=== PATIENT | male | born 1955 | race Caucasian/White ===

== ENCOUNTER 2019-10-24 05:51 | Inpatient (IN) | payer MEDICARE, MEDICAID, SELFPAY ==
[2019-10-24] VITALS (22 sets, daily range): BP systolic 105–169; BP diastolic 63–109; PULSE 46–87; RESP 10–25; TEMP 36.6–36.7; O2SAT 92–99; BMI 30.7
--- NOTE | 2019-10-24 06:04 | ED_ITS ---
HPI - Chest Pain General: Chief Complaint: Chest Pain Stated Complaint: CP Time Seen by Provider: 10/24/19 06:04 History of Present Illness: HPI narrative: chest pain started yesterday around noon. worse with exertion. sob. nausea. MD complaint: chest pain, chest heaviness and chest discomfort Onset (ago): day(s) (1) Timing of current episode: episodic Prior episodes: No Onset: during rest Pain location: right chest Severity: moderate Quality: heaviness Relieving factors: nothing Exacerbating factors: exertion and inspiration Associated symptoms: Reports dyspnea and nausea Treatment prior to arrival: aspirin, nitroglycerin and oxygen Review of Systems General: Denies: ROS unobtainable due to endotracheal tube, ROS unobtainable due to medical condition, ROS unobtainable due to mental status or other Card: Reports: chest pain Resp: Reports: shortness of breath GI: Reports: nausea PFS ED PFSH: Statuses (acute, chronic, etc) shown below reflect problem list status as previously entered and may not be historically accurate Social History Smoking and tobacco status: current every day smoker Physical Exam Const: COMMON NORMALS: no apparent distress, average body habitus, oriented x3, no limitations, healthy appearing, alert and well nourished Neck/C-Spine: COMMON NORMALS: full ROM, no lymphadenopathy, supple and no JVD Resp: COMMON NORMALS: normal respiratory effort, no retractions, no use of accessory muscles and clear to auscultation bilaterally EFFORT & INSPECTION: Yes able to speak in complete sentences AUSCULTATION: clear to auscultation bilaterally Cardio: COMMON NORMALS: no JVD, regular rate, regular rhythm and no murmurs RATE: regular rate RHYTHM: regular rhythm Extremity: COMMON NORMALS: normal to inspection, normal capillary refill and no pedal edema Neuro: COMMON NORMALS: oriented x3 SENSORIUM/ORIENTATION: Yes alert Skin: COMMON NORMALS: no rashes or lesions noted, no wounds and skin turgor normal GENERAL SKIN EXAM: no rashes or lesions noted and turgor normal Course Vital Signs: Vital signs: Vital Signs Temperature 97.9 F 10/24/19 05:52 Pulse Rate 87 10/24/19 05:52 Respiratory Rate 18 10/24/19 05:52 Blood Pressure 169/109 10/24/19 05:52 Pulse Oximetry 99 10/24/19 06:00 MDM - Chest Pain Lab Data: Labs: Lab Results 10/24/19 10/24/19 10/24/19 Range/Units 05:57 05:57 05:57 WBC 8.8 (4.0-10.0) 10^3/ uL RBC 4.65 (4.1-5.3) 10^6/u L Hgb 14.2 (11.7-16.6) g/dL Hct 41.5 L (42.0-52.0) % MCV 89.2 (80-94) fL MCH 30.5 (28.0-34.0) pg MCHC 34.2 (30.0-36.0) g/dL RDW 11.9 L (12.1-15.1) % Plt Count 233 (130-400) 10^3/c mm MPV 9.7 (7.4-10.4) fL Neut % (Auto) 50.6 % Lymph % (Auto) 31.6 % [place] % (Auto) 10.4 % Eos % (Auto) 6.6 % Baso % (Auto) 0.5 % Neut # (Auto) 4.5 (1.8-7.7) 10^3/u L Lymph # (Auto) 2.8 (0.8-4.8) 10^3/u L [place] # (Auto) 0.9 (0.2-0.9) 10^3/u L Eos # (Auto) 0.6 (0.0-0.8) 10^3/u L Baso # (Auto) 0.0 (0.0-0.1) 10^3/u L Nucleated RBC % (a uto) 0 % Nucleated RBCs # 0.0 /100WBC D-Dimer 0.50 (0-0.59) ug/mIFE U Sodium 139 (136-145) mmol/L Potassium 3.3 L (3.5-5.1) mmol/L Chloride 99 (98-107) mmol/L Carbon Dioxide 26 (22-29) mmol/L Anion Gap 17.3 (5-19) BUN 13 (8-23) mg/dL Creatinine 0.9 (0.7-1.2) mg/dL GFR Calculation 84.4 L (90-130) mL/min Glucose 131 H (65-115) mg/dL Calcium 9.5 (8.5-10.5) mg/dL Total Bilirubin 0.4 (0.15-1.2) mg/dL AST 20 (0-40) U/L ALT 15 (0-41) U/L Alkaline Phosphata se 115 (40-130) IU/L Troponin T Baselin e (0-15) ng/mL Troponin T 120 Min megan (0-15) ng/mL Delta Troponin T (0-10) ABS# NT-Pro-B Natriuret Pep 375 H (0-125) pg/mL Total Protein 7.9 (6.6-8.7) g/dL Albumin 4.0 (3.5-5.2) g/dL Globulin 3.9 (1.3-4.6) g/dL 10/24/19 10/24/19 Range/Units 05:57 08:02 WBC (4.0-10.0) 10^3/ uL RBC (4.1-5.3) 10^6/u L Hgb (11.7-16.6) g/dL Hct (42.0-52.0) % MCV (80-94) fL MCH (28.0-34.0) pg MCHC (30.0-36.0) g/dL RDW (12.1-15.1) % Plt Count (130-400) 10^3/c mm MPV (7.4-10.4) fL Neut % (Auto) % Lymph % (Auto) % [place] % (Auto) % Eos % (Auto) % Baso % (Auto) % Neut # (Auto) (1.8-7.7) 10^3/u L Lymph # (Auto) (0.8-4.8) 10^3/u L [place] # (Auto) (0.2-0.9) 10^3/u L Eos # (Auto) (0.0-0.8) 10^3/u L Baso # (Auto) (0.0-0.1) 10^3/u L Nucleated RBC % (a uto) % Nucleated RBCs # /100WBC D-Dimer (0-0.59) ug/mIFE U Sodium (136-145) mmol/L Potassium (3.5-5.1) mmol/L Chloride (98-107) mmol/L Carbon Dioxide (22-29) mmol/L Anion Gap (5-19) BUN (8-23) mg/dL Creatinine (0.7-1.2) mg/dL GFR Calculation (90-130) mL/min Glucose (65-115) mg/dL Calcium (8.5-10.5) mg/dL Total Bilirubin (0.15-1.2) mg/dL AST (0-40) U/L ALT (0-41) U/L Alkaline Phosphata se (40-130) IU/L Troponin T Baselin e 44 H (0-15) ng/mL Troponin T 120 Min megan 118.80 H (0-15) ng/mL Delta Troponin T 74.80 H* (0-10) ABS# NT-Pro-B Natriuret Pep (0-125) pg/mL Total Protein (6.6-8.7) g/dL Albumin (3.5-5.2) g/dL Globulin (1.3-4.6) g/dL Discharge Plan Discharge Clinical Impression: Unstable angina pectoris, Acute non-ST elevation myocardial infarction (NSTEMI) Chest pain Qualifiers: Chest pain type: chest pain due to myocardial ischemia Ischemic chest pain type: unstable angina pectoris Qualified Code(s): I20.0 - Unstable angina Condition: Fair Prescriptions: No Action aspirin 325 mg Tablet 325 mg PO DAILY RF: 0 Plavix 75 mg Tablet 75 mg PO DAILY RF: 0 Coding Level of Care Code 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
--- NOTE | 2019-10-24 06:22 | XR_ITS ---
WS: [id number] Portable AP upright chest, 10/24/2019 Clinical Data: chest pain / dyspnea Comparison: Mobile chest, 06/21/2019. Findings: No nodules, masses or effusions are seen. The heart is normal. The pulmonary vascularity is not increased. No pneumonia or pneumothorax is seen. Monitor leads on the chest wall. The aortic arc h and descending aorta are tortuous. XR/XR chest 1V portable [id number] Impression: Atherosclerosis.
--- NOTE | 2019-10-24 06:22 | ECG_ITS ---
Measurements Intervals [place] Rate: 90 P: 48 MN: 163 QRS: -3 QRSD: 94 T: 63 QT: 368 QTc: [address] & T-WAVE ABNORMALITY Compared to ECG 06/21/2019 23:32:57 No significant changes Electronically Signed On 10-24-2019 19:53:48 TECHNICIANS AND TRADES WORKERS by Carol Tse M.D. [id number]
--- NOTE | 2019-10-24 06:35 | PC.NURSE ---
portable xray at bedside
[2019-10-24 06:42] LABS: Basophils % 0.5 %; Eosinophils # 0.6 10^3/uL (0.0-0.8); Eosinophils % 6.6 %; Hematocrit 41.5 % (42.0-52.0); Hemoglobin 14.2 g/dL (11.7-16.6); Lymphocytes # 2.8 10^3/uL (0.8-4.8); Lymphocytes % 31.6 %; Mean Corpuscular HGB Conc 34.2 g/dL (30.0-36.0); Mean Corpuscular Hemoglobin 30.5 pg (28.0-34.0); Mean Corpuscular Volume 89.2 fL (80-94); Mean Platelet Volume 9.7 fL (7.4-10.4); Monocytes # 0.9 10^3/uL (0.2-0.9); Monocytes % 10.4 %; Neutrophils # 4.5 10^3/uL (1.8-7.7); Neutrophils % 50.6 %; Nucleated Red Blood Cells % 0 %; Platelet Count 233 10^3/cmm (130-400); Red Blood Count 4.65 10^6/uL (4.1-5.3); Red Cell Distribution Width 11.9 % (12.1-15.1); White Blood Count 8.8 10^3/uL (4.0-10.0)
[2019-10-24 06:54] LABS: Troponin(5th) Baseline 44 ng/mL (0-15)
[2019-10-24 07:03] LABS: Alanine Aminotransferase 15 U/L (0-41); Alkaline Phosphatase 115 IU/L (40-130); Anion Gap 17.3 (5-19); Aspartate Amino Transferase 20 U/L (0-40); Blood Urea Nitrogen 13 mg/dL (8-23); Calcium 9.5 mg/dL (8.5-10.5); Carbon Dioxide 26 mmol/L (22-29); Chloride 99 mmol/L (98-107); Globulin 3.9 g/dL (1.3-4.6); Glomerular Filtration Rate 84.4 mL/min (90-130); Glucose 131 mg/dL (65-115); NT Pro B Type Natriuretic Pept 375 pg/mL (0-125); Potassium 3.3 mmol/L (3.5-5.1); Sodium 139 mmol/L (136-145); Total Bilirubin 0.4 mg/dL (0.15-1.2); Total Protein 7.9 g/dL (6.6-8.7)
--- NOTE | 2019-10-24 08:22 | ECG_ITS ---
Measurements Intervals [place] Rate: 49 P: 75 MA: 138 QRS: 6 QRSD: 102 T: 60 QT: 436 QTc: 396 SINUS BRADYCARDIA WITH OCCASIONAL SUPRAVENTRICULAR PREMATURE COMPLEXES ST DEVIATION AND MODERATE T-WAVE ABNORMALITY, CONSIDER INFERIOR ISCHEMIA [-0.1+ mV T WAVE IN II/aVF] INTERPRETATION BASED ON A DEFAULT AGE OF 40 YEARS Compared to ECG 06/21/2019 23:32:57 Possible ischemia now present Sinus rhythm no longer present T-wave abnormality still present Electronically Signed On 10-24-2019 20:06:55 ALUMINUM SIDING INSTALLER by Carol Tse M.D. [id number]
--- NOTE | 2019-10-24 09:19 | PC.NURSE ---
EKG performed and showed to ED physician.
--- NOTE | 2019-10-24 09:33 | P.HP_ITS ---
Providers/Chief Complaint Admitting Physician: Amelia Betancourt DO Primary Care Provider: Dr. Jesús Castellano Chief Complaint: CP History of Present Illness Arnaldo Chacon is a 64 year old male with a past medical history of hyperlipidemia and multiple strokes along with carotid artery stenosis that presented to the emergency department today for chest pain. He stated that he began having chest pain yesterday at noon, monitored the pain and it would come and go but this morning he began to have worsening discomfort. He stated that he began having a heavy sensation in the right side of his chest that radiated to the center of his chest that was worse with exertion. He stated that when he got up to take a shower and when he was even doing minimal activities around the house he began having worsening discomfort. He stated that the pain became so intense that he came into the ER for further evaluation and treatment. He reported that the nitro resolved the pain and also reported that when he would rest at home his pain would resolve. He stated that the only thing that would make it worse with any type of exertional symptoms. He denies any recent fever, no sick contacts, no change in cough or sputum production. Reports a chronic cough from smoking. Patient was seen and evaluated in the emergency department noted to have concern for non-ST elevation SC and admitted for further evaluation and treatment. At time of my exam patient reports that he is chest pain-free after nitroglycerin Review of Systems Const: Denies: fever or chills Eyes: Denies: change in vision ENMT: Denies: nasal congestion Card: Reports: chest pain and edema; Denies: palpitations Resp: Reports: shortness of breath; Denies: productive cough or coughing up blood GI: Denies: abdominal pain, nausea, vomiting, diarrhea, constipation, blood in stool or black tarry stool : Denies: painful urination or blood in urine Musc: Denies: extremity pain or muscle cramps Skin/Breast: Denies: rash or new lesion Neuro: Denies: headache or dizziness Psych: Denies: anxiety or depression Endo: Reports: excessive urination; Denies: hot flashes [place]/Lymph: Denies: easy bruising or easy bleeding Medications/Allergies Home Medications Medication Instructions Recorded Confirmed Last Taken Type aspirin 325 mg PO DAILY 10/24/19 10/24/19 10/23/19 History clopidogrel [Plavix] 75 mg PO DAILY 10/24/19 10/24/19 10/23/19 History Allergies Allergy/AdvReac Type Severity Reaction Status Date / Time Penicillins Allergy Unknown Verified 10/24/19 05:58 PFSH Acute PFSH: Statuses (acute, chronic, etc) shown below reflect problem list status as previously entered and may not be historically accurate Medical History (Updated 10/24/19 @ 09:57 by Amelia Betancourt DO) Carotid stenosis Left carotid artery thromboendarterectomy performed on 11/27/[address] Zuniga History of CVA (cerebrovascular accident) History of right middle cerebral artery territory infarct Left middle cerebral artery stroke in 2014 Right internal carotid artery occlusion Left middle cerebral critical stenosis Hyperlipidemia Hypertension Tobacco abuse Surgical History (Updated 10/24/19 @ 09:42 by Amelia Betancourt DO) History of carotid endarterectomy Left carotid artery thromboendarterectomy performed on 11/27/[address] Zuniga History of lymph node excision Reported in the left axilla Family History (Updated 10/24/19 @ 09:43 by Amelia Betancourt DO) Mother Stroke Father Diabetes CAD (coronary artery disease) Social History (Updated 10/24/19 @ 09:43 by Amelia Betancourt DO) Smoking and tobacco status: current every day smoker cigarettes Packs smoked per day: 0.5 Alcohol intake: never Substance/Drug Use: never Marital status: Vitals/I&O/Wt Last Vital Signs Temp 97.9 F 10/24/19 05:52 Pulse 87 10/24/19 05:52 Resp 18 10/24/19 05:52 BP 169/109 10/24/19 05:52 Pulse Ox 99 10/24/19 06:00 Weight last 48 hrs Weight 94.347 kg Physical Exam Const: COMMON NORMALS: oriented x3 and alert GENERAL APPEARANCE: cooperative ORIENTATION/CONSCIOUSNESS: Yes awake, Yes oriented to person, Yes oriented to place and Yes oriented to time HENMT: COMMON NORMALS: normocephalic and head/scalp atraumatic HEAD & SCALP: normocephalic and atraumatic Eye: COMMON NORMALS: PERRL PUPIL: Yes PERRL Neck/C-Spine: COMMON NORMALS: supple GENERAL: Yes normal visual inspection Resp: COMMON NORMALS: normal respiratory effort and clear to auscultation bilaterally EFFORT & INSPECTION: Yes able to speak in complete sentences AUSCULTATION: clear to auscultation bilaterally, no rhonchi and no wheezes Cardio: COMMON NORMALS: regular rate, regular rhythm and no murmurs RATE: regular rate RHYTHM: regular rhythm GI: COMMON NORMALS: soft to palpation and non-tender INSPECTION: No abdominal distension AUSCULTATION: Yes normoactive bowel sounds PALPATION: Yes soft Extremity: OTHER: Trace nonpitting edema in the lower extremities bilaterally with some mild erythema on the right lower extremity Neuro: COMMON NORMALS: oriented x3, CN's II-XII intact bilaterally and moves all extremities SENSORIUM/ORIENTATION: Yes alert, Yes oriented to person, Yes oriented to place and Yes oriented to time SPEECH: speech normal Psych: COMMON NORMALS: mental status grossly normal and cooperative Skin: COMMON NORMALS: no rashes or lesions noted Data : 10/24/19 05:57 10/24/19 05:57 CXR: My impression: Personally reviewed, report as read by radiologist: Radiologist's impression: Findings: No nodules, masses or effusions are seen. The heart is normal. The pulmonary vascularity is not increased. No pneumonia or pneumothorax is seen. Monitor leads on the chest wall. The aortic arch and descending aorta are tortuous. A&P Assessment and plan (1) Acute non-ST elevation myocardial infarction (NSTEMI): Admit to cardiac stepdown with telemetry Serial EKG and troponin Cardiology, Dr. Tse consulted. Appreciate recommendations and assistance in patient's care. Continue on aspirin, statin, nitro as needed for chest pain. Patient remains chest pain-free at this time. Will start on treatment dose Lovenox Will order echocardiogram to further evaluate Will start on Coreg Status: Acute Code(s): I21.4 - Non-ST elevation (NSTEMI) myocardial infarction (2) Carotid stenosis: And atorvastatin 80 mg Continue on aspirin, continue on home Plavix We will further evaluate with repeat imaging of the carotid Status: Acute Code(s): I65.29 - Occlusion and stenosis of unspecified carotid artery (3) History of CVA (cerebrovascular accident): Previously followed by neurology, last appointment was in 2013. Patient reports he has not seen a primary care provider in greater than 1 year. He continues to take full-strength aspirin and Plavix at home, would recommend starting atorvastatin Status: Acute Code(s): Z86.73 - Personal history of transient ischemic attack (TIA), and cerebral infarction without residual deficits (4) Hyperlipidemia: Started on atorvastatin 80 mg daily Status: Acute Code(s): E78.5 - Hyperlipidemia, unspecified (5) Tobacco abuse: Strongly encourage cessation, nicotine patch as needed Status: Acute Code(s): Z72.0 - Tobacco use (6) Hypertension: Elevated blood pressure in the ED. Will start on Coreg and continue to monitor blood pressure closely, patient is not on any home medications for blood pressure control, will further titrate and adjust as indicated. IV hydralazine as needed for elevated blood pressures Status: Acute Code(s): I10 - Essential (primary) hypertension Additional A&P Information Carotid artery stenosis: Status post carotid endarterectomy on the left, known intracranial right ICA occlusion on prior imaging from 2014, will repeat ultrasound. Continue on aspirin and Plavix and start on statin medication Hyperlipidemia: Started on atorvastatin Hyperglycemia without prior diagnosis of diabetes mellitus, will check hemoglobin A1c Right lower extremity erythema with nonpitting edema: We will obtain ultrasound of the lower extremity to rule out DVT Tobacco abuse: Strongly encourage cessation, nicotine patch as needed DVT prophylaxis: Treatment dose Lovenox due to non-ST elevation SC Diet: Cardiac, n.p.o. at midnight CODE STATUS: DNI/DNI, discussed with patient and he would like to be allow natural status Attestations Medical Necessity Statement*: Patient requires hospitalization due to non-ST elevation SC, expected stay greater than 2 midnights Coding Level of Care Code Acute Disc Pad Knockout Worker for [place] Diagnoses Acute non-ST elevation myocardial infarction (NSTEMI) I21.4 Carotid stenosis I65.29 History of CVA (cerebrovascular accident) Z86.73 Hyperlipidemia E78.5 Tobacco abuse Z72.0 Hypertension I10
--- NOTE | 2019-10-24 09:51 | USCV_ITS ---
Oswaldo Arnaldo Age: 64 Gender: M : 1955 Exam Date: 10/24/2019 10:02 Ordering Phys: Amelia Betancourt DO Technologist: Michelle Santos [place] [facility] [place]ORY: PROCEDURES: Venous duplex imaging was performed in only the right lower extremity. The following venous structures were evaluated: common femoral vein, profunda vein, proximal portion of the greater saphenous vein, superficial femoral vein, and the popliteal vein. In addition, the posterior tibial and peroneal trunk were evaluated. FINDINGS: Normal 2-D Doppler and augmentation and compressibility throughout the lower extremity venous structures. Additional imaging through the proximal calf veins also reveals no thrombus. Limited evaluation of the greater saphenous vein is patent with no thrombus.. CONCLUSIONS Negative right lower extremity venous Doppler ultrasound. Dr. Aysha Draper MD (Electronically Signed) Final Date: 24 October 2019 10:42 S
[2019-10-24 12:20] LABS: Troponin 5 6HR 158.3 ng/L (0-15); Troponin 5 6HR Delta 114.3 ng/L (0-12)
--- NOTE | 2019-10-24 12:22 | ECG_ITS ---
Measurements Intervals [place] Rate: 53 P: 52 ID: [id number] QRS: 3 QRSD: 93 T: 57 QT: 444 QTc: 417 SINUS BRADYCARDIA WITH SINUS ARRHYTHMIA NONSPECIFIC ST & T-WAVE ABNORMALITY Compared to ECG 06/21/2019 23:32:57 Sinus rhythm no longer present T-wave abnormality still present Electronically Signed On 10-24-2019 20:08:42 ORGANIZATIONAL RESEARCH CONSULTANT by Carol Tse M.D. [id number]
--- NOTE | 2019-10-24 13:17 | PM.CONSULT ---
Providers/Reason For Consult Consulting Physican/Specialty*: AGA Tse MD/cardiology Reason for Consult*: Patient with chest pain/elevated troponin T Attending Physician: Amelia Betancourt DO History of Present Illness History of Present Illness Arnaldo Chacon is a 64 year old male with a history of multiple CVAs, this lipidemia, is admitted to the hospital through the emergency room where he presented with a prolonged episode of chest pain. He was found to have an elevated troponin T with a delta of 114. Cardiology consult is requested for further cardiac evaluation recommendations. Patient is a poor historian. He is poorly compliant with medical treatment and follows. He started having chest pain yesterday afternoon. He described as a pressure-like pain in the upper substernal area, radiated to the right side of the chest and also to the back associated with some shortness of breath. The pain was 10/10 intensity. The symptoms gradually subsided. He again had another episode of pain following a shower. Apparently he did not tell about the pain to his and also he did not want to come to the hospital. He was having chest pain through the night. This morning the pain once again got worse with an intensity of 10/10. He also had some sweating. No other associated symptoms or radiation of pain. Because of the persistent chest pain with intermittent waxing and waning, he decided to come to the hospital. Patient was given sublingual nitro and Nitropaste in the emergency room. His symptoms started subsiding. At the time of my examination, patient is pain-free. Approximately 6 months ago, he had an episode of chest pain lasting for half a day. He did not come to the hospital at that time. Patient seems to think that he might have had a heart attack at that time. He has no documented history for previous myocardial infarction or congestive heart failure. He denies any history of hypertension. He has a history of dyslipidemia and also carotid artery disease. He had a carotid endarterectomy [place] [address] Zuniga. He has not any recent follow-up evaluation of the carotid arteries. Denies any history for diabetes. He apparently had a total of 3 episodes of CVA prior to his carotid endarterectomy. He has some residual speech disturbance and problems with balance, following the CVAs. He has no motor weakness of the extremities. Review of Systems Narrative: CONSTITUTIONAL: No fever or chills. EYES: No blurring of vision or other visual disturbances lately. ENT: No hoarseness of voice, auditory disturbances or sore throat. Has some speech disturbance CARDIOVASCULAR: As mentioned above. RESPIRATORY: No significant cough. GASTROINTESTINAL: No hematemesis or melena. GENITOURINARY: No dysuria or hematuria. INTEGUMENTARY: No skin rashes or history of skin cancer. NEURO: Recurrent CVAs with residual problem with the balance and some speech difficulties. PSYCHIATRIC: No history of psychosis or major depression. HEMATOLOGIC: No bleeding disorders or significant anemia. ENDOCRINE: No history of polyuria or polydipsia. MUSCULOSKELETAL: No recent joint pain or swelling. ALLERGY/IMMUNOLOGY: As mentioned above. Meds/Allergies Home Medications and Allergies Home Medications Medication Instructions Recorded Confirmed Type aspirin 325 mg PO DAILY 10/24/19 10/24/19 History clopidogrel [Plavix] 75 mg PO DAILY 10/24/19 10/24/19 History Allergies Allergy/AdvReac Type Severity Reaction Status Date / Time Penicillins Allergy Unknown Verified 10/24/19 05:58 Current Medications Current Medications Nicotine (Nicoderm 21 Mg Patch) 1 patch TRANSDERMA DAILY REY PFSH Acute PFSH: Statuses (acute, chronic, etc) shown below reflect problem list status as previously entered and may not be historically accurate Medical History Carotid stenosis Left carotid artery thromboendarterectomy performed on 11/27/[address] 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 Zuniga History of lymph node excision Reported in the left axilla Family History (Updated 10/24/19 @ 14:19 by Carol Tse MD) Mother Stroke Father Diabetes CAD (coronary artery disease) Had open heart surgery in his 60s. of congestive heart failure in his 80s. Social History Smoking and tobacco status: current every day smoker cigarettes Packs smoked per day: 0.5 Alcohol intake: never Substance/Drug Use: never Marital status: Vitals/I&O/Wt Last Vital Signs Temp 97.9 F 10/24/19 05:52 Pulse 62 10/24/19 12:48 Resp 15 10/24/19 12:48 BP 147/65 10/24/19 12:48 Pulse Ox 97 10/24/19 12:48 Weight last 48 hrs Weight 208 lb Physical Exam Narrative: EXAM NARRATIVE: GENERAL: The patient is alert and oriented times three. Not in any acute distress. HEENT: No significant pallor, icterus or lymphadenopathy. The pupils are reactant to light. Oral cavity: There are no mucous membrane lesions. Funduscopic examination: The fundus is not visualized NECK: Trachea appears to be central. No masses noted. No JVD or thyromegaly appreciated. No carotid bruit. RESPIRATORY: Chest is symmetrical. No intercostals muscle retraction or any accessory muscle activation. There is no chest wall tenderness. Breath sounds are heard bilaterally. No rales or rhonchi heard. No evidence of any consolidation. BREASTS: Deferred. HEART: The PMI is in the 5th left intercostals space just inside the midclavicular line. No palpable precordial events. S1 and S2 are normal. No S3 or S4 heard. No pericardial rub or any click heard. ABDOMEN: Abdomen is somewhat obese. No vessel pulsations or distention. No tenderness. No organomegaly appreciated. No abdominal bruit. Bowel sounds are normally heard. : Deferred. RECTAL: Deferred. LYMPHATIC: No lymphadenopathy noted in the neck or groin. EXTREMITIES: 1-2+ edema of the lower extremities. No cyanosis. Peripheral pulses are palpable and fairly good volume and amplitude. MUSCULOSKELETAL: No acute joint deformities or swelling. SKIN: There are no significant scars or skin rash noted. NEUROPSYCHIATRIC: The patient is alert and oriented x3. Appears to be in a good mood. The higher functions are grossly within normal limits. No tremors or rigidity noted. Data Labs: Other Labs: Abnormal lab results 10/24/19 10/24/19 10/24/19 Range/Units 05:57 05:57 05:57 Hct 41.5 L (42.0-52.0) % RDW 11.9 L (12.1-15.1) % Potassium 3.3 L (3.5-5.1) mmol/L GFR Calculation 84.4 L (90-130) mL/min Glucose 131 H (65-115) mg/dL Troponin I 6 Hour (0-15) ng/L Troponin I Hi Sens Del (0-12) ng/L Troponin T Baselin e 44 H (0-15) ng/mL Troponin T 120 Min [place] (0-15) ng/mL Delta Troponin T (0-10) ABS# NT-Pro-B Natriuret Pep 375 H (0-125) pg/mL 10/24/19 10/24/19 Range/Units 08:02 11:52 Hct (42.0-52.0) % RDW (12.1-15.1) % Potassium (3.5-5.1) mmol/L GFR Calculation (90-130) mL/min Glucose (65-115) mg/dL Troponin I 6 Hour 158.3 H (0-15) ng/L Troponin I Hi Sens Del 114.3 H* (0-12) ng/L Troponin T Baselin e (0-15) ng/mL Troponin T 120 Min [place] 118.80 H (0-15) ng/mL Delta Troponin T 74.80 H* (0-10) ABS# NT-Pro-B Natriuret Pep (0-125) pg/mL Imaging^: CXR: My impression: Normal cardiac silhouette. No acute lung infiltrate. Slightly rotated film. Some unfolding of the aorta. EKG^: EKG 1: My Interpretation: Normal sinus rhythm with [address] depressions in leads II, III, aVF, V5 and V6. Nonspecific ST changes in the high lateral leads. EKG 3: My Interpretation: Sinus bradycardia with some nonspecific ST-T changes A&P Assessment and plan (1) Acute non-ST elevation myocardial infarction (NSTEMI): Patient's clinical features are consistent with a non-ST elevation myocardial infarction. Hemodynamically seems to be stable. He may be kept on the Lovenox, Plavix, aspirin, beta-von and statin. Echocardiogram will be helpful to evaluate LV function and rule out any other pathology. Patient may require a cardiac authorization, to further evaluate his coronary status. This will be decided after reviewing the echocardiogram and also based on the patient's clinical progress. Status: Acute Code(s): I21.4 - Non-ST elevation (NSTEMI) myocardial infarction (2) Unstable angina pectoris: Patient had a symptoms suggestive of unstable angina. His chest pain lasted for more than 12 hours. Currently he is pain-free. May continue on the above medication. Status: Acute Code(s): I20.0 - Unstable angina (3) Carotid artery stenosis with cerebral infarction over 8 weeks ago: Status: Acute (4) Hyperlipidemia: Patient has a longstanding history of dyslipidemia. He will be started on a statin drug. Status: Acute Qualifiers: Hyperlipidemia type: mixed hyperlipidemia Qualified Code(s): E78.2 - Mixed hyperlipidemia Code(s): E78.5 - Hyperlipidemia, unspecified Additional A&P Information Mild hypokalemia, needs potassium supplement. History of heavy alcohol abuse, quit 2 years ago. History of smoking abuse, cut back since 2014. Used to smoke a pack a day but lately smoking only half pack a day. Strongly advised to quit smoking. Elevated blood pressure, currently of stage II. May start him on antihypertensive medications. Consult Attestations Medical Necessity Statement: Patient requires at least 2 midnight stay for further evaluation and management of his condition. Coding Level of Care Code Acute [employer] for [place] History Detailed Exam Detailed Medical Decision Making Moderate Complexity Diagnoses Acute non-ST elevation myocardial infarction (NSTEMI) I21.4 Unstable angina pectoris I20.0 Carotid artery stenosis with cerebral infarction over 8 weeks ago Hyperlipidemia E78.2 Hyperlipidemia type: mixed hyperlipidemia Time Spent (min) 60
--- NOTE | 2019-10-24 13:24 | USCV_ITS ---
OswaldoArnaldo Age: 64 Gender: M : 1955 Exam Date: 10/24/2019 13:52 Ordering Phys: Carol Tse MD ([email or web address]) Technologist: [place] [facility] [place]: ACUTE HI BP: 132 / 68 HR: 52 Rhythm: Sinus Technical Quality: Fair MEASUREMENTS (Male / Female) Normal Values 2D ECHO LVOT Diameter 2.1 cm LV Ejection Fraction MOD 2C 60.1 % LV Ejection Fraction 2C AL 60.9 % LA Diameter 3.9 cm LA Width 3.7 cm LA Height 4.7 cm RA Width 3.5 cm Aorta at Sinotubular Diameter 3.2 cm M-MODE LV Diastolic Diameter MM 5.5 cm 4.2 - 5.9 / 3.9 - 5.3 cm LV Systolic Diameter MM 3.2 cm LV Ejection Fraction MM Teich 72.8 % IVS Diastolic Thickness MM 1.1 cm 0.6 - 1.0 / 0.6 - 0.9 cm IVS Systolic Thickness MM 1.7 cm LVPW Diastolic Thickness MM 1.4 cm 0.6 - 1.0 / 0.6 - 0.9 cm LVPW Systolic Thickness MM 1.7 cm RV Diastolic Diameter MM 1.7 cm Aortic Annulus Diameter 4.2 cm LA Ao Ratio MM 0.9 MV E Point Septal Separation 0.6 cm DOPPLER AV Peak Velocity 103.0 cm/s LVOT Peak Velocity 87.0 cm/s AV Area Cont Eq vti 2.9 cm squared AV Area Cont Eq pk 2.9 cm squared MV Area PHT 5.0 cm squared Mitral E to A Ratio 1.0 MV E' Velocity 11.0 cm/s Mitral E to MV E' Ratio 7.8 Mitral E to LV E' Lateral Ratio 7.0 Mitral E to LV E' Septal Ratio 8.9 TR Peak Velocity 267.0 cm/s TR Peak Gradient 28.6 mmHg TV Peak E Velocity 58.0 cm/s Right Atrial Pressure 3.0 mmHg Pulmonary Artery Systolic Pressu 31.5 mmHg FINDINGS Left Ventricle Normal in size ejection fraction 55%. Mild hypokinesia of the mid and apical septum. Right Ventricle Possibly of normal size ejection fraction Right Atrium Normal right atrial size. Left Atrium Normal left atrial size. Mitral Valve Thickened mitral valve. Aortic Valve Thickened aortic valve. Tricuspid Valve No gross abnormalities noted Pulmonic Valve Pulmonic valve not well visualized. Pericardium No pericardial effusion. Aorta Mildly dilated aortic root, measuring 4.0 cm the level of the sinuses CONCLUSIONS Normal in size ejection fraction 55%. Mild hypokinesia of the mid and apical septum. Thickened aortic and mitral valves. No intracardiac masses or pericardial effusion Mildly dilated aortic root, measuring 4.0 cm the level of the sinuses. Technically difficult study because of the poor ultrasonic window. Comparison with the previous study is difficult because of the difference in the technical quality. Dr Craol Tse MD [facility] (Electronically Signed) Final Date: 24 October 2019 20:24 S
--- NOTE | 2019-10-24 15:13 | USCV_ITS ---
Arnaldo Chacon Age: 64 Gender: M : 1955 Exam Date: 10/24/2019 15:56 Ordering Phys: Amelia Betancourt DO Technologist: Jeniffer Hylton Exam Location: [facility] – [place] Indication: stenosis Risk Factors: known right ica occlusion, LCEA Previous Vascular Surgery: Right Brachial BP: / Left Brachial BP: / Right Left Velocity (cm/s) Spectral Plaque Velocity (cm/s) Spectral Plaque Syst/Diast Broadening Syst/Diast Broadening 57.30/ 8.80 Prox CCA 56.10 / 21.30 38.10/ 7.00 Mid CCA 38.30 / 17.00 23.30/ 9.30 Distal CCA 52.50 / 22.00 / Prox ICA 51.40 / 21.20 / Mid ICA 64.10 / 16.90 / Distal ICA 74.30 / 29.20 124.60 ECA 96.20 ICA/CCA 1.94 Antegrade Vertebral Antegrade 35.50/ 11.50 cm/s 65.40/ 23.50 cm/s Tri Subclavian Tri 105.2 117.3 0 0 FINDINGS Intimal thickening and minimal plaques in the common carotid arteries bilaterally. Minimal plaques the bifurcation and internal carotid arteries No Doppler flow signals in the right internal carotid artery CONCLUSIONS Intimal thickening and minimal plaques in the common carotid arteries bilaterally. Minimal plaques at the bifurcation and internal carotid arteries bilaterally. Features of total occlusion of the right internal carotid artery No significant stenosis on the left side, based on the above findings Dr Carol Tse MD [facility] (Electronically Signed) Final Date: 25 October 2019 00:30 S
[2019-10-24 16:11] LABS: Chol HDL Ratio 5.42 mg/dL (1.0-5.00); Cholesterol 179 mg/dL (0-200); HDL Cholesterol 33 mg/dL (60-100); LDL Cholesterol Calculated 106 mg/dL (50-129); LDL HDL Ratio 3.21 RATIO (0.00-3.22); Triglycerides 199 mg/dL (0-150)
[2019-10-24 16:31] LABS: Estmated Average Glucose 126
[2019-10-24] MEDS: enoxaparin 100 mg/mL Syringe 90 MG SUBCUT (17:57)
[2019-10-24] MEDS: aspirin 325 mg Tablet PO (17:57)
[2019-10-24] MEDS: clopidogrel 75 mg Tablet PO (17:57)
[2019-10-24] MEDS: carvedilol 3.125 mg Tablet PO (17:57)
[2019-10-24] MEDS: atorvastatin 40 mg Tablet 80 MG PO (21:38)
[2019-10-25] VITALS (81 sets, daily range): BP systolic 113–205; BP diastolic 62–135; PULSE 42–90; RESP 10–24; TEMP 36.3–37; O2SAT 90–97; BMI 28.3
[2019-10-25] MEDS: enoxaparin 100 mg/mL Syringe 90 MG SUBCUT ×2 (02:34→14:46)
[2019-10-25 05:30] LABS: Anion Gap 13.5 (5-19); Blood Urea Nitrogen 10 mg/dL (8-23); Calcium 9.1 mg/dL (8.5-10.5); Carbon Dioxide 24 mmol/L (22-29); Chloride 106 mmol/L (98-107); Glomerular Filtration Rate 96.7 mL/min (90-130); Glucose 96 mg/dL (65-115); Osmolality Calculated 286 mOsm/kg (285-295); Potassium 3.5 mmol/L (3.5-5.1); Sodium 140 mmol/L (136-145)
--- NOTE | 2019-10-25 06:51 | XACV_ITS ---
Exam Room: [facility] Ht: 175 cm Wt: 94 kg BSA: 2.17 m2 Gender: Male : 1955 Any Known Allergies: Penicillins Exam Priority: Routine Procedure(s): Procedure Description: Diagnostic procedure Procedure Description: PCI procedure Procedure Description: Left ventriculography Procedure Description: Drug Eluting Coronary Stent Procedure Description: PTCA Procedure Description: Miscellaneous Procedure Description: ACT Procedure Description: Coronary Angiography Diagnostic Cath Status: Elective Diagnostic Findings LM is a medium caliber vessel with mild diffuse disease.. LAD is a medium caliber vessel which appears to wrap around the LV apex minimally. The ostium of the LAD was found to have around 30% tubular narrowing. It gives off a high diagonal, intermedius artery which appears to bifurcate in the midsegment. Just before the bifurcation, the artery appears to be subtotally occluded. The bifurcation branches are found to have mild to moderate diffuse disease. The mid and distal LAD also was found to have mild diffuse disease.. The circumflex artery is a medium caliber vessel with minimal intimal anxieties. No significant stenotic lesions were noted.. RCA is a medium caliber vessel with mild diffuse intimal irregularities. No significant stenotic lesions were noted. The PDA branch was found to have 40 to 50% diffuse narrowing in the proximal segment. No other significant stenotic lesions were noted.. Coronary angiography shows right dominance. Diffuse calcification was noted in the proximal segment of all the arteries. The left main was found to have a high and anterior takeoff.. PCI Status: Elective PCI Indication: NSTE - ACS Interventional Findings Successful PCI to proximal diagonal-2. Lesion was prepared with 2.0 x 8 mm AB TREK balloon, followed by deployment of COLT INTEGRITY 2.0 x 15 mm stent posted at high ROSALEE of 14 mm to ensure proper approximation. Excellent angiographic result with ELIOT-3 flow was achieved. . Conclusions This is a 64-year-old white male, with a history of hypertension, dyslipidemia, recurrent CVAs, is admitted to hospital with features of unstable angina and non-ST elevation myocardial infarction. His EKG showed nonspecific ST-T changes. Echocardiogram revealed a mild hypokinesia of the anteroseptal segments. He apparently presented to the hospital with a prolonged episode of chest pain, lasting for several hours. His troponin T was found to be elevated with an initial delta of 114. In view of his history, presenting symptoms and the abnormal objective findings, in order to further evaluate his coronary status, a cardiac catheterization was recommended. Patient underwent left heart catheterization with left and right coronary angiogram and LV angiogram today. The findings are as follows. The intermedius artery was found to be subtotally occluded at the mid segment. Mild to moderate diffuse disease was noted in the other vessels. Coronary calcification was noted in the proximal segments of all the arteries. The LV ejection fraction was normal - 60% with mild hypokinesia of the mid anterior wall region. Based on the angiogram findings, it was thought to be appropriate to consider PCI of the diagonal/intermediate artery lesion. Recommendations I reviewed and discussed the cardiac catheterization data with Dr. Torres. Dr. Torres agreed with this plan and took over further management of this patient at this point. 1-Return to inpatient for close monitoring and routine cath care2-Risk factor modification for secondary prevention3-Statin and aspirin 81 mg life-long, if tolerated4-Continue Plavix 75mg p.o. daily for at least one year. We will assess at the end of one year again to continue if further or not5-Continue optimal medical management6-Follow up with Dr. Tse in four weeks and your primary care in 10 days. Diagnostic RX Recommendation: PCI w/o planned CABG Ejection Fraction: 60.0 % LV EDP: 21 mmHg Left Ventriculography Findings: The LV gram was performed in the OLIVER position. The LV cavity appears to be of normal size. There was mild hypokinesis of the mid anterior wall region. No filling defects were noted. No significant mitral valve prolapse or mitral regurgitation. Pressures Phase:Rest AO : 114 mmHg / 76 mmHg ( 94 mmHg ) @ 1:22:00 AM 131 mmHg / 73 mmHg ( 97 mmHg ) @ 1:36:00 AM 135 mmHg / 75 mmHg ( 100 mmHg ) @ 1:36:00 AM 151 mmHg / 79 mmHg ( 109 mmHg ) @ 2:13:00 AM 187 mmHg / 112 mmHg ( 147 mmHg ) @ 2:19:00 AM LV : 121 mmHg / 8 mmHg / @ 1:33:00 AM 127 mmHg / 11 mmHg / @ 1:36:00 AM 132 mmHg / 9 mmHg / @ 1:36:00 AM Valves Phase:DefaultPhase AV : 0.0 mmHg @ 8:39:09 AM AV Mean Gradient: 0.0 mmHg @ 8:39:09 AM Clinical Evaluation EBL: 5mL-10mL Procedural Details Procedure Consent Obtained. Pre-Procedure Time Out. Identified patient by full name and date of as verbalized by the patient/guarantor. Does the consent match the physician's order: Yes. Accurate & Complete Informed Consent: Yes. Inpatient/Outpatient History & Physical on Chart: Yes. If H&P is completed, is and addenduem needed: No; If yes, is the addendum complete: N/A. Visualize and Verify Site with Patient/Guarantor: N/A. Relevant Radiology Images available: Yes. Pre-op teaching completed and patient verbalized understanding. The risks, benefits, and alternatives of sedation and/or procedure were discussed by physician. The patient agrees to continue. Procedure started. Correct patient, site and procedure confirmed by cath team. Current diagnosis: Chest Pain. PERRLA. Strong, equal hand float builder bilaterally. Lungs clear x 5 lobes. IV Site on Arrival: 20 gauge in the left anticubital. IV Fluids: 0.9% NaCl at KVO. 0 mL infused prior to manufacturing laborer. Pre Procedural Pulses: bilateral dorsalis pedis was 3+. Pre Procedural Pulses: bilateral posterior tibial was 3+. Pre Procedural Pulses: bilateral radial was 3+. Oxygen started at 2liters/min via nasal canula. right radial was prepped with chloroprep then draped in the usual sterile fashion. bilateral groins was prepped with chloroprep then draped in the usual sterile fashion. Physician notified. Baseline sample Acquired. HR: 49 BPM. Physician arrived. Physician scrubbed in. Equipment: 6F - Radial. Immediate Pre-Procedure Time Out. Correct Patient: Yes; Correct Procedure: Yes; Correct Site: Yes; Correct Patient Position: Yes; Correct Supplies: Yes; Dried Flammable Prep: Yes; Blood Products Available: No;. Lidocaine 1% infiltrated to the right radial. Arterial access obtained. A 5 cay[place] islander Joe catheter in over wire. Catheter out. A 5 cay[place] islander TIG catheter in over wire. Multiple views taken of left coronary artery. Catheter redirected to the RCA. A 5 [place]ay[place] islander JR4 catheter in over wire. Dr. Torres notified. Multiple views taken of right coronary artery. Dr. Torres arrived. A 5 cay[place] islander Angled Pig catheter in over wire. EDP Sample taken: LV 121/8,26; HR: 58 BPM; SpO2: 98%. LV gram performed in OLIVER @ 10 mL/second for a total of 30 mL. EDP Sample taken: LV 127/11,25; HR: 61 BPM; SpO2: 97%. Pullback taken: LV 132/9,32; AO 131/73(97); Mean: 0mmHg, Peak to Peak: 0mmHg, SEP: 5sec/min; HR: 60 BPM; SpO2: 96%. Dr. Murillo scrubbed out to review films. Dr. Torres scrubbed in. 6 cay[place] islander XB 3.5 guide catheter was inserted over the wire. ACT drawn. Results 183 seconds. Therapeutic limits - pre-heparin administration 90-150 seconds and monitoring heparin during a vascular procedure >250 seconds. [place] guidewire was advanced through the guide catheter to lesion in the distal LAD. 2.00mm x 8mm balloon inserted but removed intact and undeployed. Inflation number : 1 A AB MINI TREK 2.00X8 RX BALLOON was prepped and advanced across the 2nd Diag , then inflated to 8 ROSALEE for 0:06 seconds. Inflation number: 2 The AB MINI TREK 2.00X8 RX BALLOON was reinflated across the 2nd Diag, to 8 ROSALEE for 0:06 seconds. Inflation number: 3 The AB MINI TREK 2.00X8 RX BALLOON was reinflated across the 2nd Diag, to 8 ROSALEE for 0:04 seconds. Inflation number: 4 The AB MINI TREK 2.00X8 RX BALLOON was reinflated across the 2nd Diag, to 6 ROSALEE for 0:05 seconds. Inflation number: 5 The AB MINI TREK 2.00X8 RX BALLOON was reinflated across the 2nd Diag, to 8 ROSALEE for 0:03 seconds. Surgery notified of intervention. Balloon out. 2.0mm x 15mm Stent inserted but removed with no deployments and intact. Wire out. Guide catheter out. 6 [place]ay[place] islander JL 3.5 guide catheter was inserted over the wire. Inflation Number : 6 Leonel Jimenez COLT 2.0X15 ELIZABETH -Lot Number#[id number] was prepped and advanced across the 2nd Diag. The stent was deployed at 14 ROSALEE for 0:23 seconds. Stent expiration date: 06/08/2020. Stent balloon out over wire. Results checked. ACT drawn. Results 285 seconds. Therapeutic limits - pre-heparin administration 90-150 seconds and monitoring heparin during a vascular procedure >250 seconds. TR band placed. Hemostasis obtained. Post Procedure: Pulses reassessed and unchanged. PERRLA. Strong, equal hand float builder bilaterally. No VTE prophylaxis required. [facility] Clinical Fraility Score: 4: Vulnerable. Accounts Payable Representative Indications: Worsening Angina. Chest Pain Symptom Assessment: Typical Angina Symptoms. Cardiovascular Instability: No. Total IV fluids: 332 mL. Contrast type used: Visipaque 320 mgI/mL, 500 mL bottle. PCI Indication: CAD (without ischemic symptoms). Medication's Wasted: Other = Cardene 24.6 mg. Medication's Wasted: Other = Versed 1 mg. Medication's Wasted: Other = Fentanyl 75 mg. Medication's Wasted: Nitro = 49.8 mg. Medication's Wasted: Other = Heparin 2000 units. Medication's Wasted: Lidocaine 1% = 18 mg. Post-op diagnosis: CAD. Complications: None. Estimated blood loss: 5mL-10mL. Procedure completed. Patient transferred by wheelchair to 1st floor. Vital chart was stopped. Site: Right Radial artery Sheath Size: 6 Fr Hemostasis Success: Unsuccessful Procedure Medications Start: 7:02 AM Stop: 7:02 AM Medication: Fentanyl Amount: 50 mcg Route: I.V. Start: 7:05 AM Stop: 7:05 AM Medication: Versed Amount: 1 mg Route: I.V. Start: 7:11 AM Stop: 7:11 AM Medication: Verapamil Amount: 5 mg Route: I.A. Start: 7:12 AM Stop: 7:12 AM Medication: 0.9% Saline Amount: 250 ml Route: I.V. bolus Start: 7:16 AM Stop: 7:16 AM Medication: Heparin Amount: 5000 units Route: I.V. Start: 7:24 AM Stop: 7:24 AM Medication: Nitrogylcerin Amount: 100 mcg Route: I.A. Start: 7:33 AM Stop: 7:33 AM Medication: Versed 1 mg and Fentanyl 25 mcg Amount: 1 Route: I.V. Start: 7:56 AM Stop: 7:56 AM Medication: Heparin Amount: 4000 units Route: I.V. Start: 7:59 AM Stop: 7:59 AM Medication: Nitrogylcerin Amount: 200 mcg Route: I.C. Start: 8:06 AM Stop: 8:06 AM Medication: Fentanyl Amount: 25 mcg Route: I.V. Start: 8:10 AM Stop: 8:10 AM Medication: Cardene Amount: 400 mcg Route: I.C. Start: 8:14 AM Stop: 8:14 AM Medication: Versed Amount: 1 mg Route: I.V. Start: 8:20 AM Stop: 8:20 AM Medication: Fentanyl Amount: 25 mcg Route: I.V. I, the attending physician, have reviewed and verified all procedure medications. Yes, all medications given per verbal order History/Risk Factors Hypertension: Yes Dyslipidemia: No Peripheral Arterial Disease (PAD): No Myocardial Infarction ([place]): Yes Obesity: No Renal Disease: No Prior Interventions PCI: No CABG: No Valve Surgery: No Report Signatures Interventional Workflow - Finalized by: Debbie Torres MD on 11/08/2019 7:10:39 PM Diagnostic Workflow - Finalized by:Dr Carol Tse MD [facility] on 10/25/2019 7:22:22 PM
[2019-10-25] MEDS: clopidogrel 300 mg Tablet PO (09:09)
[2019-10-25] MEDS: aspirin 325 mg Tablet PO (10:21)
--- NOTE | 2019-10-25 10:21 | PC.NURSE ---
MEDICATIONS GIVEN LATE DUE TO DISCUSSION OVER MEDICATIONS WITH DR. RIOS.
--- NOTE | 2019-10-25 10:24 | PC.CHAP ---
Pastoral Care Encounter/Spiritual Assessment Type of Contact [] Declined airfield manager visit [] Patient/Family/Request visit [] Outpatient visit [] Follow-up visit [] Physician referral [] Code/Alert [x] Routine visit [] Staff referral [] Actively dying [] Patient sleeping [] Family support [] [] Out of room [] Palliative care [] [] Receiving care in room [] Pre-surgical visit [] Trauma [] Long length of stay [] ICU visit [] Other: Relational/Emotional Strength [] Patient feels connected with others/family/visitors/staff [] Distress [] Loneliness/isolation [] Abandonment Spirituality of Patient [] Person of Luci [] Attends Faith of their Luci [x] Believes in Prayer [] Reads Bible or Druze materials [] There are Spiritual issues to be addressed Knife Sharpener Interventions [x] Prayer [] Active listening [] Non-anxious presence [] Spiritual/emotional support [] Crisis/trauma care [] Spiritual counseling [] Bereavement support [] Provided bereavement packet [] Provided Bible/devotional materials [] Provided toy/stuffed animal, coloring book to patient or family member [] Provided Communion [] Anointing/[place] [] Salvation [] Completed spiritual assessment [] Other: Impact on Illness or Injury [] Angry [] Fearful [] Anxious [] Often cries [] Exhaustion [] Unable to work [] Unable to attend spiritism [] Unable to walk/stand [] Unable to read [] Unable to drive [] Unable to eat/drink [] Unable to sleep [] Unable to be with family [] Patient intubated [] Other: Summary Time spent with patient 5min
--- NOTE | 2019-10-25 11:09 | P.PN_ITS ---
Subjective Subjective: Interval history: Patient awake in bed at time of exam today. He denied any current chest pain or shortness of breath. Discussed with patient cardiac cath results from this morning and stent placement. Patient denies any concerns or questions at this time. Discussed care with RN, patient's blood pressure has been trending slightly higher since cardiac cath Vitals/I&O/Wt Last Vital Signs Temp 98.3 F 10/25/19 04:00 Pulse 48 L 10/25/19 09:02 Resp 11 L 10/25/19 09:00 BP 164/86 10/25/19 09:00 Pulse Ox 94 10/25/19 09:02 10/24/19 10/25/19 10/25/19 22:59 06:59 14:59 Intake Total 480 / 480 200 / 680 120 / 120 Balance 480 / 480 200 / 680 120 / 120 Weight last 48 hrs Weight 87.101 kg Weight 94.347 kg Physical Exam Const: COMMON NORMALS: oriented x3 and alert GENERAL APPEARANCE: cooperative ORIENTATION/CONSCIOUSNESS: Yes awake, Yes oriented to person, Yes oriented to place and Yes oriented to time HENMT: COMMON NORMALS: normocephalic and head/scalp atraumatic HEAD & SCA LP: normocephalic and atraumatic Eye: COMMON NORMALS: PERRL PUPIL: Yes PERRL Neck/C-Spine: COMMON NORMALS: supple GENERAL: Yes normal visual inspection Resp: COMMON NORMALS: normal respiratory effort and clear to auscultation bilaterally EFFORT & INSPECTION: Yes able to speak in complete sentences AUSCULTATION: clear to auscultation bilaterally, no rhonchi and no wheezes Cardio: COMMON NORMALS: regular rhythm and no murmurs RATE: bradycardic RHYTHM: regular rhythm GI: COMMON NORMALS: soft to palpation and non-tender INSPECTION: No abdominal distension AUSCULTATION: Yes normoactive bowel sounds PALPATION: Yes soft Neuro: COMMON NORMALS: oriented x3, CN's II-XII intact bilaterally and moves all extremities SENSORIUM/ORIENTATION: Yes alert, Yes oriented to person, Yes oriented to place and Yes oriented to time SPEECH: speech normal Psych: COMMON NORMALS: mental status grossly normal and cooperative Skin: COMMON NORMALS: no rashes or lesions noted GENERAL SKIN EXAM: no rashes or lesions noted Data : 10/24/19 05:57 10/25/19 03:55 A&P Assessment and plan (1) Acute non-ST elevation myocardial infarction (NSTEMI): Patient had coronary angiogram today with successful PCI Continue to monitor in the postprocedural setting We will start on lisinopril due to elevated blood pressure, initially started on aspirin, statin, Plavix, will give a loading dose of Plavix. Coreg initially started now being discontinued due to bradycardia Status: Acute Code(s): I21.4 - Non-ST elevation (NSTEMI) myocardial infarction (2) Carotid stenosis: And atorvastatin 80 mg Continue on aspirin, continue on home Plavix Chronic occlusion of the right carotid Status: Acute Code(s): I65.29 - Occlusion and stenosis of unspecified carotid artery (3) History of CVA (cerebrovascular accident): Continue on aspirin, statin, Plavix Status: Acute Code(s): Z86.73 - Personal history of transient ischemic attack (TIA), and cerebral infarction without residual deficits (4) Hyperlipidemia: Started on atorvastatin 80 mg daily Status: Acute Qualifiers: Hyperlipidemia type: mixed hyperlipidemia Qualified Code(s): E78.2 - Mixed hyperlipidemia Code(s): E78.5 - Hyperlipidemia, unspecified (5) Tobacco abuse: Strongly encourage cessation, nicotine patch as needed Status: Acute Code(s): Z72.0 - Tobacco use (6) Hypertension: Initially started on Coreg, and this is now been discontinued due to bradycardia. Started on lisinopril daily Status: Acute Code(s): I10 - Essential (primary) hypertension Additional A&P Information Carotid artery stenosis: Status post carotid endarterectomy on the left, known intracranial right ICA occlusion on prior imaging from 2014, will repeat ultrasound. Continue on aspirin and Plavix and start on statin medication Hyperlipidemia: Started on atorvastatin Hyperglycemia without prior diagnosis of diabetes mellitus, will check hemoglobin A1c Right lower extremity erythema with nonpitting edema: We will obtain ultrasound of the lower extremity to rule out DVT Tobacco abuse: Strongly encourage cessation, nicotine patch as needed DVT prophylaxis: Treatment dose Lovenox due to non-ST elevation IA Diet: Cardiac diet CODE STATUS: DNI/DNI, discussed with patient and he would like to be allow natural status Attestations Medical Necessity Statement*: Patient requires continued hospitalization due to non-ST elevation IA Coding Level of Care Code Acute Senior Sales Director for [place] Diagnoses Acute non-ST elevation myocardial infarction (NSTEMI) I21.4 Carotid stenosis I65.29 History of CVA (cerebrovascular accident) Z86.73 Hyperlipidemia E78.2 Hyperlipidemia type: mixed hyperlipidemia Tobacco abuse Z72.0 Hypertension I10
[2019-10-25] MEDS: lisinopril 5 mg Tablet PO ×2 (11:19→17:43)
--- NOTE | 2019-10-25 11:21 | PC.NURSE ---
DR. RIOS NOTIFIED OF PATIENT'S INCREASED BLOOD PRESSURE. DR. RIOS TO ADD LISINOPRIL TO MEDICATIONS.
--- NOTE | 2019-10-25 13:33 | P.PN_ITS ---
Subjective Subjective: Interval history: Patient has not had any significant chest pain, since hospital admission. Denies any shortness of breath, fever or chills. He underwent left heart catheterization today with left and right coronary angiogram and LV angiogram. He was found to have a subtotal occlusion of the first diagonal branch. Mild to moderate disease was noted in the other vessels. The LV ejection fraction was normal. Mild hypokinesia of the mid anterior wall was noted. The LVEDP was 26 mmHg. Medications: Reviewed: Yes Medication Review Details: Current Medications Hydrocodone Bitart/Acetaminophen ([place] 5-325 Mg) 1 tab PO Q4H PRN PRN Reason: MODERATE TO SEVERE PAIN Aspirin (Aspirin) 325 mg PO DAILY [facility] Last Admin: 10/25/19 10:21 Dose: 325 mg Documented by: Atorvastatin Calcium (Lipitor) 80 mg PO BEDTIME [facility] Last Admin: 10/24/19 21:38 Dose: 80 mg Documented by: Bisacodyl (Dulcolax) 10 mg PO DAILY PRN PRN Reason: CONSTIPATION Clopidogrel Bisulfate (Plavix) 75 mg PO DAILY [facility] Last Admin: 10/25/19 08:46 Dose: Not Given Documented by: Enoxaparin Sodium (Lovenox) 90 mg 1 mg/kg (90 mg) SUBCUT Q12H [facility] Last Admin: 10/25/19 02:34 Dose: 90 mg Documented by: Hydralazine HCl (Apresoline) 10 mg IVP Q4H PRN PRN Reason: other Lisinopril (Prinivil) 5 mg PO DAILY [facility] Last Admin: 10/25/19 11:19 Dose: 5 mg Documented by: Morphine Sulfate (Morphine) 2 mg IVP Q4H PRN PRN Reason: SEVERE PAIN Nicotine (Nicoderm 21 Mg Patch) 1 patch TRANSDERMA DAILY [facility] Last Admin: 10/25/19 10:21 Dose: Not Given Documented by: Nitroglycerin (Nitrostat) 0.4 mg SUBLINGUAL Q5M PRN PRN Reason: CHEST PAIN Ondansetron HCl (Zofran) 4 mg PO Q8H PRN PRN Reason: NAUSEA Vitals/I&O/Wt Last Vital Signs Temp 97.9 F 10/25/19 11:20 Pulse 59 L 10/25/19 11:20 Resp 18 10/25/19 11:20 BP 205/99 10/25/19 11:20 Pulse Ox 93 10/25/19 11:20 10/24/19 10/25/19 10/25/19 22:59 06:59 14:59 Intake Total 480 / 480 200 / 680 360 / 360 Balance 480 / 480 200 / 680 360 / 360 Weight last 48 hrs Weight 192 lb 0.4 oz Weight 208 lb Physical Exam Narrative: EXAM NARRATIVE: GENERAL: The patient is alert and oriented times three. Not in any acute distress. HEENT: No significant pallor, icterus or lymphadenopathy. The pupils are reactant to light. Oral cavity: There are no mucous membrane lesions. NECK: Trachea appears to be central. No masses noted. No JVD or thyromegaly appreciated. No carotid bruit. RESPIRATORY: Chest is symmetrical. No intercostals muscle retraction or any a ccessory muscle activation. There is no chest wall tenderness. Breath sounds are heard bilaterally. No rales or rhonchi heard. No evidence of any consolidation. BREASTS: Deferred. HEART: The PMI is in the 5th left intercostals space just inside the midclavicular line. No palpable precordial events. S1 and S2 are normal. No S3 or S4 heard. No pericardial rub or any click heard. ABDOMEN: Abdomen is somewhat obese. No vessel pulsations or distention. No tenderness. No organomegaly appreciated. No abdominal bruit. Bowel sounds are normally heard. : Deferred. RECTAL: Deferred. LYMPHATIC: No lymphadenopathy noted in the neck or groin. EXTREMITIES: 1+ edema of the lower extremities. No cyanosis. Peripheral pulses are palpable and fairly good volume. No hematoma or bleeding from the radial a rterial puncture site. MUSCULOSKELETAL: No acute joint deformities or swelling. SKIN: There are no significant scars or skin rash noted. NEUROPSYCHIATRIC: The patient is alert and oriented x3. Appears to be in a good mood. The higher functions are grossly within normal limits. No tremors or rigidity noted. Data : 10/24/19 05:57 10/25/19 03:55 Other Labs: Abnormal lab results 10/24/19 Range/Units 05:57 Triglycerides 199 H (0-150) mg/dL HDL Cholesterol 33 L (60-100) mg/dL Cholesterol/HDL Ratio 5.42 H (1.0-5.00) mg/dL A&P Assessment and plan (1) Acute non-ST elevation myocardial infarction (NSTEMI): The diagonal artery lesion appears to be the culprit lesion. Patient underwent a PCI of this lesion by . We will continue on the current medications. May discontinue the Lovenox. Status: Acute Code(s): I21.4 - Non-ST elevation (NSTEMI) myocardial infarction (2) Unstable angina pectoris: Patient is currently pain-free. May continue on the current medicines. Status: Acute Code(s): I20.0 - Unstable angina (3) Carotid artery stenosis with cerebral infarction over 8 weeks ago: Had a carotid Doppler examination. Appears to have chronic occlusion of the right ICA. Mild diffuse disease in the left ICA. We will continue on the current management. Status: Acute (4) Hyperlipidemia: Patient has a longstanding history of dyslipidemia. Continue on the statin drug Status: Acute Qualifiers: Hyperlipidemia type: mixed hyperlipidemia Qualified Code(s): E78.2 - Mixed hyperlipidemia Code(s): E78.5 - Hyperlipidemia, unspecified Additional A&P Information Mild hypokalemia, currently normokalemic. History of heavy alcohol abuse, quit 2 years ago. History of smoking abuse, cut back since 2014. Used to smoke a pack a day but lately smoking only half pack a day. Strongly advised to quit smoking. Elevated blood pressure, currently of stage II. Will optimize the antihypertensive medications. Attestations Medical Necessity Statement*: Patient requires continued hospital stay for close monitoring and further management Coding Level of Care Code Acute Director Blood Bank for [place] Diagnoses Acute non-ST elevation myocardial infarction (NSTEMI) I21.4 Unstable angina pectoris I20.0 Carotid artery stenosis with cerebral infarction over 8 weeks ago Hyperlipidemia E78.2 Hyperlipidemia type: mixed hyperlipidemia
[2019-10-25] MEDS: atorvastatin 40 mg Tablet 80 MG PO (20:30)
[2019-10-26 04:00] VITALS: BP 139/69; PULSE 62; RESP 23; TEMP 36.7; O2SAT 95
[2019-10-26] MEDS: enoxaparin 100 mg/mL Syringe 90 MG SUBCUT (04:25)
[2019-10-26 05:49] LABS: Anion Gap 15.4 (5-19); Blood Urea Nitrogen 7 mg/dL (8-23); Calcium 8.7 mg/dL (8.5-10.5); Carbon Dioxide 24 mmol/L (22-29); Chloride 104 mmol/L (98-107); Glomerular Filtration Rate 96.7 mL/min (90-130); Glucose 123 mg/dL (65-115); Osmolality Calculated 287 mOsm/kg (285-295); Potassium 3.4 mmol/L (3.5-5.1); Sodium 140 mmol/L (136-145)
[2019-10-26 07:22] VITALS: BP 109/75; PULSE 67; RESP 19; TEMP 36.8; O2SAT 96
[2019-10-26] MEDS: clopidogrel 75 mg Tablet PO (08:10)
[2019-10-26] MEDS: aspirin 325 mg Tablet PO (08:10)
[2019-10-26] MEDS: HYDROcodone-acetaminophen 5-325 mg Tablet 1 TAB PO (08:10)
[2019-10-26] MEDS: lisinopril 5 mg Tablet PO (08:10)
--- NOTE | 2019-10-26 09:58 | P.DS_ITS ---
Discharge Providers Date of Admission: 10/24/19 09:33 Date of Discharge: October 26, 2019 Attending Provider at Admission: Amelia Betancourt DO Attending Provider at Discharge: Amelia Betancourt DO Consults: Dr. AGA Tse Diagnoses at Discharge Discharge Diagnosis (1) Acute non-ST elevation myocardial infarction (NSTEMI): Status: Acute Problem details: Patient taken to cardiac Vulnerability Assessment Analyst on 10/25/2019, found to have subtotal occlusion of the first diagonal branch, mild to moderate disease was noted throughout. PCI by Dr. Torres. Continue on aspirin, atorvastatin, Plavix, started on Coreg but it was discontinued due to bradycardia (2) Unstable angina pectoris: Status: Acute (3) Carotid artery stenosis with cerebral infarction over 8 weeks ago: Status: Acute Problem details: Continue on aspirin, Plavix and statin, continue with close cardiology follow-up in the outpatient setting (4) Hyperlipidemia: Status: Acute Problem details: Started on atorvastatin Qualifiers: Hyperlipidemia type: mixed hyperlipidemia Qualified Code(s): E78.2 - Mixed hyperlipidemia Reason for Visit Reason for Visit: Reason For Visit: CP Hospital Course Hospital Course: Patient was seen and evaluated in the emergency department noted to have concern for chest pain and diagnosed with non-ST elevation [place]. He was admitted to cardiac stepdown and monitor closely on telemetry. Cardiology was consulted for further evaluation and treatment recommendations. Patient was started on Lovenox and initially started on beta-von, aspirin and nitroglycerin as needed, beta-von was eventually discontinued due to bradycardia. Patient was taken to cardiac Vulnerability Assessment Analyst on 10/25/2019 and had PCI performed by Dr. Torres. Patient did well in the postprocedural setting and on date of discharge did denied any concerns, denied any chest pain, no shortness of breath, no abdominal pain or nausea. Discharge Summary: Discharge to home with spouse Follow-up with primary care provider in 3 to 5 days Follow-up with cardiology clinic in 1 week, follow-up with Dr. Tse in 3 to 4 weeks Strongly encouraged tobacco cessation Physical Exam Const: COMMON NORMALS: oriented x3 and alert GENERAL APPEARANCE: cooperative ORIENTATION/CONSCIOUSNESS: Yes awake, Yes oriented to person, Yes oriented to place and Yes oriented to time HENMT: COMMON NORMALS: normocephalic and head/scalp atraumatic HEAD & SCALP: normocephalic and atraumatic Eye: COMMON NORMALS: PERRL PUPIL: Yes PERRL Neck/C-Spine: COMMON NORMALS: supple GENERAL: Yes normal visual inspection Resp: COMMON NORMALS: normal respiratory effort and clear to auscultation chris aterally EFFORT & INSPECTION: Yes able to speak in complete sentences AUSCULTATION: clear to auscultation bilaterally, no rhonchi and no wheezes Cardio: COMMON NORMALS: regular rate, regular rhythm and no murmurs RATE: regular rate RHYTHM: regular rhythm GI: COMMON NORMALS: soft to palpation and non-tender INSPECTION: No abdominal distension AUSCULTATION: Yes normoactive bowel sounds PALPATION: Yes soft Neuro: COMMON NORMALS: oriented x3, CN's II-XII intact bilaterally and moves all extremities SENSORIUM/ORIENTATION: Yes alert, Yes oriented to person, Yes oriented to place and Yes oriented to time SPEECH: speech normal Psych: COMMON NORMALS: mental status grossly normal and cooperative Skin: COMMON NORMALS: no rashes or lesions noted GENERAL SKIN EXAM: no rashes or lesions noted Discharge Data Data Completed and Pending: Completed Studies During Hospitalization Category Date Time Status XR chest 1V km ble [id number] Stat Exams 10/24/19 06:22 Completed CV carotid duplex BI* [id number] Routine Ultrasound 10/24/19 15:13 Completed CV echo complete* [id number] Routine Ultrasound 10/24/19 13:24 [place] [id number] Routin e Ultrasound 10/24/19 09:51 Completed Pending at discharge Category Date Time Status 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 Routin e Exams 10/25/19 06:51 Taken Labs from last 24 hours 10/26/19 04:53 Sodium 140 Potassium 3.4 L Chloride 104 Carbon Dioxide 24 Anion Gap 15.4 BUN 7 L Creatinine 0.8 GFR Calculation 96.7 Glucose 123 H Calculated Osmolal ity 287 Calcium 8.7 Vitals: Last Vital Signs Temp 98.3 F 10/26/19 07:22 Pulse 67 10/26/19 07:22 Resp 19 H 10/26/19 07:22 BP 109/75 10/26/19 07:22 Pulse Ox 96 10/26/19 07:22 Discharge Plan Discharge Patient Disposition: Home, Self-Care Condition: Stable Prescriptions: New atorvastatin 40 mg Tablet 80 mg PO BEDTIME 30 Days Qty: 30 RF: 0 Nitrostat 0.4 mg Tablet, Sublingual 0.4 mg sublingual Q5M PRN (Reason: Chest Pain) 30 Days Qty: 20 RF: 0 lisinopril 5 mg Tablet 5 mg PO DAILY 30 Days Qty: 30 RF: 0 aspirin [Estela Chewable Aspirin] 81 mg tablet,chewable 81 mg PO DAILY 30 Days Qty: 30 RF: 0 Continued Plavix 75 mg Tablet 75 mg PO DAILY 30 Days Qty: 30 RF: 0 Discontinued aspirin 325 mg Tablet 325 mg PO DAILY RF: 0 Discharge Orders: Discharge Order (Routine); Ordered 10/26/19 Ordered By: Amelia Betancourt Referrals: Nitin Castellano MD [Physician] - 4-7 days Carol Tse MD [Physician] - 7-10 days (Follow-up with nurse practitioner in cardiology office in 1 week Follow-up with Dr. Tse in 3 to 4 weeks) Discharge Diet: Cardiac Discharge Activity: Increase activity as tolerated Activity Restrictions/Additional Instructions: No lifting more than 5 pounds over the next 48 hours. Further activity instructions per cardiology Follow-up with cardiology office in 1 week. Follow-up with Dr. Tse in 3 to 4 weeks. Started on new medications: Refilled of Plavix, started on low-dose aspirin, atorvastatin 80 mg daily and lisinopril. 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
[2019-10-26 10:17] VITALS: BP 109/75; PULSE 67; RESP 19; TEMP 36.8; O2SAT 96
[2019-10-26 10:57] VITALS: BP 96/53; PULSE 61; RESP 15; O2SAT 95
--- NOTE | 2019-10-26 12:33 | P.PN_ITS ---
Subjective Subjective: Interval history: Patient denies any chest pain or any shortness of breath. Had a cardiac cauterization and PCI yesterday. Denies any hematoma or bleeding from the radial arterial access site He underwent left heart catheterization with left and right coronary angiogram and LV angiogram. He was found to have a subtotal occlusion of the first diagonal branch. Mild to moderate disease was noted in the other vessels. The LV ejection fraction was normal. Mild hypokinesia of the mid anterior wall was noted. The LVEDP was 26 mmHg. Medications: Reviewed: Yes Medication Review Details: Current Medications Hydrocodone Bitart/Acetaminophen ([place] 5-325 Mg) 1 tab PO Q4H PRN PRN Reason: MODERATE TO SEVERE PAIN Aspirin (Aspirin) 325 mg PO DAILY [facility] Last Admin: 10/25/19 10:21 Dose: 325 mg Documented by: Atorvastatin Calcium (Lipitor) 80 mg PO BEDTIME [facility] Last Admin: 10/24/19 21:38 Dose: 80 mg Documented by: Bisacodyl (Dulcolax) 10 mg PO DAILY PRN PRN Reason: CONSTIPATION Clopidogrel Bisulfate (Plavix) 75 mg PO DAILY [facility] Last Admin: 10/25/19 08:46 Dose: Not Given Documented by: Enoxaparin Sodium (Lovenox) 90 mg 1 mg/kg (90 mg) SUBCUT Q12H [facility] Last Admin: 10/25/19 02:34 Dose: 90 mg Documented by: Hydralazine HCl (Apresoline) 10 mg IVP Q4H PRN PRN Reason: other Lisinopril (Prinivil) 5 mg PO DAILY [facility] Last Admin: 10/25/19 11:19 Dose: 5 mg Documented by: Morphine Sulfate (Morphine) 2 mg IVP Q4H PRN PRN Reason: SEVERE PAIN Nicotine (Nicoderm 21 Mg Patch) 1 patch TRANSDERMA DAILY [facility] Last Admin: 10/25/19 10:21 Dose: Not Given Documented by: Nitroglycerin (Nitrostat) 0.4 mg SUBLINGUAL Q5M PRN PRN Reason: CHEST PAIN Ondansetron HCl (Zofran) 4 mg PO Q8H PRN PRN Reason: NAUSEA Vitals/I&O/Wt Last Vital Signs Temp 98.3 F 10/26/19 10:17 Pulse 61 10/26/19 10:57 Resp 15 10/26/19 10:57 BP 96/53 10/26/19 10:57 Pulse Ox 95 10/26/19 10:57 10/25/19 10/26/19 10/26/19 22:59 06:59 14:59 Intake Total 480 / 840 540 / 1380 100 / 100 Balance 480 / 840 540 / 1380 100 / 100 Weight last 48 hrs Weight 191 lb 9.6 oz Weight 192 lb 0.4 oz Physical Exam Narrative: EXAM NARRATIVE: GENERAL: The patient is alert and oriented times three. Not in any acute distress. HEENT: No significant pallor, icterus or lymphadenopathy. The pupils are r eactant to light. Oral cavity: There are no mucous membrane lesions. NECK: Trachea appears to be central. No masses noted. No JVD or thyromegaly appreciated. No carotid bruit. RESPIRATORY: Chest is symmetrical. No intercostals muscle retraction or any accessory muscle activation. There is no chest wall tenderness. Breath sounds are heard bilaterally. No rales or rhonchi heard. No evidence of any consolidation. BREASTS: Deferred. HEART: The PMI is in the 5th left intercostals space just inside the midclavicular line. No palpable precordial events. S1 and S2 are normal. No S3 or S4 heard. No pericardial rub or any click heard. ABDOMEN: Abdomen is somewhat obese. No vessel pulsations or distention. No tenderness. No organomegaly appreciated. No abdominal bruit. Bowel sounds are normally heard. : Deferred. RECTAL: Deferred. LYMPHATIC: No lymphadenopathy noted in the neck or groin. EXTREMITIES: 1+ edema of the lower extremities. No cyanosis. Peripheral pulses are palpable and fairly good volume. No hematoma or bleeding from the radial arterial puncture site. MUSCULOSKELETAL: No acute joint deformities or swelling. SKIN: There are no significant scars or skin rash noted. NEUROPSYCHIATRIC: The patient is alert and oriented x3. Appears to be in a good mood. The higher functions are grossly within normal limits. No tremors or rigidity noted. Data : 10/24/19 05:57 10/26/19 04:53 Other Labs: Abnormal lab results 10/26/19 Range/Units 04:53 Potassium 3.4 L (3.5-5.1) mmol/L BUN 7 L (8-23) mg/dL Glucose 123 H (65-115) mg/dL A&P Assessment and plan (1) Atherosclerotic heart disease of [place] coronary artery with unstable angina pectoris: Patient status post PCI of the diagonal artery lesion. Mild to moderate diffuse disease in the other vessels. Currently seems to be stable with no new symptoms. Status: Acute Qualifiers: [place] vs. transplanted heart: [place] heart Qualified Code(s): I25.110 - Atherosclerotic heart disease of [place] coronary artery with unstable angina pectoris Code(s): I25.110 - Atherosclerotic heart disease of [place] coronary artery with unstable angina pectoris (2) Acute non-ST elevation myocardial infarction (NSTEMI): May continue on the aspirin, Plavix, statin and JARED inhibitor. Status: Acute Code(s): I21.4 - Non-ST elevation (NSTEMI) myocardial infarction (3) Carotid artery stenosis with cerebral infarction over 8 weeks ago: Had a carotid Doppler examination. Appears to have chronic occlusion of the right ICA. Mild diffuse disease in the left ICA. May be continued on the current management. Status: Acute (4) Hyperlipidemia: Patient has a longstanding history of dyslipidemia. Continue on the statin drug Status: Acute Qualifiers: Hyperlipidemia type: mixed hyperlipidemia Qualified Code(s): E78.2 - Mixed hyperlipidemia Code(s): E78.5 - Hyperlipidemia, unspecified Additional A&P Information Mild hypokalemia, needs potassium supplement Other problems are as outlined before. The patient continues remain stable, may be discharged home from a cardiac standpoint. He will be seen at the clinic next week by the nurse practitioner. I may see him in the office in 1 month Attestations Medical Necessity Statement*: Possible discharge home today Coding Level of Care Code Acute Accounting Manager for [place] Diagnoses Atherosclerotic heart disease of [place] coronary artery with unstable angina pectoris I25.110 [place] vs. transplanted heart: [place] heart Acute non-ST elevation myocardial infarction (NSTEMI) I21.4 Carotid artery stenosis with cerebral infarction over 8 weeks ago Hyperlipidemia E78.2 Hyperlipidemia type: mixed hyperlipidemia
== END 2019-10-26 15:06 | disposition home or self-care (01) | DRG 247 ==
LOC: ER 08:52 → CSU 12:41
PROVIDERS: Internal Medicine Cardiovascular Disease; Admitting Provider Family Medicine; Emergency Provider Family Medicine; Visit Provider Family Medicine
PROC: 027034Z Dilation of Coronary Artery, One Artery with Drug-eluting Intraluminal Device, Percutaneous Approach (ICD-10-PCS; principal; 2019-10-25 07:00)
DX: I21.4 Non-ST elevation (NSTEMI) myocardial infarction (principal); E78.2 Mixed hyperlipidemia; Z86.73 Personal history of transient ischemic attack (TIA), and cerebral infarction without residual deficits; I10 Essential (primary) hypertension; F17.210 Nicotine dependence, cigarettes, uncomplicated; I65.21 Occlusion and stenosis of right carotid artery; R73.9 Hyperglycemia, unspecified; Z66 Do not resuscitate; R60.0 Localized edema; I25.110 Atherosclerotic heart disease of native coronary artery with unstable angina pectoris; E87.6 Hypokalemia; F10.21 Alcohol dependence, in remission; Z79.02 Long term (current) use of antithrombotics/antiplatelets
CPT/HCPCS: 12345; 36415; 71045; 80048; 80053; 80061; 83036; 83880; 84484; 85025; 85347; 85378; 93005; 93306; 93452; 93880; 93971; 96372; 99283; C1725; C1769; C1874; C1887; C1894; C9600; J1644; J1650; J2001; J2250; J3010; J3490; J7030; Q9967

== ENCOUNTER → 2019-11-01 11:44 | Outpatient (BNVA) | payer MEDICARE, MEDICAID, SELFPAY | PROVIDERS: PCP Internal Medicine; Visit Provider Nurse Practitioner Family | DX: I25.110 Atherosclerotic heart disease of native coronary artery with unstable angina pectoris (principal); I10 Essential (primary) hypertension; E78.5 Hyperlipidemia, unspecified; I65.29 Occlusion and stenosis of unspecified carotid artery; I21.4 Non-ST elevation (NSTEMI) myocardial infarction; Z86.73 Personal history of transient ischemic attack (TIA), and cerebral infarction without residual deficits; F17.200 Nicotine dependence, unspecified, uncomplicated | CPT/HCPCS: 80048 ==

== ENCOUNTER 2019-12-12 04:15 | Observation (INO) | payer MEDICARE, MEDICAID, SELFPAY ==
[2019-12-12] VITALS (21 sets, daily range): BP systolic 90–153; BP diastolic 50–96; PULSE 46–81; RESP 10–33; TEMP 36.4–37; O2SAT 92–100; BMI 31.6
--- NOTE | 2019-12-12 04:25 | XR_ITS ---
WS: [id number] PORTABLE CHEST HISTORY: CHEST PAIN COMPARISON: 10/24/2019 Lungs are clear and well expanded. No pleural effusion or pneumothorax. Cardiac size: Normal. Mediastinum/Aorta: Normal mediastinum. No osseous abnormality seen. XR/XR chest 1V portable [id number] IMPRESSION: Unremarkable portable chest.
--- NOTE | 2019-12-12 04:25 | ECG_ITS ---
Measurements Intervals [place] Rate: 71 P: 48 NE: 156 QRS: 8 QRSD: 96 T: 125 QT: 387 QTc: [address] DEVIATION AND MODERATE T-WAVE ABNORMALITY, CONSIDER LATERAL ISCHEMIA [-0.1+ mV mV T WAVE IN I/aVL/V5/V6] Compared to ECG 10/24/2019 12:31:35 Possible ischemia now present Sinus bradycardia no longer present Sinus arrhythmia no longer present T-wave abnormality still present Electronically Signed On 12-12-2019 19:23:42 CDT by Debbie Torres M.D. [email or web address]
[2019-12-12 04:45] LABS: Basophils # 0.1 10^3/uL (0.0-0.1); Basophils % 0.7 %; Eosinophils # 0.4 10^3/uL (0.0-0.8); Eosinophils % 4.4 %; Hematocrit 42.7 % (42.0-52.0); Hemoglobin 14.7 g/dL (11.7-16.6); Lymphocytes # 3.2 10^3/uL (0.8-4.8); Lymphocytes % 38.3 %; Mean Corpuscular HGB Conc 34.4 g/dL (30.0-36.0); Mean Corpuscular Hemoglobin 31.3 pg (28.0-34.0); Mean Platelet Volume 9.6 fL (7.4-10.4); Monocytes # 0.6 10^3/uL (0.2-0.9); Monocytes % 7.4 %; Neutrophils # 4.1 10^3/uL (1.8-7.7); Neutrophils % 49.1 %; Nucleated Red Blood Cells % 0 %; Platelet Count 230 10^3/cmm (130-400); Red Blood Count 4.69 10^6/uL (4.1-5.3); White Blood Count 8.4 10^3/uL (4.0-10.0)
[2019-12-12] MEDS: morphine 4 mg/mL SDV 1 mL IVP (04:45)
[2019-12-12] MEDS: ondansetron 2 mg/ML SDV 2 mL 4 MG IVP (04:48)
--- NOTE | 2019-12-12 04:49 | ED_ITS ---
HPI - Chest Pain General: Chief Complaint: Chest Pain Stated Complaint: chest pain Time Seen by Provider: 12/12/19 04:20 History of Present Illness: HPI narrative: Arnaldo is a 64-year-old male who comes in complaining of chest pain. He describes the pain as a pressure-like sensation previous to when he had his last heart attack. His heart attack was last month in which she received a heart catheter and received 1 stent. The patient admits to being noncompliant with his medications since that time. This is his third episode of chest pain since the heart cath. In route he was given baby aspirin and an inch of nitroglycerin paste by EMS. He currently rates his pain at a 5 out of 10. He claims to have associated shortness of breath and diaphoresis. He denies any ration of his pain or nausea or vomiting. Associated symptoms: Reports diaphoresis and dyspnea; Deny abdominal pain, fever(s), nausea, palpitations, syncope or vomiting Review of Systems General: Reports: other (negative unless marked) Const: Reports: diaphoresis; Denies: fever, chills, body aches, fatigue or malaise Eyes: Denies: change in vision or blurry vision ENMT: Denies: throat pain, painful swallowing, hoarseness, ear pain, ear discharge, Change in hearing or nasal discharge Card: Reports: chest pain; Denies: palpitations, irregular heart rhythm, syncope, pre-syncope or shortness of breath when lying down Resp: Reports: shortness of breath; Denies: productive cough, non-productive cough, wheezing, coughing up blood or chest congestion GI: Denies: abdominal pain, nausea, vomiting, vomiting blood, coffee grounds in vomit, diarrhea, constipation, cramping, blood in stool or black tarry stool : Denies: flank pain, difficulty urinating, painful urination, urinary frequency, urinary urgency, decreased urine ouput, urinary incontinence or blood in urine Musc: Denies: neck pain, back pain, extremity pain, extremity swelling, joint pain, joint swelling, joint warmth or joint stiffness Skin/Breast: Denies: rash, skin tenderness or yellow skin Neuro: Denies: headache, numbness in extremities, weakness in extremities, changes in sensation, lack of coordination, difficulty walking, dizziness, vertigo or confusion Endo: Denies: excessive thirst, tired all the time, cold intolerance, excessive sweating, flushing or hot flashes Demetrio/Lymph: Denies: easy bruising, easy bleeding, petechiae or enlarged lymph nodes All/Imm: Denies: hives, throat swelling, tongue swelling, facial swelling or acute wheezing PFSH ED PFSH: Medical History (Updated 12/12/19 @ 06:03 by Debbie Brandon MD) Atherosclerosis of coronary artery of [place] heart with stable angina pectoris Atherosclerotic heart disease of [place] coronary artery with unstable angina pectoris Carotid artery stenosis with cerebral infarction over 8 weeks ago Continue on aspirin, Plavix and statin, continue with close cardiology follow-up in the outpatient setting Carotid stenosis Left carotid artery thromboendarterectomy performed on 11/27/[address] Zuniga Coronary artery disease Cardiac cath with stent placement on 10/25/19 He had a cardiac authorization in the hospital which revealed a subtotal occlusion of the intermedius artery for which he underwent PCI by Dr. Torres. 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 Zuniga History of lymph node excision Reported in the left axilla Family History Mother Stroke Father Diabetes CAD (coronary artery disease) Had open heart surgery in his 60s. of congestive heart failure in his 80s. Denies family history of Clotting disorder Dementia Hyperlipidemia Psychiatric illness Chronic kidney disease (CKD) Suicide Anesthesia complication Bleeding disorder Family history of premature coronary artery disease Lung disease Cancer Hypertension Social History Smoking and tobacco status: current every day smoker cigarettes Packs smoked per day: 0.5 Quit status (tobacco): considering quitting Alcohol intake: former Marital status: History of recent travel: No Current gender identity: Male Physical Exam Const: COMMON NORMALS: no apparent distress, oriented x3, no limitations, healthy appearing and well nourished EXAM LIMITATIONS: no altered mental status GENERAL APPEARANCE: cooperative, well kempt and well developed ORIENTATION/CONSCIOUSNESS: Yes awake HENMT: COMMON NORMALS: normocephalic, head/scalp atraumatic, hearing grossly normal bilaterally, external ears normal, EAC's normal, external nose normal and moist oral mucous membranes HEAD & SCALP: normal to inspection, normocephalic and atraumatic FACE & SINUS: normal facial exam and face symmetric NOSE: external nose normal and nares normal EXTERNAL EAR: Yes external ears normal EXTERNAL AUDITORY CANAL: EAC's normal MOUTH: oral and palatal mucosa normal and tongue normal Eye: COMMON NORMALS: PERRL, EOMs intact bilaterally, conjunctivae normal and no scleral icterus GENERAL EYE: normal appearance of both eyes and normal light reflex CONJUNCTIVA: Yes conjunctivae normal SCLERA: sclerae normal CORNEA: Yes corneas normal PUPIL: Yes PERRL DIRECT OPHTHALMOSCOPY: Yes normal light reflex Neck/C-Spine: COMMON NORMALS: full ROM, no lymphadenopathy, supple, no meningeal signs and no JVD GENERAL: Yes normal visual inspection and Yes trachea midline CERVICAL SPINE: Yes cervical ROM normal Chest: COMMONS NORMALS: inspection of chest normal and palpation of chest normal Resp: COMMON NORMALS: normal respiratory effort, no retractions, no use of accessory muscles and clear to auscultation bilaterally EFFORT & INSPECTION: Yes able to speak in complete sentences AUSCULTATION: clear to auscultation bilaterally Cardio: COMMON NORMALS: no JVD, regular rate, regular rhythm, S1 normal heart sound, S2 normal heart sound, no gallops, no clicks, no murmurs and no rub JUGULAR VENOUS DISTENTION: no JVD RATE: regular rate RHYTHM: regular rhythm HEART SOUNDS: S1 normal and S2 normal GI: COMMON NORMALS: soft to palpation, non-tender, no hepatosplenomegaly and no masses INSPECTION: Yes normal to inspection PALPATION: Yes soft and Yes no hepatosplenomegaly : COMMON NORMALS: Yes no CVA tenderness BLADDER/KIDNEY EXAM: Yes no CVA tenderness Back/Pelvis: COMMON NORMALS: no CVA tenderness, thoracic and lumbar spine normal to inspection, no thoracic nor lumbar tenderness and thoraco-lumbar ROM normal Extremity: COMMON NORMALS: normal to inspection, full ROM, normal capillary refill, no joint enlargement, no clubbing, cyanosis or edema and no calf tenderness Neuro: COMMON NORMALS: oriented x3, CN's II-XII intact bilaterally, moves all extremities, no focal motor deficits and no sensory deficits noted MENINGEAL SIGNS: Yes no meningeal signs Psych: COMMON NORMALS: mental status grossly normal, thought process normal, cooperative, affect normal, speech normal and activity/motor behavior normal APPEARANCE: Yes well kempt SPEECH: Yes normal speech THOUGHT PROCESS: normal thought process Skin: COMMON NORMALS: no rashes or lesions noted, skin turgor normal, no jaundice, no petechiae and no mottling GENERAL SKIN EXAM: no rashes or lesions noted and turgor normal Course Vital Signs: Vital signs: Vital Signs Temperature 98.2 F 12/12/19 04:16 Pulse Rate 69 12/12/19 04:35 Respiratory Rate 16 12/12/19 04:45 Blood Pressure 117/76 12/12/19 04:35 Pulse Oximetry 97 12/12/19 05:25 MDM - Chest Pain MDM Narrative: Medical decision making narrative: The case was reviewed with Drs. Delaney and Erika, they will admit and consult respectively. The patient has an abnormal heart cath with several areas of lesions. He is having continued pain and is noncompliant. Further care will be dictated by them. Lab Data: Labs: Lab Results 12/12/19 12/12/19 12/12/19 Range/Units 04:35 04:35 04:35 WBC 8.4 (4.0-10.0) 10^3/ uL RBC 4.69 (4.1-5.3) 10^6/u L Hgb 14.7 (11.7-16.6) g/dL Hct 42.7 (42.0-52.0) % MCV 91.0 (80-94) fL MCH 31.3 (28.0-34.0) pg MCHC 34.4 (30.0-36.0) g/dL RDW 12.0 L (12.1-15.1) % Plt Count 230 (130-400) 10^3/c mm MPV 9.6 (7.4-10.4) fL Neut % (Auto) 49.1 % Lymph % (Auto) 38.3 % Dawson % (Auto) 7.4 % Eos % (Auto) 4.4 % Baso % (Auto) 0.7 % Neut # (Auto) 4.1 (1.8-7.7) 10^3/u L Lymph # (Auto) 3.2 (0.8-4.8) 10^3/u L Dawson # (Auto) 0.6 (0.2-0.9) 10^3/u L Eos # (Auto) 0.4 (0.0-0.8) 10^3/u L Baso # (Auto) 0.1 (0.0-0.1) 10^3/u L Nucleated RBC % (a uto) 0 % Nucleated RBCs # 0.0 /100WBC PT 13.90 H (10.5-13.3) SECO NDS INR 1.06 (0.8-1.2) APTT 31.3 (23.9-36.7) SECO NDS Sodium 140 (136-145) mmol/L Potassium 4.0 (3.5-5.1) mmol/L Chloride 102 (98-107) mmol/L Carbon Dioxide 27 (22-29) mmol/L Anion Gap 15.0 (5-19) BUN 11 (8-23) mg/dL Creatinine 0.9 (0.7-1.2) mg/dL GFR Calculation 84.4 L (90-130) mL/min Glucose 131 H (65-115) mg/dL Calculated Osmolal ity 288 (285-295) mOsm/k g Calcium 9.6 (8.5-10.5) mg/dL Total Bilirubin 0.6 (0.15-1.2) mg/dL AST 13 (0-40) U/L ALT 11 (0-41) U/L Alkaline Phosphata se 88 (40-130) IU/L Troponin T Baselin e (0-15) ng/mL NT-Pro-B Natriuret Pep 231 H (0-125) pg/mL Total Protein 6.9 (6.6-8.7) g/dL Albumin 4.1 (3.5-5.2) g/dL Globulin 2.8 (1.3-4.6) g/dL Lipase 23 (13-60) U/L Ethyl Alcohol < 10 (0-10) mg/dL 12/12/19 Range/Units 04:35 WBC (4.0-10.0) 10^3/ uL RBC (4.1-5.3) 10^6/u L Hgb (11.7-16.6) g/dL Hct (42.0-52.0) % MCV (80-94) fL MCH (28.0-34.0) pg MCHC (30.0-36.0) g/dL RDW (12.1-15.1) % Plt Count (130-400) 10^3/c mm MPV (7.4-10.4) fL Neut % (Auto) % Lymph % (Auto) % Dawson % (Auto) % Eos % (Auto) % Baso % (Auto) % Neut # (Auto) (1.8-7.7) 10^3/u L Lymph # (Auto) (0.8-4.8) 10^3/u L Dawson # (Auto) (0.2-0.9) 10^3/u L Eos # (Auto) (0.0-0.8) 10^3/u L Baso # (Auto) (0.0-0.1) 10^3/u L Nucleated RBC % (a uto) % Nucleated RBCs # /100WBC PT (10.5-13.3) SECO NDS INR (0.8-1.2) APTT (23.9-36.7) SECO NDS Sodium (136-145) mmol/L Potassium (3.5-5.1) mmol/L Chloride (98-107) mmol/L Carbon Dioxide (22-29) mmol/L Anion Gap (5-19) BUN (8-23) mg/dL Creatinine (0.7-1.2) mg/dL GFR Calculation (90-130) mL/min Glucose (65-115) mg/dL Calculated Osmolal ity (285-295) mOsm/k g Calcium (8.5-10.5) mg/dL Total Bilirubin (0.15-1.2) mg/dL AST (0-40) U/L ALT (0-41) U/L Alkaline Phosphata se (40-130) IU/L Troponin T Baselin e 13 (0-15) ng/mL NT-Pro-B Natriuret Pep (0-125) pg/mL Total Protein (6.6-8.7) g/dL Albumin (3.5-5.2) g/dL Globulin (1.3-4.6) g/dL Lipase (13-60) U/L Ethyl Alcohol (0-10) mg/dL Imaging Data^: CXR: My impression: No acute cardiopulmonary findings. EKG Data^: EKG 1: Attestation: I personally reviewed and interpreted this EKG as follows: EKG interpretation date: 12/12/19 EKG interpretation time: 04:29 Interpretation: Normal sinus rhythm at 71 beats a minute, T wave inversions in 1 and aVL, otherwise no acute ST-T wave changes. Similar but worse than previous. EKG 2: Attestation: I personally reviewed and interpreted this EKG as follows: EKG interpretation date: 12/12/19 EKG interpretation time: 05:05 Interpretation: Normal sinus rhythm at 59 beats a minute, nonspecific ST and T wave changes. Discharge Plan Discharge Patient Disposition: Placed in Observation Clinical Impression: Chest pain Condition: Stable Prescriptions: No Action aspirin [Adult Low Dose Aspirin] 81 mg tablet,delayed release (DR/EC) 81 mg PO DAILY RF: 0 Plavix 75 mg tablet 75 mg PO DAILY 30 Days Qty: 30 RF: 0 lisinopril 5 mg tablet 5 mg PO DAILY 90 Days Qty: 90 RF: 3 atorvastatin [Lipitor] 40 mg tablet 40 mg PO DAILY 90 Days Qty: 90 RF: 3 Referrals: Nitin Castellano MD [Primary Care Provider] - Coding Level of Care Code ED Judge Clerk for Chg Fwd Exam Comprehensive
[2019-12-12 04:56] LABS: INR 1.06 (0.8-1.2); Partial Thromboplastin Time 31.3 SECONDS (23.9-36.7)
[2019-12-12 05:01] LABS: Troponin(5th) Baseline 13 ng/mL (0-15)
[2019-12-12 05:06] LABS: Alanine Aminotransferase 11 U/L (0-41); Albumin Level 4.1 g/dL (3.5-5.2); Alkaline Phosphatase 88 IU/L (40-130); Aspartate Amino Transferase 13 U/L (0-40); Blood Urea Nitrogen 11 mg/dL (8-23); Calcium 9.6 mg/dL (8.5-10.5); Carbon Dioxide 27 mmol/L (22-29); Chloride 102 mmol/L (98-107); Globulin 2.8 g/dL (1.3-4.6); Glomerular Filtration Rate 84.4 mL/min (90-130); Glucose 131 mg/dL (65-115); Lipase 23 U/L (13-60); NT Pro B Type Natriuretic Pept 231 pg/mL (0-125); Osmolality Calculated 288 mOsm/kg (285-295); Sodium 140 mmol/L (136-145); Total Bilirubin 0.6 mg/dL (0.15-1.2); Total Protein 6.9 g/dL (6.6-8.7)
[2019-12-12 05:14] LABS: Alcohol Level < 10 mg/dL (0-10)
[2019-12-12] MEDS: sodium chloride 0.9% 1,000 ML 999 ML IV (05:15)
[2019-12-12] MEDS: sodium chloride 0.9% 500 ML 999 ML IV ×2 (05:18→06:10)
--- NOTE | 2019-12-12 05:41 | P.HP_ITS ---
Providers/Chief Complaint Primary Care Provider: Nitin Castellano MD Chief Complaint: chest pain History of Present Illness Arnaldo Chacon is a 64 year old male who recently had coronary angiogram status post PCI, beta-von was discontinued secondary to bradycardia, patient has history of noncompliance, smoking abuse, came in with chief complaint of chest pain. Patient is stating that he woke up with this chest pain around 3 AM, he broke into sweat, noticed shortness of breath and called EMS. His chest pain was located on the right side of the chest, it was nonradiating, it was sharp and persisted for 1 hour. He took 1 sublingual nitroglycerin which did not relieve his symptoms. EMS arrived and gave him aspirin high-dose with second dose of nitro sublingually which relieved his symptoms. He is actively smoking 4 to 5 cigarettes a day. Mild to moderately active at home. He is denying recent flulike symptoms, lifting heavy objects, working in his yard etc. He is denying fever, chills, diarrhea, dysuria. Patient is stating that he is compliant with his medications this time. Diagnostics in ER revealed normal blood work, he is chest pain-free, normal hemodynamics, EKG showing inferior lateral mild ST depression 1 mm, no significant increase in troponin. Review of Systems Const: Denies: fever or chills Eyes: Denies: change in vision or photophobia ENMT: Denies: throat pain Card: Reports: chest pain and shortness of breath when lying down; Denies: palpitations, edema, swelling of feet/ankles or syncope Resp: Reports: shortness of breath and non-productive cough; Denies: productive cough or pain on inspiration GI: Denies: abdominal pain or nausea : Denies: flank pain Musc: Denies: neck pain Skin/Breast: Denies: rash Neuro: Denies: headache Psych: Denies: anxiety Endo: Denies: excessive urination Demetrio/Lymph: Denies: easy bruising All/Imm: Denies: hives Medications/Allergies Allergies Allergy/AdvReac Type Severity Reaction Status Date / Time codeine Allergy Mild hives Verified 11/01/19 09:35 Penicillins Allergy Unknown Verified 11/01/19 09:35 PFSH Acute PFSH: Medical History (Updated 12/12/19 @ 06:03 by Debbie Brandon MD) Atherosclerosis of coronary artery of [place] heart with stable angina pectoris Atherosclerotic heart disease of [place] coronary artery with unstable angina pectoris Carotid artery stenosis with cerebral infarction over 8 weeks ago Continue on aspirin, Plavix and statin, continue with close cardiology follow-up in the outpatient setting Carotid stenosis Left carotid artery thromboendarterectomy performed on 11/27/[address] Zuniga Coronary artery disease Cardiac cath with stent placement on 10/25/19 He had a cardiac authorization in the hospital which revealed a subtotal occlusion of the intermedius artery for which he underwent PCI by Dr. Torres. 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 Zuniga History of lymph node excision Reported in the left axilla Family History Mother Stroke Father Diabetes CAD (coronary artery disease) Had open heart surgery in his 60s. of congestive heart failure in his 80s. Denies family history of Clotting disorder Dementia Hyperlipidemia Psychiatric illness Chronic kidney disease (CKD) Suicide Anesthesia complication Bleeding disorder Family history of premature coronary artery disease Lung disease Cancer Hypertension Social History Smoking and tobacco status: current every day smoker cigarettes Packs smoked per day: 0.5 Quit status (tobacco): considering quitting Alcohol intake: former Marital status: History of recent travel: No Current gender identity: Male Vitals/I&O/Wt Last Vital Signs Temp 98.2 F 12/12/19 04:16 Pulse 69 12/12/19 04:35 Resp 16 12/12/19 04:45 BP 117/76 12/12/19 04:35 Pulse Ox 97 12/12/19 05:25 Weight last 48 hrs Weight 94.347 kg Physical Exam Narrative: EXAM NARRATIVE: Pleasant elderly male sitting comfortable in his bed Normal hemodynamics, saturating well on 2 L nasal cannula Currently chest pain-free, S1, S2, chest pain is not reproducible Lungs are clear to auscultation without adventitious sounds Abdomen soft, nontender, nondistended bowels are present Neurologically nonfocal exam EOMI, PERRLA Appropriate mood and affect Lower extremity does not show any signs of ischemia gangrene or ulcer Data : 12/12/19 04:35 12/12/19 04:35 A&P Assessment and plan (1) Unstable angina: Status: Acute (2) Tobacco abuse: Status: Acute (3) Hypertension: Status: Acute Qualifiers: Hypertension type: essential hypertension Qualified Code(s): I10 - Essential (primary) hypertension Additional A&P Information Unstable angina In October, cardiac authorization revealed a subtotal occlusion of the in [place] artery for which he underwent PCI by Dr. Torres. EF 55%. Current EKG showing chronic changes of ST depression in inferior & lateral leads Troponin not significantly high Patient is not on any antianginal medication I would continue aspirin, Plavix, statin and will add Imdur Not a candidate of AV yosef blocking agent because of bradycardia Dr. Nunes is consulted and notified by ER physician Would hold off on starting anticoagulation at this point until cardiology's recommendation Smoking abuse: Patient is smoking 4 to 5 cigarettes a day, he is tried to quit and wants to use nicotine patch Full code DVT prophylaxis: Lovenox Cardiac diet Attestations Medical Necessity Statement*: Anticipating discharge in less than 48 hours after evaluation by cardiology for his unstable angina, needs closer monitoring and cardiac stepdown unit because of recent cardiac catheterization. Time Spent in Patient Care: 30 Coding Level of Care Code Acute Human Resources Project Manager for [facility] Fwd Diagnoses Unstable angina I20.0 Tobacco abuse Z72.0 Hypertension I10 Hypertension type: essential hypertension
--- NOTE | 2019-12-12 06:09 | PC.NURSE ---
VO from Dr Mcneal: d/c 2mg of morphine and add 500cc fluid bolus due to bradycardia and hypotension
--- NOTE | 2019-12-12 06:26 | PC.NURSE ---
REport called to [facility]. Room not ready
[2019-12-12 07:49] LABS: Troponin 5 2HR 10.45 ng/mL (0-15)
[2019-12-12 08:03] LABS: Troponin 5 2HR Delta -2.55 ABS# (0-10)
[2019-12-12] MEDS: atorvastatin 40 mg Tablet PO (09:19)
[2019-12-12] MEDS: isosorbide mononitrate ER 30 mg Tablet PO (09:19)
[2019-12-12] MEDS: enoxaparin 40 mg/0.4 mL Syringe SUBCUT (09:19)
[2019-12-12] MEDS: aspirin 81 mg EC Tablet PO (09:19)
[2019-12-12] MEDS: clopidogrel 75 mg Tablet PO (09:19)
[2019-12-12] MEDS: lisinopril 5 mg Tablet PO (09:19)
--- NOTE | 2019-12-12 10:25 | ECG_ITS ---
Measurements Intervals [place] Rate: 52 P: 50 UT: 160 QRS: 10 QRSD: 86 T: 56 QT: 437 QTc: 407 SINUS BRADYCARDIA WITH SINUS ARRHYTHMIA Compared to ECG 10/24/2019 12:31:35 T-wave abnormality no longer present Electronically Signed On 12-12-2019 19:24:42 CDT by Debbie Torres M.D. [email or web address]
--- NOTE | 2019-12-12 12:45 | ECG_ITS ---
NAME OF STUDY: LEXISCAN SESTAMIBI STRESS TEST INDICATION: RECURRENT CHEST PAIN/CAD WITH RECENT STENT PROCEDURE: At the baseline, the blood pressure was 143/84 mm Hg with a heart rate of 57 bpm. The electrocardiogram showed sinus bradycardia, normal axis and mild ST depression. The Lexiscan was infused over a period of 20 seconds. A total of 0.4 milligrams of Lexiscan was infused. The stress phase was continued for a total of 5 minutes. Heart rate at the end of the stress phase was 88 bpm with a blood pressure 210/62 mmHg. The EKG at the peak infusion revealed sinus rhythm with no significant ST-T wave changes. Sestamibi was injected 20 seconds after the Lexiscan infusion. Blood pressure at the end of the recovery phase was 130/74 mmHg with a heart rate of 95 beats per minute. CONCLUSION: 1. No significant EKG changes with the LexiScan infusion. 2. No LexiScan induced chest pain or cardiac arrhythmia. 3. Normal blood pressure and heart rate response. 4. Sestamibi/sestamibi perfusion scan pending; see separate report. Electronically Signed On 12-13-2019 10:09:48 CDT by Lilia Nunes M.D. [email or web address]
--- NOTE | 2019-12-12 12:48 | PM.CONSULT ---
Providers/Reason For Consult Consulting Physican/Specialty*: Dr. Nunes, cardiology Reason for Consult*: History of coronary artery disease with recent drug-eluting stent placement and recurrent episodes of chest discomfort Attending Physician: Emile Chavez MD Primary Care Provider: Nitin Castellano MD History of Present Illness History of Present Illness Arnaldo Chacon is a 64 year old male with past medical history of coronary artery disease with history of non-ST elevation [place] on 24 October 2019, hypertension, history of CVA, history of carotid stenosis status post left carotid endarterectomy and total occlusion of right internal carotid artery, tobacco abuse as well as noncompliance to medications. He was admitted last month and underwent coronary angiogram for a non-ST elevation [place] that showed mild diffuse disease in left main, circumflex and RCA. PDA branch of RCA with 40 to 50% diffuse narrowing in proximal segment. 30% narrowing in ostial LAD, high diagonal branch from LAD with subtotal occlusion just before the bifurcation that underwent swati integrity 2 x 15 mm drug-eluting stent placement. He has had 2 follow-up visits and [facility] and seems like every time it is the same story that he has run out of certain medications especially aspirin. He gives history of having right sided chest discomfort mostly early in the morning that last from 30 minutes to 1 hour and sometimes gets relieved with nitroglycerin. He presented to the ER earlier this morning when he woke up with chest discomfort around 3 in the morning. The pain lasted about 1 hour he took 1 nitroglycerin without any significant relief. He has been out of aspirin for about a week and just had 1 nitroglycerin remaining at home so he decided to come to the ER for further evaluation. EKG showed sinus rhythm with normal axis and ST depression and T wave inversion in lead I and aVL. T wave inversion in lead I is new as compared to before. Chest x-ray was unremarkable. Baseline troponin T of 13 and 2-hour troponin T of 10.5. At the time of evaluation patient is chest pain-free. Review of Systems General: Reports: 10 or more systems reviewed and unremarkable except in HPI and below Const: Reports: chills; Denies: fever or change in weight Eyes: Denies: eye discomfort or eye discharge ENMT: Denies: painful swallowing, nasal congestion or nose bleeds Card: Reports: chest pain and edema (on and off); Denies: palpitations Resp: Denies: shortness of breath, productive cough, non-productive cough, wheezing or coughing up blood GI: Denies: abdominal pain, nausea, vomiting, vomiting blood, blood in stool or black tarry stool : Denies: difficulty urinating, painful urination or blood in urine Musc: Denies: extremity swelling Skin/Breast: Denies: rash Neuro: Denies: weakness in extremities or difficulty walking Psych: Denies: anxiety or depression Demetrio/Lymph: Denies: petechiae or purpura All/Imm: Denies: facial swelling Meds/Allergies Home Medications and Allergies Home Medications Medication Instructions Recorded Confirmed Type aspirin 81 mg tablet,delayed 81 mg PO DAILY 11/30/19 12/12/19 History release atorvastatin 40 mg tablet 40 mg PO DAILY 90 Days #90 tab 11/30/19 12/12/19 Rx clopidogrel 75 mg tablet 75 mg PO DAILY 30 Days #30 tab 11/30/19 12/12/19 Rx lisinopril 5 mg tablet 5 mg PO DAILY 90 Days #90 tab 11/30/19 12/12/19 Rx Allergies Allergy/AdvReac Type Severity Reaction Status Date / Time codeine Allergy Mild hives Verified 11/01/19 09:35 Penicillins Allergy Unknown Verified 11/01/19 09:35 Current Medications Current Medications Generic Name Dose Route Start Last Admin Trade Name Freq PRN Reason Stop Dose Admin Aspirin 81 mg 12/12/19 09:00 12/12/19 09:19 Aspirin Ec PO 81 mg DAILY REY Administration Atorvastatin Calcium 40 mg 12/12/19 09:00 12/12/19 09:19 Lipitor PO 40 mg DAILY REY Administration Clopidogrel Bisulfate 75 mg 12/12/19 09:00 12/12/19 09:19 Plavix PO 75 mg DAILY REY Administration Enoxaparin Sodium 40 mg 12/12/19 09:00 12/12/19 09:19 Lovenox SUBCUT 40 mg DAILY REY Administration Isosorbide Mononitrate 30 mg 12/12/19 09:00 12/12/19 09:19 Imdur PO 30 mg DAILY REY Administration Lisinopril 5 mg 12/12/19 09:00 12/12/19 09:19 Prinivil PO 5 mg DAILY REY Administration PFSH Acute PFSH: Medical History Atherosclerosis of coronary artery of [place] heart with stable angina pectoris Atherosclerotic heart disease of [place] coronary artery with unstable angina pectoris Carotid artery stenosis with cerebral infarction over 8 weeks ago Continue on aspirin, Plavix and statin, continue with close cardiology follow-up in the outpatient setting Carotid stenosis Left carotid artery thromboendarterectomy performed on 11/27/[address] Zuniga Coronary artery disease Cardiac cath with stent placement on 10/25/19 He had a cardiac authorization in the hospital which revealed a subtotal occlusion of the intermedius artery for which he underwent PCI by Dr. Torres. 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 Zuniga History of lymph node excision Reported in the left axilla Family History Mother Stroke Father Diabetes CAD (coronary artery disease) Had open heart surgery in his 60s. of congestive heart failure in his 80s. Denies family history of Clotting disorder Dementia Hyperlipidemia Psychiatric illness Chronic kidney disease (CKD) Suicide Anesthesia complication Bleeding disorder Family history of premature coronary artery disease Lung disease Cancer Hypertension Social History Smoking and tobacco status: current every day smoker cigarettes Packs smoked per day: 0.5 Quit status (tobacco): considering quitting Alcohol intake: former Marital status: History of recent travel: No Current gender identity: Male Vitals/I&O/Wt Last Vital Signs Temp 98.0 F 12/12/19 12:00 Pulse 60 12/12/19 12:00 Resp 14 12/12/19 12:00 BP 90/50 12/12/19 12:00 Pulse Ox 96 12/12/19 12:00 12/11/19 12/12/19 12/12/19 22:59 06:59 14:59 Intake Total 360 / 360 Output Total 200 / 200 Balance 160 / 160 Weight last 48 hrs Weight 208 lb Physical Exam Const: COMMON NORMALS: no apparent distress, average body habitus, oriented x3 and alert GENERAL APPEARANCE: cooperative, comfortable, ill appearing and appears older than stated age ORIENTATION/CONSCIOUSNESS: Yes oriented to person, Yes oriented to place and Yes oriented to time HENMT: COMMON NORMALS: normocephalic, head/scalp atraumatic, hearing grossly normal bilaterally, external ears normal, external nose normal, moist oral mucous membranes and oropharynx normal HEAD & SCALP: normocephalic and atraumatic FACE & SINUS: face symmetric NOSE: external nose normal EXTERNAL EAR: Yes external ears normal MOUTH: oral and palatal mucosa normal Eye: COMMON NORMALS: PERRL, EOMs intact bilaterally and conjunctivae normal ALIGNMENT: Yes alignment normal CONJUNCTIVA: Yes conjunctivae normal SCLERA: sclerae normal PUPIL: Yes PERRL Neck/C-Spine: COMMON NORMALS: no lymphadenopathy, supple and no JVD; negative for no carotid bruits Chest: COMMONS NORMALS: inspection of chest normal CHEST: Yes symmetrical chest wall rise and No tenderness Resp: COMMON NORMALS: clear to auscultation bilaterally AUSCULTATION: clear to auscultation bilaterally, no crackles, no rales, no rhonchi and no wheezes Cardio: COMMON NORMALS: no JVD, regular rate, regular rhythm, S1 normal heart sound, S2 normal heart sound and peripheral pulses 2+ throughout JUGULAR VENOUS DISTENTION: no JVD PALPATION: normal PMI and no heave RATE: regular rate RHYTHM: regular rhythm HEART SOUNDS: S1 normal, S2 normal, no gallops and no murmurs BRUITS: no carotid bruits PERIPHERAL PULSES: pulses 2+ throughout GI: COMMON NORMALS: normal to inspection, nondistended, normoactive bowel sounds, soft to palpation and non-tender PALPATION: Yes soft RECTAL EXAM: Yes deferred Back/Pelvis: LUMBAR SPINE/LOWER BACK: Yes normal to inspection Neuro: COMMON NORMALS: oriented x3 and no focal motor deficits SENSORIUM/ORIENTATION: Yes alert, Yes oriented to person, Yes oriented to place and Yes oriented to time CRANIAL NERVES: Yes CN normal except as noted Psych: COMMON NORMALS: thought process normal MOOD & AFFECT: Yes euthymic mood THOUGHT PROCESS: normal thought process THOUGHT CONTENT: Yes normal thought content ATTENTION/CONCENTRATION: Yes attention grossly intact MEMORY/COGNITION: Yes memory grossly intact INSIGHT: insight good JUDGEMENT: judgment good Data Imaging^: Other Imaging: Radiologist's impression: Carotid duplex 24 October 2019 CONCLUSIONS Intimal thickening and minimal plaques in the common carotid arteries bilaterally. Minimal plaques at the bifurcation and internal carotid arteries bilaterally. Features of total occlusion of the right internal carotid artery No significant stenosis on the left side, based on the above findings. Coronary angiogram 25 October 2019 Diagnostic Cath Status: Elective Diagnostic Findings LM is a medium caliber vessel with mild diffuse disease.. LAD is a medium caliber vessel which appears to wrap around the LV apex minimally. The ostium of the LAD was found to have around 30% tubular narrowing. It gives off a high diagonal, intermedius artery which appears to bifurcate in the midsegment. Just before the bifurcation, the artery appears to be subtotally occluded. The bifurcation branches are found to have mild to moderate diffuse disease. The mid and distal LAD also was found to have mild diffuse disease.. The circumflex artery is a medium caliber vessel with minimal intimal anxieties. No significant stenotic lesions were noted.. RCA is a medium caliber vessel with mild diffuse intimal irregularities. No significant stenotic lesions were noted. The PDA branch was found to have 40 to 50% diffuse narrowing in the proximal segment. No other significant stenotic lesions were noted.. Coronary angiography shows right dominance. Diffuse calcification was noted in the proximal segment of all the arteries. The left main was found to have a high and anterior takeoff.. PCI Status: Elective PCI Indication: NSTE - ACS Interventional Findings Successful PCI to proximal diagonal-2. Lesion was prepared with 2.0 x 8 mm AB TREK balloon, followed by deployment of SWATI INTEGRITY 2.0 x 15 mm stent posted at high ROSALEE of 14 mm to ensure proper approximation. Excellent angiographic result with ELIOT-3 flow was achieved. . Conclusions This is a 64-year-old white male, with a history of hypertension, dyslipidemia, recurrent CVAs, is admitted to hospital with features of unstable angina and non-ST elevation myocardial infarction. His EKG showed nonspecific ST-T changes. Echocardiogram revealed a mild hypokinesia of the anteroseptal segments. He apparently presented to the hospital with a prolonged episode of chest pain, lasting for several hours. His troponin T was found to be elevated with an initial delta of 114. In view of his history, presenting symptoms and the abnormal objective findings, in order to further evaluate his coronary status, a cardiac catheterization was recommended. Patient underwent left heart catheterization with left and right coronary angiogram and LV angiogram today. The findings are as follows. The intermedius artery was found to be subtotally occluded at the mid segment. Mild to moderate diffuse disease was noted in the other vessels. Coronary calcification was noted in the proximal segments of all the arteries. The LV ejection fraction was normal - 60% with mild hypokinesia of the mid anterior wall region. Based on the angiogram findings, it was thought to be appropriate to consider PCI of the diagonal/intermediate artery lesion. Recommendations I reviewed and discussed the cardiac catheterization data with Dr. Torres. Dr. Torres agreed with this plan and took over further management of this patient at this point. 1-Return to inpatient for close monitoring and routine cath care2-Risk factor modification for secondary prevention3-Statin and aspirin 81 mg life-long, if tolerated4-Continue Plavix 75mg p.o. daily for at least one year. We will assess at the end of one year again to continue if further or not5-Continue optimal medical management6-Follow up with Dr. Tse in four weeks and your primary care in 10 days. Transthoracic echocardiogram 24 October 2019 CONCLUSIONS Normal in size ejection fraction 55%. Mild hypokinesia of the mid and apical septum. Thickened aortic and mitral valves. No intracardiac masses or pericardial effusion Mildly dilated aortic root, measuring 4.0 cm the level of the sinuses. Technically difficult study because of the poor ultrasonic window. Comparison with the previous study is difficult because of the difference in the technical quality. A&P Assessment and plan (1) Chest pain: This is a really noncompliant patient who continues to smoke and has had recent NSTEMI with stent placement. It is the same thing every time in spite of reiterating the importance of being on dual antiplatelet therapy. -Given some EKG changes and recent noncompliance, I will go ahead and do a stress test on him. -However, my suspicion is that he is going to be back really soon. -In the meantime continue aspirin Plavix statin and start on Imdur 30 mg daily. Status: Acute Qualifiers: Chest pain type: chest pain due to myocardial ischemia Ischemic chest pain type: unstable angina pectoris Qualified Code(s): I20.0 - Unstable angina (2) Atherosclerosis of coronary artery of [place] heart with stable angina pectoris: Status: Acute Qualifiers: Coronary Disease-Associated Artery/Lesion type: [place] artery Qualified Code(s): I25.118 - Atherosclerotic heart disease of [place] coronary artery with other forms of angina pectoris (3) Hypertension: Blood pressure has ranged from 90/50-150 3/90 4 mmHg. May have a decreased dose of lisinopril 2.5 mg daily. Status: Acute Qualifiers: Hypertension type: essential hypertension Qualified Code(s): I10 - Essential (primary) hypertension (4) Hyperlipidemia: Continue atorvastatin Status: Acute Qualifiers: Hyperlipidemia type: mixed hyperlipidemia Qualified Code(s): E78.2 - Mixed hyperlipidemia (5) History of CVA (cerebrovascular accident): Status: Acute (6) Carotid stenosis: Status: Acute (7) Tobacco abuse: Counseled again on smoking cessation however patient does not seem motivated to quit. Status: Acute Consult Attestations Medical Necessity Statement: Patient needs hospital stay for management of chest pain. Coding Level of Care Code Acute [employer] [place] Diagnoses Chest pain I20.0 Chest pain type: chest pain due to myocardial ischemia Ischemic chest pain type: unstable angina pectoris Atherosclerosis of coronary artery of [place] heart with stable angina pectoris I25.118 Coronary Disease-Associated Artery/Lesion type: [place] artery Hypertension I10 Hypertension type: essential hypertension Hyperlipidemia E78.2 Hyperlipidemia type: mixed hyperlipidemia History of CVA (cerebrovascular accident) Z86.73 Carotid stenosis I65.29 Tobacco abuse Z72.0
--- NOTE | 2019-12-12 15:40 | PM.PN ---
Subjective Subjective: Interval history: Patient reports that yesterday morning he developed right-sided chest pain that he has been having approximately once a week since September and reports that it always happens early in the morning. He denies pleuritic component. m Reports frequent episodes of heartburn and reports taking ibuprofen for his chronic arthritis several times a week. He denies any alleviating or aggravating factors. This morning he denies any shortness of breath or chest pain. He was seen by Dr. Nunes and because of some nonspecific EKG changes he is scheduled to have stress test in the morning. Patient denies melena or hematochezia. Vitals/I&O/Wt Last Vital Signs Temp 98.0 F 12/12/19 14:00 Pulse 58 L 12/12/19 14:00 Resp 20 H 12/12/19 14:00 BP 102/59 12/12/19 14:00 Pulse Ox 93 12/12/19 14:00 12/12/19 12/12/19 12/12/19 06:59 14:59 22:59 Intake Total 360 / 360 Output Total 200 / 200 Balance 160 / 160 Weight last 48 hrs Weight 94.347 kg Physical Exam Const: COMMON NORMALS: no apparent distress and oriented x3 Resp: COMMON NORMALS: normal respiratory effort and clear to auscultation bilaterally AUSCULTATION: clear to auscultation bilaterally Cardio: COMMON NORMALS: regular rate, regular rhythm and S2 normal heart sound RATE: regular rate RHYTHM: regular rhythm HEART SOUNDS: S2 normal OTHER: No lower extremity edema GI: COMMON NORMALS: normal to inspection, nondistended, normoactive bowel sounds, soft to palpation and non-tender PALPATION: Yes soft Neuro: COMMON NORMALS: oriented x3 and no focal motor deficits Data : 12/12/19 04:35 12/12/19 04:35 A&P Assessment and plan (1) Unstable angina: Status: Acute (2) Tobacco abuse: Status: Acute (3) Hypertension: Status: Acute Qualifiers: Hypertension type: essential hypertension Qualified Code(s): I10 - Essential (primary) hypertension Additional A&P Information Atypical chest pain. Suspected to be secondary to NSAID induced gastritis/peptic ulcer disease. Unstable angina cannot be ruled out. In October, cardiac authorization revealed a subtotal occlusion of the intermedius artery for which he underwent PCI by Dr. Torres. EF 55%. Current EKG showing chronic changes of ST depression in inferior & lateral leads Troponin not significantly high Patient is not on any antianginal medication I would continue aspirin, Plavix, statin and will add Imdur Not a candidate of AV yosef blocking agent because of bradycardia Dr. Nunes is consulted and notified by ER physician Would hold off on starting anticoagulation at this point until cardiology's recommendation Smoking abuse: Patient is smoking 4 to 5 cigarettes a day, he is tried to quit and wants to use nicotine patch PLAN: We will start patient on high-dose PPI and avoid NSAIDs. This was discussed with patient and he voiced understanding. Patient is scheduled for stress test in a.m. Discussed extensively regarding importance of smoking cessation. Patient voiced understanding and reports that he has plenty of nicotine patches at home that he is planning to use. Full code DVT prophylaxis: Lovenox Cardiac diet Attestations Medical Necessity Statement*: Patient with concern for unstable angina requires hospitalization for further monitoring, evaluation and treatment. Coding Level of Care Code Acute [employer] [place] Diagnoses Unstable angina I20.0 Tobacco abuse Z72.0 Hypertension I10 Hypertension type: essential hypertension
[2019-12-12] MEDS: pantoprazole DR 40 mg Tablet PO (17:14)
[2019-12-12] MEDS: trazodone 50 mg Tablet 25 MG PO (23:08)
[2019-12-13] VITALS (7 sets, daily range): BP systolic 101–156; BP diastolic 62–87; PULSE 58–86; RESP 18–22; TEMP 36.6–36.9; O2SAT 93–96
[2019-12-13] MEDS: acetaminophen 500 mg Tablet PO ×2 (02:42→09:55)
[2019-12-13 04:53] LABS: Basophils # 0.1 10^3/uL (0.0-0.1); Basophils % 0.6 %; Eosinophils # 0.4 10^3/uL (0.0-0.8); Eosinophils % 4.6 %; Hematocrit 38.8 % (42.0-52.0); Lymphocytes # 2.1 10^3/uL (0.8-4.8); Lymphocytes % 24.1 %; Mean Corpuscular HGB Conc 33.5 g/dL (30.0-36.0); Mean Corpuscular Hemoglobin 31.1 pg (28.0-34.0); Mean Corpuscular Volume 92.8 fL (80-94); Mean Platelet Volume 10.2 fL (7.4-10.4); Monocytes # 0.8 10^3/uL (0.2-0.9); Monocytes % 9.2 %; Neutrophils # 5.3 10^3/uL (1.8-7.7); Neutrophils % 61.3 %; Nucleated Red Blood Cells % 0 %; Platelet Count 191 10^3/cmm (130-400); Red Blood Count 4.18 10^6/uL (4.1-5.3); Red Cell Distribution Width 12.1 % (12.1-15.1); White Blood Count 8.7 10^3/uL (4.0-10.0)
[2019-12-13 05:03] LABS: Anion Gap 12.1 (5-19); Blood Urea Nitrogen 11 mg/dL (8-23); Calcium 8.7 mg/dL (8.5-10.5); Carbon Dioxide 25 mmol/L (22-29); Chloride 104 mmol/L (98-107); Glomerular Filtration Rate 112.8 mL/min (90-130); Glucose 110 mg/dL (65-115); Osmolality Calculated 281 mOsm/kg (285-295); Potassium 4.1 mmol/L (3.5-5.1); Sodium 137 mmol/L (136-145)
--- NOTE | 2019-12-13 06:45 | NMCV_ITS ---
NM audi perf SPECT r/s* [id number] Arnaldo Chacon Age: 64 Gender: M : 1955 Exam Date: 12/13/2019 06:45 Ordering Phys: Lilia Nunes MD ([email or web address]) Technologist: DOMINIC Morales Exam Location: [facility] Indications: CHEST PAIN STRESS TEST [facility] IMAGE PROTOCOL Rest/Stress 1 Lexiscan Day Radiopharmaceutical Dose (mCi) Administration Site Administered by Rest: Tc-99m 10.5 IV DOMINIC Morales Sestamibi Stress:Tc-99m 32.6 IV DOMINIC Morales Sestamibi Rest: 13-Dec-2019 60 Discovery 630 Stress: 13-Dec-2019 30 Discovery 630 0.4mg Lexiscan. Supine position only as patient was unable to lay prone. SPECT RESULTS Technical Quality: Excellent Raw Data Analysis: Normal Image Corrections: Patient motion artifact - motion correction applied to stress images. Summed Stress Score: 0 Summed Rest Score: 1 Summed Difference Score: 0 PERFUSION FINDINGS Very small size perfusion abnormality of mild severity of mid inferoseptal wall on rest images with improved tracer uptake on stress images. This is suggestive of attenuation artifact. FUNCTIONAL RESULTS (calculated via Gated SPECT) Stress Image LV EF (%): 88 Stress EDV (mL):69 TID: 1.13 Stress ESV (mL):8 FUNCTIONAL FINDINGS: The left ventricle is normal in size. Transient Ischemia Dilatation of 1.1. There is hyperdynamic left ventricular systolic function. The left ventricular ejection fraction is hyperdynamic with a value of 88%. There is hyperdynamic left ventricular wall thickening. IMPRESSIONS 1. Myocardial perfusion imaging is normal. 2. Overall left ventricular systolic function is normal without regional wall motion abnormalities. 3. The left ventricular ejection fraction is hyperdynamic with a value of 88%. 4. This study suggests a low likelihood of angiographically significant coronary artery disease. Lilia Nunes MD (Electronically Signed) Final Date: 13 December 2019 12:23 S
[2019-12-13] MEDS: regadenoson 0.4 Mg/5 ml Syringe IVP (08:48)
--- NOTE | 2019-12-13 09:18 | PC.CHAP ---
Pastoral Care Encounter/Spiritual Assessment Type of Contact [] Declined education instructor visit [] Patient/Family/Request visit [] Outpatient visit [] Follow-up visit [] Physician referral [] Code/Alert [x] Routine visit [] Staff referral [] Actively dying [] Patient sleeping [] Family support [] [x] Out of room [] Palliative care [] [] Receiving care in room [] Pre-surgical visit [] Trauma [] Long length of stay [] ICU visit [] Other: Relational/Emotional Strength [] Patient feels connected with others/family/visitors/staff [] Distress [] Loneliness/isolation [] Abandonment Spirituality of Patient [] Person of Luci [] Attends Sikh of their Luci [] Believes in Prayer [] Reads Bible or Evangelical materials [] There are Spiritual issues to be addressed Pest Control Technician Interventions [] Prayer [] Active listening [] Non-anxious presence [] Spiritual/emotional support [] Crisis/trauma care [] Spiritual counseling [] Bereavement support [] Provided bereavement packet [] Provided Bible/devotional materials [] Provided toy/stuffed animal, coloring book to patient or family member [] Provided Communion [] Anointing/[place] [] Salvation [x] Completed spiritual assessment [] Other: Impact on Illness or Injury [] Angry [] Fearful [] Anxious [] Often cries [] Exhaustion [] Unable to work [] Unable to attend zoroastrianism [] Unable to walk/stand [] Unable to read [] Unable to drive [] Unable to eat/drink [] Unable to sleep [] Unable to be with family [] Patient intubated [] Other: Summary Patient out of room left a Daily Bread, and a prayer cross.... Time spent with patient
[2019-12-13] MEDS: atorvastatin 40 mg Tablet PO (09:54)
[2019-12-13] MEDS: clopidogrel 75 mg Tablet PO (09:54)
[2019-12-13] MEDS: aspirin 81 mg EC Tablet PO (09:54)
[2019-12-13] MEDS: pantoprazole DR 40 mg Tablet PO (09:55)
[2019-12-13] MEDS: lisinopril 5 mg Tablet PO (09:55)
[2019-12-13] MEDS: isosorbide mononitrate ER 30 mg Tablet PO (09:55)
[2019-12-13] MEDS: enoxaparin 40 mg/0.4 mL Syringe SUBCUT (09:56)
--- NOTE | 2019-12-13 14:01 | P.DS_ITS ---
Discharge Providers Date of Admission: 12/12/19 05:54 Date of Discharge: December 13, 2019 Attending Provider at Admission: Debbie Brandon MD Attending Provider at Discharge: Emile Chavez MD Primary Care Provider: Nitin Castellano MD Diagnoses at Discharge Discharge Diagnosis (1) Tobacco abuse: Status: Acute (2) Hypertension: Status: Acute Qualifiers: Hypertension type: essential hypertension Qualified Code(s): I10 - Essential (primary) hypertension (3) Atypical chest pain: Status: Acute Problem details: suggestive GI in etiology (4) NSAID induced gastritis: Status: Acute Problem details: and possibly peptic ulcer disease. Reason for Visit Reason for Visit: Reason For Visit: chest pain Hospital Course Discharge Summary: Patient with recent coronary artery intervention in October presents with atypical chest pain which felt to be due to NSAID induced gastritis. Initially acute coronary syndrome was suspected and patient hospitalized for further evaluation and treatment. Stress test came back as low probability for clinically significant reversable coronary artery disease. Jv hunter was started on high dose PPI and this morning he reports that heart burn is completely gone and he had no more chest pain. Discussed with Dr. Nunes who is okay to dismiss patient home with outpatient follow up with Dr. Tse in 2 weeks. Patient get his HR to mid 40s when sleeps and asymptomatic. Patient was told to take Tylenol for his aches and pains and avoid NSAIDs. Physical Exam Const: COMMON NORMALS: no apparent distress and oriented x3 Resp: COMMON NORMALS: normal respiratory effort and clear to auscultation bilaterally AUSCULTATION: clear to auscultation bilaterally Cardio: COMMON NORMALS: regular rate, regular rhythm and S2 normal heart sound RATE: regular rate RHYTHM: regular rhythm HEART SOUNDS: S2 normal OTHER: No lower extremity edema GI: COMMON NORMALS: normal to inspection, nondistended, normoactive bowel sounds, soft to palpation and non-tender PALPATION: Yes soft Neuro: COMMON NORMALS: oriented x3 and no focal motor deficits Discharge Data Data Completed and Pending: Completed Studies During Hospitalization Category Date Time Status Sestamibi Stress Test Request Routi ne Exams 12/12/19 12:45 Completed XR chest 1V km ble [id number] Stat Exams 12/12/19 04:25 Completed NM audi perf SPECT r/s* [id number] Routin e Nuc Med 12/13/19 06:45 Completed Labs from last 24 hours 12/13/19 12/13/19 03:56 03:56 WBC 8.7 RBC 4.18 Hgb 13.0 Hct 38.8 L MCV 92.8 MCH 31.1 MCHC 33.5 RDW 12.1 Plt Count 191 MPV 10.2 Neut % (Auto) 61.3 Lymph % (Auto) 24.1 [place] % (Auto) 9.2 Eos % (Auto) 4.6 Baso % (Auto) 0.6 Neut # (Auto) 5.3 Lymph # (Auto) 2.1 [place] # (Auto) 0.8 Eos # (Auto) 0.4 Baso # (Auto) 0.1 Nucleated RBC % (a uto) 0 Nucleated RBCs # 0.0 Sodium 137 Potassium 4.1 Chloride 104 Carbon Dioxide 25 Anion Gap 12.1 BUN 11 Creatinine 0.7 GFR Calculation 112.8 Glucose 110 Calculated Osmolal ity 281 L Calcium 8.7 Vitals: Last Vital Signs Temp 97.9 F 12/13/19 10:50 Pulse 67 12/13/19 10:50 Resp 18 12/13/19 10:50 BP 105/64 12/13/19 10:50 Pulse Ox 96 12/13/19 10:50 Discharge Plan Discharge Patient Disposition: Home, Self-Care Condition: Stable Prescriptions: New pantoprazole 40 mg Tablet,Delayed Release (Dr/Ec) 40 mg PO BID Qty: 60 RF: 0 Continued aspirin [Adult Low Dose Aspirin] 81 mg tablet,delayed release (DR/EC) 81 mg PO DAILY RF: 0 Plavix 75 mg tablet 75 mg PO DAILY 30 Days Qty: 30 RF: 0 lisinopril 5 mg tablet 5 mg PO DAILY 90 Days Qty: 90 RF: 3 atorvastatin [Lipitor] 40 mg tablet 40 mg PO DAILY 90 Days Qty: 90 RF: 3 Discharge Orders: Discharge Order (Routine); Ordered 12/13/19 Ordered By: Emile Chavez Referrals: Nitin Castellano MD [Primary Care Provider] - 4-7 days Carol Tse MD [Physician] - 2 weeks Discharge Diet: Advance as tolerated Discharge Activity: Increase activity as tolerated Activity Restrictions/Additional Instructions: Please call your doctor or present to ED if your condition worsens or you develop diarrhea or see blood in your stool or black stool. Please discuss with your doctor if heart burn recurs as you may require further evaluation with EGD. Discharge Attestations Time Spent in Discharge Care*: greater than 30 min Quality Metrics Clinical Quality Measures During this hospital stay, did patient experience: None Coding Level of Care Code Acute Engine Watchman for Chg Fwd Exam Detailed Diagnoses Tobacco abuse Z72.0 Hypertension I10 Hypertension type: essential hypertension Atypical chest pain R07.89 NSAID induced gastritis K29.60; T39.395A
--- NOTE | 2019-12-13 14:43 | PC.NURSE ---
Discharge instructions given per the physician's orders. Patient verbalized understanding and did not have any further questions. Family notified of discharge.
--- NOTE | 2019-12-13 16:33 | P.PN_ITS ---
Subjective Subjective: Interval history: No acute events. underwent stress test today. Medications: Reviewed: Yes Vitals/I&O/Wt Last Vital Signs Temp 97.9 F 12/13/19 14:44 Pulse 67 12/13/19 14:44 Resp 18 12/13/19 14:44 BP 105/64 12/13/19 14:44 Pulse Ox 96 12/13/19 14:44 12/13/19 12/13/19 12/13/19 06:59 14:59 22:59 Intake Total 220 / 820 240 / 240 Balance 220 / 420 240 / 240 Weight last 48 hrs Weight 208 lb Physical Exam Const: COMMON NORMALS: no apparent distress, average body habitus, oriented x3 and alert GENERAL APPEARANCE: cooperative, comfortable, ill appearing and appears older than stated age ORIENTATION/CONSCIOUSNESS: Yes oriented to person, Yes oriented to place and Yes oriented to time HENMT: COMMON NORMALS: normocephalic, head/scalp atraumatic, hearing grossly normal bilaterally, external ears normal, external nose normal and moist oral mucous membranes HEAD & SCALP: normocephalic and atraumatic NOSE: external nose normal EXTERNAL EAR: Yes external ears normal MOUTH: oral and palatal mucosa normal Eye: COMMON NORMALS: PERRL, EOMs intact bilaterally and conjunctivae normal CONJUNCTIVA: Yes conjunctivae normal SCLERA: sclerae normal PUPIL: Yes PERRL Neck/C-Spine: COMMON NORMALS: supple and no JVD; negative for no carotid bruits Chest: COMMONS NORMALS: inspection of chest normal CHEST: Yes symmetrical chest wall rise and No tenderness Resp: COMMON NORMALS: clear to auscultation bilaterally AUSCULTATION: clear to auscultation bilaterally, no crackles, no rales, no rhonchi and no wheezes Cardio: COMMON NORMALS: no JVD, regular rate, regular rhythm, S1 normal heart sound, S2 normal heart sound and peripheral pulses 2+ throughout JUGULAR VENOUS DISTENTION: no JVD PALPATION: normal PMI and no heave RATE: regular rate RHYTHM: regular rhythm HEART SOUNDS: S1 normal, S2 normal, no gallops and no murmurs BRUITS: no carotid bruits PERIPHERAL PULSES: pulses 2+ throughout Neuro: COMMON NORMALS: oriented x3 and no focal motor deficits SENSORIUM/ORIENTATION: Yes alert, Yes oriented to person, Yes oriented to place and Yes oriented to time CRANIAL NERVES: Yes CN normal except as noted Data : 12/13/19 03:56 12/13/19 03:56 Other Imaging: I personally reviewed and interpreted this imaging study as follows: My impression: Lexiscan MPI IMPRESSIONS 1. Myocardial perfusion imaging is normal. 2. Overall left ventricular systolic function is normal without regional wall motion abnormalities. 3. The left ventricular ejection fraction is hyperdynamic with a value of 88%. 4. This study suggests a low likelihood of angiographically significant coronary artery disease. A&P Assessment and plan (1) Chest pain: This is a really noncompliant patient who continues to smoke and has had recent NSTEMI with stent placement. It is the same thing every time in spite of reiterating the importance of being on dual antiplatelet therapy. -no ischemia on stress test. -continue aspirin,Plavix statin and Imdur 30 mg daily. -Folllow up with Dr. Tse in 2 weeks. Status: Acute Qualifiers: Chest pain type: chest pain due to myocardial ischemia Ischemic chest pain type: unstable angina pectoris Qualified Code(s): I20.0 - Unstable angina (2) Atherosclerosis of coronary artery of [place] heart with stable angina pectoris: Status: Acute Qualifiers: Coronary Disease-Associated Artery/Lesion type: [place] artery Qualified Code(s): I25.118 - Atherosclerotic heart disease of [place] coronary artery with other forms of angina pectoris (3) Hypertension: Blood pressure has ranged from 90/50-150 3/90 4 mmHg. May have a decreased dose of lisinopril 2.5 mg daily. Status: Acute Qualifiers: Hypertension type: essential hypertension Qualified Code(s): I10 - Essential (primary) hypertension (4) Hyperlipidemia: Continue atorvastatin Status: Acute Qualifiers: Hyperlipidemia type: mixed hyperlipidemia Qualified Code(s): E78.2 - Mixed hyperlipidemia (5) History of CVA (cerebrovascular accident): Status: Acute (6) Carotid stenosis: Status: Acute (7) Tobacco abuse: Counseled again on smoking cessation however patient does not seem motivated to quit. Status: Acute Attestations Medical Necessity Statement*: stable to be discharged home. Coding Level of Care Code Acute Rn Admit for [place] Diagnoses Chest pain I20.0 Chest pain type: chest pain due to myocardial ischemia Ischemic chest pain type: unstable angina pectoris Atherosclerosis of coronary artery of [place] heart with stable angina pectoris I25.118 Coronary Disease-Associated Artery/Lesion type: [place] artery Hypertension I10 Hypertension type: essential hypertension Hyperlipidemia E78.2 Hyperlipidemia type: mixed hyperlipidemia History of CVA (cerebrovascular accident) Z86.73 Carotid stenosis I65.29 Tobacco abuse Z72.0
== END 2019-12-13 15:35 | disposition home or self-care (01) ==
LOC: ER 06:03 → CSU 06:30
PROVIDERS: Admitting Provider Internal Medicine; Emergency Provider Emergency Medicine; PCP Internal Medicine; Visit Provider Internal Medicine
DX: I25.118 Atherosclerotic heart disease of native coronary artery with other forms of angina pectoris (principal); I10 Essential (primary) hypertension; F17.210 Nicotine dependence, cigarettes, uncomplicated; Z86.73 Personal history of transient ischemic attack (TIA), and cerebral infarction without residual deficits; Z83.3 Family history of diabetes mellitus; Z82.49 Family history of ischemic heart disease and other diseases of the circulatory system; E78.2 Mixed hyperlipidemia; I65.29 Occlusion and stenosis of unspecified carotid artery; K29.70 Gastritis, unspecified, without bleeding; Z79.1 Long term (current) use of non-steroidal anti-inflammatories (NSAID); Z79.02 Long term (current) use of antithrombotics/antiplatelets; Z79.82 Long term (current) use of aspirin
CPT/HCPCS: 12345; 36415; 71045; 78452; 80048; 80053; 80307; 83690; 83880; 84484; 85025; 85610; 85730; 93005; 93017; 96361; 96372; 96374; 96375; 99283; 99285; A9500; G0378; J1650; J2270; J2405; J2785; J7030; J7040

== ENCOUNTER 2020-06-17 14:53 | Emergency (ER) | payer MEDICARE, MEDICAID, SELFPAY ==
[2020-06-17] VITALS (7 sets, daily range): BP systolic 90–114; BP diastolic 62–73; PULSE 75–133; RESP 18–24; TEMP 37.1; O2SAT 93–96; BMI 30.2
--- NOTE | 2020-06-17 16:59 | XRR_ITS ---
PROCEDURE INFORMATION: Exam: XR Chest, 1 View Exam date and time: 06/17/2020 6:32 PM Age: 65 years old Clinical indication: Cough and fever; Additional info: Cough congestion TECHNIQUE: Imaging protocol: XR of the chest Views: 1 view. COMPARISON: CR XR chest 1V portable [id number] 12/12/2019 4:41 AM FINDINGS: Lungs: No consolidation. Stable minimal linear scarring left lung base. Pleural space: No significant visible pleural effusion. No pneumothorax. Heart/Mediastinum: No significant cardiomegaly. Bones/joints: No acute finding. XR/XR chest 1V portable [id number] IMPRESSION: No acute cardiopulmonary finding.
[2020-06-17 17:38] LABS: ABG PCO2 38.3 mmHg (35-45); ABG PH Result 7.42 (7.35-7.45); Arterial Blood Gas Hematocrit 42.7 % (42-52); Base Excess ABG 0.7 mmol/L (-2.0-2.0); Blood Gas Allen Test Pos; Blood Gas Operator Identificat GD; Blood Gas Sample Site Radial, right; Blood Gas Sample Type Arterial; Oxygen Device ROOM AIR; PO2 ABG 69.9 mmHg (80.0-100.0)
--- NOTE | 2020-06-17 18:01 | ED_ITS ---
Documented by User: YECENIA Bhatti 06/17/20 18:04 HPI - SOB/Dyspnea General: Chief Complaint: Shortness of Breath/Dyspnea Stated Complaint: [id number] yrs/low fever Time Seen by Provider: 06/17/20 16:59 History of Present Illness: HPI Narrative: 65-year-old male patient presents to the emergency department with 3-day onset of shortness of breath. He reports cough congestion after receiving flu vaccination on 06/14/2020, he denies fever chills. He continues to smoke. MD elicited complaint: shortness of breath and cough Onset (ago): day(s) (3) Timing: progressively worsening Severity: moderate Exacerbating factors: coughing, inspiration and deep breaths Relieving factors: rest Associated symptoms: Reports chest congestion and cough; Deny abdominal pain, chest pain, diaphoresis, fever(s), nausea, palpitations or vomiting Treatment prior to arrival: none Review of Systems General: Reports: 10 or more systems reviewed and unremarkable except in HPI and below Const: Reports: body aches and malaise; Denies: fever(s), chills or diaphoresis Eyes: Denies: blurry vision or eye redness ENMT: Denies: throat pain, dental pain or disequilibrium Card: Denies: chest pain, palpitations or irregular heart rhythm Resp: Reports: dyspnea, productive cough, wheezing and chest congestion GI: Denies: abdominal pain, nausea or vomiting : Denies: dysuria Musc: Denies: back pain Skin/Breast: Denies: rash or pruritus Neuro: Denies: headache(s), weakness in extremities or behavioral changes Demetrio/Lymph: Denies: easy bruising PFS ED PFSH: Medical History (Updated 06/17/20 @ 20:21 by KAYE Win) Atherosclerosis of coronary artery of [place] heart with stable angina pectoris Atherosclerotic heart disease of [place] coronary artery with unstable angina pectoris Carotid artery stenosis with cerebral infarction over 8 weeks ago Continue on aspirin, Plavix and statin, continue with close cardiology follow-up in the outpatient setting Carotid stenosis Left carotid artery thromboendarterectomy performed on 11/27/[address] Zuniga Coronary artery disease Cardiac cath with stent placement on 10/25/19 He had a cardiac authorization in the hospital which revealed a subtotal occlusion of the intermedius artery for which he underwent PCI by Dr. Torres. 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 Zuniga History of lymph node excision Reported in the left axilla Family History Mother Stroke Father Diabetes CAD (coronary artery disease) Had open heart surgery in his 60s. of congestive heart failure in his 80s. Denies family history of Clotting disorder Dementia Hyperlipidemia Psychiatric illness Chronic kidney disease (CKD) Suicide Anesthesia complication Bleeding disorder Family history of premature coronary artery disease Lung disease Cancer Hypertension Social History Smoking and tobacco status: current every day smoker cigarettes Packs smoked per day: 0.5 Quit status (tobacco): considering quitting Alcohol intake: former Marital status: History of recent travel: No Current gender identity: Male Physical Exam Const: COMMON NORMALS: no acute distress, patient oriented x3, healthy appearing and alert GENERAL APPEARANCE: cooperative, comfortable and well hydrated HENMT: COMMON NORMALS: normocephalic, Normal external nose present and moist oral mucous membranes HEAD & SCALP: normocephalic NOSE: Normal external nose present Eye: COMMON NORMALS: Equal, round and reactive pupils present and EOMs intact bilaterally GENERAL EYE: appearance normal, both eyes and all related structures PUPIL: Yes Equal, round and reactive pupils present Neck/C-Spine: COMMON NORMALS: full ROM and no lymphadenopathy GENERAL: Yes normal visual inspection and Yes trachea midline CERVICAL SPINE: Yes cervical ROM normal Lymph: LYMPHATIC: no lymphadenopathy noted Chest: COMMONS NORMALS: normal inspection of the chest Resp: COMMON NORMALS: normal respiratory effort EFFORT & INSPECTION: Yes able to speak in complete sentences AUSCULTATION: rhonchi and diminished lung sounds bilateral Cardio: COMMON NORMALS: regular rhythm, S1 normal heart sound present and S2 normal heart sound present RHYTHM: regular rhythm HEART SOUNDS: S1 normal heart sound present and S2 normal heart sound present GI: COMMON NORMALS: Soft to palpation and non-tender INSPECTION: Yes normal to inspection PALPATION: Yes Soft to palpation : COMMON NORMALS: Yes no CVA tenderness BLADDER/KIDNEY EXAM: Yes no CVA tenderness Back/Pelvis: COMMON NORMALS: no CVA tenderness and thoracic and lumbar spine normal to inspection Extremity: COMMON NORMALS: normal to inspection and capillary refill normal Neuro: COMMON NORMALS: patient oriented x3 and no focal motor deficits SENSORIUM/ORIENTATION: Yes alert Psych: COMMON NORMALS: mental status grossly normal, Normal thought process present and cooperative ACTIVITY/MOTOR BEHAVIOR: Yes appropriate eye contact THOUGHT PROCESS: Normal thought process present Skin: COMMON NORMALS: no rashes or lesions noted and turgor normal GENERAL SKIN EXAM: no rashes or lesions noted and turgor normal Course ED course: 65-year-old male patient presents to the emergency department with complaints of cough congestion, preliminary laboratories ordered, labs and chest x-ray pending. O2 saturation 97% on room air. Transfer of care to Radhames Pilar. Vital Signs: Vital signs: Vital Signs Temperature 98.7 F 06/17/20 15:18 Pulse Rate 100 06/17/20 21:04 Respiratory Rate 20 H 06/17/20 21:04 Blood Pressure 114/73 06/17/20 21:04 Pulse Oximetry 94 06/17/20 21:04 MDM - SOB/Dyspnea Lab Data: Labs: Lab Results 06/17/20 06/17/20 06/17/20 Range/Units 17:20 19:20 19:20 WBC 9.4 (4.0-10.0) 10^3/ uL RBC 4.17 (4.1-5.3) 10^6/u L Hgb 13.1 (11.7-16.6) g/dL Hct 39.5 L (42.0-52.0) % MCV 94.7 H (80-94) fL MCH 31.4 (28.0-34.0) pg MCHC 33.2 (30.0-36.0) g/dL RDW 11.7 L (12.1-15.1) % Plt Count 241 (130-400) 10^3/c mm MPV 9.4 (7.4-10.4) fL Neut % (Auto) 66.5 % Lymph % (Auto) 17.8 % [place] % (Auto) 11.1 % Eos % (Auto) 3.7 % Baso % (Auto) 0.6 % Neut # (Auto) 6.27 (1.8-7.7) 10^3/u L Lymph # (Auto) 1.7 (0.8-4.8) 10^3/u L [place] # (Auto) 1.1 H (0.2-0.9) 10^3/u L Eos # (Auto) 0.4 (0.0-0.8) 10^3/u L Baso # (Auto) 0.1 (0.0-0.1) 10^3/u L Nucleated RBC % (a uto) 0 % Nucleated RBCs # 0.0 /100WBC Fibrinogen 404 (174-498) mg/dL D-Dimer 0.82 H (0-0.59) ug/mIFE U Specimen Type Arterial Sample Site Radial, right ABG pH 7.42 (7.35-7.45) ABG pCO2 38.3 (35-45) mmHg ABG pO2 69.9 L (80.0-100.0) mmH g ABG HCO3 25.0 (22-26) mmol/L ABG Base Excess 0.7 (-2.0-2.0) mmol/ L Brayan Test Pos Hematocrit 42.7 (42-52) % O2 Delivery Device Room air Point Of Sale Associate ID Gd Sodium (136-145) mmol/L Potassium (3.5-5.1) mmol/L Chloride (98-107) mmol/L Carbon Dioxide (22-29) mmol/L Anion Gap (5-19) BUN (8-23) mg/dL Creatinine (0.7-1.2) mg/dL GFR Calculation (90-130) mL/min Glucose (65-115) mg/dL Calculated Osmolal ity (285-295) mOsm/k g Lactate (0.5-2.2) mmol/L Calcium (8.5-10.5) mg/dL Magnesium (1.7-2.3) mg/dL Ferritin (30-400) ng/mL Total Bilirubin (0.15-1.2) mg/dL AST (0-40) U/L ALT (0-41) U/L Alkaline Phosphata se (40-130) IU/L C-Reactive Protein (0.0-4.9) mg/L NT-Pro-B Natriuret Pep (0-125) pg/mL Total Protein (6.6-8.7) g/dL Albumin (3.5-5.2) g/dL Globulin (1.3-4.6) g/dL Procalcitonin (0-0.5) ng/mL Influenza Type A A g (Negative) Influenza Type B A g (Negative) 06/17/20 06/17/20 06/17/20 Range/Units 19:20 19:20 19:20 WBC (4.0-10.0) 10^3/ uL RBC (4.1-5.3) 10^6/u L Hgb (11.7-16.6) g/dL Hct (42.0-52.0) % MCV (80-94) fL MCH (28.0-34.0) pg MCHC (30.0-36.0) g/dL RDW (12.1-15.1) % Plt Count (130-400) 10^3/c mm MPV (7.4-10.4) fL Neut % (Auto) % Lymph % (Auto) % [place] % (Auto) % Eos % (Auto) % Baso % (Auto) % Neut # (Auto) (1.8-7.7) 10^3/u L Lymph # (Auto) (0.8-4.8) 10^3/u L [place] # (Auto) (0.2-0.9) 10^3/u L Eos # (Auto) (0.0-0.8) 10^3/u L Baso # (Auto) (0.0-0.1) 10^3/u L Nucleated RBC % (a uto) % Nucleated RBCs # /100WBC Fibrinogen (174-498) mg/dL D-Dimer (0-0.59) ug/mIFE U Specimen Type Sample Site ABG pH (7.35-7.45) ABG pCO2 (35-45) mmHg ABG pO2 (80.0-100.0) mmH g ABG HCO3 (22-26) mmol/L ABG Base Excess (-2.0-2.0) mmol/ L Brayan Test Hematocrit (42-52) % O2 Delivery Device Point Of Sale Associate ID Sodium 141 (136-145) mmol/L Potassium 3.7 (3.5-5.1) mmol/L Chloride 103 (98-107) mmol/L Carbon Dioxide 27 (22-29) mmol/L Anion Gap 14.7 (5-19) BUN 7 L (8-23) mg/dL Creatinine 1.0 (0.7-1.2) mg/dL GFR Calculation 74.5 L (90-130) mL/min Glucose 125 H (65-115) mg/dL Calculated Osmolal ity 291 (285-295) mOsm/k g Lactate 1.3 (0.5-2.2) mmol/L Calcium 9.0 (8.5-10.5) mg/dL Magnesium 1.4 L (1.7-2.3) mg/dL Ferritin 328 (30-400) ng/mL Total Bilirubin 0.5 (0.15-1.2) mg/dL AST 15 (0-40) U/L ALT 12 (0-41) U/L Alkaline Phosphata se 88 (40-130) IU/L C-Reactive Protein 7.9 H (0.0-4.9) mg/L NT-Pro-B Natriuret Pep 199 H (0-125) pg/mL Total Protein 6.7 (6.6-8.7) g/dL Albumin 3.6 (3.5-5.2) g/dL Globulin 3.1 (1.3-4.6) g/dL Procalcitonin 0.02 (0-0.5) ng/mL Influenza Type A A g Negative (Negative) Influenza Type B A g Negative (Negative) Discharge Plan Discharge Patient Disposition: Home Clinical Impression: Chronic bronchitis Qualifiers: Chronic bronchitis type: simple Qualified Code(s): J41.0 - Simple chronic bronchitis Condition: Stable Prescriptions: New prednisone 10 mg tablet 10 mg PO DAILY Qty: 10 RF: 0 Zithromax Z-Leonel 250 mg tablet See Rx Instructions .ROUTE .COMPLEX Qty: 6 RF: 0 No Action aspirin [Adult Low Dose Aspirin] 81 mg tablet,delayed release (DR/EC) 81 mg PO DAILY RF: 0 lisinopril 5 mg tablet 5 mg PO DAILY 90 Days Qty: 90 RF: 3 atorvastatin [Lipitor] 40 mg tablet 40 mg PO DAILY 90 Days Qty: 90 RF: 3 Plavix 75 mg tablet 75 mg PO DAILY 30 Days Qty: 90 RF: 0 pantoprazole 40 mg Tablet,Delayed Release (Dr/Ec) 40 mg PO BID Qty: 60 RF: 0 nitroglycerin 0.4 mg tablet, sublingual 0.4 mg sublingual PRN RF: 0 Discharge Orders: Discharge Order (Routine); Ordered 06/17/20 Ordered By: Radhames Quezada Referrals: Nitin Castellano MD [Primary Care Provider] - Discharge Diet: Usual diet Discharge Activity: Increase activity as tolerated Patient Instructions: Chronic Bronchitis (ED) Activity Restrictions/Additional Instructions: Follow-up with medical provider as directed. Take medications as prescribed. Return to the ER or your medical provider if condition worsens. Please read and understand discharge instructions. If any questions ask please. Continue breathing treatments that you have at home Discharge Date/Time: 06/17/20 21:05 Coding Level of Care Code ED Masonry Instructor for Chg Fwd Exam Comprehensive Documented by User: KAYE Win 06/18/20 01:20 HPI - SOB/Dyspnea General: Chief Complaint: Shortness of Breath/Dyspnea Stated Complaint: [id number] yrs/low fever Time Seen by Provider: 06/17/20 16:59 PFSH ED PFSH: Medical History (Updated 06/17/20 @ 20:21 by KAYE Win) Atherosclerosis of coronary artery of [place] heart with stable angina pectoris Atherosclerotic heart disease of [place] coronary artery with unstable angina pectoris Carotid artery stenosis with cerebral infarction over 8 weeks ago Continue on aspirin, Plavix and statin, continue with close cardiology follow-up in the outpatient setting Carotid stenosis Left carotid artery thromboendarterectomy performed on 11/27/[address] Zuniga Coronary artery disease Cardiac cath with stent placement on 10/25/19 He had a cardiac authorization in the hospital which revealed a subtotal occlusion of the intermedius artery for which he underwent PCI by Dr. Torres. 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 Zuniga History of lymph node excision Reported in the left axilla Family History Mother Stroke Father Diabetes CAD (coronary artery disease) Had open heart surgery in his 60s. of congestive heart failure in his 80s. Denies family history of Clotting disorder Dementia Hyperlipidemia Psychiatric illness Chronic kidney disease (CKD) Suicide Anesthesia complication Bleeding disorder Family history of premature coronary artery disease Lung disease Cancer Hypertension Social History Smoking and tobacco status: current every day smoker cigarettes Packs smoked per day: 0.5 Quit status (tobacco): considering quitting Alcohol intake: former Marital status: History of recent travel: No Current gender identity: Male Course Vital Signs: Vital signs: Vital Signs Temperature 98.7 F 06/17/20 15:18 Pulse Rate 100 06/17/20 21:04 Respiratory Rate 20 H 06/17/20 21:04 Blood Pressure 114/73 06/17/20 21:04 Pulse Oximetry 94 06/17/20 21:04 MDM - SOB/Dyspnea MDM Narrative: Medical decision making narrative: Wells criteria does not indicate need for CTA Score is 1 are 0, patient had get a flu shot on Wednesday has a history of chronic bronchitis that after he gets a flu shot he started with a cough the next day just felt kind yucky comes in with continued cough nonproductive. Said he is denies any fever chills denies any shortness of breath just hard cough. Not had any cold exposure said he feels okay Lab Data: Labs: Lab Results 06/17/20 06/17/20 06/17/20 Range/Units 17:20 19:20 19:20 WBC 9.4 (4.0-10.0) 10^3/ uL RBC 4.17 (4.1-5.3) 10^6/u L Hgb 13.1 (11.7-16.6) g/dL Hct 39.5 L (42.0-52.0) % MCV 94.7 H (80-94) fL MCH 31.4 (28.0-34.0) pg MCHC 33.2 (30.0-36.0) g/dL RDW 11.7 L (12.1-15.1) % Plt Count 241 (130-400) 10^3/c mm MPV 9.4 (7.4-10.4) fL Neut % (Auto) 66.5 % Lymph % (Auto) 17.8 % [place] % (Auto) 11.1 % Eos % (Auto) 3.7 % Baso % (Auto) 0.6 % Neut # (Auto) 6.27 (1.8-7.7) 10^3/u L Lymph # (Auto) 1.7 (0.8-4.8) 10^3/u L [place] # (Auto) 1.1 H (0.2-0.9) 10^3/u L Eos # (Auto) 0.4 (0.0-0.8) 10^3/u L Baso # (Auto) 0.1 (0.0-0.1) 10^3/u L Nucleated RBC % (a uto) 0 % Nucleated RBCs # 0.0 /100WBC Fibrinogen 404 (174-498) mg/dL D-Dimer 0.82 H (0-0.59) ug/mIFE U Specimen Type Arterial Sample Site Radial, right ABG pH 7.42 (7.35-7.45) ABG pCO2 38.3 (35-45) mmHg ABG pO2 69.9 L (80.0-100.0) mmH g ABG HCO3 25.0 (22-26) mmol/L ABG Base Excess 0.7 (-2.0-2.0) mmol/ L Brayan Test Pos Hematocrit 42.7 (42-52) % O2 Delivery Device Room air Point Of Sale Associate ID Gd Sodium (136-145) mmol/L Potassium (3.5-5.1) mmol/L Chloride (98-107) mmol/L Carbon Dioxide (22-29) mmol/L Anion Gap (5-19) BUN (8-23) mg/dL Creatinine (0.7-1.2) mg/dL GFR Calculation (90-130) mL/min Glucose (65-115) mg/dL Calculated Osmolal ity (285-295) mOsm/k g Lactate (0.5-2.2) mmol/L Calcium (8.5-10.5) mg/dL Magnesium (1.7-2.3) mg/dL Ferritin (30-400) ng/mL Total Bilirubin (0.15-1.2) mg/dL AST (0-40) U/L ALT (0-41) U/L Alkaline Phosphata se (40-130) IU/L C-Reactive Protein (0.0-4.9) mg/L NT-Pro-B Natriuret Pep (0-125) pg/mL Total Protein (6.6-8.7) g/dL Albumin (3.5-5.2) g/dL Globulin (1.3-4.6) g/dL Procalcitonin (0-0.5) ng/mL Influenza Type A A g (Negative) Influenza Type B A g (Negative) 06/17/20 06/17/20 06/17/20 Range/Units 19:20 19:20 19:20 WBC (4.0-10.0) 10^3/ uL RBC (4.1-5.3) 10^6/u L Hgb (11.7-16.6) g/dL Hct (42.0-52.0) % MCV (80-94) fL MCH (28.0-34.0) pg MCHC (30.0-36.0) g/dL RDW (12.1-15.1) % Plt Count (130-400) 10^3/c mm MPV (7.4-10.4) fL Neut % (Auto) % Lymph % (Auto) % [place] % (Auto) % Eos % (Auto) % Baso % (Auto) % Neut # (Auto) (1.8-7.7) 10^3/u L Lymph # (Auto) (0.8-4.8) 10^3/u L [place] # (Auto) (0.2-0.9) 10^3/u L Eos # (Auto) (0.0-0.8) 10^3/u L Baso # (Auto) (0.0-0.1) 10^3/u L Nucleated RBC % (a uto) % Nucleated RBCs # /100WBC Fibrinogen (174-498) mg/dL D-Dimer (0-0.59) ug/mIFE U Specimen Type Sample Site ABG pH (7.35-7.45) ABG pCO2 (35-45) mmHg ABG pO2 (80.0-100.0) mmH g ABG HCO3 (22-26) mmol/L ABG Base Excess (-2.0-2.0) mmol/ L Brayan Test Hematocrit (42-52) % O2 Delivery Device Point Of Sale Associate ID Sodium 141 (136-145) mmol/L Potassium 3.7 (3.5-5.1) mmol/L Chloride 103 (98-107) mmol/L Carbon Dioxide 27 (22-29) mmol/L Anion Gap 14.7 (5-19) BUN 7 L (8-23) mg/dL Creatinine 1.0 (0.7-1.2) mg/dL GFR Calculation 74.5 L (90-130) mL/min Glucose 125 H (65-115) mg/dL Calculated Osmolal ity 291 (285-295) mOsm/k g Lactate 1.3 (0.5-2.2) mmol/L Calcium 9.0 (8.5-10.5) mg/dL Magnesium 1.4 L (1.7-2.3) mg/dL Ferritin 328 (30-400) ng/mL Total Bilirubin 0.5 (0.15-1.2) mg/dL AST 15 (0-40) U/L ALT 12 (0-41) U/L Alkaline Phosphata se 88 (40-130) IU/L C-Reactive Protein 7.9 H (0.0-4.9) mg/L NT-Pro-B Natriuret Pep 199 H (0-125) pg/mL Total Protein 6.7 (6.6-8.7) g/dL Albumin 3.6 (3.5-5.2) g/dL Globulin 3.1 (1.3-4.6) g/dL Procalcitonin 0.02 (0-0.5) ng/mL Influenza Type A A g Negative (Negative) Influenza Type B A g Negative (Negative) Discharge Plan Discharge Patient Disposition: Home Clinical Impression: Chronic bronchitis Qualifiers: Chronic bronchitis type: simple Qualified Code(s): J41.0 - Simple chronic bronchitis Condition: Stable Prescriptions: New prednisone 10 mg tablet 10 mg PO DAILY Qty: 10 RF: 0 Zithromax Z-Leonel 250 mg tablet See Rx Instructions .ROUTE .COMPLEX Qty: 6 RF: 0 No Action aspirin [Adult Low Dose Aspirin] 81 mg tablet,delayed release (DR/EC) 81 mg PO DAILY RF: 0 lisinopril 5 mg tablet 5 mg PO DAILY 90 Days Qty: 90 RF: 3 atorvastatin [Lipitor] 40 mg tablet 40 mg PO DAILY 90 Days Qty: 90 RF: 3 Plavix 75 mg tablet 75 mg PO DAILY 30 Days Qty: 90 RF: 0 pantoprazole 40 mg Tablet,Delayed Release (Dr/Ec) 40 mg PO BID Qty: 60 RF: 0 nitroglycerin 0.4 mg tablet, sublingual 0.4 mg sublingual PRN RF: 0 Discharge Orders: Discharge Order (Routine); Ordered 06/17/20 Ordered By: Radhames Quezada Referrals: Nitin Castellnao MD [Primary Care Provider] - Discharge Diet: Usual diet Discharge Activity: Increase activity as tolerated Patient Instructions: Chronic Bronchitis (ED) Activity Restrictions/Additional Instructions: Follow-up with medical provider as directed. Take medications as prescribed. Return to the ER or your medical provider if condition worsens. Please read and understand discharge instructions. If any questions ask please. Continue breat bob treatments that you have at home Discharge Date/Time: 06/17/20 21:05 Coding Level of Care Code ED Masonry Instructor for [place] Fwd Exam Comprehensive
[2020-06-17] MEDS: albuterol 8 gm MDI 2 PUFF INHALATION (18:40)
[2020-06-17] MEDS: ipratropium-albuterol 3 mL Neb INHALATION (18:40)
[2020-06-17] MEDS: benzonatate 100 mg Capsule 200 MG PO (18:43)
[2020-06-17 19:32] LABS: Basophils # 0.1 10^3/uL (0.0-0.1); Basophils % 0.6 %; Eosinophils # 0.4 10^3/uL (0.0-0.8); Eosinophils % 3.7 %; Hematocrit 39.5 % (42.0-52.0); Hemoglobin 13.1 g/dL (11.7-16.6); Lymphocytes # 1.7 10^3/uL (0.8-4.8); Lymphocytes % 17.8 %; Mean Corpuscular HGB Conc 33.2 g/dL (30.0-36.0); Mean Corpuscular Hemoglobin 31.4 pg (28.0-34.0); Mean Corpuscular Volume 94.7 fL (80-94); Mean Platelet Volume 9.4 fL (7.4-10.4); Monocytes # 1.1 10^3/uL (0.2-0.9); Monocytes % 11.1 %; Neutrophils # 6.27 10^3/uL (1.8-7.7); Neutrophils % 66.5 %; Nucleated Red Blood Cells % 0 %; Platelet Count 241 10^3/cmm (130-400); Red Blood Count 4.17 10^6/uL (4.1-5.3); Red Cell Distribution Width 11.7 % (12.1-15.1); White Blood Count 9.4 10^3/uL (4.0-10.0)
[2020-06-17 19:58] LABS: Fibrinogen 404 mg/dL (174-498)
[2020-06-17 20:01] LABS: D Dimer 0.82 ug/mIFEU (0-0.59)
[2020-06-17 20:02] LABS: Lactate (Lactic Acid level) 1.3 mmol/L (0.5-2.2)
[2020-06-17] MEDS: acetaminophen 500 mg Tablet 1000 MG PO (20:12)
[2020-06-17 20:16] LABS: Alanine Aminotransferase 12 U/L (0-41); Albumin Level 3.6 g/dL (3.5-5.2); Alkaline Phosphatase 88 IU/L (40-130); Anion Gap 14.7 (5-19); Aspartate Amino Transferase 15 U/L (0-40); Blood Urea Nitrogen 7 mg/dL (8-23); Carbon Dioxide 27 mmol/L (22-29); Chloride 103 mmol/L (98-107); Globulin 3.1 g/dL (1.3-4.6); Glomerular Filtration Rate 74.5 mL/min (90-130); Glucose 125 mg/dL (65-115); Magnesium 1.4 mg/dL (1.7-2.3); NT Pro B Type Natriuretic Pept 199 pg/mL (0-125); Osmolality Calculated 291 mOsm/kg (285-295); Potassium 3.7 mmol/L (3.5-5.1); Sodium 141 mmol/L (136-145); Total Bilirubin 0.5 mg/dL (0.15-1.2); Total Protein 6.7 g/dL (6.6-8.7)
[2020-06-17 20:18] LABS: Influenza A by IFA Negative (Negative); Influenza B by IFA Negative (Negative)
[2020-06-17] MEDS: azithromycin 250 mg Tablet 500 MG PO (20:55)
[2020-06-17] MEDS: predniSONE 10 mg Tablet PO (20:55)
[2020-06-17 23:09] LABS: Procalcitonin 0.02 ng/mL (0-0.5)
[2020-06-17 23:29] LABS: C Reactive Protein 7.9 mg/L (0.0-4.9); Ferritin 328 ng/mL (30-400)
== END 2020-06-17 21:05 | disposition home or self-care (01) ==
PROVIDERS: Nurse Practitioner Family; Emergency Provider Nurse Practitioner Family; PCP Internal Medicine
DX: J41.0 Simple chronic bronchitis (principal); Z79.82 Long term (current) use of aspirin; Z79.02 Long term (current) use of antithrombotics/antiplatelets; F17.210 Nicotine dependence, cigarettes, uncomplicated; I25.10 Atherosclerotic heart disease of native coronary artery without angina pectoris; Z86.73 Personal history of transient ischemic attack (TIA), and cerebral infarction without residual deficits; E78.5 Hyperlipidemia, unspecified; I10 Essential (primary) hypertension
CPT/HCPCS: 12345; 36600; 71045; 80053; 82728; 82803; 83605; 83735; 83880; 84145; 85025; 85378; 85384; 86140; 87804; 94640; 99283; 99284; J3535; J7512; Q0144

== ENCOUNTER 2020-06-21 06:03 | Inpatient (IN) | payer MEDICARE, MEDICAID, SELFPAY ==
[2020-06-21] VITALS (19 sets, daily range): BP systolic 94–141; BP diastolic 58–101; PULSE 59–124; RESP 15–22; TEMP 36.4–37.9; O2SAT 81–95; BMI 30.4
--- NOTE | 2020-06-21 06:14 | XR_ITS ---
WS: [id number] Portable AP upright chest, 06/21/2020 Clinical Data: cough/dyspnea Comparison: Portable chest, 06/17/2020. Findings: No nodules, masses or effusions are seen. The heart is normal. The pulmonary vascularity is not increased. No pneumonia or pneumothorax is seen. The aortic arch and descending aorta are tortuo us. XR/XR chest 1V portable [id number] Impression: Atherosclerosis.
--- NOTE | 2020-06-21 06:44 | W.ED.SOB ---
HPI - SOB/Dyspnea General: Chief Complaint: Shortness of Breath/Dyspnea Stated Complaint: SOB Time Seen by Provider: 06/21/20 06:04 History of Present Illness: HPI Narrative: 65-year-old male presents to the emergency room with complaint of shortness of breath and cough. It is been progressively worsening for the last week, his initial symptoms began on 06/14.. He was seen on 06/17. chart was reviewed he had flu swab and other cold related labs but did not have a COVID swab. Chest x-ray is relatively unremarkable. He has had minimally productive cough dilators have not been very helpful for this. When he was discharged home with last visit he was sent home with prednisone and Zithromax. MD elicited complaint: shortness of breath and cough Pertinent past history: COPD Onset (ago): day(s) Context: recent illness Timing: constant and progressively worsening Severity: severe Exacerbating factors: exertion and coughing Relieving factors: nothing Known history of: COPD Associated symptoms: Reports cough, myalgias and nausea; Deny abdominal pain, chest congestion, chest pain, diaphoresis, dizziness, extremity pain, fever(s), hemoptysis, lightheadedness, orthopnea, palpitations, paresthesias, polydipsia, polyuria, rash, sense of impending doom, syncope or vomiting Treatment prior to arrival: oxygen Review of Systems Const: Denies: fever(s) or diaphoresis ENMT: Denies: throat pain, ear or mastoid pain, nasal discharge or nasal congestion Card: Denies: chest pain, palpitations, lightheadedness, syncope or orthopnea Resp: Denies: hemoptysis or chest congestion GI: Reports: nausea; Denies: abdominal pain or vomiting : Denies: flank pain, dysuria, urinary frequency or urinary urgency Musc: Denies: extremity pain Skin/Breast: Denies: rash or pruritus Neuro: Denies: dizziness Endo: Denies: polyuria or polydipsia PFSH ED PFSH: Medical History Atherosclerosis of coronary artery of [place] heart with stable angina pectoris Atherosclerotic heart disease of [place] coronary artery with unstable angina pectoris Carotid artery stenosis with cerebral infarction over 8 weeks ago Continue on aspirin, Plavix and statin, continue with close cardiology follow-up in the outpatient setting Carotid stenosis Left carotid artery thromboendarterectomy performed on 11/27/[address] Zuniga Coronary artery disease Cardiac cath with stent placement on 10/25/19 He had a cardiac authorization in the hospital which revealed a subtotal occlusion of the intermedius artery for which he underwent PCI by Dr. Torres. 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 Zuniga History of lymph node excision Reported in the left axilla Family History Mother Stroke Father Diabetes CAD (coronary artery disease) Had open heart surgery in his 60s. of congestive heart failure in his 80s. Denies family history of Clotting disorder Dementia Hyperlipidemia Psychiatric illness Chronic kidney disease (CKD) Suicide Anesthesia complication Bleeding disorder Family history of premature coronary artery disease Lung disease Cancer Hypertension Social History Smoking and tobacco status: current every day smoker cigarettes Packs smoked per day: 0.5 Quit status (tobacco): considering quitting Alcohol intake: former Marital status: History of recent travel: No Current gender identity: Male Physical Exam Const: COMMON NORMALS: no acute distress GENERAL APPEARANCE: cooperative and comfortable ORIENTATION/CONSCIOUSNESS: Yes awake, Yes oriented to person, Yes oriented to place and Yes oriented to time HENMT: COMMON NORMALS: normocephalic, atraumatic and hearing grossly normal bilaterally HEAD & SCALP: normocephalic and atraumatic Neck/C-Spine: COMMON NORMALS: no JVD Resp: EFFORT & INSPECTION: Yes grunting, Yes Actively coughing, Yes uses accessory muscles and Yes audible wheezes AUSCULTATION: rhonchi and wheezes Cardio: COMMON NORMALS: no JVD, regular rate, regular rhythm and No murmurs present (Cardio) RATE: regular rate RHYTHM: regular rhythm GI: COMMON NORMALS: Soft to palpation and No hepatosplenomegaly present AUSCULTATION: Yes normoactive bowel sounds PALPATION: Yes Soft to palpation, No Tenderness to palpation present (GI), No Guarding due to palpation present (GI) and Yes No hepatosplenomegaly present Extremity: COMMON NORMALS: normal to inspection, capillary refill normal, no clubbing, cyanosis or edema, no calf tenderness and no pedal edema Neuro: SENSORIUM/ORIENTATION: Yes oriented to person, Yes oriented to place and Yes oriented to time Skin: COMMON NORMALS: no rashes or lesions noted GENERAL SKIN EXAM: no rashes or lesions noted Course Vital Signs: Vital signs: Vital Signs Temperature 99.2 F 06/23/20 13:14 Pulse Rate 74 06/23/20 13:14 Respiratory Rate 20 H 06/23/20 13:14 Blood Pressure 128/64 06/23/20 13:14 Pulse Oximetry 92 06/23/20 13:14 MDM - SOB/Dyspnea MDM Narrative: Medical decision making narrative: Patient's rapid is negative however he is outside the 5-day window from onset of symptoms. Clinically and indicate in the terms of his work-up I believe he is definitely Covid positive. He will be admitted for COPD exacerbation and suspected Covid infection we will put him in the ICU due to his tachycardia and tachypnea and hypoxia. Of discussed with Dr. Betancourt will be kept as a PUI and we have sent off a PCR Covid swab. Lab Data: Labs: Lab Results 06/21/20 06/21/20 06/21/20 Range/Units 06:30 06:30 06:30 WBC 13.2 H (4.0-10.0) 10^3/ uL RBC 4.01 L (4.1-5.3) 10^6/u L Hgb 12.5 (11.7-16.6) g/dL Hct 37.4 L (42.0-52.0) % MCV 93.3 (80-94) fL MCH 31.2 (28.0-34.0) pg MCHC 33.4 (30.0-36.0) g/dL RDW 11.4 L (12.1-15.1) % Plt Count 284 (130-400) 10^3/c mm MPV 9.5 (7.4-10.4) fL Neut % (Auto) 77.2 % Lymph % (Auto) 10.4 % Stokes % (Auto) 11.6 % Eos % (Auto) 0.2 % Baso % (Auto) 0.3 % Neut # (Auto) 10.16 H (1.8-7.7) 10^3/u L Lymph # (Auto) 1.4 (0.8-4.8) 10^3/u L Stokes # (Auto) 1.5 H (0.2-0.9) 10^3/u L Eos # (Auto) 0.0 (0.0-0.8) 10^3/u L Baso # (Auto) 0.0 (0.0-0.1) 10^3/u L Nucleated RBC % (a uto) 0 % Nucleated RBCs # 0.0 /100WBC Fibrinogen 553 H (174-498) mg/dL D-Dimer 0.71 H (0-0.59) ug/mIFE U Specimen Type Sample Site ABG pH (7.35-7.45) ABG pCO2 (35-45) mmHg ABG pO2 (80.0-100.0) mmH g ABG HCO3 (22-26) mmol/L ABG Base Excess (-2.0-2.0) mmol/ L Brayan Test Hematocrit (42-52) % O2 Delivery Device Head Start Assistant Teacher ID Sodium 141 (136-145) mmol/L Potassium 3.4 L (3.5-5.1) mmol/L Chloride 104 (98-107) mmol/L Carbon Dioxide 25 (22-29) mmol/L Anion Gap 15.4 (5-19) BUN 8 (8-23) mg/dL Creatinine 0.8 (0.7-1.2) mg/dL GFR Calculation 96.4 (90-130) mL/min Glucose 129 H (65-115) mg/dL Calculated Osmolal ity 292 (285-295) mOsm/k g Lactic Acid (0.5-2.2) mmol/L Calcium 8.8 (8.5-10.5) mg/dL Magnesium 1.3 L (1.7-2.3) mg/dL Ferritin 320 (30-400) ng/mL Total Bilirubin 0.5 (0.15-1.2) mg/dL AST 13 (0-40) U/L ALT 11 (0-41) U/L Alkaline Phosphata se 81 (40-130) IU/L Lactate Dehydrogen ase 197 (135-225) U/L C-Reactive Protein 17.4 H (0.0-4.9) mg/L Total Protein 7.1 (6.6-8.7) g/dL Albumin 3.8 (3.5-5.2) g/dL Globulin 3.3 (1.3-4.6) g/dL Procalcitonin 0.04 (0-0.5) ng/mL TSH (0.27-4.20) uIU/ mL SARS-CoV-2 Ag (Rap id) (Negative) 06/21/20 06/21/20 06/21/20 Range/Units 06:30 06:30 06:45 WBC (4.0-10.0) 10^3/ uL RBC (4.1-5.3) 10^6/u L Hgb (11.7-16.6) g/dL Hct (42.0-52.0) % MCV (80-94) fL MCH (28.0-34.0) pg MCHC (30.0-36.0) g/dL RDW (12.1-15.1) % Plt Count (130-400) 10^3/c mm MPV (7.4-10.4) fL Neut % (Auto) % Lymph % (Auto) % Stokes % (Auto) % Eos % (Auto) % Baso % (Auto) % Neut # (Auto) (1.8-7.7) 10^3/u L Lymph # (Auto) (0.8-4.8) 10^3/u L Stokes # (Auto) (0.2-0.9) 10^3/u L Eos # (Auto) (0.0-0.8) 10^3/u L Baso # (Auto) (0.0-0.1) 10^3/u L Nucleated RBC % (a uto) % Nucleated RBCs # /100WBC Fibrinogen (174-498) mg/dL D-Dimer (0-0.59) ug/mIFE U Specimen Type Arterial Sample Site Brachial, right ABG pH 7.49 H (7.35-7.45) ABG pCO2 34.8 L (35-45) mmHg ABG pO2 60.2 L (80.0-100.0) mmH g ABG HCO3 26.3 H (22-26) mmol/L ABG Base Excess 3.1 H (-2.0-2.0) mmol/ L Brayan Test N/a Hematocrit 40.4 L (42-52) % O2 Delivery Device Room air Head Start Assistant Teacher ID Harkr Sodium (136-145) mmol/L Potassium (3.5-5.1) mmol/L Chloride (98-107) mmol/L Carbon Dioxide (22-29) mmol/L Anion Gap (5-19) BUN (8-23) mg/dL Creatinine (0.7-1.2) mg/dL GFR Calculation (90-130) mL/min Glucose (65-115) mg/dL Calculated Osmolal ity (285-295) mOsm/k g Lactic Acid 1.7 (0.5-2.2) mmol/L Calcium (8.5-10.5) mg/dL Magnesium (1.7-2.3) mg/dL Ferritin (30-400) ng/mL Total Bilirubin (0.15-1.2) mg/dL AST (0-40) U/L ALT (0-41) U/L Alkaline Phosphata se (40-130) IU/L Lactate Dehydrogen ase (135-225) U/L C-Reactive Protein (0.0-4.9) mg/L Total Protein (6.6-8.7) g/dL Albumin (3.5-5.2) g/dL Globulin (1.3-4.6) g/dL Procalcitonin (0-0.5) ng/mL TSH 1.12 (0.27-4.20) uIU/ mL SARS-CoV-2 Ag (Rap id) (Negative) 06/21/20 Range/Units 07:25 WBC (4.0-10.0) 10^3/ uL RBC (4.1-5.3) 10^6/u L Hgb (11.7-16.6) g/dL Hct (42.0-52.0) % MCV (80-94) fL MCH (28.0-34.0) pg MCHC (30.0-36.0) g/dL RDW (12.1-15.1) % Plt Count (130-400) 10^3/c mm MPV (7.4-10.4) fL Neut % (Auto) % Lymph % (Auto) % Stokes % (Auto) % Eos % (Auto) % Baso % (Auto) % Neut # (Auto) (1.8-7.7) 10^3/u L Lymph # (Auto) (0.8-4.8) 10^3/u L Stokes # (Auto) (0.2-0.9) 10^3/u L Eos # (Auto) (0.0-0.8) 10^3/u L Baso # (Auto) (0.0-0.1) 10^3/u L Nucleated RBC % (a uto) % Nucleated RBCs # /100WBC Fibrinogen (174-498) mg/dL D-Dimer (0-0.59) ug/mIFE U Specimen Type Sample Site ABG pH (7.35-7.45) ABG pCO2 (35-45) mmHg ABG pO2 (80.0-100.0) mmH g ABG HCO3 (22-26) mmol/L ABG Base Excess (-2.0-2.0) mmol/ L Brayan Test Hematocrit (42-52) % O2 Delivery Device Head Start Assistant Teacher ID Sodium (136-145) mmol/L Potassium (3.5-5.1) mmol/L Chloride (98-107) mmol/L Carbon Dioxide (22-29) mmol/L Anion Gap (5-19) BUN (8-23) mg/dL Creatinine (0.7-1.2) mg/dL GFR Calculation (90-130) mL/min Glucose (65-115) mg/dL Calculated Osmolal ity (285-295) mOsm/k g Lactic Acid (0.5-2.2) mmol/L Calcium (8.5-10.5) mg/dL Magnesium (1.7-2.3) mg/dL Ferritin (30-400) ng/mL Total Bilirubin (0.15-1.2) mg/dL AST (0-40) U/L ALT (0-41) U/L Alkaline Phosphata se (40-130) IU/L Lactate Dehydrogen ase (135-225) U/L C-Reactive Protein (0.0-4.9) mg/L Total Protein (6.6-8.7) g/dL Albumin (3.5-5.2) g/dL Globulin (1.3-4.6) g/dL Procalcitonin (0-0.5) ng/mL TSH (0.27-4.20) uIU/ mL SARS-CoV-2 Ag (Rap id) Negative (Negative) Discharge Plan Discharge Patient Disposition: Admitted As Inpatient Admit Provider: Amelia Betancourt Clinical Impression: Acute exacerbation of chronic obstructive airways disease, Suspected 2019-nCoV infection Condition: Stable Discharge Diet: Advance as tolerated Discharge Activity: Increase activity as tolerated Discharge Date/Time: 06/21/20 14:18 Coding Level of Care Code ED 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
[2020-06-21 06:50] LABS: Basophils % 0.3 %; Eosinophils % 0.2 %; Hematocrit 37.4 % (42.0-52.0); Hemoglobin 12.5 g/dL (11.7-16.6); Lymphocytes # 1.4 10^3/uL (0.8-4.8); Lymphocytes % 10.4 %; Mean Corpuscular HGB Conc 33.4 g/dL (30.0-36.0); Mean Corpuscular Hemoglobin 31.2 pg (28.0-34.0); Mean Corpuscular Volume 93.3 fL (80-94); Mean Platelet Volume 9.5 fL (7.4-10.4); Monocytes # 1.5 10^3/uL (0.2-0.9); Monocytes % 11.6 %; Neutrophils # 10.16 10^3/uL (1.8-7.7); Neutrophils % 77.2 %; Nucleated Red Blood Cells % 0 %; Platelet Count 284 10^3/cmm (130-400); Red Blood Count 4.01 10^6/uL (4.1-5.3); Red Cell Distribution Width 11.4 % (12.1-15.1); White Blood Count 13.2 10^3/uL (4.0-10.0)
[2020-06-21 06:55] LABS: ABG PCO2 34.8 mmHg (35-45); ABG PH Result 7.49 (7.35-7.45); Arterial Blood Gas Hematocrit 40.4 % (42-52); Base Excess ABG 3.1 mmol/L (-2.0-2.0); Blood Gas Sample Type Arterial; HCO3 ABG 26.3 mmol/L (22-26); PO2 ABG 60.2 mmHg (80.0-100.0)
--- NOTE | 2020-06-21 06:55 | CT_ITS ---
WS: [id number] CTA scan of the chest with IV contrast. Additional two-dimensional coronal and sagittal reconstructio n and MIP images was performed. 06/21/2020 Clinical Data: dyspnea Comparison: CT chest abdomen and pelvis, 12/12/2014. DLP: 569.[address] scans at [facility] use at least one of these dose optimization techniques: automat ed exposure control; mA and/or kV adjustment per patient size (includes targeted exams where dose is matched to clinical indication); or iterative reconstruction. Findings: The central pulmonary arteries and peripheral pulmonary arteries fill normally with no evidence of in traluminal filling defects. No pulmonary embolic disease is noted. There is patchy atelectasis and/or pneumonia in the posterior aspect of the right lower lobe. The lef t lung is clear. No nodules, masses or effusions are seen. The heart size is normal with no pericardial effusion. The pulmonary arterial system and thoracic aorta demonstrate no abnormalities or dilatations. There is no axillary or significant mediastinal adenopathy. The thyroid gland shows normal enhancement. The trac hea bifurcates into the bronchi. The upper abdomen shows no abnormalities. The visualized liver, spleen, pancreas, gallbladder, adrena l glands and superior poles of the kidneys are not remarkable. The bones of the thoracic and upper lumbar spine show moderate osteoarthritis. There is wedging of th e T9 and T12 vertebral bodies which represent small old compression fractures.. CT/CT angio chest PE protcl [id number] Impression: 1. Negative for pulmonary embolic disease. 2. Right lower lobe atelectasis and/or pneumonia.
[2020-06-21 06:56] LABS: Blood Gas Operator Identificat HARKR; Blood Gas Sample Site Brachial, right; Oxygen Device ROOM AIR
[2020-06-21 07:00] LABS: Fibrinogen 553 mg/dL (174-498)
[2020-06-21 07:02] LABS: Lactic Sepsis W/Reflex 1.7 mmol/L (0.5-2.2)
[2020-06-21 07:03] LABS: D Dimer 0.71 ug/mIFEU (0-0.59)
[2020-06-21] MEDS: dexamethasone 4 mg/mL INJ 6 MG IVP (07:04)
[2020-06-21 07:12] LABS: Procalcitonin 0.04 ng/mL (0-0.5)
[2020-06-21 07:23] LABS: Alanine Aminotransferase 11 U/L (0-41); Albumin Level 3.8 g/dL (3.5-5.2); Alkaline Phosphatase 81 IU/L (40-130); Anion Gap 15.4 (5-19); Aspartate Amino Transferase 13 U/L (0-40); Blood Urea Nitrogen 8 mg/dL (8-23); C Reactive Protein 17.4 mg/L (0.0-4.9); Calcium 8.8 mg/dL (8.5-10.5); Carbon Dioxide 25 mmol/L (22-29); Chloride 104 mmol/L (98-107); Creatinine Clr Calc Pharmacy 98.0015; Ferritin 320 ng/mL (30-400); Globulin 3.3 g/dL (1.3-4.6); Glomerular Filtration Rate 96.4 mL/min (90-130); Glucose 129 mg/dL (65-115); Lactate Dehydrogenase 197 U/L (135-225); Magnesium 1.3 mg/dL (1.7-2.3); Osmolality Calculated 292 mOsm/kg (285-295); Potassium 3.4 mmol/L (3.5-5.1); Sodium 141 mmol/L (136-145); Total Bilirubin 0.5 mg/dL (0.15-1.2); Total Protein 7.1 g/dL (6.6-8.7)
[2020-06-21 08:02] LABS: SARS Covid-2 Antigen Negative (Negative)
[2020-06-21] MEDS: HYDROcodone-acetaminophen 5-325 mg Tablet 2 TAB PO (08:39)
[2020-06-21] MEDS: iohexol 350 mg/mL 100 mL Btl IV (09:08)
[2020-06-21] MEDS: enoxaparin 40 mg/0.4 mL Syringe SUBCUT (14:49)
[2020-06-21] MEDS: levofloxacin-dextrose 5 % 750 MG/150 ML PREMIX 100 MG IV (14:49)
[2020-06-21 14:58] LABS: Thyroid Stimulating Hormone 1.12 uIU/mL (0.27-4.20)
[2020-06-21] MEDS: benzonatate 100 mg Capsule PO (16:28)
[2020-06-21] MEDS: guaiFENesin 100 mg/5 mL UDC 10 mL 200 MG PO ×2 (16:28→20:19)
--- NOTE | 2020-06-21 16:30 | P.HP_ITS ---
Providers/Chief Complaint Admitting Physician: Amelia Betancourt DO Primary Care Provider: Nitin Castellano MD Chief Complaint: SOB History of Present Illness Arnaldo Chacon is a 65 year old male with a past medical history of tobacco abuse and coronary artery disease that presented to the emergency department today for cough and shortness of breath. He reported that his symptoms have been progressive over the last week. Started last Wednesday. Stated his was sick 2 weeks ago. He reports fever at home the highest 102. Reports chills, denies any loss of taste or smell. Patient denies any sick contacts that he is aware of other than his being sick but stated that she tested -2 weeks ago on a screening, she was asymptomatic at that time. Patient reports having raiza rrhea and nausea. Denies wearing any oxygen at home. Denies any chest pain. Review of Systems Const: Reports: fever(s) and chills Eyes: Denies: change in vision ENMT: Denies: nasal congestion Card: Denies: chest pain, palpitations or edema Resp: Reports: dyspnea and productive cough; Denies: hemoptysis GI: Reports: diarrhea; Denies: abdominal pain, nausea, vomiting, constipation, hematochezia or melena : Denies: dysuria or hematuria Musc: Denies: extremity pain or muscle cramps Skin/Breast: Denies: rash or new lesions Neuro: Denies: headache(s) or dizziness Psych: Denies: anxiety or depression Endo: Denies: polyuria or hot flashes Demetrio/Lymph: Denies: easy bruising or easy bleeding Medications/Allergies Home Medications Medication Instructions Recorded Confirmed Last Taken Type aspirin 81 mg tablet,delayed 81 mg PO DAILY 11/30/19 06/21/20 06/20/20 History release atorvastatin 40 mg tablet 40 mg PO DAILY 90 Days #90 tab 11/30/19 06/21/20 06/20/20 Rx lisinopril 5 mg tablet 5 mg PO DAILY 90 Days #90 tab 11/30/19 06/21/20 06/20/20 Rx clopidogrel 75 mg tablet 75 mg PO DAILY 30 Days #90 tab 06/04/20 06/21/20 06/20/20 Rx azithromycin [Zithromax Z-Leonel] See Rx Instructions .ROUTE 06/17/20 06/21/20 06/20/20 Rx .COMPLEX #6 tab nitroglycerin 0.4 mg SUBLINGUAL PRN 06/17/20 06/21/20 Unknown History prednisone 10 mg PO DAILY #10 tab 06/17/20 06/21/20 06/20/20 Rx Allergies Allergy/AdvReac Type Severity Reaction Status Date / Time codeine Allergy Mild hives Verified 06/17/20 18:51 Penicillins Allergy Unknown Verified 06/17/20 18:51 PFSH Acute PFSH: Medical History Atherosclerosis of coronary artery of [place] heart with stable angina pectoris Atherosclerotic heart disease of [place] coronary artery with unstable angina pectoris Carotid artery stenosis with cerebral infarction over 8 weeks ago Continue on aspirin, Plavix and statin, continue with close cardiology follow-up in the outpatient setting Carotid stenosis Left carotid artery thromboendarterectomy performed on 11/27/[address] Zuniga Coronary artery disease Cardiac cath with stent placement on 10/25/19 He had a cardiac authorization in the hospital which revealed a subtotal occlusion of the intermedius artery for which he underwent PCI by Dr. Torres. 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 Louie anaya History of lymph node excision Reported in the left axilla Family History Mother Stroke Father Diabetes CAD (coronary artery disease) Had open heart surgery in his 60s. of congestive heart failure in his 80s. Denies family history of Clotting disorder Dementia Hyperlipidemia Psychiatric illness Chronic kidney disease (CKD) Suicide Anesthesia complication Bleeding disorder Family history of premature coronary artery disease Lung disease Cancer Hypertension Social History Smoking and tobacco status: current every day smoker cigarettes Packs smoked per day: 0.5 Quit status (tobacco): considering quitting Alcohol intake: former Marital status: History of recent travel: No Current gender identity: Male Vitals/I&O/Wt Last Vital Signs Temp 97.6 F 06/21/20 15:00 Pulse 71 06/21/20 15:00 Resp 15 06/21/20 15:00 BP 119/68 06/21/20 15:00 Pulse Ox 94 06/21/20 14:50 Weight last 48 hrs Weight 90.718 kg Physical Exam Const: COMMON NORMALS: patient oriented x3 and alert GENERAL APPEARANCE: cooperative ORIENTATION/CONSCIOUSNESS: Yes awake, Yes oriented to person, Yes oriented to place and Yes oriented to time HENMT: COMMON NORMALS: normocephalic and atraumatic HEAD & SCALP: normocephalic and atraumatic Eye: COMMON NORMALS: Equal, round and reactive pupils present PUPIL: Yes Equal, round and reactive pupils present Neck/C-Spine: COMMON NORMALS: supple GENERAL: Yes normal visual inspection Resp: EFFORT & INSPECTION: Yes tachypneic and Yes Actively coughing AUSCULTATION: no rhonchi, wheezes and diminished lung sounds Cardio: COMMON NORMALS: regular rate, regular rhythm and No murmurs present (Cardio) RATE: regular rate RHYTHM: regular rhythm GI: COMMON NORMALS: Soft to palpation and non-tender INSPECTION: No abdominal distension AUSCULTATION: Yes normoactive bowel sounds PALPATION: Yes Soft to palpation Extremity: COMMON NORMALS: no clubbing, cyanosis or edema and no calf tenderness Neuro: COMMON NORMALS: patient oriented x3, CN's II-XII intact bilaterally, moves all extremities and no focal motor deficits SENSORIUM/ORIENTATION: Yes alert, Yes oriented to person, Yes oriented to place and Yes oriented to time SPEECH: speech normal Psych: COMMON NORMALS: mental status grossly normal and cooperative Skin: COMMON NORMALS: no rashes or lesions noted GENERAL SKIN EXAM: no rashes or lesions noted Data : 06/21/20 06:30 06/21/20 06:30 Micro: Microbiology 06/21/20 07:25 Gram Stain - Final Sputum - Expectorated Sputum 06/21/20 08:33 Blood Culture - Preliminary Blood SPECIMEN COLLECTED 06/21/20 08:29 Blood Culture - Preliminary Blood SPECIMEN COLLECTED CXR: I personally reviewed and interpreted this imaging study as follows: Radiologist's impression: Comparison: Portable chest, 06/17/2020. Findings: No nodules, masses or effusions are seen. The heart is normal. The pulmonary vascularity is not increased. No pneumonia or pneumothorax is seen. The aortic arch and descending aorta are tortuous. XR/XR chest 1V portable [id number] Impression: Atherosclerosis. CTA Chest: I personally reviewed and interpreted this imaging study as follows: Radiologist's impression: Findings: The central pulmonary arteries and peripheral pulmonary arteries fill normally with no evidence of intraluminal filling defects. No pulmonary embolic disease is noted. There is patchy atelectasis and/or pneumonia in the posterior aspect of the right lower lobe. The left lung is clear. No nodules, masses or effusions are seen. The heart size is normal with no pericardial effusion. The pulmonary arterial system and thoracic aorta demonstrate no abnormalities or dilatations. There is no axillary or significant mediastinal adenopathy. The thyroid gland shows normal enhancement. The trachea bifurcates into the bronchi. The upper abdomen shows no abnormalities. The visualized liver, spleen, pancreas, gallbladder, adrenal glands and superior poles of the kidneys are not remarkable. The bones of the thoracic and upper lumbar spine show moderate osteoarthritis. There is wedging of the T9 and T12 vertebral bodies which represent small old compression fractures.. CT/CT angio chest PE protcl [id number] Impression: 1. Negative for pulmonary embolic disease. 2. Right lower lobe atelectasis and/or pneumonia. A&P Assessment and plan (1) Acute exacerbation of chronic obstructive airways disease: Continue on IV dexamethasone Respiratory therapy to assess and treat Oxygen per protocol Status: Acute (2) Suspected 2019-nCoV infection: Remains under isolation precaution with contact and droplet precautions due to concern for COVID-19 infection, PCR send out is pending Status: Acute (3) Hypertension: Blood pressure well controlled at this time continue on lisinopril Status: Acute Qualifiers: Hypertension type: essential hypertension Qualified Code(s): I10 - Essential (primary) hypertension (4) Tobacco abuse: Strongly encouraged tobacco cessation Status: Acute (5) Hyperlipidemia: Continue on atorvastatin Status: Acute Qualifiers: Hyperlipidemia type: mixed hyperlipidemia Qualified Code(s): E78.2 - Mixed hyperlipidemia (6) History of CVA (cerebrovascular accident): Status: Acute Additional A&P Information Sepsis secondary to pneumonia with concern for viral infection. Continue with gentle IV fluids, blood cultures ordered, initially febrile tachycardic and hypoxic on admission Right lower lobe pneumonia: Continue on Levaquin Coronary artery disease status post stent placement, continue on aspirin, Plavix, statin DVT prophylaxis: Lovenox Diet: Cardiac CODE STATUS: Full code Attestations Medical Necessity Statement*: Patient requires hospitalization due to concern for COVID-19 viral infection with underlying pneumonia and respiratory compromise. Coding Level of Care Code Acute Stereotyper Apprentice for [facility] Fwd Diagnoses Acute exacerbation of chronic obstructive airways disease J44.1 Suspected 2019-nCoV infection Z20.828 Hypertension I10 Hypertension type: essential hypertension Tobacco abuse Z72.0 Hyperlipidemia E78.2 Hyperlipidemia type: mixed hyperlipidemia History of CVA (cerebrovascular accident) Z86.73
[2020-06-21] MEDS: sodium chlor 0.9% + KCl 20 mEq 20 MEQ/1,000 ML BAG 50 MEQ IV (16:58)
[2020-06-21] MEDS: clopidogrel 75 mg Tablet PO (16:58)
[2020-06-21] MEDS: atorvastatin 40 mg Tablet PO (16:58)
[2020-06-21] MEDS: aspirin 81 mg EC Tablet PO (16:58)
[2020-06-21] MEDS: HYDROcodone-acetaminophen 5-325 mg Tablet 1 TAB PO (16:59)
[2020-06-21] MEDS: acetaminophen 325 mg Tablet 650 MG PO (20:19)
--- NOTE | 2020-06-21 20:35 | PC.NURSE ---
AO x4, speech clear, special projects manager strong and equal BUE, answers questions appropriately, special projects manager strong and equal BUE, persistent loud non productive cough denied SOB 3L NC, PRN Tylenol and guaifenesin administered per request for sore throat and cough, supine 30 degrees call light within reach
[2020-06-22] VITALS (20 sets, daily range): BP systolic 92–127; BP diastolic 47–76; PULSE 50–92; RESP 14–21; TEMP 36.8–37; O2SAT 90–99
[2020-06-22] MEDS: benzonatate 100 mg Capsule PO ×3 (00:12→20:49)
[2020-06-22] MEDS: phenol oral Spray 177 mL 1 SPRAY MUCOUS MEM ×2 (00:12→04:39)
[2020-06-22] MEDS: guaiFENesin 100 mg/5 mL UDC 10 mL 200 MG PO ×3 (04:39→17:16)
[2020-06-22] MEDS: HYDROcodone-acetaminophen 5-325 mg Tablet 1 TAB PO (05:12)
[2020-06-22 06:09] LABS: Anion Gap 13.8 (5-19); Blood Urea Nitrogen 15 mg/dL (8-23); Calcium 8.6 mg/dL (8.5-10.5); Carbon Dioxide 24 mmol/L (22-29); Chloride 103 mmol/L (98-107); Glomerular Filtration Rate 84.2 mL/min (90-130); Glucose 122 mg/dL (65-115); Osmolality Calculated 286 mOsm/kg (285-295); Potassium 3.8 mmol/L (3.5-5.1); Sodium 137 mmol/L (136-145)
[2020-06-22 06:16] LABS: Basophils % 0.1 %; Eosinophils % 0.1 %; Hematocrit 32.1 % (42.0-52.0); Hemoglobin 10.8 g/dL (11.7-16.6); Lymphocytes # 1.2 10^3/uL (0.8-4.8); Lymphocytes % 8.2 %; Mean Corpuscular HGB Conc 33.6 g/dL (30.0-36.0); Mean Corpuscular Hemoglobin 31.3 pg (28.0-34.0); Mean Platelet Volume 10.3 fL (7.4-10.4); Monocytes # 1.3 10^3/uL (0.2-0.9); Monocytes % 9.1 %; Neutrophils # 12.03 10^3/uL (1.8-7.7); Nucleated Red Blood Cells % 0 %; Platelet Count 272 10^3/cmm (130-400); Red Blood Count 3.45 10^6/uL (4.1-5.3); Red Cell Distribution Width 11.4 % (12.1-15.1); White Blood Count 14.7 10^3/uL (4.0-10.0)
[2020-06-22 06:20] LABS: INR 1.18 (0.8-1.2)
--- NOTE | 2020-06-22 08:01 | PM.PN ---
Subjective Subjective: Interval history: Patient awake in bed at time of exam. He reports continued cough and sputum production. Vitals/I&O/Wt Last Vital Signs Temp 97.8 F 06/21/20 21:00 Pulse 50 L 06/22/20 06:58 Resp 14 06/22/20 06:58 BP 103/53 06/22/20 06:58 Pulse Ox 99 06/22/20 06:08 06/21/20 06/22/20 06/22/20 22:59 06:59 14:59 Intake Total 800 / 800 Output Total 200 / 200 550 / 750 Balance -200 / -200 250 / 50 Weight last 48 hrs Weight 93.304 kg Weight 90.718 kg Physical Exam Const: COMMON NORMALS: patient oriented x3 and alert GENERAL APPEARANCE: cooperative ORIENTATION/CONSCIOUSNESS: Yes awake, Yes oriented to person, Yes oriented to place and Yes oriented to time HENMT: COMMON NORMALS: normocephalic and atraumatic HEAD & SCALP: normocephalic and atraumatic Eye: COMMON NORMALS: Equal, round and reactive pupils present PUPIL: Yes Equal, round and reactive pupils present Neck/C-Spine: COMMON NORMALS: supple GENERAL: Yes normal visual inspection Resp: EFFORT & INSPECTION: Yes tachypneic and Yes Actively coughing AUSCULTATION: no rhonchi, wheezes and diminished lung sounds Cardio: COMMON NORMALS: regular rate, regular rhythm and No murmurs present (Cardio) RATE: regular rate RHYTHM: regular rhythm GI: COMMON NORMALS: Soft to palpation and non-tender INSPECTION: No abdominal distension AUSCULTATION: Yes normoactive bowel sounds PALPATION: Yes Soft to palpation Extremity: COMMON NORMALS: no clubbing, cyanosis or edema and no calf tenderness Neuro: COMMON NORMALS: patient oriented x3, CN's II-XII intact bilaterally, moves all extremities and no focal motor deficits SENSORIUM/ORIENTATION: Yes alert, Yes oriented to person, Yes oriented to place and Yes oriented to time SPEECH: speech normal Psych: COMMON NORMALS: mental status grossly normal and cooperative Data : 06/22/20 04:55 06/22/20 04:55 Micro: Microbiology 06/21/20 07:25 Gram Stain - Final Sputum - Expectorated Sputum 06/21/20 08:33 Blood Culture - Preliminary Blood SPECIMEN COLLECTED 06/21/20 08:29 Blood Culture - Preliminary Blood SPECIMEN COLLECTED A&P Assessment and plan (1) Acute exacerbation of chronic obstructive airways disease: Continue on IV dexamethasone Respiratory therapy to assess and treat Oxygen per protocol Status: Acute (2) Suspected 2019-nCoV infection: Remains under isolation precaution with contact and droplet precautions due to concern for COVID-19 infection PCR send out is pending Status: Acute (3) Hypertension: Hold lisinopril Status: Acute Qualifiers: Hypertension type: essential hypertension Qualified Code(s): I10 - Essential (primary) hypertension (4) Tobacco abuse: Strongly encouraged tobacco cessation Status: Acute (5) Hyperlipidemia: Continue on atorvastatin Status: Acute Qualifiers: Hyperlipidemia type: mixed hyperlipidemia Qualified Code(s): E78.2 - Mixed hyperlipidemia (6) History of CVA (cerebrovascular accident): Status: Acute Additional A&P Information Sepsis secondary to pneumonia with concern for viral infection. 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
[2020-06-22] MEDS: clopidogrel 75 mg Tablet PO (08:11)
[2020-06-22] MEDS: aspirin 81 mg EC Tablet PO (08:11)
[2020-06-22] MEDS: atorvastatin 40 mg Tablet PO (08:11)
[2020-06-22] MEDS: dexamethasone 4 mg/mL INJ 6 MG IVP (08:12)
--- NOTE | 2020-06-22 09:54 | PC.NURSE ---
O2 wean off O2 weaned off at 0850 per order to keep saturations between 90-92%. Patient tolerated well.
[2020-06-22] MEDS: sodium chlor 0.9% + KCl 20 mEq 20 MEQ/1,000 ML BAG 50 MEQ IV (11:11)
[2020-06-22] MEDS: acetaminophen 325 mg Tablet 650 MG PO (13:17)
--- NOTE | 2020-06-22 13:32 | PC.NURSE ---
Patient transferred to [facility] via wheelchair by nurse. Patient oriented to room and call light within reach. SCOTT Panda in room upon arrival. All belongings sent with patient.
[2020-06-22] MEDS: levofloxacin-dextrose 5 % 750 MG/150 ML PREMIX 100 MG IV (14:09)
[2020-06-22] MEDS: enoxaparin 40 mg/0.4 mL Syringe SUBCUT (14:10)
[2020-06-22 16:57] LABS: Coronavirus Lab Test PTC Negative
[2020-06-22] MEDS: lidocaine 2% viscous 15 ML, aluminum-mag hydrox-simethicon 30 ML, sucralfate oral liq 1 GM PO (21:22)
[2020-06-23] VITALS (9 sets, daily range): BP systolic 128–135; BP diastolic 64–84; PULSE 66–93; RESP 16–21; TEMP 36.9–37.3; O2SAT 92–95
[2020-06-23] MEDS: albuterol 8 gm MDI 2 PUFF INHALATION ×2 (00:10→04:22)
[2020-06-23] MEDS: acetaminophen 325 mg Tablet 650 MG PO (01:20)
[2020-06-23] MEDS: guaiFENesin 100 mg/5 mL UDC 10 mL 200 MG PO ×2 (01:22→08:43)
[2020-06-23] MEDS: aspirin 81 mg EC Tablet PO (08:43)
[2020-06-23] MEDS: atorvastatin 40 mg Tablet PO (08:43)
[2020-06-23] MEDS: clopidogrel 75 mg Tablet PO (08:43)
[2020-06-23] MEDS: HYDROcodone-acetaminophen 5-325 mg Tablet 1 TAB PO (08:43)
[2020-06-23] MEDS: dexamethasone 4 mg/mL INJ 6 MG IVP (08:55)
--- NOTE | 2020-06-23 09:08 | P.DS_ITS ---
Discharge Providers Date of Admission: 06/21/20 08:48 Date of Discharge: June 23, 2020 Attending Provider at Admission: Amelia Betancourt DO Attending Provider at Discharge: Amelia Betancourt DO Primary Care Provider: Nitin Castellano MD Diagnoses at Discharge Discharge Diagnosis (1) Acute exacerbation of chronic obstructive airways disease: Status: Acute (2) Suspected 2018-nCoV infection: Status: Acute Problem details: Ruled out (3) Hypertension: Status: Acute Qualifiers: Hypertension type: essential hypertension Qualified Code(s): I10 - Essential (primary) hypertension (4) Tobacco abuse: Status: Acute (5) Hyperlipidemia: Status: Acute Problem details: Started on atorvastatin Qualifiers: Hyperlipidemia type: mixed hyperlipidemia Qualified Code(s): E78.2 - Mixed hyperlipidemia (6) History of CVA (cerebrovascular accident): Status: Acute Problem details: History of right middle cerebral artery territory infarct Left 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 Patient was started on Levaquin and given steroids due to concern for concomitant COPD exacerbation. Patient was placed on isolation due to concern for COVID-19 viral infection, rapid testing was negative and send out PCR returned negative. Patient continued to improve in a stepwise fashion, transferred out of the ICU to the medical floor. Continued on steroids and antibiotics. On date of discharge she was awake sitting in bed reported that he was feeling better, continued cough with some sputum production but oxygen levels were 95% on room air. Discussed with patient plan for discharge to home, he verbalized understanding and agreed with plan. Patient was requesting discharge to home on date of discharge. Physical Exam Const: COMMON NORMALS: patient oriented x3 and alert GENERAL APPEARANCE: cooperative ORIENTATION/CONSCIOUSNESS: Yes awake, Yes oriented to person, Yes oriented to place and Yes oriented to time HENMT: COMMON NORMALS: normocephalic and atraumatic HEAD & SCALP: normocephalic and atraumatic Eye: COMMON NORMALS: Equal, round and reactive pupils present PUPIL: Yes Equal, round and reactive pupils present Neck/C-Spine: COMMON NORMALS: supple GENERAL: Yes normal visual inspection Resp: COMMON NORMALS: No retractions EFFORT & INSPECTION: Yes able to speak in complete sentences AUSCULTATION: no rhonchi, wheezes and diminished lung sounds Cardio: COMMON NORMALS: regular rate, regular rhythm and No murmurs present (Cardio) RATE: regular rate RHYTHM: regular rhythm GI: COMMON NORMALS: Soft to palpation and non-tender INSPECTION: No abdominal distension AUSCULTATION: Yes normoactive bowel sounds PALPATION: Yes Soft to palpation Extremity: COMMON NORMALS: no clubbing, cyanosis or edema and no calf tendern ess Neuro: COMMON NORMALS: patient oriented x3, CN's II-XII intact bilaterally, moves all extremities and no focal motor deficits SENSORIUM/ORIENTATION: Yes alert, Yes oriented to person, Yes oriented to place and Yes oriented to time SPEECH: speech normal Psych: COMMON NORMALS: mental status grossly normal and cooperative Skin: COMMON NORMALS: no rashes or lesions noted GENERAL SKIN EXAM: no rashes or lesions noted Discharge Data Data Completed and Pending: Completed Studies During Hospitalization Category Date Time Status CT angio chest PE protcl [id number] Stat Cat Scan 06/21/20 06:55 Completed XR chest 1V km ble [id number] Stat Exams 06/21/20 06:14 Completed Pending at discharge Category Date Time Status Blood Culture Sta t Lab 06/21/20 08:33 Results Sputum Culture an d Gram Stain Stat Lab 06/21/20 07:25 Results Labs from last 24 hours 06/21/20 09:22 Nasal/Oral COVID-1 9 PCR Negative Vitals: Last Vital Signs Temp 98.5 F 06/23/20 07:29 Pulse 93 06/23/20 08:54 Resp 18 06/23/20 08:54 BP 132/76 06/23/20 07:29 Pulse Ox 95 06/23/20 08:54 Discharge Plan Discharge Patient Disposition: Home Condition: Stable Prescriptions: New levofloxacin 750 mg tablet 750 mg PO DAILY 10 Days Qty: 10 RF: 0 prednisone 20 mg tablet 40 mg PO DAILY 4 Days Qty: 8 RF: 0 Continued aspirin [Adult Low Dose Aspirin] 81 mg tablet,delayed release (DR/EC) 81 mg PO DAILY RF: 0 lisinopril 5 mg tablet 5 mg PO DAILY 90 Days Qty: 90 RF: 3 atorvastatin [Lipitor] 40 mg tablet 40 mg PO DAILY 90 Days Qty: 90 RF: 3 Plavix 75 mg tablet 75 mg PO DAILY 30 Days Qty: 90 RF: 0 nitroglycerin 0.4 mg tablet, sublingual 0.4 mg sublingual PRN RF: 0 Discontinued prednisone 10 mg tablet 10 mg PO DAILY Qty: 10 RF: 0 azithromycin [Zithromax Z-Leonel] 250 mg tablet See Rx Instructions .ROUTE .COMPLEX Qty: 6 RF: 0 Discharge Orders: Discharge Order (Routine); Ordered 06/23/20 Ordered By: Amelia Betancourt Referrals: Nitin Castellano MD [Primary Care Provider] - 4-7 days Discharge Diet: Advance as tolerated Discharge Activity: Increase activity as tolerated Activity Restrictions/Additional Instructions: Discharged home with Levaquin for an additional 10 days Discharged home with prednisone 40 mg daily for an additional 4 days Discussed with patient on date of discharge and strongly encouraged tobacco cessation. Offered nicotine patches, however he refused stating that he has these at home. Follow-up with your primary care provider in 4 to 7 days For any worsening respiratory trouble please call or present to the ED. 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
--- NOTE | 2020-06-24 09:17 | PC.RESP ---
SMOKING CESSATION AND PULMONARY REHAB INFORMATION SENT TO PATIENT.
== END 2020-06-23 12:25 | disposition home or self-care (01) | DRG 871 ==
LOC: ER 09:24 → ICU 13:24 → MEDSURG 06-22 13:22
PROVIDERS: Admitting Provider Family Medicine; Emergency Provider Family Medicine; PCP Internal Medicine; Visit Provider Family Medicine
DX: A41.9 Sepsis, unspecified organism (principal); J18.9 Pneumonia, unspecified organism; J44.1 Chronic obstructive pulmonary disease with (acute) exacerbation; J44.0 Chronic obstructive pulmonary disease with (acute) lower respiratory infection; F17.210 Nicotine dependence, cigarettes, uncomplicated; I25.10 Atherosclerotic heart disease of native coronary artery without angina pectoris; Z95.5 Presence of coronary angioplasty implant and graft; Z86.73 Personal history of transient ischemic attack (TIA), and cerebral infarction without residual deficits; I65.21 Occlusion and stenosis of right carotid artery; E78.2 Mixed hyperlipidemia; I10 Essential (primary) hypertension; Z79.82 Long term (current) use of aspirin
CPT/HCPCS: 12345; 36415; 36600; 71045; 71275; 80048; 80053; 82728; 82803; 83605; 83615; 83735; 84145; 84443; 85025; 85378; 85384; 85610; 86140; 87040; 87070; 87205; 87426; 87635; 94640; 96372; 96375; 99284; J1100; J1650; J1956; J3535; Q9967

== ENCOUNTER 2020-06-26 13:36 | Emergency (ER) | payer MEDICARE, MEDICAID, SELFPAY ==
[2020-06-26 14:00] VITALS: BP 121/72; PULSE 80; RESP 20; TEMP 37.8; O2SAT 95; BMI 30.4
--- NOTE | 2020-06-26 14:01 | XRR_ITS ---
PROCEDURE INFORMATION: Exam: XR Chest, 1 View Exam date and time: 06/26/2020 2:24 PM Age: 65 years old Clinical indication: Cough and dyspnea and shortness of breath; Patient HX: Covid precautions TECHNIQUE: Imaging protocol: XR of the chest Views: 1 view. COMPARISON: CR XR chest 1V portable [id number] 06/21/2020 6:27 AM FINDINGS: Lungs: Unremarkable. No consolidation. Pleural space: Unremarkable. No pleural effusion. No pneumothorax. Heart/Mediastinum: Unremarkable. No cardiomegaly. Bones/joints: Unremarkable. XR/XR chest 1V portable [id number] IMPRESSION: No acute findings.
[2020-06-26 15:04] LABS: Basophils % 0.1 %; Eosinophils # 0.1 10^3/uL (0.0-0.8); Eosinophils % 0.5 %; Hematocrit 37.5 % (42.0-52.0); Hemoglobin 12.5 g/dL (11.7-16.6); Lymphocytes % 6.2 %; Mean Corpuscular HGB Conc 33.3 g/dL (30.0-36.0); Mean Corpuscular Hemoglobin 31.1 pg (28.0-34.0); Mean Corpuscular Volume 93.3 fL (80-94); Mean Platelet Volume 9.4 fL (7.4-10.4); Monocytes # 1.4 10^3/uL (0.2-0.9); Monocytes % 8.6 %; Neutrophils # 14.06 10^3/uL (1.8-7.7); Neutrophils % 83.8 %; Nucleated Red Blood Cells % 0 %; Platelet Count 276 10^3/cmm (130-400); Red Blood Count 4.02 10^6/uL (4.1-5.3); Red Cell Distribution Width 11.6 % (12.1-15.1); White Blood Count 16.8 10^3/uL (4.0-10.0)
[2020-06-26 15:26] LABS: Fibrinogen 636 mg/dL (174-498); INR 1.08 (0.8-1.2)
[2020-06-26 15:29] LABS: D Dimer 1.07 ug/mIFEU (0-0.59)
[2020-06-26 15:30] LABS: Lactic Sepsis W/Reflex 1.2 mmol/L (0.5-2.2)
[2020-06-26 15:42] LABS: Alanine Aminotransferase 16 U/L (0-41); Albumin Level 3.6 g/dL (3.5-5.2); Alkaline Phosphatase 69 IU/L (40-130); Anion Gap 15.3 (5-19); Aspartate Amino Transferase 15 U/L (0-40); Blood Urea Nitrogen 9 mg/dL (8-23); Calcium 8.6 mg/dL (8.5-10.5); Carbon Dioxide 25 mmol/L (22-29); Chloride 102 mmol/L (98-107); Creatinine Clr Calc Pharmacy 98.0015; Globulin 3.4 g/dL (1.3-4.6); Glomerular Filtration Rate 112.5 mL/min (90-130); Glucose 142 mg/dL (65-115); Lactate Dehydrogenase 211 U/L (135-225); Magnesium 1.9 mg/dL (1.7-2.3); NT Pro B Type Natriuretic Pept 260 pg/mL (0-125); Osmolality Calculated 289 mOsm/kg (285-295); Potassium 3.3 mmol/L (3.5-5.1); Sodium 139 mmol/L (136-145); Total Bilirubin 0.5 mg/dL (0.15-1.2)
[2020-06-26 16:10] LABS: Influenza A by IFA Negative (Negative); Influenza B by IFA Negative (Negative)
[2020-06-26 16:11] LABS: SARS Covid-2 Antigen Negative (Negative)
--- NOTE | 2020-06-26 16:36 | PC.NURSE ---
pt taken off droplet precautions per verbal order of ED physician. PSA sitter remains at bedside
[2020-06-26 16:41] LABS: Procalcitonin 0.04 ng/mL (0-0.5)
[2020-06-26 16:59] VITALS: BP 147/92; PULSE 83; O2SAT 95
[2020-06-26 17:00] LABS: C Reactive Protein 53.7 mg/L (0.0-4.9); Ferritin 534 ng/mL (30-400)
--- NOTE | 2020-06-26 17:25 | ED_ITS ---
HPI - SOB/Dyspnea General: Chief Complaint: Shortness of Breath/Dyspnea Stated Complaint: BRONCHITIS Time Seen by Provider: 06/26/20 13:59 History of Present Illness: HPI Narrative: This patient is a 65-year-old male who comes in today with a cough. He was just discharged from the hospital with a diagnosis of bronchitis on Wednesday. He was given antibiotics but has not started taking them as he only got them filled today. He tested negative for COVID during his admission both on a rapid and a PCR. He tells me that he is had this cough for his entire life. He saw his doctor today and was doing okay but when he got home he said he started feeling very short of breath again. He does not normally use oxygen at home. He was given some inhalers but also had not filled them until today. He does have a low-grade fever today of 100.1. On suicidal ideation screening he told the nurse that he wished he was . On further questioning he denied this to me. Shortly after that he told the nurse that he was going to stab himself with his keys. I again went and questioned him and he initially told me that she was making him say that and then told me that he would run into traffic to kill himself if he was going to do it. We discussed that he needs to understand that we have to take these statements seriously and will have him evaluated by the psychiatrist. I also ordered another COVID test as he has now developed a fever to make sure that he has not developed a new infection. elicited complaint: shortness of breath and cough Pertinent past history: COPD and pneumonia Context: recent illness and medication noncompliance Timing: constant Severity: similar to previous episodes Exacerbating factors: coughing Relieving factors: nothing Known history of: COPD Associated symptoms: Reports fever(s); Deny abdominal pain, chest pain, nausea or vomiting Review of Systems General: Reports: 10 or more systems reviewed and unremarkable except in HPI and below Const: Reports: fever(s), fatigue and malaise; Denies: chills Eyes: Denies: change in vision ENMT: Denies: odynophagia Card: Reports: swelling of feet/ankles; Denies: chest pain Resp: Reports: dyspnea and productive cough; Denies: non-productive cough GI: Denies: abdominal pain, nausea or vomiting : Denies: flank pain Musc: Denies: neck pain or back pain Skin/Breast: Denies: rash Neuro: Denies: headache(s), numbness in extremities or weakness in extremities Demetrio/Lymph: Denies: easy bruising or easy bleeding PFSH ED PFSH: Medical History Atherosclerosis of coronary artery of [place] heart with stable angina pectoris Atherosclerotic heart disease of [place] coronary artery with unstable angina pectoris Carotid artery stenosis with cerebral infarction over 8 weeks ago Continue on aspirin, Plavix and statin, continue with close cardiology follow-up in the outpatient setting Carotid stenosis Left carotid artery thromboendarterectomy performed on 11/27/[address] Zuniga Coronary artery disease Cardiac cath with stent placement on 10/25/19 He had a cardiac authorization in the hospital which revealed a subtotal occlusion of the intermedius artery for which he underwent PCI by Dr. Torres. 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 Zuniga History of lymph node excision Reported in the left axilla Family History Mother Stroke Father Diabetes CAD (coronary artery disease) Had open heart surgery in his 60s. of congestive heart failure in his 80s. Denies family history of Clotting disorder Dementia Hyperlipidemia Psychiatric illness Chronic kidney disease (CKD) Suicide Anesthesia complication Bleeding disorder Family history of premature coronary artery disease Lung disease Cancer Hypertension Social History Smoking and tobacco status: current every day smoker cigarettes Packs smoked per day: 0.5 Quit status (tobacco): considering quitting Alcohol intake: former Marital status: History of recent travel: No Current gender identity: Male Physical Exam Const: COMMON NORMALS: patient oriented x3, no limitations and alert GENERAL APPEARANCE: cooperative and other (Persistent, very deep, wet cough) NUTRITIONAL APPEARANCE: overweight HENMT: HEAD & SCALP: normal to inspection FACE & SINUS: normal facial exam Eye: GENERAL EYE: appearance normal, both eyes and all related structures Neck/C-Spine: COMMON NORMALS: supple, no meningeal signs and no JVD Chest: COMMONS NORMALS: normal inspection of the chest Resp: COMMON NORMALS: normal respiratory effort, No use of accessory muscles and clear to auscultation bilaterally AUSCULTATION: clear to auscultation bilaterally Cardio: COMMON NORMALS: no JVD, regular rate, regular rhythm and No murmurs present (Cardio) RATE: regular rate RHYTHM: regular rhythm GI: COMMON NORMALS: Normal to inspection, nondistended, normoactive bowel sounds present, Soft to palpation and non-tender INSPECTION: Yes normal to inspection AUSCULTATION: Yes normoactive bowel sounds PALPATION: Yes Soft to palpation Back/Pelvis: COMMON NORMALS: thoracic and lumbar spine normal to inspection Extremity: COMMON NORMALS: normal to inspection Neuro: COMMON NORMALS: patient oriented x3, moves all extremities, no focal motor deficits and no sensory deficits noted SENSORIUM/ORIENTATION: Yes alert MENINGEAL SIGNS: Yes no meningeal signs Psych: COMMON NORMALS: mental status grossly normal, cooperative and normal affect Skin: COMMON NORMALS: no rashes or lesions noted and turgor normal GENERAL SKIN EXAM: no rashes or lesions noted and turgor normal Course ED course: Patient's chest x-ray and COVID test were negative. He does have an elevated white count but he had been on steroids while in the hospital. I doubt he has been taking those as he did not get his medications filled until today. He has a low-grade fever as well. His room air sat remained 94% while in department. I do not think he needs to be readmitted. Now that he has his antibiotics I think he needs to take them. He also has inhalers. He did not qualify for home oxygen. I will have him seen by Dr. Mendoza to evaluate his suicidal statements. I do not think that he is serious about that but obviously needs to be taken seriously and evaluated. Reevaluation(s): Reevaluation #1: Seen and evaluated by Dr. Mendoza. He feels like he is safe for discharge from a psychiatric standpoint. Vital Signs: Vital signs: Vital Signs Temperature 100.1 F H 06/26/20 14:00 Pulse Rate 69 06/26/20 18:21 Respiratory Rate 20 H 06/26/20 14:00 Blood Pressure 141/96 06/26/20 18:21 Pulse Oximetry 93 06/26/20 18:21 MDM - SOB/Dyspnea Lab Data: Labs: Lab Results 06/26/20 06/26/20 06/26/20 Range/Units 14:50 14:50 14:50 WBC 16.8 H (4.0-10.0) 10^3/ uL RBC 4.02 L (4.1-5.3) 10^6/u L Hgb 12.5 (11.7-16.6) g/dL Hct 37.5 L (42.0-52.0) % MCV 93.3 (80-94) fL MCH 31.1 (28.0-34.0) pg MCHC 33.3 (30.0-36.0) g/dL RDW 11.6 L (12.1-15.1) % Plt Count 276 (130-400) 10^3/c mm MPV 9.4 (7.4-10.4) fL Neut % (Auto) 83.8 % Lymph % (Auto) 6.2 % [place] % (Auto) 8.6 % Eos % (Auto) 0.5 % Baso % (Auto) 0.1 % Neut # (Auto) 14.06 H (1.8-7.7) 10^3/u L Lymph # (Auto) 1.0 (0.8-4.8) 10^3/u L [place] # (Auto) 1.4 H (0.2-0.9) 10^3/u L Eos # (Auto) 0.1 (0.0-0.8) 10^3/u L Baso # (Auto) 0.0 (0.0-0.1) 10^3/u L Nucleated RBC % (a uto) 0 % Nucleated RBCs # 0.0 /100WBC PT 14.40 (12.1-14.9) SECO NDS INR 1.08 (0.8-1.2) Fibrinogen 636 H (174-498) mg/dL D-Dimer 1.07 H (0-0.59) ug/mIFE U Sodium 139 (136-145) mmol/L Potassium 3.3 L (3.5-5.1) mmol/L Chloride 102 (98-107) mmol/L Carbon Dioxide 25 (22-29) mmol/L Anion Gap 15.3 (5-19) BUN 9 (8-23) mg/dL Creatinine 0.7 (0.7-1.2) mg/dL GFR Calculation 112.5 (90-130) mL/min Glucose 142 H (65-115) mg/dL Calculated Osmolal ity 289 (285-295) mOsm/k g Lactic Acid (0.5-2.2) mmol/L Calcium 8.6 (8.5-10.5) mg/dL Magnesium 1.9 (1.7-2.3) mg/dL Ferritin 534 H (30-400) ng/mL Total Bilirubin 0.5 (0.15-1.2) mg/dL AST 15 (0-40) U/L ALT 16 (0-41) U/L Alkaline Phosphata se 69 (40-130) IU/L Lactate Dehydrogen ase 211 (135-225) U/L C-Reactive Protein 53.7 H (0.0-4.9) mg/L NT-Pro-B Natriuret Pep 260 H (0-125) pg/mL Total Protein 7.0 (6.6-8.7) g/dL Albumin 3.6 (3.5-5.2) g/dL Globulin 3.4 (1.3-4.6) g/dL Procalcitonin 0.04 (0-0.5) ng/mL Influenza Type A A g (Negative) Influenza Type B A g (Negative) SARS-CoV-2 Ag (Rap id) (Negative) 06/26/20 06/26/20 06/26/20 Range/Units 14:50 14:50 14:50 WBC (4.0-10.0) 10^3/ uL RBC (4.1-5.3) 10^6/u L Hgb (11.7-16.6) g/dL Hct (42.0-52.0) % MCV (80-94) fL MCH (28.0-34.0) pg MCHC (30.0-36.0) g/dL RDW (12.1-15.1) % Plt Count (130-400) 10^3/c mm MPV (7.4-10.4) fL Neut % (Auto) % Lymph % (Auto) % [place] % (Auto) % Eos % (Auto) % Baso % (Auto) % Neut # (Auto) (1.8-7.7) 10^3/u L Lymph # (Auto) (0.8-4.8) 10^3/u L [place] # (Auto) (0.2-0.9) 10^3/u L Eos # (Auto) (0.0-0.8) 10^3/u L Baso # (Auto) (0.0-0.1) 10^3/u L Nucleated RBC % (a uto) % Nucleated RBCs # /100WBC PT (12.1-14.9) SECO NDS INR (0.8-1.2) Fibrinogen (174-498) mg/dL D-Dimer (0-0.59) ug/mIFE U Sodium (136-145) mmol/L Potassium (3.5-5.1) mmol/L Chloride (98-107) mmol/L Carbon Dioxide (22-29) mmol/L Anion Gap (5-19) BUN (8-23) mg/dL Creatinine (0.7-1.2) mg/dL GFR Calculation (90-130) mL/min Glucose (65-115) mg/dL Calculated Osmolal ity (285-295) mOsm/k g Lactic Acid 1.2 (0.5-2.2) mmol/L Calcium (8.5-10.5) mg/dL Magnesium (1.7-2.3) mg/dL Ferritin (30-400) ng/mL Total Bilirubin (0.15-1.2) mg/dL AST (0-40) U/L ALT (0-41) U/L Alkaline Phosphata se (40-130) IU/L Lactate Dehydrogen ase (135-225) U/L C-Reactive Protein (0.0-4.9) mg/L NT-Pro-B Natriuret Pep (0-125) pg/mL Total Protein (6.6-8.7) g/dL Albumin (3.5-5.2) g/dL Globulin (1.3-4.6) g/dL Procalcitonin (0-0.5) ng/mL Influenza Type A A g Negative (Negative) Influenza Type B A g Negative (Negative) SARS-CoV-2 Ag (Rap id) Negative (Negative) Discharge Plan Discharge Patient Disposition: Home Clinical Impression: Bronchitis Condition: Stable Prescriptions: No Action (DME) Compact Ultrasonic Nebulizer Misc See Rx Instructions .ROUTE .MEDSUPPLY Qty: 1 RF: 0 ipratropium-albuterol 0.5 mg-3 mg(2.5 mg base)/3 mL solution for nebulization 3 ml INHALATION Q4H PRN (Reason: wheezing) Qty: 15 RF: 3 aspirin [Adult Low Dose Aspirin] 81 mg tablet,delayed release (DR/EC) 81 mg PO DAILY RF: 0 lisinopril 5 mg tablet 5 mg PO DAILY 90 Days Qty: 90 RF: 3 atorvastatin [Lipitor] 40 mg tablet 40 mg PO DAILY 90 Days Qty: 90 RF: 3 Plavix 75 mg tablet 75 mg PO DAILY 30 Days Qty: 90 RF: 0 nitroglycerin 0.4 mg tablet, sublingual 0.4 mg sublingual PRN RF: 0 prednisone 20 mg tablet 40 mg PO DAILY 4 Days Qty: 8 RF: 0 levofloxacin 750 mg tablet 750 mg PO DAILY 10 Days Qty: 10 RF: 0 Discharge Orders: Discharge Order (Routine); Ordered 06/26/20 Ordered By: Cindy Rodriguez Referrals: Nitin Castellano MD [Primary Care Provider] - Discharge Diet: Usual diet Discharge Activity: Resume usual activity Patient Instructions: Acute Bronchitis (ED) Activity Restrictions/Additional Instructions: Make sure that you take the antibiotics that were prescribed for you from the hospital. Use the inhalers as needed. Return to the ED if you feel like you are getting more short of breath or are worse in any other way. Discharge Date/Time: 06/26/20 18:21 Coding Level of Care Code ED Se[employer] for [place] [employer] Exam Comprehensive
[2020-06-26 18:21] VITALS: BP 141/96; PULSE 69; O2SAT 93
== END 2020-06-26 18:21 | disposition home or self-care (01) ==
PROVIDERS: Emergency Provider Emergency Medicine; PCP Internal Medicine
DX: J40 Bronchitis, not specified as acute or chronic (principal); Z79.82 Long term (current) use of aspirin; Z79.02 Long term (current) use of antithrombotics/antiplatelets; I25.118 Atherosclerotic heart disease of native coronary artery with other forms of angina pectoris; Z86.73 Personal history of transient ischemic attack (TIA), and cerebral infarction without residual deficits; E78.5 Hyperlipidemia, unspecified; I10 Essential (primary) hypertension; F17.210 Nicotine dependence, cigarettes, uncomplicated
CPT/HCPCS: 12345; 71045; 80053; 82728; 83605; 83615; 83735; 83880; 84145; 85025; 85378; 85384; 85610; 86140; 87426; 87804; 99284

== ENCOUNTER 2020-07-03 10:29 | Emergency (ER) | payer MEDICARE, MEDICAID, SELFPAY ==
[2020-07-03 10:31] VITALS: BP 110/52; PULSE 53; RESP 20; TEMP 36.5; O2SAT 96; BMI 30.4
--- NOTE | 2020-07-03 10:35 | XRR_ITS ---
PROCEDURE INFORMATION: Exam: XR Chest, 1 View Exam date and time: 07/03/2020 10:38 AM Age: 65 years old Clinical indication: Other: Syncope; Prior surgery; Surgery type: Stent TECHNIQUE: Imaging protocol: XR of the chest Views: 1 view. COMPARISON: CR XR chest 1V portable [id number] 06/26/2020 2:07 PM FINDINGS: Lungs: There is minimal linear atelectasis in the lung bases. Otherwise lungs are clear with no pneumonia. No consolidation. Pleural space: Unremarkable. No pleural effusion. No pneumothorax. Heart/Mediastinum: Unremarkable. No cardiomegaly. Bones/joints: Unremarkable. XR/XR chest 1V portable [id number] IMPRESSION: Minimal atelectasis in the lung bases. No other acute abnormality.
--- NOTE | 2020-07-03 10:36 | ECG_ITS ---
[facility] Test Date: 2020-07-03 Pat Name: Arnaldo Chacon Department: Room: Gender: Male Manager Chemical: : 1955 Requested By: Nichol Lewis Order Number: [id number] Candi MD: Lilia Nunes M.D. Measurements Intervals [place] Rate: 54 P: 33 [place]: 120 QRS: 8 QRSD: 88 T: 19 QT: 408 QTc: 389 Interpretive Statements SINUS BRADYCARDIA WITH OCCASIONAL SUPRAVENTRICULAR PREMATURE COMPLEXES Compared to ECG 12/12/2019 11:29:12 Sinus arrhythmia no longer present Electronically Signed On 07-03-2020 12:48:17 CDT by Lilia Nunes M.D. [id number] f
[2020-07-03 11:02] LABS: Basophils % 0.2 %; Eosinophils # 0.1 10^3/uL (0.0-0.8); Eosinophils % 0.7 %; Hematocrit 36.5 % (42.0-52.0); Hemoglobin 11.5 g/dL (11.7-16.6); Lymphocytes % 30.2 %; Mean Corpuscular HGB Conc 31.5 g/dL (30.0-36.0); Mean Corpuscular Hemoglobin 30.7 pg (28.0-34.0); Mean Corpuscular Volume 97.3 fL (80-94); Mean Platelet Volume 9.8 fL (7.4-10.4); Monocytes # 0.9 10^3/uL (0.2-0.9); Neutrophils # 8.05 10^3/uL (1.8-7.7); Nucleated Red Blood Cells % 0 %; Platelet Count 312 10^3/cmm (130-400); Red Blood Count 3.75 10^6/uL (4.1-5.3); Red Cell Distribution Width 11.7 % (12.1-15.1); White Blood Count 13.2 10^3/uL (4.0-10.0)
[2020-07-03 11:21] LABS: Alanine Aminotransferase 11 U/L (0-41); Albumin Level 3.2 g/dL (3.5-5.2); Alkaline Phosphatase 78 IU/L (40-130); Aspartate Amino Transferase 11 U/L (0-40); Blood Urea Nitrogen 14 mg/dL (8-23); Calcium 8.7 mg/dL (8.5-10.5); Carbon Dioxide 29 mmol/L (22-29); Chloride 102 mmol/L (98-107); Globulin 2.3 g/dL (1.3-4.6); Glomerular Filtration Rate 84.2 mL/min (90-130); Glucose 134 mg/dL (65-115); Osmolality Calculated 292 mOsm/kg (285-295); Sodium 140 mmol/L (136-145); Total Bilirubin 0.2 mg/dL (0.15-1.2); Total Protein 5.5 g/dL (6.6-8.7)
[2020-07-03 11:23] LABS: Anion Gap 12.5 (5-19); Potassium 3.5 mmol/L (3.5-5.1)
[2020-07-03 11:24] LABS: Troponin(5th) Baseline 18 ng/L (0-15)
[2020-07-03 11:26] LABS: D Dimer 0.96 ug/mIFEU (0-0.59)
--- NOTE | 2020-07-03 11:30 | ED_ITS ---
HPI - Chest Pain General: Chief Complaint: Chest Pain Stated Complaint: CP Time Seen by Provider: 07/03/20 10:33 History of Present Illness: HPI narrative: 65-year-old male patient presents to the emergency department with complaints of sharp chest pain with deep breath. He was seen in the emergency department 06/26/2020, sent home with antibiotics. He reports waiting for a nebulizer to be delivered but has not received it. He denies fever chills. He reports sharp chest pain upon inspiration started yesterday, he was states had stent placement completed in October wants to make sure the stent has not moved. He is not exhibiting nausea vomiting, pain does not radiate, he reports pain is only with deep inspiration. He reports has been able to eat and drink well, he denies any further complaints today upon exam. Diagnosis right lower lobe atelectasis/pneumonia, placed on Levaquin 750 mg daily for 10 days 06/26/2020. MD complaint: chest pain and chest discomfort Pertinent past history: coronary artery disease Onset (ago): day(s) (2) Timing of current episode: episodic Prior episodes: No Onset: other (with deep breath) Pain location: parasternal Pain radiation: none Severity: mild Pain scale (0-10): 3 Quality: sharp Exacerbating factors: inspiration Associated symptoms: Reports leg edema (chronic); Deny abdominal pain, diaphoresis, dyspnea, fever(s), nausea, palpitations or vomiting Treatment prior to arrival: none Review of Systems General: Reports: 10 or more systems reviewed and unremarkable except in HPI and below Const: Denies: fever(s), chills or diaphoresis Eyes: Denies: blurry vision or eye redness ENMT: Denies: throat pain, dental pain or disequilibrium Card: Reports: chest pain, swelling of feet/ankles and dyspnea on exertion; Denies: palpitations, irregular heart rhythm, lightheadedness or orthopnea Resp: Reports: non-productive cough, wheezing and chest congestion; Denies: dyspnea or productive cough GI: Denies: abdominal pain, nausea or vomiting : Denies: dysuria Musc: Denies: back pain Skin/Breast: Denies: rash or pruritus Neuro: Denies: headache(s), weakness in extremities or behavioral changes Demetrio/Lymph: Denies: easy bruising [facility] ED PFSH: Medical History (Updated 07/03/20 @ 14:16 by Nichol Mistry [facility]) Atherosclerosis of coronary artery of [place] heart with stable angina pectoris Atherosclerotic heart disease of [place] coronary artery with unstable angina pectoris Carotid artery stenosis with cerebral infarction over 8 weeks ago Continue on aspirin, Plavix and statin, continue with close cardiology follow-up in the outpatient setting Carotid stenosis Left carotid artery thromboendarterectomy performed on 11/27/[address] Zuniga Coronary artery disease Cardiac cath with stent placement on 10/25/19 He had a cardiac authorization in the hospital which revealed a subtotal occlusion of the intermedius artery for which he underwent PCI by Dr. Torres. 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 Zuniga History of lymph node excision Reported in the left axilla Family History Mother Stroke Father Diabetes CAD (coronary artery disease) Had open heart surgery in his 60s. of congestive heart failure in his 80s. Denies family history of Clotting disorder Dementia Hyperlipidemia Psychiatric illness Chronic kidney disease (CKD) Suicide Anesthesia complication Bleeding disorder Family history of premature coronary artery disease Lung disease Cancer Hypertension Social History Smoking and tobacco status: current every day smoker cigarettes Packs smoked per day: 0.5 Quit status (tobacco): considering quitting Alcohol intake: former Marital status: History of recent travel: No Current gender identity: Male Physical Exam Const: COMMON NORMALS: no acute distress, patient oriented x3, healthy appearing and alert GENERAL APPEARANCE: cooperative, comfortable and well hydrated HENMT: COMMON NORMALS: normocephalic, Normal external nose present and moist oral mucous membranes HEAD & SCALP: normocephalic NOSE: Normal external nose present Eye: COMMON NORMALS: Equal, round and reactive pupils present and EOMs intact bilaterally GENERAL EYE: appearance normal, both eyes and all related structures PUPIL: Yes Equal, round and reactive pupils present Neck/C-Spine: COMMON NORMALS: full ROM and no lymphadenopathy GENERAL: Yes normal visual inspection and Yes trachea midline CERVICAL SPINE: Yes cervical ROM normal Lymph: LYMPHATIC: no lymphadenopathy noted Chest: COMMONS NORMALS: normal inspection of the chest Resp: COMMON NORMALS: normal respiratory effort and clear to auscultation bilaterally AUSCULTATION: clear to auscultation bilaterally Cardio: COMMON NORMALS: regular rhythm, S1 normal heart sound present, S2 normal heart sound present and Peripheral pulses 2+ throughout RATE: bradycardic RHYTHM: regular rhythm HEART SOUNDS: S1 normal heart sound present and S2 normal heart sound present PERIPHERAL PULSES: Peripheral pulses 2+ throughout GI: COMMON NORMALS: Soft to palpation and non-tender INSPECTION: Yes normal to inspection PALPATION: Yes Soft to palpation : COMMON NORMALS: Yes no CVA tenderness BLADDER/KIDNEY EXAM: Yes no CVA tenderness Back/Pelvis: COMMON NORMALS: no CVA tenderness and thoracic and lumbar spine normal to inspection Extremity: COMMON NORMALS: normal to inspection and capillary refill normal GENERAL: Yes edema (2 +) Neuro: COMMON NORMALS: patient oriented x3 and no focal motor deficits SENSORIUM/ORIENTATION: Yes alert Psych: COMMON NORMALS: mental status grossly normal, Normal thought process present and cooperative ACTIVITY/MOTOR BEHAVIOR: Yes appropriate eye contact THOUGHT PROCESS: Normal thought process present Skin: COMMON NORMALS: no rashes or lesions noted and turgor normal GENERAL SKIN EXAM: no rashes or lesions noted and turgor normal Course ED course: 65-year-old male patient presents to the emergency department with complaints of chest pain upon inspiration. EKG did not reveal ST elevation, serial troponin without positive delta, delta remained less than 4. Chest x-ray revealed continued atelectasis, he remains on Levaquin. D-dimer lower than initial reading 06/26/2020. CT angiogram not completed due to previous CT angiogram on 06/26/2020 without PE noted. Heart score is 6, patient was set up outpatient stress test/nuc med scan. Results will be sent to his block cutter. He was advised to return to the emergency department if he developed worsening chest pain, nausea vomiting or other concerning symptoms. Case discussed with Dr. Verdugo -no further orders, vital signs remained stable here in the ED. He is medicated for lower back pain here in the ED. He denied further pain or concerns. He agrees to follow-up with stress test and his block cutter. Vital Signs: Vital signs: Vital Signs Temperature 97.7 F 07/03/20 10:31 Pulse Rate 56 L 07/03/20 15:25 Respiratory Rate 20 H 07/03/20 15:25 Blood Pressure 115/59 07/03/20 15:25 Pulse Oximetry 96 07/03/20 15:25 MDM - Chest Pain Lab Data: Labs: Lab Results 07/03/20 07/03/20 07/03/20 Range/Units 10:15 10:15 10:15 WBC 13.2 H (4.0-10.0) 10^3/ uL RBC 3.75 L (4.1-5.3) 10^6/u L Hgb 11.5 L (11.7-16.6) g/dL Hct 36.5 L (42.0-52.0) % MCV 97.3 H (80-94) fL MCH 30.7 (28.0-34.0) pg MCHC 31.5 (30.0-36.0) g/dL RDW 11.7 L (12.1-15.1) % Plt Count 312 (130-400) 10^3/c mm MPV 9.8 (7.4-10.4) fL Neut % (Auto) 61.0 % Lymph % (Auto) 30.2 % [place] % (Auto) 7.0 % Eos % (Auto) 0.7 % Baso % (Auto) 0.2 % Neut # (Auto) 8.05 H (1.8-7.7) 10^3/u L Lymph # (Auto) 4.0 (0.8-4.8) 10^3/u L [place] # (Auto) 0.9 (0.2-0.9) 10^3/u L Eos # (Auto) 0.1 (0.0-0.8) 10^3/u L Baso # (Auto) 0.0 (0.0-0.1) 10^3/u L Nucleated RBC % (a uto) 0 % Nucleated RBCs # 0.0 /100WBC D-Dimer 0.96 H (0-0.59) ug/mIFE U Sodium 140 (136-145) mmol/L Potassium 3.5 (3.5-5.1) mmol/L Chloride 102 (98-107) mmol/L Carbon Dioxide 29 (22-29) mmol/L Anion Gap 12.5 (5-19) BUN 14 (8-23) mg/dL Creatinine 0.9 (0.7-1.2) mg/dL GFR Calculation 84.2 L (90-130) mL/min Glucose 134 H (65-115) mg/dL Calculated Osmolal ity 292 (285-295) mOsm/k g Calcium 8.7 (8.5-10.5) mg/dL Total Bilirubin 0.2 (0.15-1.2) mg/dL AST 11 (0-40) U/L ALT 11 (0-41) U/L Alkaline Phosphata se 78 (40-130) IU/L Troponin T Baselin e (0-15) ng/L Troponin T 120 Min [place] (0-15) ng/L Delta Troponin T (0-10) ABS# NT-Pro-B Natriuret Pep (0-125) pg/mL Total Protein 5.5 L (6.6-8.7) g/dL Albumin 3.2 L (3.5-5.2) g/dL Globulin 2.3 (1.3-4.6) g/dL 07/03/20 07/03/20 07/03/20 Range/Units 10:15 10:15 13:10 WBC (4.0-10.0) 10^3/ uL RBC (4.1-5.3) 10^6/u L Hgb (11.7-16.6) g/dL Hct (42.0-52.0) % MCV (80-94) fL MCH (28.0-34.0) pg MCHC (30.0-36.0) g/dL RDW (12.1-15.1) % Plt Count (130-400) 10^3/c mm MPV (7.4-10.4) fL Neut % (Auto) % Lymph % (Auto) % [place] % (Auto) % Eos % (Auto) % Baso % (Auto) % Neut # (Auto) (1.8-7.7) 10^3/u L Lymph # (Auto) (0.8-4.8) 10^3/u L [place] # (Auto) (0.2-0.9) 10^3/u L Eos # (Auto) (0.0-0.8) 10^3/u L Baso # (Auto) (0.0-0.1) 10^3/u L Nucleated RBC % (a uto) % Nucleated RBCs # /100WBC D-Dimer (0-0.59) ug/mIFE U Sodium (136-145) mmol/L Potassium (3.5-5.1) mmol/L Chloride (98-107) mmol/L Carbon Dioxide (22-29) mmol/L Anion Gap (5-19) BUN (8-23) mg/dL Creatinine (0.7-1.2) mg/dL GFR Calculation (90-130) mL/min Glucose (65-115) mg/dL Calculated Osmolal ity (285-295) mOsm/k g Calcium (8.5-10.5) mg/dL Total Bilirubin (0.15-1.2) mg/dL AST (0-40) U/L ALT (0-41) U/L Alkaline Phosphata se (40-130) IU/L Troponin T Baselin e 18 H (0-15) ng/L Troponin T 120 Min [place] 19.52 H (0-15) ng/L Delta Troponin T 1.52 (0-10) ABS# NT-Pro-B Natriuret Pep 321 H (0-125) pg/mL Total Protein (6.6-8.7) g/dL Albumin (3.5-5.2) g/dL Globulin (1.3-4.6) g/dL Imaging Data^: CXR: Radiologist's impression: [address] [place] [address] XRay Report Signed Patient: Arnaldo Chacon #: [id number] : 3Acct#:[id number] Age/Sex: 65 / MADM Date: 07/03/20 Loc: ERRoom/Bed: Attending Dr: Ordering Provider/Ordering MD: Nichol Mistry Date of Service: 07/03/20 Procedure(s): XR chest 1V portable [id number] Accession Number(s): [id number] Report Number: [id number] PROCEDURE INFORMATION: Exam: XR Chest, 1 View Exam date and time: 07/03/2020 10:38 AM Age: 65 years old Clinical indication: Other: Syncope; Prior surgery; Surgery type: Stent TECHNIQUE: Imaging protocol: XR of the chest Views: 1 view. COMPARISON: CR XR chest 1V portable [id number] 06/26/2020 2:07 PM FINDINGS: Lungs: There is minimal linear atelectasis in the lung bases. Otherwise lungs are clear with no pneumonia. No consolidation. Pleural space: Unremarkable. No pleural effusion. No pneumothorax. Heart/Mediastinum: Unremarkable. No cardiomegaly. Bones/joints: Unremarkable. XR/XR chest 1V portable [id number] IMPRESSION: Minimal atelectasis in the lung bases. No other acute abnormality. Dictated By:Tereso Silva Signed By:Tereso SilvaSignorion Date/Time:07/03/201118 DD/ 1117 EKG Data^: EKG 1: EKG interpretation date: 07/03/20 EKG interpretation time: 10:58 Prior EKG tracings: available for review Computer generated interpretation: Sinus bradycardia with occasional supraventricular premature complexes, borderline ECG EKG 2: EKG interpretation date: 07/03/20 EKG interpretation time: 13:21 Prior EKG tracings: available for review Computer generated interpretation: Sinus bradycardia with occasional supraventricular complex, borderline ECG, unconfirmed report Discharge Plan Discharge Patient Disposition: Home Clinical Impression: Acute bronchitis, Chest pain Condition: Stable Prescriptions: New Ventolin HFA 90 mcg/actuation HFA aerosol inhaler 2 puff INHALATION Q4H PRN (Reason: shortness of breath or wheezing) Qty: 18 RF: 0 No Action ipratropium-albuterol 0.5 mg-3 mg(2.5 mg base)/3 mL solution for nebulization 3 ml INHALATION Q4H PRN (Reason: wheezing) Qty: 15 RF: 3 aspirin [Adult Low Dose Aspirin] 81 mg tablet,delayed release (DR/EC) 81 mg PO DAILY RF: 0 lisinopril 5 mg tablet 5 mg PO DAILY 90 Days Qty: 90 RF: 3 atorvastatin [Lipitor] 40 mg tablet 40 mg PO DAILY 90 Days Qty: 90 RF: 3 Plavix 75 mg tablet 75 mg PO DAILY 30 Days Qty: 90 RF: 0 (DME) Compact Ultrasonic Nebulizer Misc See Rx Instructions .ROUTE .MEDSUPPLY Qty: 1 RF: 0 nitroglycerin 0.4 mg tablet, sublingual 0.4 mg sublingual PRN RF: 0 Discharge Orders: Discharge Order (Routine); Ordered 07/03/20 Ordered By: Nichol Mistry Referrals: Nitin Castellano MD [Primary Care Provider] - Discharge Diet: Usual diet Discharge Activity: Limit activity as instructed Patient Instructions: Chest Pain (ED), Acute Bronchitis (ED) Activity Restrictions/Additional Instructions: Continue antibiotic until all gone Home to deliver nebulizer machine You may utilize inhaler, albuterol HFA as needed for cough congestion and shortness of breath. Follow-up with your primary care provider in 5 to 7 days Outpatient stress test has been ordered for you, results will be sent to Dr. Gagandeep plasencia You develop coughing up blood, increased chest pain that occurs at rest and with exertion, return to the emergency department. Complete Levaquin until all gone Keep legs elevated to help with edema. Discharge Date/Time: 07/03/20 15:26 Coding Level of Care Code ED Press Bucker for [place] Fwd Exam Comprehensive
[2020-07-03 11:35] VITALS: BP 125/58; PULSE 64; RESP 20; O2SAT 95
[2020-07-03 12:02] LABS: NT Pro B Type Natriuretic Pept 321 pg/mL (0-125)
--- NOTE | 2020-07-03 12:36 | ECG_ITS ---
[facility] Test Date: 2020-07-03 Pat Name: Arnaldo Chacon Department: Room: Gender: Male Director Clinical Information Services: : 1955 Requested By: Nichol Lewis Order Number: [id number] Candi MD: Carol Tse M.D. Measurements Intervals [place] Rate: 45 P: 42 [place]: 135 QRS: 26 QRSD: 109 T: 53 QT: 423 QTc: 369 Interpretive Statements SINUS BRADYCARDIA WITH OCCASIONAL SUPRAVENTRICULAR PREMATURE COMPLEXES Compared to ECG 07/03/2020 10:58:00 No significant changes Electronically Signed On 07-03-2020 21:47:24 CDT by Carol Tse M.D. [id number] f
[2020-07-03] MEDS: HYDROcodone-acetaminophen 5-325 mg Tablet 1 TAB PO (13:01)
[2020-07-03 13:32] VITALS: PULSE 46; RESP 18
[2020-07-03 13:41] LABS: Troponin 5 2HR 19.52 ng/L (0-15); Troponin 5 2HR Delta 1.52 ABS# (0-10)
--- NOTE | 2020-07-03 15:20 | DCPLANNER ---
global project manager had message to schedule an outpatient stress test. global project manager faxed out patient order to centralized scheduling, will call for appointment information.
--- NOTE | 2020-07-03 15:22 | DCPLANNER ---
service center manager was asked to arrange for transportation home for patient. service center manager called [email or web address] [phone], then bilingual case manager called [facility] transport and gave them the trip number for them to pick patient up.
[2020-07-03 15:25] VITALS: BP 115/59; PULSE 56; RESP 20; O2SAT 96
--- NOTE | 2020-07-04 09:38 | DCPLANNER ---
histology manager had message to schedule a follow up appointment for patient with primary care. Patients primary care physician is Dr. Castellano, caser in called the office of Dr. Castellano. histology manager spoke with Dominique, a follow up appointment is scheduled for Friday, July 10, 2020 at 10:[address] Castellano. Clinic will call patient with appointment information.
--- NOTE | 2020-07-12 11:31 | DCPLANNER ---
Patient had a follow up appointment scheduled for 07.10.[address] Castellano - patient did not attend appointment.
--- NOTE | 2020-07-16 13:26 | DCPLANNER ---
carbon sequestration plant manager was notified that with patients insurance, medicaid, that a peer to peer would have to happen. carbon sequestration plant manager called patient to speak with patient about this, unable to reach patient at numbers in chart. carbon sequestration plant manager spoke with centralized scheduling and told them to disregard the order for the stress test, patient can follow up with primary care physician and have primary care order stress test, if he thinks patient needs stress test.
== END 2020-07-03 15:26 | disposition home or self-care (01) ==
PROVIDERS: Emergency Provider Nurse Practitioner Family; PCP Internal Medicine
DX: J20.9 Acute bronchitis, unspecified (principal); R07.9 Chest pain, unspecified; Z79.82 Long term (current) use of aspirin; Z79.02 Long term (current) use of antithrombotics/antiplatelets; I25.10 Atherosclerotic heart disease of native coronary artery without angina pectoris; Z86.73 Personal history of transient ischemic attack (TIA), and cerebral infarction without residual deficits; E78.5 Hyperlipidemia, unspecified; I10 Essential (primary) hypertension; F17.210 Nicotine dependence, cigarettes, uncomplicated
CPT/HCPCS: 12345; 71045; 80053; 83880; 84484; 85025; 85378; 93005; 99282; 99283

== ENCOUNTER 2020-09-01 20:08 | Emergency (ER) | payer MEDICARE, MEDICAID, SELFPAY ==
[2020-09-01 20:10] VITALS: BP 135/76; PULSE 80; RESP 18; TEMP 37.2; O2SAT 96; BMI 31.6
[2020-09-01 20:21] VITALS: BP 135/78; PULSE 86; RESP 17; TEMP 37.2; O2SAT 95
--- NOTE | 2020-09-01 20:29 | ED_ITS ---
HPI - Back Pain/Injury General: Chief Complaint: Back Pain/Injury Stated Complaint: BACK PAIN Time Seen by Provider: 09/01/20 20:23 History of Present Illness: HPI Narrative: Patient complains about bilateral low back pain. Said he has a history of chronic back pain and his back is got inflamed by doing some movements this week. Said it hurts to move around to sit up. Denies any bowel or bladder problems denies any shortness of breath or chest pains. Asking for pain prescription for his low back. MD elicited complaint: back pain Pertinent past history: prior back pain Onset (ago): day(s) Timing: constant Severity: moderate Similar Symptoms Previously: Yes Quality: aching Location: left flank, right flank, right lower back and left lower back Radiation: none Exacerbating factors: movement, sitting upright and walking Relieving factors: immobilization Context: turning/twisting Associated symptoms: Reports no associated symptoms; Deny abdominal pain, chills, fever(s), nausea or vomiting Work related injury: No Review of Systems Const: Denies: fever(s), chills or body aches Eyes: Denies: change in vision or blurry vision ENMT: Denies: throat pain or nasal congestion Card: Denies: chest pain or dyspnea on exertion Resp: Denies: dyspnea, productive cough or non-productive cough GI: Denies: abdominal pain, nausea or vomiting : Denies: difficulty urinating Musc: Reports: back pain; Denies: extremity pain Skin/Breast: Denies: rash Neuro: Denies: headache(s) Psych: Denies: anxiety or depression Demetrio/Lymph: Denies: easy bruising PFSH ED PFSH: Medical History (Updated 07/17/20 @ 11:18 by Nitin Castellano MD) Atherosclerosis of coronary artery of [place] heart with stable angina pectoris Atherosclerotic heart disease of [place] coronary artery with unstable angina pectoris Carotid artery stenosis with cerebral infarction over 8 weeks ago Continue on aspirin, Plavix and statin, continue with close cardiology follow-up in the outpatient setting Carotid stenosis Left carotid artery thromboendarterectomy performed on 11/27/[address] Zuniga Coronary artery disease Cardiac cath with stent placement on 10/25/19 He had a cardiac authorization in the hospital which revealed a subtotal occlusion of the intermedius artery for which he underwent PCI by Dr. Torres. 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 Zuniga History of lymph node excision Reported in the left axilla Family History Mother Stroke Father Diabetes CAD (coronary artery disease) Had open heart surgery in his 60s. of congestive heart failure in his 80s. Denies family history of Clotting disorder Dementia Hyperlipidemia Psychiatric illness Chronic kidney disease (CKD) Suicide Anesthesia complication Bleeding disorder Family history of premature coronary artery disease Lung disease Cancer Hypertension Social History Smoking and tobacco status: current every day smoker cigarettes Packs smoked per day: 0.5 Quit status (tobacco): considering quitting Alcohol intake: former Marital status: History of recent travel: No Current gender identity: Male Physical Exam Const: COMMON NORMALS: no acute distress, average body habitus and patient oriented x3 HENMT: COMMON NORMALS: normocephalic HEAD & SCALP: normal to inspection and normocephalic FACE & SINUS: normal facial exam Eye: COMMON NORMALS: conjunctivae normal GENERAL EYE: appearance normal, both eyes and all related structures CONJUNCTIVA: Yes conjunctivae normal Neck/C-Spine: COMMON NORMALS: no JVD Chest: COMMONS NORMALS: normal inspection of the chest Resp: COMMON NORMALS: normal respiratory effort and clear to auscultation bilaterally AUSCULTATION: clear to auscultation bilaterally Cardio: COMMON NORMALS: no JVD, regular rate and regular rhythm RATE: reg ular rate RHYTHM: regular rhythm GI: COMMON NORMALS: Normal to inspection, nondistended, normoactive bowel sounds present Back/Pelvis: LUMBAR SPINE/LOWER BACK: Yes normal to inspection, Yes straight leg raise positive right (Lateral straight leg lift worse) Straight leg raise positive details right: at 70 degrees and Yes straight leg raise positive left S traight leg raise positive details left: at 40 degrees PELVIS: Yes buttocks normal SACROILIAC JOINTS: Yes SI joints normal Extremity: COMMON NORMALS: normal to inspection and full ROM Neuro: COMMON NORMALS: patient oriented x3 Course Vital Signs: Vital signs: Vital Signs Temperature 99.0 F 09/01/20 20:10 Pulse Rate 80 09/01/20 20:10 Respiratory Rate 18 09/01/20 20:10 Blood Pressure 135/76 09/01/20 20:10 Pulse Oximetry 96 09/01/20 20:10 Discharge Plan Discharge Prescriptions: No Action ipratropium-albuterol 0.5 mg-3 mg(2.5 mg base)/3 mL solution for nebulization 3 ml INHALATION Q4H PRN (Reason: wheezing) Qty: 15 RF: 3 aspirin [Adult Low Dose Aspirin] 81 mg tablet,delayed release (DR/EC) 81 mg PO DAILY RF: 0 lisinopril 5 mg tablet 5 mg PO DAILY 90 Days Qty: 90 RF: 3 atorvastatin [Lipitor] 40 mg tablet 40 mg PO DAILY 90 Days Qty: 90 RF: 3 fluticasone propion-salmeterol [Advair Diskus] 500-50 mcg/dose blister with device 1 inh INHALATION BID Qty: 60 RF: 8 Plavix 75 mg tablet 75 mg PO DAILY 30 Days Qty: 90 RF: 0 (DME) Compact Ultrasonic Nebulizer Misc See Rx Instructions .ROUTE .MEDSUPPLY Qty: 1 RF: 0 Ventolin HFA 90 mcg/actuation HFA aerosol inhaler 2 puff INHALATION Q4H PRN (Reason: shortness of breath or wheezing) Qty: 18 RF: 0 nitroglycerin 0.4 mg tablet, sublingual 0.4 mg sublingual PRN RF: 0 Coding Level of Care Code ED Barrel Endshaker Adjuster for [place] Yessica
[2020-09-01] MEDS: HYDROcodone-acetaminophen 5-325 mg Tablet 1 TAB PO (20:37)
[2020-09-01] MEDS: ketorolac 60 mg/2 mL INJ IM (20:38)
[2020-09-01 20:54] LABS: Add Urine Microscopic? YES; Bilirubin Urine Neg (Negative); Blood Urine 3+ (Negative); Glucose Urine UA 1+ (Normal); Ketones Urine 1+ (Negative); Leukocyte Esterase Urine Negative (Negative); Nitrate Urine Negative (Negative); Protein Urine 3+ (Negative); Specific Gravity, Urine 1.015 (1.005-1.030); Urine Color Yellow (Yellow); Urobilinogen Urine Norm (Negative); pH Urine 6 (5-7)
[2020-09-01 20:59] LABS: Add Urine Culture? Yes; Bacteria Urine TRACE /hpf; Mucus Urine TRACE /hpf; RBC Urine 25-40 /hpf (0-2); Squamous Epithelial Cell Urine 0-4 /hpf (0-5); WBC Urine 0-4 /hpf (0-5)
--- NOTE | 2020-09-01 20:59 | CTR_ITS ---
PROCEDURE INFORMATION: Exam: CT Abdomen And Pelvis Without Contrast Exam date and time: 09/01/2020 9:14 PM Age: 65 years old Clinical indication: Abdominal pain; Other: Bilat; Patient HX: C/O b flank pain and hematuria; Additional info: Flank pain, hematuria TECHNIQUE: Imaging protocol: Computed tomography of the abdomen and pelvis without contrast. Radiation optimization: All CT scans at this facility use at least one of these dose optimization techniques: automated exposure control; mA and/or kV adjustment per patient size (includes targeted exams where dose is matched to clinical indication); or iterative reconstruction. COMPARISON: CT Abdomen/Pelvis Renal [id number] 12/22/2016 10:36 PM RADIATION DOSE METRICS: Total DLP (mGy-cm): 1510.15 FINDINGS: Lungs: There is mild ground-glass opacity in the lung bases compatible with mild pneumonitis, edema or atelectasis. Heart: The heart is enlarged. There is a small pericardial fluid collection present. Liver: Unremarkable.No mass. Gallbladder and bile ducts: Normal. No calcified stones. No ductal dilation. Pancreas: Normal. No ductal dilation. Spleen: Normal. No splenomegaly. Adrenal glands: Normal. No mass. Kidneys and ureters: There is no evidence of hydronephrosis. There is no evidence of renal calcifications. There is inflammatory perinephric stranding. Stomach and bowel: Moderate diverticulosis is present in the distal colon. There is no evidence of colitis/diverticulitis. There is moderately excessive colonic stool content. Appendix: A normal appendix is identified. Intraperitoneal space: Unremarkable. No free air. No significant fluid collection. Vasculature: The aorta demonstrates moderate atherosclerotic calcification. Lymph nodes: Unremarkable.No enlarged lymph nodes. Urinary bladder: There is increased diffuse bladder wall thickening. There is new haziness of the fat adjacent to the bladder. This may be related to cystitis and/or incomplete distention. There is a small anterior fundal and a larger posterior left bladder diverticulum. No definite bladder mass. Reproductive: The prostate demonstrates mild nonspecific enlargement. The seminal vesicles are normal. Bones/joints: Chronic appearing mild compression fractures of T9, T12 and L4 are noted. No acute bony abnormality. Moderate to severe facet degenerative changes are noted in the spine. Soft tissues: Bilateral small fat filled inguinal hernias are noted. CT/CT kidney stone [id number] IMPRESSION: 1. There is increased diffuse bladder wall thickening. There is new haziness of the fat adjacent to the bladder. This may be related to cystitis and/or incomplete distention. 2. There is a small anterior fundal and a larger posterior left bladder diverticulum. 3. The kidneys have an appropriate appearance. No stones or hydronephrosis. Radiation Dose CTDIVOL = (mGy): DLP = 1510.15 (mGy-cm)
[2020-09-01 21:21] VITALS: BP 99/52; PULSE 82; RESP 17; O2SAT 93
[2020-09-01 22:05] VITALS: BP 94/41; PULSE 74; RESP 16; TEMP 36.8; O2SAT 95
== END 2020-09-01 22:25 | disposition home or self-care (01) ==
PROVIDERS: Emergency Provider Nurse Practitioner Family; PCP Internal Medicine
DX: M54.5 Low back pain (principal); Z79.82 Long term (current) use of aspirin; Z79.02 Long term (current) use of antithrombotics/antiplatelets; I25.118 Atherosclerotic heart disease of native coronary artery with other forms of angina pectoris; Z86.73 Personal history of transient ischemic attack (TIA), and cerebral infarction without residual deficits; E78.5 Hyperlipidemia, unspecified; I10 Essential (primary) hypertension; F17.210 Nicotine dependence, cigarettes, uncomplicated
CPT/HCPCS: 12345; 74176; 81001; 87086; 96372; 99281; 99283; J1885

== ENCOUNTER → 2022-06-26 12:57 | Outpatient (BNVA) | payer MEDICARE, MEDICAID, SELFPAY | PROVIDERS: PCP Internal Medicine; Visit Provider Surgery | DX: T65.91XD Toxic effect of unspecified substance, accidental (unintentional), subsequent encounter (principal); T24.6 Corrosion of second degree of lower limb, except ankle and foot | CPT/HCPCS: 11042; 11045; 16025; 99213 ==

== ENCOUNTER 2022-08-26 22:51 | Emergency (ER) | payer MEDICARE, MEDICAID, SELFPAY ==
[2022-08-26 22:54] VITALS: BP 198/107; PULSE 87; RESP 20; TEMP 36.9; O2SAT 98; BMI 30.4
[2022-08-26 22:58] VITALS: BP 191/145; RESP 18; O2SAT 97
[2022-08-26 22:59] VITALS: BP 191/145; PULSE 80; RESP 13; O2SAT 95
--- NOTE | 2022-08-26 23:08 | XRR_ITS ---
PROCEDURE INFORMATION: Exam: XR Chest Exam date and time: 08/26/2022 11:12 PM Age: 67 years old Clinical indication: Cough and shortness of breath; Patient HX: Cough with SOB TECHNIQUE: Imaging protocol: Radiologic exam of the chest. Views: 1 view. COMPARISON: CR XR chest 1V portable [id number] 07/03/2020 10:41 AM FINDINGS: Tubes, catheters and devices: Chronic surgical clips in the left neck. Lungs: The lungs are clear. Pleural spaces: Unremarkable. No pleural effusion. No pneumothorax. Heart/Mediastinum: Unremarkable. No cardiomegaly. Bones/joints: Chronic degenerative changes in the right shoulder. XR/XR chest 1V portable [id number] IMPRESSION: No acute findings.
[2022-08-26 23:30] VITALS: BP 199/127; PULSE 77; RESP 26; O2SAT 94
[2022-08-26 23:34] LABS: Basophils # 0.1 10^3/uL (0.0-0.1); Basophils % 0.6 %; Eosinophils # 0.3 10^3/uL (0.0-0.8); Eosinophils % 2.7 %; Hematocrit 42.7 % (42.0-52.0); Hemoglobin 14.5 g/dL (11.7-16.6); Lymphocytes # 2.5 10^3/uL (0.8-4.8); Lymphocytes % 21.4 %; Mean Corpuscular Hemoglobin 31.7 pg (28.0-34.0); Mean Corpuscular Volume 93.4 fl (80-94); Mean Platelet Volume 9.5 fL (7.4-10.4); Monocytes # 1.2 10^3/uL (0.2-0.9); Monocytes % 10.4 %; Neutrophils # 7.53 10^3/uL (1.8-7.7); Neutrophils % 64.4 %; Nucleated Red Blood Cells % 0 %; Platelet Count 236 10^3/cmm (130-400); Red Blood Count 4.57 10^6/uL (4.1-5.3); Red Cell Distribution Width 11.9 % (12.1-15.1); White Blood Count 11.7 10^3/uL (4.0-10.0)
--- NOTE | 2022-08-26 23:45 | ED_ITS ---
HPI - SOB/Dyspnea General: Chief Complaint: Shortness of Breath/Dyspnea Stated Complaint: SOB/Cough Time Seen by Provider: 08/26/22 22:53 Source: patient and EMS Limitations: no limitations History of Present Illness: HPI Narrative: 67-year-old male states he has had chronic COPD and has had a chronic cough states been going on for months he states it is worsened over the last week he denies any shortness of breath he is afebrile here pulse ox 97% on room air he is hypertensive here he states he does not see primary care physician is not on any blood pressure meds currently. Associated symptoms: Deny abdominal pain, chest pain, fever(s), nausea or vomiting Review of Systems Const: Denies: fever(s), chills, body aches or change in appetite Eyes: Denies: blurry vision or eye discomfort ENMT: Denies: throat pain or dental pain Card: Denies: chest pain Resp: Reports: dyspnea and non-productive cough GI: Denies: abdominal pain, nausea, vomiting or diarrhea : Denies: dysuria Musc: Denies: neck pain or back pain Skin/Breast: Denies: rash Neuro: Denies: headache(s) Psych: Denies: depression Demetrio/Lymph: Denies: easy bruising All/Imm: Denies: urticaria PFSH ED PFSH: Medical History (Updated 08/27/22 @ 00:28 by Carroll Das MD) Atherosclerosis of coronary artery of [place] heart with stable angina pectoris Atherosclerotic heart disease of [place] coronary artery with unstable angina pectoris Carotid artery stenosis with cerebral infarction over 8 weeks ago Continue on aspirin, Plavix and statin, continue with close cardiology follow-up in the outpatient setting Carotid stenosis Left carotid artery thromboendarterectomy performed on 11/27/[address] Zuniga Coronary artery disease Cardiac cath with stent placement on 10/25/19 He had a cardiac authorization in the hospital which revealed a subtotal oc clusion of the intermedius artery for which he underwent PCI by Dr. Torres. 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 Zuniga History of lymph node excision Reported in the left axilla Family History Mother Stroke Father Diabetes CAD (coronary artery disease) Had open heart surgery in his 60s. of congestive heart failure in his 80s. Denies family history of Clotting disorder Dementia Hyperlipidemia Psychiatric illness Chronic kidney disease (CKD) Suicide Anesthesia complication Bleeding disorder Family history of premature coronary artery disease Lung disease Cancer Hypertension Social History Smoking and tobacco status: current every day smoker cigarettes Packs smoked per day: 0.5 Quit status (tobacco): considering quitting Alcohol intake: former Marital status: History of recent travel: No Current gender identity: Male Physical Exam Const: COMMON NORMALS: no acute distress, patient oriented x3 and healthy appearing HENMT: COMMON NORMALS: normocephalic and atraumatic HEAD & SCALP: n ormocephalic and atraumatic Eye: COMMON NORMALS: Equal, round and reactive pupils present and EOMs intact bilaterally PUPIL: Yes Equal, round and reactive pupils present Neck/C-Spine: COMMON NORMALS: full ROM and supple Chest: COMMONS NORMALS: normal inspection of the chest and normal palpation of entire chest wall Resp: COMMON NORMALS: normal respiratory effort, No retractions, No use of accessory muscles and clear to auscultation bilaterally AUSCULTATION: clear to auscultation bilaterally Cardio: COMMON NORMALS: regular rate, regular rhythm and No murmurs present (Cardio) RATE: regular rate RHYTHM: regular rhythm GI: COMMON NORMALS: Normal to inspection, nondistended, normoactive bowel sounds present, Soft to palpation, non-tender and no masses PALPATION: Yes Soft to palpation Extremity: COMMON NORMALS: normal to inspection and full ROM Neuro: COMMON NORMALS: patient oriented x3, moves all extremities and no focal motor deficits Psych: COMMON NORMALS: mental status grossly normal, Normal thought process present and cooperative THOUGHT PROCESS: Normal thought process present Skin: COMMON NORMALS: no rashes or lesions noted and no wounds GENERAL SKIN EXAM: no rashes or lesions noted Course Vital Signs: Vital signs: Vital Signs Temperature 98.4 F 08/26/22 22:54 Pulse Rate 78 08/27/22 00:00 Respiratory Rate 18 08/26/22 23:54 Blood Pressure 191/145 08/26/22 22:58 Pulse Oximetry 97 08/26/22 23:54 Oxygen Delivery Me thod 08/26/22 23:54 MDM - SOB/Dyspnea Medical Decision Making Patient presents with cough been chronic in nature blood work here is normal no signs of pneumonia on his x-ray he is not hypoxic he is hypertensive we will start him on Norvasc he is stable for discharge he is to follow-up with PCP and return if worsening. Lab Data 08/26/22 23:07 08/26/22 23:07 Labs/Radiology: Radiology Impressions Chest X-Ray 08/26/22 23:08 IMPRESSION: No acute findings. Laboratory Results WBC 11.7 10^3/uL (4.0-10.0) H 08/26/22 23:07 RBC 4.57 10^6/uL (4.1-5.3) 08/26/22 23:07 Hgb 14.5 g/dL (11.7-16.6) 08/26/22 23:07 Hct 42.7 % (42.0-52.0) 08/26/22 23:07 MCV 93.4 fl (80-94) 08/26/22 23:07 MCH 31.7 pg (28.0-34.0) 08/26/22 23:07 MCHC 34.0 g/dL (30.0-36.0) 08/26/22 23:07 RDW 11.9 % (12.1-15.1) L 08/26/22 23:07 Plt Count 236 10^3/cmm (130-400) 08/26/22 23:07 MPV 9.5 fL (7.4-10.4) 08/26/22 23:07 Neut % (Auto) 64.4 % 08/26/22 23:07 Lymph % (Auto) 21.4 % 08/26/22 23:07 Love % (Auto) 10.4 % 08/26/22 23:07 Eos % (Auto) 2.7 % 08/26/22 23:07 Baso % (Auto) 0.6 % 08/26/22 23:07 Neut # (Auto) 7.53 10^3/uL (1.8-7.7) 08/26/22 23:07 Lymph # (Auto) 2.5 10^3/uL (0.8-4.8) 08/26/22 23:07 Love # (Auto) 1.2 10^3/uL (0.2-0.9) H 08/26/22 23:07 Eos # (Auto) 0.3 10^3/uL (0.0-0.8) 08/26/22 23:07 Baso # (Auto) 0.1 10^3/uL (0.0-0.1) 08/26/22 23:07 Nucleated RBC % (auto) 0 % 08/26/22 23:07 Nucleated RBCs # 0.0 /100WBC 08/26/22 23:07 Sodium 136 mmol/L (136-145) 08/26/22 23:07 Potassium 3.6 mmol/L (3.5-5.1) 08/26/22 23:07 Chloride 97 mmol/L (98-107) L 08/26/22 23:07 Carbon Dioxide 31 mmol/L (22-29) H 08/26/22 23:07 Anion Gap 11.6 (5-19) 08/26/22 23:07 BUN 6 mg/dL (8-23) L 08/26/22 23:07 Creatinine 0.8 mg/dL (0.7-1.2) 08/26/22 23:07 GFR Calculation 95.8 mL/min (90-130) 08/26/22 23:07 Glucose 117 mg/dL (65-115) H 08/26/22 23:07 Calculated Osmolality 281 mOsm/kg (285-295) L 08/26/22 23:07 Calcium 8.9 mg/dL (8.5-10.5) 08/26/22 23:07 Total Bilirubin 0.5 mg/dL (0.15-1.2) 08/26/22 23:07 AST 11 U/L (0-40) 08/26/22 23:07 ALT 8 U/L (0-41) 08/26/22 23:07 Alkaline Phosphatase 98 U/L (40-130) 08/26/22 23:07 NT-Pro-B Natriuret Pep 178 pg/mL (0-125) H 08/26/22 23:07 Total Protein 7.6 g/dL (6.6-8.7) 08/26/22 23:07 Albumin 3.8 g/dL (3.5-5.2) 08/26/22 23:07 Globulin 3.8 g/dL (1.3-4.6) 08/26/22 23:07 Influenza Type A Ag negative (Negative) 08/26/22 23:44 Influenza Type B Ag negative (Negative) 08/26/22 23:44 SARS-CoV-2 Ag (Rapid) Negative (Negative) 08/26/22 23:44 Discharge Plan Discharge Patient Disposition: Home Clinical Impression: Hypertension, Cough Condition: Stable Prescriptions: New Norvasc 5 mg tablet 5 mg PO DAILY Qty: 30 0RF No Action doxycycline hyclate 100 mg capsule 100 mg PO BID 10 Days Qty: 20 0RF atorvastatin 40 mg tablet See Rx Instructions .ROUTE .COMPLEX Qty: 90 3RF Dose Instruction: TAKE 1 TABLET BY MOUTH EVERY DAY Rx Instructions: TAKE 1 TABLET BY MOUTH EVERY DAY clopidogrel 75 mg tablet 75 mg PO DAILY Qty: 90 3RF potassium chloride 8 mEq capsule, extended release 8 meq PO DAILY Qty: 90 3RF Ventolin HFA 90 mcg/actuation HFA aerosol inhaler 2 puff INHALATION Q4H PRN (Reason: shortness of breath or wheezing) Qty: 18 0RF Discharge Orders: Discharge ED (Routine); Ordered 08/27/22 Ordered By: Carroll Das Referrals: Nitin Castellano MD [Primary Care Provider] - 1-3 days Discharge Diet: Advance as tolerated Discharge Activity: Resume usual activity Patient Instructions: Chronic Cough (ED), Hypertension (ED) Coding Level of Care Code ED Transition Nurse for Chg Fwd Exam Comprehensive
[2022-08-26 23:53] LABS: Alanine Aminotransferase 8 U/L (0-41); Albumin Level 3.8 g/dL (3.5-5.2); Alkaline Phosphatase 98 U/L (40-130); Anion Gap 11.6 (5-19); Aspartate Amino Transferase 11 U/L (0-40); Blood Urea Nitrogen 6 mg/dL (8-23); Calcium 8.9 mg/dL (8.5-10.5); Carbon Dioxide 31 mmol/L (22-29); Chloride 97 mmol/L (98-107); Creatinine Clr Calc Pharmacy 95.3165; Globulin 3.8 g/dL (1.3-4.6); Glomerular Filtration Rate 95.8 mL/min (90-130); Glucose 117 mg/dL (65-115); NT Pro B Type Natriuretic Pept 178 pg/mL (0-125); Osmolality Calculated 281 mOsm/kg (285-295); Potassium 3.6 mmol/L (3.5-5.1); Sodium 136 mmol/L (136-145); Total Bilirubin 0.5 mg/dL (0.15-1.2); Total Protein 7.6 g/dL (6.6-8.7)
[2022-08-26 23:54] VITALS: PULSE 77; RESP 18; O2SAT 97
[2022-08-26] MEDS: ipratropium-albuterol 3 mL Neb INHALATION (23:54)
[2022-08-26] MEDS: dexamethasone 10 mg/mL INJ IVP (23:57)
[2022-08-26] MEDS: hyDRALAzine 20 mg/mL INJ 1 mL 10 MG IVP (23:57)
[2022-08-27] VITALS: BP 167/85; PULSE 75; PULSE 78; RESP 26; O2SAT 99
[2022-08-27 00:10] LABS: Influenza A by IFA negative (Negative); Influenza B by IFA negative (Negative)
[2022-08-27 00:15] VITALS: BP 159/92; PULSE 89; RESP 21; O2SAT 99
[2022-08-27 00:21] LABS: SARS Covid-2 Antigen Negative (Negative)
== END 2022-08-27 00:57 | disposition home or self-care (01) ==
PROVIDERS: Emergency Provider Emergency Medicine; PCP Internal Medicine
DX: R05.9 Cough, unspecified (principal); I10 Essential (primary) hypertension; Z79.02 Long term (current) use of antithrombotics/antiplatelets; Z20.822 Contact with and (suspected) exposure to COVID-19; F17.210 Nicotine dependence, cigarettes, uncomplicated; I25.10 Atherosclerotic heart disease of native coronary artery without angina pectoris; Z86.73 Personal history of transient ischemic attack (TIA), and cerebral infarction without residual deficits; E78.5 Hyperlipidemia, unspecified
CPT/HCPCS: 71045; 80053; 83880; 85025; 87426; 87804; 94640; 96374; 96375; 99284; J0360; J1100; J2930

== ENCOUNTER 2022-08-28 07:47 | Outpatient (CLI) | payer MEDICARE, MEDICAID, SELFPAY ==
--- NOTE | 2022-08-28 08:30 | USCV_ITS ---
OswaldoArnaldo hernandez Age: 67 Gender: M : 1955 Exam Date: 08/28/2022 08:26 Ordering Phys: Eunice Benz Technologist: ABAD Exam Location: [facility] [place] Indication: Non-healing wound PROCEDURES: Venous duplex imaging was performed in only the right lower extremity. In addition, the posterior tibial and peroneal trunk were evaluated. Serial compression, augmentation maneuvers, and spectral Doppler flow evaluation were performed. FINDINGS: No evidence of DVT seen in any vessel visualized at this time. CONCLUSIONS No evidence of right lower extremity DVT. Liu Soni MD (Electronically Signed) Final Date: 28 August 2022 09:00 S
== END 2022-08-28 07:48 | disposition home or self-care (01) ==
PROVIDERS: PCP Internal Medicine; Visit Provider Nurse Practitioner Family
DX: R60.9 Edema, unspecified (principal)
CPT/HCPCS: 93971

== ENCOUNTER 2022-09-26 02:57 | Emergency (ER) | payer MEDICARE, MEDICAID, SELFPAY ==
[2022-09-26 02:58] VITALS: BP 143/83; PULSE 77; PULSE 87; RESP 16; TEMP 36.6; O2SAT 92; BMI 30.4
--- NOTE | 2022-09-26 03:01 | USR_ITS ---
PROCEDURE INFORMATION: Exam: US Duplex Left Lower Extremity Veins, Limited Exam date and time: 09/26/2022 3:18 AM Age: 67 years old Clinical indication: Pain; Foot; Left; Additional info: Pain/swelling TECHNIQUE: Imaging protocol: Real-time duplex ultrasound of the Left Lower Extremity with 2-D martinez scale, color Doppler flow and spectral waveform analysis with image documentation. Limited exam focused on the left lower extremity veins. COMPARISON: CR (LOW EXM, ) 09/26/2022 3:05 AM FINDINGS: Left deep veins: Unremarkable. The common femoral, femoral, proximal profunda femoral and popliteal veins are patent without thrombus. Normal Doppler waveforms. Normal compressibility and/or augmentation response. Left superficial veins: Unremarkable. Saphenofemoral junction is patent without thrombus. Soft tissues: Unremarkable. US/CV venous duplex [facility] [id number] IMPRESSION: No evidence of deep vein thrombosis.
--- NOTE | 2022-09-26 03:01 | XRR_ITS ---
PROCEDURE INFORMATION: Exam: XR Left Foot Exam date and time: 09/26/2022 3:05 AM Age: 67 years old Clinical indication: Pain and injury or trauma; Blunt trauma; Foot; Left; Injury details: Limited rom due to pain TECHNIQUE: Imaging protocol: Radiologic exam of the Left foot. Views: 3 or more views. COMPARISON: No relevant prior studies available. FINDINGS: Bones/joints: There is deformity involving the distal shaft of the tibia partially visualized that appears secondary to old healed fracture and should be confirmed with history.. No acute fracture, malalignment or bony deformity. Joint surfaces are unremarkable for age. Soft tissues: Normal. XR/XR foot LT min 3V* [id number] IMPRESSION: Presumed old fracture distal tibia shaft partially visualized. No acute bony abnormalities.
--- NOTE | 2022-09-26 03:03 | ED_ITS ---
HPI - Extremity Problem General: Chief complaint: Extremity Injury, Lower Stated complaint: left foot pain, edema Time Seen by Provider: 09/26/22 02:58 Source: patient and EMS Mode of arrival: EMS Limitations: no limitations History of Present Illness: 67-year-old male states that left great toe pain over the last day states pain is very sharp in nature much worse with palpation or anything touching it states he has had gout in the past and this feels similar has had some slight swelling in his foot denies any fever denies any dyspnea or chest pain. Associated symptoms: Deny chest pain, fever(s) or rash Review of Systems Const: Denies: fever(s), chills, body aches or change in appetite Eyes: Denies: blurry vision or eye discomfort ENMT: Denies: throat pain or dental pain Card: Denies: chest pain Resp: Denies: dyspnea GI: Denies: abdominal pain, nausea, vomiting or diarrhea : Denies: dysuria Musc: Reports: extremity pain Skin/Breast: Denies: rash Neuro: Denies: headache(s) Psych: Denies: depression Demetrio/Lymph: Denies: easy bruising All/Imm: Denies: urticaria PFSH ED PFSH: Medical History (Updated 09/26/22 @ 04:19 by Carroll Das MD) Atherosclerosis of coronary artery of [place] heart with stable angina pectoris Atherosclerotic heart disease of [place] coronary artery with unstable angina pectoris Carotid artery stenosis with cerebral infarction over 8 weeks ago Continue on aspirin, Plavix and statin, continue with close cardiology follow-up in the outpatient setting Carotid stenosis Left carotid artery thromboendarterectomy performed on 11/27/[address] Zuniga Coronary artery disease Cardiac cath with stent placement on 10/25/19 He had a cardiac authorization in the hospital which revealed a subtotal occlusion of the intermedius artery for which he underwent PCI by Dr. Torres. 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 Zuniga History of lymph node excision Reported in the left axilla Family History Mother Stroke Father Diabetes CAD (coronary artery disease) Had open heart surgery in his 60s. of congestive heart failure in his 80s. Denies family history of Clotting disorder Dementia Hyperlipidemia Psychiatric illness Chronic kidney disease (CKD) Suicide Anesthesia complication Bleeding disorder Family history of premature coronary artery disease Lung disease Cancer Hypertension Social History Smoking and tobacco status: current every day smoker cigarettes Packs smoked per day: 0.5 Quit status (tobacco): considering quitting Alcohol intake: former Marital status: History of recent travel: No Current gender identity: Male Physical Exam Const: COMMON NORMALS: no acute distress, patient oriented x3 and healthy appearing HENMT: COMMON NORMALS: normocephalic and atraumatic HEAD & SCALP: normocephalic and atraumatic Eye: COMMON NORMALS: Equal, round and reactive pupils present and EOMs intact bilaterally PUPIL: Yes Equal, round and reactive pupils present Neck/C-Spine: COMMON NORMALS: full ROM and supple Chest: COMMONS NORMALS: normal inspection of the chest and normal palpation of entire chest wall Resp: COMMON NORMALS: normal respiratory effort, No retractions, No use of accessory muscles and clear to auscultation bilaterally AUSCULTATION: clear to auscultation bilaterally Cardio: COMMON NORMALS: regular rate, regular rhythm and No murmurs present (Cardio) RATE: regular rate RHYTHM: regular rhythm GI: COMMON NORMALS: Normal to inspection, nondistended, normoactive bowel sounds present, Soft to palpation, non-tender and no masses PALPATION: Yes Soft to palpation Extremity: COMMON NORMALS: no calf tenderness NARRATIVE EXTREMITY EXAM: Slight erythema at base of left great toe tenderness to touch as well. Neuro: COMMON NORMALS: patient oriented x3, moves all extremities and no focal motor deficits Psych: COMMON NORMALS: mental status grossly normal, Normal thought process present and cooperative THOUGHT PROCESS: Normal thought process present Skin: COMMON NORMALS: no rashes or lesions noted and no wounds GENERAL SKIN EXAM: no rashes or lesions noted Course Vital Signs: Vital signs: Vital Signs Temperature 97.8 F 01/14/23 02:58 Pulse Rate 77 09/26/22 02:58 Respiratory Rate 16 09/26/22 03:10 Blood Pressure 143/83 09/26/22 02:58 Pulse Oximetry 96 09/26/22 03:10 Oxygen Delivery Me thod 09/26/22 02:58 MDM - Extremity (Nontraumatic) Medical Decision Making Patient presents here with great toe pain likely from gout he has no signs of joint infection his ultrasound showed no sign of DVT we will place him on indomethacin steroids and pain medicine he stable for discharge he is to follow- up with PCP and return if worsening he understands agrees to plan. Discharge Plan Discharge Patient Disposition: Home Clinical Impression: Gout Condition: Stable Prescriptions: New hydrocodone-acetaminophen 5-325 mg tablet 1 tab PO Q6H PRN (Reason: pain) Qty: 14 0RF prednisone 50 mg tablet 50 mg PO DAILY Qty: 5 0RF indomethacin 50 mg capsule 50 mg PO BID Qty: 20 0RF Rx Instructions: administer with food or milk No Action doxycycline hyclate 100 mg capsule 100 mg PO BID 10 Days Qty: 20 0RF atorvastatin 40 mg tablet See Rx Instructions .ROUTE .COMPLEX Qty: 90 3RF Dose Instruction: TAKE 1 TABLET BY MOUTH EVERY DAY Rx Instructions: TAKE 1 TABLET BY MOUTH EVERY DAY clopidogrel 75 mg tablet 75 mg PO DAILY Qty: 90 3RF potassium chloride 8 mEq capsule, extended release 8 meq PO DAILY Qty: 90 3RF Ventolin HFA 90 mcg/actuation HFA aerosol inhaler 2 puff INHALATION Q4H PRN (Reason: shortness of breath or wheezing) Qty: 18 0RF Norvasc 5 mg tablet 5 mg PO DAILY Qty: 30 0RF Discharge Orders: Discharge ED (Routine); Ordered 09/26/22 Ordered By: Carroll Das Referrals: Nitin Castellano MD [Primary Care Provider] - Discharge Diet: Advance as tolerated Discharge Activity: Resume usual activity Patient Instructions: Gout (ED), Opioid Safety Coding Level of Care Code ED Continuous Improvement Lead for Chg Fwd Exam Comprehensive
[2022-09-26 03:10] VITALS: RESP 16; O2SAT 96
[2022-09-26] MEDS: ondansetron 2 mg/ML SDV 2 mL 4 MG IVP (03:10)
[2022-09-26] MEDS: morphine 4 mg/mL SDV 1 mL IVP (03:10)
[2022-09-26 04:37] VITALS: BP 180/79; PULSE 88; RESP 16; O2SAT 92
[2022-09-26] MEDS: HYDROcodone-acetaminophen 7.5-325 mg Tablet 1 TAB PO (04:50)
== END 2022-09-26 04:52 | disposition home or self-care (01) ==
PROVIDERS: Emergency Provider Emergency Medicine; PCP Internal Medicine
DX: M10.9 Gout, unspecified (principal); Z79.02 Long term (current) use of antithrombotics/antiplatelets; F17.210 Nicotine dependence, cigarettes, uncomplicated; I25.10 Atherosclerotic heart disease of native coronary artery without angina pectoris; Z86.73 Personal history of transient ischemic attack (TIA), and cerebral infarction without residual deficits; E78.5 Hyperlipidemia, unspecified; I10 Essential (primary) hypertension
CPT/HCPCS: 73630; 93971; 96374; 96375; 99285; J2270; J2405

== ENCOUNTER 2022-10-20 12:02 | Emergency (ER) | payer MEDICARE, MEDICAID, SELFPAY ==
[2022-10-20] VITALS (19 sets, daily range): BP systolic 151; BP diastolic 94; PULSE 58–72; RESP 14–23; TEMP 36.8; O2SAT 92–99
--- NOTE | 2022-10-20 12:11 | XRR_ITS ---
PROCEDURE INFORMATION: Exam: XR Chest Exam date and time: 10/20/2022 12:24 PM Age: 67 years old Clinical indication: Cough and dyspnea; Additional info: Dyspnea/cough TECHNIQUE: Imaging protocol: Radiologic exam of the chest. Views: 1 view. COMPARISON: CR XR chest 1V portable [id number] 08/26/2022 11:12 PM FINDINGS: Lungs: Lungs are clear. Pleural spaces: There is no pleural effusion or pneumothorax. Heart/Mediastinum: Cardiomediastinal contours are unremarkable. Bones/joints: There is mild degenerative disease at both shoulders. No acute fracture. XR/XR chest 1V portable [id number] IMPRESSION: No acute findings.
[2022-10-20] MEDS: ipratropium-albuterol 3 mL Neb INHALATION (12:31)
--- NOTE | 2022-10-20 12:36 | ECG_ITS ---
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 Measurements Intervals [place] Rate: 63 P: 43 LA: 158 QRS: -13 QRSD: 88 T: -1 QT: 416 QTc: 426 Interpretive Statements SINUS RHYTHM LOW QRS VOLTAGE IN PRECORDIAL LEADS [QRS DEFLECTION < 1.0 mV IN CHEST LEADS] PATTERN CONSISTENT WITH PULMONARY DISEASE MODERATE VOLTAGE CRITERIA FOR LVH, CONSIDER NORMAL VARIANT [MEETS CRITERIA IN ONE OF: R(aVL), S(V1), R(V5), R(V5/V6)+S(V1)] Compared to ECG 07/03/2020 13:20:16 Low QRS voltage now present Sinus bradycardia no longer present Electronically Signed On 10-20-2022 18:09:00 [employer] by Wilner Tarango M.D. [email or web address]
--- NOTE | 2022-10-20 12:47 | W.ED.SOB ---
HPI - SOB/Dyspnea General: Chief Complaint: Shortness of Breath/Dyspnea Stated Complaint: sob,weakness Time Seen by Provider: 10/20/22 12:10 Source: patient Mode of arrival: EMS History of Present Illness: HPI Narrative: 67-year-old male presents to the emergency room with complaints of shortness of breath and weakness he he is concerned he has pneumonia. He denies any chest pain moderately productive cough. No fever sweats or chills. No radiation discomfort in the neck arms or back. He has not used any medications for his breathing today. He does have Ventolin. MD elicited complaint: shortness of breath and cough Pertinent past history: COPD Onset (ago): day(s) Timing: constant Exacerbating factors: exertion and coughing Relieving factors: bronchodilators Known history of: COPD Associated symptoms: Reports chest congestion and cough; Deny abdominal pain, chest pain, diaphoresis, dizziness, extremity pain, fever(s), hemoptysis, lightheadedness, myalgias, nausea, orthopnea, palpitations, paresthesias, polydipsia, polyuria, rash, sense of impending doom, syncope or vomiting Treatment prior to arrival: none Review of Systems Const: Denies: fever(s), chills, fatigue, malaise or diaphoresis ENMT: Denies: throat pain, ear or mastoid pain, nasal discharge or nasal congestion Card: Denies: chest pain, palpitations, lightheadedness, syncope or orthopnea Resp: Reports: dyspnea, productive cough, wheezing and chest congestion; Denies: non-productive cough or hemoptysis GI: Denies: abdominal pain, nausea or vomiting : Denies: flank pain, dysuria, urinary frequency or urinary urgency Musc: Denies: extremity pain Skin/Breast: Denies: rash or pruritus Neuro: Denies: dizziness Endo: Denies: polyuria or polydipsia PFS ED PFSH: Medical History (Updated 10/28/22 @ 00:06 by DAVID Taylor) Atherosclerosis of coronary artery of [place] heart with stable angina pectoris Atherosclerotic heart disease of [place] coronary artery with unstable angina pectoris Carotid artery stenosis with cerebral infarction over 8 weeks ago Continue on aspirin, Plavix and statin, continue with close cardiology follow-up in the outpatient setting Carotid stenosis Left carotid artery thromboendarterectomy performed on 11/27/[address] Zuniga Coronary artery disease Cardiac cath with stent placement on 10/25/19 He had a cardiac authorization in the hospital which revealed a subtotal occlusion of the intermedius artery for which he underwent PCI by Dr. Torres. 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 Zuniga History of lymph node excision Reported in the left axilla Family History Mother Stroke Father Diabetes CAD (coronary artery disease) Had open heart surgery in his 60s. of congestive heart failure in his 80s. Denies family history of Clotting disorder Dementia Hyperlipidemia Psychiatric illness Chronic kidney disease (CKD) Suicide Anesthesia complication Bleeding disorder Family history of premature coronary artery disease Lung disease Cancer Hypertension Social History Smoking and tobacco status: current every day smoker cigarettes Packs smoked per day: 0.5 Quit status (tobacco): considering quitting Alcohol intake: former Marital status: History of recent travel: No Current gender identity: Male Physical Exam Const: GENERAL APPEARANCE: cooperative and comfortable ORIENTATION/CONSCIOUSNESS: Yes awake, Yes oriented to person, Yes oriented to place and Yes oriented to time HENMT: COMMON NORMALS: normocephalic, atraumatic and hearing grossly normal bilaterally HEAD & SCALP: normocephalic and atraumatic Resp: AUSCULTATION: rhonchi and wheezes Cardio: COMMON NORMALS: regular rate, regular rhythm and No murmurs present (Cardio) RATE: regular rate RHYTHM: regular rhythm GI: COMMON NORMALS: Soft to palpation and No hepatosplenomegaly present AUSCULTATION: Yes normoactive bowel sounds PALPATION: Yes Soft to palpation, No Tenderness to palpation present (GI), No Guarding due to palpation present (GI) and Yes No hepatosplenomegaly present Extremity: COMMON NORMALS: normal to inspection, capillary refill normal, no clubbing, cyanosis or edema, no calf tenderness and no pedal edema Neuro: SENSORIUM/ORIENTATION: Yes oriented to person, Yes oriented to place and Yes oriented to time Skin: COMMON NORMALS: no rashes or lesions noted GENERAL SKIN EXAM: no rashes or lesions noted Course Vital Signs: Vital signs: Vital Signs Temperature 98.3 F 10/20/22 12:06 Pulse Rate 62 10/20/22 13:30 Respiratory Rate 19 H 10/20/22 13:30 Blood Pressure 151/94 10/20/22 13:30 Pulse Oximetry 95 10/20/22 13:30 Oxygen Delivery Me thod 10/20/22 12:49 MDM - SOB/Dyspnea Medical Decision Making Chest x-ray is negative for acute infiltrate. He feels this mostly COPD exacerbation. Discharged home on steroid taper aggressive use of albuterol. He needs follow-up to establish with appropriate long-term inhaled medications. Also put him on doxycycline 100 twice daily for 10 days since he has a productive cough of discolored sputum fizzing worsening symptoms return. Medical Records I reviewed the patient's medical records. Lab Data I reviewed the patient's lab results. 10/20/22 12:40 10/20/22 12:40 Labs/Radiology: Radiology Impressions Chest X-Ray 10/20/22 12:11 IMPRESSION: No acute findings. Laboratory Results WBC 9.2 10^3/uL (4.0-10.0) 10/20/22 12:40 RBC 4.11 10^6/uL (4.1-5.3) 10/20/22 12:40 Hgb 12.7 g/dL (11.7-16.6) 10/20/22 12:40 Hct 37.6 % (42.0-52.0) L 10/20/22 12:40 MCV 91.5 fl (80-94) 10/20/22 12:40 MCH 30.9 pg (28.0-34.0) 10/20/22 12:40 MCHC 33.8 g/dL (30.0-36.0) 10/20/22 12:40 RDW 11.9 % (12.1-15.1) L 10/20/22 12:40 Plt Count 208 10^3/cmm (130-400) 10/20/22 12:40 MPV 9.3 fL (7.4-10.4) 10/20/22 12:40 Neut % (Auto) 58.7 % 10/20/22 12:40 Lymph % (Auto) 24.8 % 10/20/22 12:40 [place] % (Auto) 8.9 % 10/20/22 12:40 Eos % (Auto) 6.6 % 10/20/22 12:40 Baso % (Auto) 0.7 % 10/20/22 12:40 Neut # (Auto) 5.39 10^3/uL (1.8-7.7) 10/20/22 12:40 Lymph # (Auto) 2.3 10^3/uL (0.8-4.8) 10/20/22 12:40 [place] # (Auto) 0.8 10^3/uL (0.2-0.9) 10/20/22 12:40 Eos # (Auto) 0.6 10^3/uL (0.0-0.8) 10/20/22 12:40 Baso # (Auto) 0.1 10^3/uL (0.0-0.1) 10/20/22 12:40 Nucleated RBC % (auto) 0 % 10/20/22 12:40 Nucleated RBCs # 0.0 /100WBC 10/20/22 12:40 Sodium 133 mmol/L (136-145) L 10/20/22 12:40 Potassium 3.8 mmol/L (3.5-5.1) 10/20/22 12:40 Chloride 99 mmol/L (98-107) 10/20/22 12:40 Carbon Dioxide 23 mmol/L (22-29) 10/20/22 12:40 Anion Gap 14.8 (5-19) 10/20/22 12:40 BUN 28 mg/dL (8-23) H 10/20/22 12:40 Creatinine 1.1 mg/dL (0.7-1.2) 10/20/22 12:40 GFR Calculation 66.4 mL/min (90-130) L 10/20/22 12:40 Glucose 116 mg/dL (65-115) H 10/20/22 12:40 Calculated Osmolality 282 mOsm/kg (285-295) L 10/20/22 12:40 Calcium 8.4 mg/dL (8.5-10.5) L 10/20/22 12:40 Total Bilirubin 0.4 mg/dL (0.15-1.2) 10/20/22 12:40 AST 16 U/L (0-40) 10/20/22 12:40 ALT 12 U/L (0-41) 10/20/22 12:40 Alkaline Phosphatase 89 U/L (40-130) 10/20/22 12:40 Total Protein 7.0 g/dL (6.6-8.7) 10/20/22 12:40 Albumin 4.0 g/dL (3.5-5.2) 10/20/22 12:40 Globulin 3.0 g/dL (1.3-4.6) 10/20/22 12:40 Discharge Plan Discharge Patient Disposition: Home Clinical Impression: Acute exacerbation of chronic obstructive airways disease Condition: Stable Prescriptions: New doxycycline hyclate 100 mg capsule 100 mg PO BID 10 Days Qty: 20 0RF Medrol (Leonel) 4 mg tablets,dose pack See Rx Instructions .ROUTE .COMPLEX Qty: 21 0RF Rx Instructions: orally per package directions albuterol sulfate 90 mcg/actuation HFA aerosol inhaler 2 inh INHALATION Q4H PRN (Reason: shortness of breath or wheezing) Qty: 18 0RF Discontinued prednisone 50 mg tablet 50 mg PO DAILY Qty: 5 0RF No Action amlodipine [Norvasc] 5 mg tablet 5 mg PO DAILY Qty: 30 0RF hydrocodone-acetaminophen 5-325 mg tablet 1 tab PO Q6H PRN (Reason: pain) Qty: 14 0RF indomethacin 50 mg capsule 50 mg PO BID Qty: 20 0RF Rx Instructions: administer with food or milk Discharge Orders: Discharge ED (Routine); Ordered 10/20/22 Ordered By: Gordy Sarkar Referrals: Nitin Castellano MD [Primary Care Provider] - Discharge Diet: Usual diet Discharge Activity: Resume usual activity Patient Instructions: Opioid Safety, Pain Management Activity Restrictions/Additional Instructions: You are seen for an exacerbation of COPD. Chest x-ray was normal. Recommend that you start a steroid taper as well as doxycycline and use albuterol as needed. If you have any worsening or change symptoms return to the emergency room or follow-up with primary care doctor. Coding Level of Care Code ED Physician Practice Manager for [place]
[2022-10-20 12:51] LABS: Basophils # 0.1 10^3/uL (0.0-0.1); Basophils % 0.7 %; Eosinophils # 0.6 10^3/uL (0.0-0.8); Eosinophils % 6.6 %; Hematocrit 37.6 % (42.0-52.0); Hemoglobin 12.7 g/dL (11.7-16.6); Lymphocytes # 2.3 10^3/uL (0.8-4.8); Lymphocytes % 24.8 %; Mean Corpuscular HGB Conc 33.8 g/dL (30.0-36.0); Mean Corpuscular Hemoglobin 30.9 pg (28.0-34.0); Mean Corpuscular Volume 91.5 fl (80-94); Mean Platelet Volume 9.3 fL (7.4-10.4); Monocytes # 0.8 10^3/uL (0.2-0.9); Monocytes % 8.9 %; Neutrophils # 5.39 10^3/uL (1.8-7.7); Neutrophils % 58.7 %; Nucleated Red Blood Cells % 0 %; Platelet Count 208 10^3/cmm (130-400); Red Blood Count 4.11 10^6/uL (4.1-5.3); Red Cell Distribution Width 11.9 % (12.1-15.1); White Blood Count 9.2 10^3/uL (4.0-10.0)
[2022-10-20 13:06] LABS: Alanine Aminotransferase 12 U/L (0-41); Alkaline Phosphatase 89 U/L (40-130); Anion Gap 14.8 (5-19); Aspartate Amino Transferase 16 U/L (0-40); Blood Urea Nitrogen 28 mg/dL (8-23); Calcium 8.4 mg/dL (8.5-10.5); Carbon Dioxide 23 mmol/L (22-29); Chloride 99 mmol/L (98-107); Glomerular Filtration Rate 66.4 mL/min (90-130); Glucose 116 mg/dL (65-115); Osmolality Calculated 282 mOsm/kg (285-295); Potassium 3.8 mmol/L (3.5-5.1); Sodium 133 mmol/L (136-145); Total Bilirubin 0.4 mg/dL (0.15-1.2)
--- NOTE | 2022-10-20 13:32 | PC.PHAR ---
pt is a poor historian and states he takes some meds but is unable to verify last doses.
== END 2022-10-20 14:12 | disposition home or self-care (01) ==
PROVIDERS: Emergency Provider Family Medicine; PCP Internal Medicine
DX: J44.1 Chronic obstructive pulmonary disease with (acute) exacerbation (principal); F17.210 Nicotine dependence, cigarettes, uncomplicated; I25.10 Atherosclerotic heart disease of native coronary artery without angina pectoris; Z86.73 Personal history of transient ischemic attack (TIA), and cerebral infarction without residual deficits; E78.5 Hyperlipidemia, unspecified; I10 Essential (primary) hypertension
CPT/HCPCS: 36415; 71045; 80053; 85025; 93005; 94640; 96374; 99285; J2930

== ENCOUNTER 2023-01-05 15:51 | Emergency (ER) | payer OTHER, SELFPAY ==
[2023-01-05] VITALS (8 sets, daily range): BP systolic 112–203; BP diastolic 65–106; PULSE 60–80; RESP 16–18; TEMP 36.6; O2SAT 91–98
--- NOTE | 2023-01-05 20:25 | W.ED.MALEGU ---
HPI - Male Genitourinary General: Chief complaint: Urogenital-Male Stated complaint: unable to urinate since yesterday Time Seen by Provider: 01/05/23 20:23 History of Present Illness: Patient comes in with decreased urine output and lower abdominal discomfort. Patient reports history of prior symptoms of related to a urinary tract infection. Patient denies any fever or chills or nausea or vomiting. Patient appears nontoxic. Patient has a history of coronary artery disease and takes Plavix routinely. Associated symptoms: Deny nausea or vomiting Review of Systems General: Reports: 10 or more systems reviewed and unremarkable except in HPI and below Const: Denies: fever(s) Card: Denies: chest pain Resp: Denies: dyspnea GI: Denies: nausea or vomiting : Reports: difficulty urinating Musc: Reports: back pain Skin/Breast: Denies: rash PFSH ED PFSH: Medical History (Updated 01/05/23 @ 21:50 by Godfrey Quintana [facility]) Atherosclerosis of coronary artery of [place] heart with stable angina pectoris Atherosclerotic heart disease of [place] coronary artery with unstable angina pectoris Carotid artery stenosis with cerebral infarction over 8 weeks ago Continue on aspirin, Plavix and statin, continue with close cardiology follow-up in the outpatient setting Carotid stenosis Left carotid artery thromboendarterectomy performed on 11/27/[address] Zuniga Coronary artery disease Cardiac cath with stent placement on 10/25/19 He had a cardiac authorization in the hospital which revealed a subtotal occlusion of the intermedius artery for which he underwent PCI by Dr. Torres. 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 Zuniga History of lymph node excision Reported in the left axilla Family History Mother Stroke Father Diabetes CAD (coronary artery disease) Had open heart surgery in his 60s. of congestive heart failure in his 80s. Denies family history of Clotting disorder Dementia Hyperlipidemia Psychiatric illness Chronic kidney disease (CKD) Suicide Anesthesia complication Bleeding disorder Family history of premature coronary artery disease Lung disease Cancer Hypertension Social History Smoking and tobacco status: current every day smoker cigarettes Packs smoked per day: 0.5 Quit status (tobacco): considering quitting Alcohol intake: former Substance/Drug Use: never Marital status: Current gender identity: Male Physical Exam Const: COMMON NORMALS: alert HENMT: COMMON NORMALS: normocephalic HEAD & SCALP: normocephalic THROAT: posterior oropharynx normal Neck/C-Spine: COMMON NORMALS: full ROM Resp: COMMON NORMALS: normal respiratory effort Cardio: COMMON NORMALS: regular rate and regular rhythm RATE: regular rate RHYTHM: regular rhythm GI: COMMON NORMALS: Soft to palpation PALPATION: Yes Soft to palpation and Yes Tenderness to palpation present (GI) (Suprapubic tenderness, nonpalpable bladder) : COMMON NORMALS: Yes no CVA tenderness BLADDER/KIDNEY EXAM: Yes no CVA tenderness Back/Pelvis: COMMON NORMALS: no CVA tenderness Extremity: COMMON NORMALS: full ROM Neuro: SENSORIUM/ORIENTATION: Yes alert Skin: COMMON NORMALS: turgor normal GENERAL SKIN EXAM: turgor normal Course Vital Signs: Vital signs: Vital Signs Temperature 97.9 F 01/05/23 15:57 Pulse Rate 65 01/05/23 20:30 Respiratory Rate 16 01/05/23 15:57 Blood Pressure 124/74 01/05/23 21:09 Pulse Oximetry 94 01/05/23 21:09 Oxygen Delivery Me thod Room Air 01/05/23 21:09 MDM - Male Medical Decision Making Patient comes in today with decreased urine output, difficulty producing a strain. Patient has a history of UTI. Patient appears nontoxic. Patient appears in no acute distress. Abdomen soft with some lower abdominal tenderness. Bowel sounds are present. Skin is warm and dry. Differential diagnosis includes urinary tract infection, acute urinary retention, diverticulitis, constipation. Heaton catheter was inserted and 100 mL of clear urine was returned. Urinalysis showed no signs of infection. CBC and CMP were unremarkable. Believe patient has acute urinary retention. We will maintain Heaton catheter and recommend follow-up in 2 to 3 days for recheck with primary care for removal of Heaton. Patient be covered with some Macrobid and tamsulosin. Patient reported understanding of care plan and need for follow-up or return. Lab Data 01/05/23 20:44 01/05/23 20:44 Laboratory Results WBC 8.1 10^3/uL (4.0-10.0) 01/05/23 20:44 RBC 4.37 10^6/uL (4.1-5.3) 01/05/23 20:44 Hgb 13.4 g/dL (11.7-16.6) 01/05/23 20:44 Hct 40.2 % (42.0-52.0) L 01/05/23 20:44 MCV 92.0 fl (80-94) 01/05/23 20:44 MCH 30.7 pg (28.0-34.0) 01/05/23 20:44 MCHC 33.3 g/dL (30.0-36.0) 01/05/23 20:44 RDW 12.7 % (12.1-15.1) 01/05/23 20:44 Plt Count 243 10^3/cmm (130-400) 01/05/23 20:44 MPV 9.2 fL (7.4-10.4) 01/05/23 20:44 Neut % (Auto) 52.3 % 01/05/23 20:44 Lymph % (Auto) 31.2 % 01/05/23 20:44 [place] % (Auto) 7.6 % 01/05/23 20:44 Eos % (Auto) 7.6 % 01/05/23 20:44 Baso % (Auto) 1.1 % 01/05/23 20:44 Neut # (Auto) 4.21 10^3/uL (1.8-7.7) 01/05/23 20:44 Lymph # (Auto) 2.5 10^3/uL (0.8-4.8) 01/05/23 20:44 [place] # (Auto) 0.6 10^3/uL (0.2-0.9) 01/05/23 20:44 Eos # (Auto) 0.6 10^3/uL (0.0-0.8) 01/05/23 20:44 Baso # (Auto) 0.1 10^3/uL (0.0-0.1) 01/05/23 20:44 Nucleated RBC % (auto) 0 % 01/05/23 20:44 Nucleated RBCs # 0.0 /100WBC 01/05/23 20:44 Sodium 142 mmol/L (136-145) 01/05/23 20:44 Potassium 4.2 mmol/L (3.5-5.1) 01/05/23 20:44 Chloride 105 mmol/L (98-107) 01/05/23 20:44 Carbon Dioxide 29 mmol/L (22-29) 01/05/23 20:44 Anion Gap 12.2 (5-19) 01/05/23 20:44 BUN 11 mg/dL (8-23) 01/05/23 20:44 Creatinine 0.9 mg/dL (0.7-1.2) 01/05/23 20:44 GFR Calculation 83.7 mL/min (90-130) L 01/05/23 20:44 Glucose 134 mg/dL (65-115) H 01/05/23 20:44 Calculated Osmolality 295 mOsm/kg (285-295) 01/05/23 20:44 Calcium 8.6 mg/dL (8.5-10.5) 01/05/23 20:44 Total Bilirubin 0.3 mg/dL (0.15-1.2) 01/05/23 20:44 AST 11 U/L (0-40) 01/05/23 20:44 ALT 7 U/L (0-41) 01/05/23 20:44 Alkaline Phosphatase 83 U/L (40-130) 01/05/23 20:44 Total Protein 6.9 g/dL (6.6-8.7) 01/05/23 20:44 Albumin 4.1 g/dL (3.5-5.2) 01/05/23 20:44 Globulin 2.8 g/dL (1.3-4.6) 01/05/23 20:44 Urine Color Yellow (Yellow) 01/05/23 20:35 Urine Appearance Clear (CLEAR) 01/05/23 20:35 Urine pH 6 (5-7) 01/05/23 20:35 Ur Specific [place] 1.010 (1.005-1.030) 01/05/23 20:35 Urine Protein Neg (Negative) 01/05/23 20:35 Urine Glucose (UA) Norm (Normal) 01/05/23 20:35 Urine Ketones Negative (Negative) 01/05/23 20:35 Urine Blood Neg (Negative) 01/05/23 20:35 Urine Nitrate Negative (Negative) 01/05/23 20:35 Urine Bilirubin Neg (Negative) 01/05/23 20:35 Urine Urobilinogen Norm mg/dL (Negative) 01/05/23 20:35 Ur Leukocyte Esterase Negative (Negative) 01/05/23 20:35 Discharge Plan Discharge Patient Disposition: Home Clinical Impression: Acute urinary retention Condition: Stable Prescriptions: New Macrobid 100 mg capsule 100 mg PO BID 5 Days Qty: 10 0RF Rx Instructions: must administer with a meal/food tamsulosin 0.4 mg capsule 0.4 mg PO DAILY Qty: 30 0RF No Action amlodipine [Norvasc] 5 mg tablet 5 mg PO DAILY Qty: 30 0RF hydrocodone-acetaminophen 5-325 mg tablet 1 tab PO Q6H PRN (Reason: pain) Qty: 14 0RF indomethacin 50 mg capsule 50 mg PO BID Qty: 20 0RF Rx Instructions: administer with food or milk Medrol (Leonel) 4 mg tablets,dose pack See Rx Instructions .ROUTE .COMPLEX Qty: 21 0RF Rx Instructions: orally per package directions albuterol sulfate 90 mcg/actuation HFA aerosol inhaler 2 inh INHALATION Q4H PRN (Reason: shortness of breath or wheezing) Qty: 18 0RF Discharge Orders: Discharge ED (Routine); Ordered 01/05/23 Ordered By: Godfrey Quintana Referrals: Matias Aragon APRN [Primary Care Provider] - Discharge Diet: Usual diet Discharge Activity: Increase activity as tolerated Patient Instructions: Urinary Retention in Men (ED) Activity Restrictions/Additional Instructions: Drink plenty of water. Take medication as prescribed. Take Macrobid 100 mg twice a day for the next 5 days. This is the antibiotic and will cover for infection. Take tamsulosin 0.4 mg 1 tablet daily for urinary retention. This will help shrink the prostate to help improve urinary output and avoid further retention. Follow-up with primary care and 2 to 3 days for removal of He[place] catheter. Return to ER for new concerns. Coding Level of Care Code ED Carpenter Labor Supervisor for [place]
[2023-01-05 20:56] LABS: Add Urine Microscopic? NO; Charge for UA Resulting for Rev
[2023-01-05 21:02] LABS: Basophils # 0.1 10^3/uL (0.0-0.1); Basophils % 1.1 %; Eosinophils # 0.6 10^3/uL (0.0-0.8); Eosinophils % 7.6 %; Hematocrit 40.2 % (42.0-52.0); Hemoglobin 13.4 g/dL (11.7-16.6); Lymphocytes # 2.5 10^3/uL (0.8-4.8); Lymphocytes % 31.2 %; Mean Corpuscular HGB Conc 33.3 g/dL (30.0-36.0); Mean Corpuscular Hemoglobin 30.7 pg (28.0-34.0); Mean Platelet Volume 9.2 fL (7.4-10.4); Monocytes # 0.6 10^3/uL (0.2-0.9); Monocytes % 7.6 %; Neutrophils # 4.21 10^3/uL (1.8-7.7); Neutrophils % 52.3 %; Nucleated Red Blood Cells % 0 %; Platelet Count 243 10^3/cmm (130-400); Red Blood Count 4.37 10^6/uL (4.1-5.3); Red Cell Distribution Width 12.7 % (12.1-15.1); White Blood Count 8.1 10^3/uL (4.0-10.0)
[2023-01-05 21:03] LABS: Bilirubin Urine Neg (Negative); Blood Urine Neg (Negative); Glucose Urine UA Norm (Normal); Ketones Urine Negative (Negative); Leukocyte Esterase Urine Negative (Negative); Nitrate Urine Negative (Negative); Protein Urine Neg (Negative); Urine Appearance Clear (CLEAR); Urine Color Yellow (Yellow); Urobilinogen Urine Norm (Negative); pH Urine 6 (5-7)
[2023-01-05 21:25] LABS: Alanine Aminotransferase 7 U/L (0-41); Albumin Level 4.1 g/dL (3.5-5.2); Alkaline Phosphatase 83 U/L (40-130); Anion Gap 12.2 (5-19); Aspartate Amino Transferase 11 U/L (0-40); Blood Urea Nitrogen 11 mg/dL (8-23); Calcium 8.6 mg/dL (8.5-10.5); Carbon Dioxide 29 mmol/L (22-29); Chloride 105 mmol/L (98-107); Globulin 2.8 g/dL (1.3-4.6); Glomerular Filtration Rate 83.7 mL/min (90-130); Glucose 134 mg/dL (65-115); Osmolality Calculated 295 mOsm/kg (285-295); Potassium 4.2 mmol/L (3.5-5.1); Sodium 142 mmol/L (136-145); Total Bilirubin 0.3 mg/dL (0.15-1.2); Total Protein 6.9 g/dL (6.6-8.7)
--- NOTE | 2023-01-05 21:52 | PC.NURSE ---
Provider notiifed of BP 203/106
[2023-01-05] MEDS: acetaminophen 500 mg Tablet 1000 MG PO (22:01)
[2023-01-05] MEDS: nitrofurantoin SR (BID) 100 mg Capsule PO (22:02)
[2023-01-05] MEDS: tamsulosin 0.4 mg Capsule PO (22:03)
== END 2023-01-05 22:47 | disposition home or self-care (01) ==
PROVIDERS: Emergency Medicine; Emergency Provider Nurse Practitioner Family; PCP Nurse Practitioner Family
DX: R33.9 Retention of urine, unspecified (principal); F17.210 Nicotine dependence, cigarettes, uncomplicated; I25.10 Atherosclerotic heart disease of native coronary artery without angina pectoris; Z86.73 Personal history of transient ischemic attack (TIA), and cerebral infarction without residual deficits; E78.5 Hyperlipidemia, unspecified; I10 Essential (primary) hypertension; Z87.440 Personal history of urinary (tract) infections
CPT/HCPCS: 51702; 80053; 81003; 85025; 99284

== ENCOUNTER 2023-01-12 13:55 | Inpatient (IN) | payer OTHER, SELFPAY ==
[2023-01-12] VITALS (56 sets, daily range): BP systolic 79–204; BP diastolic 55–172; PULSE 66–150; RESP 22–45; TEMP 37.2–39.4; O2SAT 90–100
[2023-01-12] MEDS: LORazepam 2 mg Tablet PO (14:06)
--- NOTE | 2023-01-12 14:14 | ECG_ITS ---
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 Measurements Intervals [place] Rate: 126 P: 50 PA: 149 QRS: -23 QRSD: 90 T: 119 QT: 335 QTc: 487 Interpretive Statements SINUS TACHYCARDIA BORDERLINE LEFT AXIS DEVIATION [QRS AXIS < -20] ST DEVIATION AND MODERATE T-WAVE ABNORMALITY, CONSIDER LATERAL ISCHEMIA [-0.1+ mV T-WAVE IN I/aVL/V5/V6] Compared to ECG 10/20/2022 12:36:58 T-wave abnormality now present Possible ischemia now present Sinus rhythm no longer present Electronically Signed On 01-13-2023 0:21:50 CDT by Carol Tse M.D. [id number]
--- NOTE | 2023-01-12 14:16 | W.ED.ANXIETY ---
HPI - Anxiety General: Chief Complaint: Anxiety Stated Complaint: ANXIETY/ TOO MUCH METH Time Seen by Provider: 01/12/23 13:58 Source: patient Mode of arrival: ambulatory History of Present Illness: 67-year-old male presents to the emergency room with complaints of rapid heart rate and elevated blood pressure. Patient states 2 hours ago he smoked what he describes as too much meth. He states been doing meth for 20 years. He is complaining of shortness of breath and some aching in his chest. He does have a history of coronary artery disease. He is on clopidogrel and amlodipine he is not on any anticoagulants. He reports being anxious on arrival as well. MD complaint: anxiety Onset (ago): minute(s) Symptoms: chest pain and palpitations Severity: moderate Quality: constant Place: home Provoking factors: other (Methamphetamine) Relieving factors: nothing Associated symptoms: Reports chest pain, nausea and palpitations; Deny anorexia, chills, confusion, diaphoresis, fever(s), headache(s), malaise, short of breath, syncope, vomiting or weakness Review of Systems Const: Denies: fever(s), chills, fatigue, malaise or diaphoresis ENMT: Denies: throat pain, ear or mastoid pain, nasal discharge or nasal congestion Card: Reports: chest pain and palpitations; Denies: edema, swelling of feet/ankles or syncope Resp: Denies: dyspnea, productive cough or non-productive cough GI: Reports: nausea; Denies: abdominal pain or vomiting : Denies: flank pain, dysuria, urinary frequency or urinary urgency Musc: Denies: extremity swelling Skin/Breast: Denies: rash or pruritus Neuro: Denies: headache(s) or confusion PFS ED PFSH: Medical History (Updated 01/12/23 @ 16:44 by Gordy Sarkar DO) Atherosclerosis of coronary artery of [place] heart with stable angina pectoris Atherosclerotic heart disease of [place] coronary artery with unstable angina pectoris Carotid artery stenosis with cerebral infarction over 8 weeks ago Continue on aspirin, Plavix and statin, continue with close cardiology follow-up in the outpatient setting Carotid stenosis Left carotid artery thromboendarterectomy performed on 11/27/[address] Zuniga Coronary artery disease Cardiac cath with stent placement on 10/25/19 He had a cardiac authorization in the hospital which revealed a subtotal occlusion of the intermedius artery for which he underwent PCI by Dr. Torres. 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 Zuniga History of lymph node excision Reported in the left axilla Family History Mother Stroke Father Diabetes CAD (coronary artery disease) Had open heart surgery in his 60s. of congestive heart failure in his 80s. Denies family history of Clotting disorder Dementia Hyperlipidemia Psychiatric illness Chronic kidney disease (CKD) Suicide Anesthesia complication Bleeding disorder Family history of premature coronary artery disease Lung disease Cancer Hypertension Social History Smoking and tobacco status: current every day smoker cigarettes Packs smoked per day: 0.5 Quit status (tobacco): considering quitting Alcohol intake: former Substance/Drug Use: never Marital status: Current gender identity: Male Physical Exam Const: GENERAL APPEARANCE: cooperative and comfortable ORIENTATION/CONSCIOUSNESS: Yes awake, Yes oriented to person, Yes oriented to place and Yes oriented to time HENMT: COMMON NORMALS: normocephalic, atraumatic and hearing grossly normal bilaterally HEAD & SCALP: normocephalic and atraumatic Resp: COMMON NORMALS: normal respiratory effort, No retractions, No use of accessory muscles and clear to auscultation bilaterally AUSCULTATION: clear to auscultation bilaterally Cardio: COMMON NORMALS: regular rate, regular rhythm and No murmurs present (Cardio) RATE: regular rate RHYTHM: regular rhythm GI: COMMON NORMALS: Soft to palpation and No hepatosplenomegaly present AUSCULTATION: Yes normoactive bowel sounds PALPATION: Yes Soft to palpation, No Tenderness to palpation present (GI), No Guarding due to palpation present (GI) and Yes No hepatosplenomegaly present Extremity: COMMON NORMALS: normal to inspection, capillary refill normal, no clubbing, cyanosis or edema, no calf tenderness and no pedal edema Neuro: SENSORIUM/ORIENTATION: Yes oriented to person, Yes oriented to place and Yes oriented to time Skin: COMMON NORMALS: no rashes or lesions noted GENERAL SKIN EXAM: no rashes or lesions noted Course Vital Signs: Vital signs: Vital Signs Temperature 99.0 F 01/12/23 13:56 Pulse Rate 141 H 01/12/23 16:35 Respiratory Rate 31 H 01/12/23 16:35 Blood Pressure 119/55 01/12/23 16:35 Pulse Oximetry 93 01/12/23 16:35 Oxygen Delivery Me thod Room Air 01/12/23 14:02 MDM - Anxiety Medical Decision Making Methamphetamine abuse with accelerated hypertension he has a little bit of chest comfort as well he was given hydralazine multiple doses of Ativan as well as clonidine and started on nitro drip. He is improving his blood pressure is much better. He will require ICU monitoring as well as a sitter. Discussed with hospitalist orders written. Medical Records I reviewed the patient's medical records. Lab Data I reviewed the patient's lab results. 01/12/23 14:00 01/12/23 14:[address] 01/12/23 14:45 IMPRESSION: 1. Small lacunar infarct left basal ganglia of indeterminate age. 2. Evidence of old right MCA infarct involving the right temporoparietal lobe. 3. Negative for intracranial hemorrhage. 4. Acute sinusitis. Chest X-Ray 01/12/23 14:57 IMPRESSION: Stable chest. No active disease. Laboratory Results WBC 10.5 10^3/uL (4.0-10.0) H 01/12/23 14:00 RBC 4.75 10^6/uL (4.1-5.3) 01/12/23 14:00 Hgb 14.9 g/dL (11.7-16.6) 01/12/23 14:00 Hct 43.1 % (42.0-52.0) 01/12/23 14:00 MCV 90.7 fl (80-94) 01/12/23 14:00 MCH 31.4 pg (28.0-34.0) 01/12/23 14:00 MCHC 34.6 g/dL (30.0-36.0) 01/12/23 14:00 RDW 11.9 % (12.1-15.1) L 01/12/23 14:00 Plt Count 178 10^3/cmm (130-400) 01/12/23 14:00 MPV 9.3 fL (7.4-10.4) 01/12/23 14:00 Neut % (Auto) 86.1 % 01/12/23 14:00 Lymph % (Auto) 2.3 % 01/12/23 14:00 [place] % (Auto) 7.8 % 01/12/23 14:00 Eos % (Auto) 3.3 % 01/12/23 14:00 Baso % (Auto) 0.1 % 01/12/23 14:00 Neut # (Auto) 9.00 10^3/uL (1.8-7.7) H 01/12/23 14:00 Lymph # (Auto) 0.2 10^3/uL (0.8-4.8) L 01/12/23 14:00 [place] # (Auto) 0.8 10^3/uL (0.2-0.9) 01/12/23 14:00 Eos # (Auto) 0.4 10^3/uL (0.0-0.8) 01/12/23 14:00 Baso # (Auto) 0.0 10^3/uL (0.0-0.1) 01/12/23 14:00 Nucleated RBC % (auto) 0 % 01/12/23 14:00 Nucleated RBCs # 0.0 /100WBC 01/12/23 14:00 Sodium 135 mmol/L (136-145) L 01/12/23 14:00 Potassium 3.4 mmol/L (3.5-5.1) L 01/12/23 14:00 Chloride 93 mmol/L (98-107) L 01/12/23 14:00 Carbon Dioxide 25 mmol/L (22-29) 01/12/23 14:00 Anion Gap 20.4 (5-19) H 01/12/23 14:00 BUN 9 mg/dL (8-23) 01/12/23 14:00 Creatinine 1.1 mg/dL (0.7-1.2) 01/12/23 14:00 GFR Calculation 66.4 mL/min (90-130) L 01/12/23 14:00 Glucose 137 mg/dL (65-115) H 01/12/23 14:00 Calculated Osmolality 281 mOsm/kg (285-295) L 01/12/23 14:00 Calcium 9.0 mg/dL (8.5-10.5) 01/12/23 14:00 Troponin T Baseline 16 ng/L (0-15) H 01/12/23 14:00 Salicylates < 0.3 mg/dL (3-10) L 01/12/23 14:00 Acetaminophen < 5.0 ug/mL (10-30) L 01/12/23 14:00 Ethyl Alcohol < 10 mg/dL (0-10) 01/12/23 14:00 Discharge Plan Discharge Patient Disposition: Admitted As Inpatient Admit Provider: Debbie Brandon Clinical Impression: Methamphetamine abuse, History of CVA (cerebrovascular accident), Accelerated hypertension, History of coronary artery disease Condition: Stable Coding Level of Care Code ED Mental Health Practitioner for [place]
[2023-01-12] MEDS: hyDRALAzine 20 mg/mL INJ 1 mL IVP (14:19)
[2023-01-12] MEDS: cloNIDine 0.1 mg Tablet PO (14:19)
[2023-01-12 14:30] LABS: Basophils % 0.1 %; Eosinophils # 0.4 10^3/uL (0.0-0.8); Eosinophils % 3.3 %; Hematocrit 43.1 % (42.0-52.0); Hemoglobin 14.9 g/dL (11.7-16.6); Lymphocytes # 0.2 10^3/uL (0.8-4.8); Lymphocytes % 2.3 %; Mean Corpuscular HGB Conc 34.6 g/dL (30.0-36.0); Mean Corpuscular Hemoglobin 31.4 pg (28.0-34.0); Mean Corpuscular Volume 90.7 fl (80-94); Mean Platelet Volume 9.3 fL (7.4-10.4); Monocytes # 0.8 10^3/uL (0.2-0.9); Monocytes % 7.8 %; Neutrophils % 86.1 %; Nucleated Red Blood Cells % 0 %; Platelet Count 178 10^3/cmm (130-400); Red Blood Count 4.75 10^6/uL (4.1-5.3); Red Cell Distribution Width 11.9 % (12.1-15.1); White Blood Count 10.5 10^3/uL (4.0-10.0)
--- NOTE | 2023-01-12 14:45 | CTR_ITS ---
PROCEDURE INFORMATION: Exam: CT Head Without Contrast Exam date and time: 01/12/2023 3:41 PM Age: 67 years old Clinical indication: Other: Meth overdose; Additional info: Methamphetamine overdose, accelerated HTN TECHNIQUE: Imaging protocol: Computed tomography of the head without contrast. Radiation optimization: All CT scans at this facility use at least one of these dose optimization techniques: automated exposure control; mA and/or kV adjustment per patient size (includes targeted exams where dose is matched to clinical indication); or iterative reconstruction. REPORTING DATA: Count of CT and Cardiac NM exams in prior 12 months: This patient has received 0 known CTs and 0 known cardiac nuclear medicine studies in the 12 months prior to the current study. COMPARISON: No relevant prior studies available. RADIATION DOSE METRICS: Total DLP (mGy-cm): 1201.88 FINDINGS: Brain: Evidence of old right MCA infarct with areas of encephalomalacia and atrophy right temporal-parietal lobe and right basal ganglia. Small indistinct hypodensities left basal ganglia likely secondary to lacunar infarct of indeterminate age. Mild generalized age-related cerebral volume loss. No evidence of intracranial hemorrhage. Cerebral ventricles: Unremarkable for age. Paranasal sinuses: The moderate opacification of the maxillary sinuses with fluid levels. Near complete opacification of the ethmoid sinus and moderate opacification of the frontal sinus left of midline. Mastoid air cells: Visualized mastoid air cells are well aerated. Bones/joints: Unremarkable. No acute fracture. Soft tissues: Unremarkable. CT/CT head wo con* [id number] IMPRESSION: 1. Small lacunar infarct left basal ganglia of indeterminate age. 2. Evidence of old right MCA infarct involving the right temporoparietal lobe. 3. Negative for intracranial hemorrhage. 4. Acute sinusitis.
--- NOTE | 2023-01-12 14:50 | PC.NURSE ---
Pt trying to get out of bed, states I need to get out of here , reoriented pt to place and situation, cooperative to lay back in bed. Increased work of breathing, Dr Sarkar to bedside.
[2023-01-12 14:51] LABS: Troponin(5th) Baseline 16 ng/L (0-15)
[2023-01-12 14:55] LABS: Blood Urea Nitrogen 9 mg/dL (8-23); Carbon Dioxide 25 mmol/L (22-29); Chloride 93 mmol/L (98-107); Glomerular Filtration Rate 66.4 mL/min (90-130); Glucose 137 mg/dL (65-115); Osmolality Calculated 281 mOsm/kg (285-295); Sodium 135 mmol/L (136-145)
[2023-01-12 14:57] LABS: Anion Gap 20.4 (5-19); Potassium 3.4 mmol/L (3.5-5.1)
--- NOTE | 2023-01-12 14:57 | XRR_ITS ---
PROCEDURE INFORMATION: Exam: XR Chest Exam date and time: 01/12/2023 3:12 PM Age: 67 years old Clinical indication: Cough and dyspnea; Additional info: Dyspnea/cough TECHNIQUE: Imaging protocol: Radiologic exam of the chest. Views: 1 view. COMPARISON: Chest x-ray August 26, 2022 FINDINGS: Lungs: Unremarkable. No consolidation. Pleural spaces: Unremarkable. No pleural effusion. No pneumothorax. Heart/Mediastinum: Stable vague opacity left cardiophrenic angle believed secondary to incidental pericardial fat. Cardiac silhouette within upper limits of normal in size, unchanged. Bones/joints: Unremarkable for age. XR/XR chest 1V portable [id number] IMPRESSION: Stable chest. No active disease.
[2023-01-12] MEDS: LORazepam 2 mg/mL INJ 1 mL IVP ×2 (15:00→15:38)
[2023-01-12] MEDS: nitroglycerin drip 50 MG/250 ML PREMIX IV (15:03)
[2023-01-12] MEDS: sodium chloride 0.9% 1,000 ML 999 ML IV (15:05)
--- NOTE | 2023-01-12 15:30 | PC.NURSE ---
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 Respirations continued around 42 breaths per minute, Dr Sarkar aware. Sitter with pt.
--- NOTE | 2023-01-12 16:18 | ECG_ITS ---
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 Measurements Intervals [place] Rate: 136 P: 49 GA: 152 QRS: -19 QRSD: 83 T: 92 QT: 291 QTc: 438 Interpretive Statements SINUS TACHYCARDIA ST DEVIATION AND MODERATE T-WAVE ABNORMALITY, CONSIDER LATERAL ISCHEMIA [-0.1+ mV T-WAVE IN I/aVL/V5/V6] Compared to ECG 01/12/2023 14:14:34 No significant changes Electronically Signed On 01-13-2023 14:21:00 CDT by Benito Conti M.D. [id number]
[2023-01-12 16:32] LABS: Acetaminophen < 5.0 ug/mL (10-30); Alcohol Level < 10 mg/dL (0-10); Salicylate < 0.3 mg/dL (3-10)
[2023-01-12 16:43] LABS: Troponin 5 2HR 20.08 ng/L (0-15); Troponin 5 2HR Delta 4.08 ABS# (0-10)
--- NOTE | 2023-01-12 16:49 | PM.HP ---
Providers/Chief Complaint Admitting Physician: Debbie Brandon MD Primary Care Provider: Matias Aragon APRN Chief Complaint: ANXIETY/ TOO MUCH METH History of Present Illness Arnaldo Chacon is a 67 year old male came to the hospital with chief complaint of confusion and shortness of breath. In the ER he was diagnosed with hypertensive emergency, he was started nitroglycerin drip he received couple dose of clonidine along Ativan patient endorsed injecting methamphetamine. He smokes cigarettes as well. Drug screen is pending, hypokalemia on BMP evident, patient spiked fever in the ICU, has low vitamin B12, I will request lactic acid, patient is tachycardic Review of Systems Const: Reports: chills and body aches Eyes: Denies: change in vision ENMT: Reports: throat pain Card: Denies: chest pain Resp: Reports: dyspnea GI: Reports: nausea : Denies: flank pain Musc: Reports: back pain Skin/Breast: Reports: rash Neuro: Denies: headache(s) Psych: Reports: anxiety Medications/Allergies Home Medications Medication Instructions Recorded Confirmed Last Taken Type amlodipine 5 mg tablet (Norvasc) 5 mg PO DAILY #30 tabs 08/27/22 01/12/23 01/11/23 Rx indomethacin 50 mg capsule 50 mg PO BID #20 caps 09/26/22 01/12/23 01/11/23 Rx albuterol sulfate 90 mcg/actuation 2 inh inhalation Q4H PRN shortness 10/20/22 01/12/23 Unknown Rx aerosol inhaler of breath or wheezing #18 grams tamsulosin 0.4 mg capsule 0.4 mg PO DAILY #30 caps 01/05/23 01/12/23 01/11/23 Rx clopidogrel 75 mg tablet 75 mg PO DAILY 01/07/23 01/12/23 01/12/23 History Allergies Allergy/AdvReac Type Severity Reaction Status Date / Time codeine Allergy Mild hives Verified 01/12/23 14:01 Penicillins Allergy Unknown Verified 01/12/23 14:01 PFSH Acute PFSH: Medical History (Updated 01/12/23 @ 18:35 by Debbie Brandon MD) Atherosclerosis of coronary artery of [place] heart with stable angina pectoris Atherosclerotic heart disease of [place] coronary artery with unstable angina pectoris Carotid artery stenosis with cerebral infarction over 8 weeks ago Continue on aspirin, Plavix and statin, continue with close cardiology follow-up in the outpatient setting Carotid stenosis Left carotid artery thromboendarterectomy performed on 11/27/[address] Zuniga Coronary artery disease Cardiac cath with stent placement on 10/25/19 He had a cardiac authorization in the hospital which revealed a subtotal occlusion of the intermedius artery for which he underwent PCI by Dr. Torres. 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 Zuniga History of lymph node excision Reported in the left axilla Family History Mother Stroke Father Diabetes CAD (coronary artery disease) Had open heart surgery in his 60s. of congestive heart failure in his 80s. Denies family history of Clotting disorder Dementia Hyperlipidemia Psychiatric illness Chronic kidney disease (CKD) Suicide Anesthesia complication Bleeding disorder Family history of premature coronary artery disease Lung disease Cancer Hypertension Social History Smoking and tobacco status: current every day smoker cigarettes Packs smoked per day: 0.5 Quit status (tobacco): considering quitting Alcohol intake: former Substance/Drug Use: never Marital status: Current gender identity: Male Vitals/I&O/Wt Last Vital Signs Temp 99.0 F 01/12/23 13:56 Pulse 141 H 01/12/23 16:35 Resp 31 H 01/12/23 16:35 BP 119/55 01/12/23 16:35 Pulse Ox 93 01/12/23 16:35 O2 Del Method Room Air 01/12/23 14:02 01/12/23 01/12/23 01/12/23 06:59 14:59 22:59 Intake Total 1.35 / 1.35 Balance 1.35 / 1.35 Weight last 48 hrs Weight 89.358 kg Physical Exam Narrative: Patient is agitated Able to answer a few questions Cooperative Endorsing use of methamphetamine I do not appreciate focal deficits Abdomen soft Clinically looks very dehydrated Dry mucous membranes Concentrated urine noted in the bag S1, S2 sinus tachycardia Hypertensive Good capillary refill Dry mucous membranes Patient is able to answer a few questions No skin mottling at this point Patient is tachycardic and tachypneic along hypertension Data 01/12/23 14:00 01/12/23 14:00 A&P Assessment and plan (1) Acute urinary retention: (2) Methamphetamine abuse: (3) Accelerated hypertension: (4) History of coronary artery disease: (5) COPD (chronic obstructive pulmonary disease): (6) NSAID induced gastritis: (7) History of CVA (cerebrovascular accident): (8) Carotid stenosis: (9) Sepsis: Plan Hypertensive emergency ON Nitro gtt Target BP Around 140s in next 6 hrs add diuretics and lisinopril along metoprolol clonidine for any signs of withdrawl Poly substance abuse Meth abuse Follow-up for drug screen History of carotid artery stenosis and coronary disease Continue plasix, atorvastatin No active chest pain Sepsis criteria met with fever tachypnea tachycardia mild leukocytosis, chest x-ray unremarkable most likely this is methamphetamine abuse related rule out UTI Suspicion for meningitis is low I will start patient on cefepime and vancomycin, will give him septic bolus Given 30 mill per kilo septic bolus Request lactic acid Obtain blood blood cultures Lives alone at home Full code Clear liquid diet Which can be devised if his mentation improves Currently on Precedex drip for agitation Attestations Medical Necessity Statement*: Than 2 midnights anticipated for hypertensive emergency, sepsis criteria met Diagnoses Acute urinary retention R33.8 Methamphetamine abuse F15.10 Accelerated hypertension I10 History of coronary artery disease Z86.79 COPD (chronic obstructive pulmonary disease) J44.9 NSAID induced gastritis K29.60; T39.395A History of CVA (cerebrovascular accident) Z86.73 Carotid stenosis I65.29 Sepsis A41.9
[2023-01-12 18:04] LABS: Thyroid Stimulating Hormone 1.64 uIU/mL (0.27-4.20); Vitamin B12 230 pg/mL (232-1245)
[2023-01-12] MEDS: ketorolac 30 mg/mL INJ 15 MG IVP (18:18)
[2023-01-12] MEDS: enoxaparin 40 mg/0.4 mL Syringe SUBCUT (18:20)
[2023-01-12 18:45] LABS: Amphetamines Screen Urine Positive (Negative); Barbiturates Screen Urine Negative (Negative); Benzodiazepines Screen Urine Positive (Negative); Cocaine Screen Urine Negative (Negative); Opiate Screen Urine Negative (Negative); PCP Screen Urine Negative (Negative); THC Screen Urine Negative (Negative)
--- NOTE | 2023-01-12 18:46 | PC.PHAR ---
Expect to draw trough before 3rd dose. IBW (kg): 67.71 Dosing wt(kg): 89 Estimated Creatinine clearance (ml/min): 60.7 CRCL method: Cockcroft and Gault using ibw(default). Drug selected: Vancomycin Loading dose (mg): Vd (liters): 62.3 (factor used: 0.7 L/kg) Christo (hr-1): 0.055 Half life (hrs): 12.60 CLvanco=?? 3.426 L/hr Recommended dose: 1500 mg Interval: 18 hrs Infusion time (hrs): 1 Predicted peak (mcg/mL): 37.3 Predicted trough (mcg/mL): 14.64 Total body weight is being used for vancomycin dosing. Recommendations: Give Vancomycin 1500 mg q 18 hrs with an expected Cpeak of 37.3 mcg/ml and an expected Ctrough of 14.64 mcg/ml AUC 0-24 /MIYA Data: MIYA 0.5 mcg/mL:?? AUC/MIYA:? 1167.5 MIYA 1.0 mcg/mL:?? AUC/MIYA:? 583.8 --------- MIYA 1.5 mcg/mL:?? AUC/MIYA:? 389.2 MIYA 2.0 mcg/mL:?? AUC/MIYA:? 291.9 Renal dosing of other antibiotics (review renal dosing of other medications and list guidelines here): Thank you for the consult, will continue to follow. Signature: Jason AvilesD
[2023-01-12 18:56] LABS: Urine Appearance Clear (CLEAR); Urine Color Amber (Yellow); pH Urine 6 (5-7)
[2023-01-12 18:57] LABS: Add Urine Culture? Yes; Add Urine Microscopic? YES; Bacteria Urine 3+ /hpf; Bilirubin Urine Neg (Negative); Blood Urine 2+ (Negative); Glucose Urine UA Norm (Normal); Hyaline Casts Urine 0-4 /lpf; Ketones Urine 1+ (Negative); Leukocyte Esterase Urine Negative (Negative); Mucus Urine 2+ /hpf; Nitrate Urine Negative (Negative); Protein Urine Trace (Negative); RBC Urine 0-4 /hpf (0-2); Squamous Epithelial Cell Urine 0-4 /hpf (0-5); Urobilinogen Urine Norm (Negative)
[2023-01-12] MEDS: dexmedetomidine 400 MCG in sodium chloride 0.9% (100 ml) 100 ML IV (19:03)
[2023-01-12 19:23] LABS: Lactate (Lactic Acid level) 1.8 mmol/L (0.5-2.2)
--- NOTE | 2023-01-12 19:25 | XRR_ITS ---
PROCEDURE INFORMATION: Exam: XR Chest Exam date and time: 01/12/2023 6:36 PM Age: 67 years old Clinical indication: Shortness of breath; Additional info: SOB TECHNIQUE: Imaging protocol: Radiologic exam of the chest. Views: 1 view. COMPARISON: CR XR chest 1V portable [id number] 01/12/2023 3:12 PM FINDINGS: Lungs: Since the recent prior exam there has been no change. The lungs are clear. Pleural spaces: Unremarkable. No pleural effusion. No pneumothorax. Heart/Mediastinum: Unremarkable. No cardiomegaly. Bones/joints: Unremarkable. XR/XR chest 1V portable [id number] IMPRESSION: No significant findings
[2023-01-12 19:50] LABS: ABG PCO2 33.7 mmHg (35-45); ABG PH Result 7.46 (7.35-7.45); Arterial Blood Gas Hematocrit 42.1 % (42-52); Base Excess ABG 0.8 mmol/L (-2.0-2.0); Blood Gas Allen Test Pos; Blood Gas Sample Type Arterial; HCO3 ABG 24.1 mmol/L (22-26); PO2 ABG 58.7 mmHg (80.0-100.0)
[2023-01-12 19:51] LABS: Blood Gas Operator Identificat JB; Blood Gas Sample Site Radial, right; Oxygen Device ROOM AIR
--- NOTE | 2023-01-12 20:34 | ECG_ITS ---
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 Measurements Intervals [place] Rate: 109 P: 10 WI: 120 QRS: -21 QRSD: 93 T: 63 QT: 332 QTc: 448 Interpretive Statements SINUS TACHYCARDIA WITH OCCASIONAL VENTRICULAR PREMATURE COMPLEXES BORDERLINE LEFT AXIS DEVIATION [QRS AXIS < -20] NONSPECIFIC ST & T-WAVE ABNORMALITY ABNORMAL RHYTHM ECG Compared to ECG 01/12/2023 17:22:32 Ventricular premature complex(es) now present Possible ischemia no longer present T-wave abnormality still present Electronically Signed On 01-13-2023 14:21:22 CDT by Benito Conti M.D. [id number]
[2023-01-12] MEDS: vancomycin 1,500 MG/300 ML PIGGYBACK 200 MG IV (20:38)
[2023-01-12] MEDS: cefepime 2,000 MG in sodium chloride 0.9% (plus) 50 ML 100 MG IV (20:39)
[2023-01-12 20:43] LABS: D Dimer 3.01 ug/mIFEU (0-0.59)
[2023-01-12] MEDS: metoprolol tartrate 50 mg Tablet PO (21:00)
--- NOTE | 2023-01-12 21:16 | CTR_ITS ---
PROCEDURE INFORMATION: Exam: CTA Chest With Contrast Exam date and time: 01/13/2023 3:56 AM Age: 67 years old Clinical indication: Abnormal findings; Abnormal diagnostic tests; Elevated d-dimer; Shortness of breath; Patient HX: SOB with d dimer of 3.01 TECHNIQUE: Imaging protocol: Computed tomographic angiography of the chest with contrast. 3D rendering (Not supervised by radiologist): MIP and/or 3D reconstructed images were created by the technologist. Radiation optimization: All CT scans at this facility use at least one of these dose optimization techniques: automated exposure control; mA and/or kV adjustment per patient size (includes targeted exams where dose is matched to clinical indication); or iterative reconstruction. Contrast material: OMNI 350; Contrast volume: 65 ml; Contrast route: INTRAVENOUS (IV); REPORTING DATA: Count of CT and Cardiac NM exams in prior 12 months: This patient has received 0 known CTs and 0 known cardiac nuclear medicine studies in the 12 months prior to the current study. COMPARISON: CT angio chest PE protcl [id number] 06/21/2020 9:00 AM RADIATION DOSE METRICS: Total DLP (mGy-cm): 314.97 FINDINGS: Pulmonary arteries: The pulmonary arteries are adequately opacified for evaluation to the subsegmental level. There is no filling defect to suggest embolism. Aorta: There is moderate aortic atherosclerotic disease. Lungs: There is decreased AP diameter of the distal trachea and central bronchi consistent with tracheobronchomalacia. There is marked luminal narrowing with near complete effacement of the upper thoracic trachea over a 5 cm segment. There is diffuse bronchial narrowing in the lower lobes, greater on the left. There is dependent opacity in both lower lobes. There is interlobular septal thickening in the lower lungs. There is no consolidation. There is a 9 mm nodule or retained secretions in the proximal left main bronchus. See series 6, image 15. Pleural spaces: The major fissures are thickened. No significant pleural effusion. Heart: Heart size is normal. Coronary arteries: There is severe coronary artery calcification. Lymph nodes: There is no mediastinal or hilar lymphadenopathy. Diaphragm: There is a small sliding-type hiatal hernia. Intraperitoneal space: Visible structures in the upper abdomen are unremarkable. Bones/joints: Mild to moderate superior endplate compression fractures at T3, T4, T5, and T9. T3 through T5 compression fractures are new since 06/21/2020. There is moderate degenerative disease at both shoulders. Soft tissues: The extrathoracic soft tissues are unremarkable. CT/CT angio chest PE protcl [id number] IMPRESSION: 1. No pulmonary embolism. 2. Severe tracheobronchomalacia with near complete effacement of the upper thoracic trachea over a 5 cm segment. 3. Diffuse bronchial narrowing in the lower lobes, greater on the left. 4. Probable interstitial edema. 5. Dependent opacity in both lower lobes. Probable atelectasis. Superimposed infection cannot be excluded. 6. 9 mm endobronchial nodule or retained secretions in the proximal left main bronchus. 9. T3 through T5 compression fractures are new since 06/21/2020 but are of otherwise indeterminate age. 10. Incidental findings above.
[2023-01-12 21:22] LABS: NT Pro B Type Natriuretic Pept 140 pg/mL (0-125)
[2023-01-12] MEDS: dexamethasone 10 mg/mL INJ 6 MG IVP (21:58)
[2023-01-12] MEDS: budesonide 0.5 mg/2 mL Neb INHALATION (22:03)
[2023-01-12 22:06] LABS: Lactate (Lactic Acid level) 1.5 mmol/L (0.5-2.2)
[2023-01-12 22:18] LABS: NT Pro B Type Natriuretic Pept 303 pg/mL (0-125)
--- NOTE | 2023-01-12 23:32 | ECG_ITS ---
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 Measurements Intervals [place] Rate: 73 P: 39 IA: 146 QRS: -7 QRSD: 90 T: 38 QT: 374 QTc: 413 Interpretive Statements SINUS RHYTHM MINIMAL ST DEPRESSION [0.025+ mV ST DEPRESSION] Compared to ECG 01/12/2023 20:34:27 ST (T wave) deviation now present Sinus tachycardia no longer present Ventricular premature complex(es) no longer present T-wave abnormality no longer present Electronically Signed On 01-13-2023 14:22:21 CDT by Benito Conti M.D. [id number]
[2023-01-12] MEDS: ipratropium-albuterol 3 mL Neb INHALATION (23:58)
[2023-01-13] VITALS (92 sets, daily range): BP systolic 85–153; BP diastolic 44–96; PULSE 44–95; RESP 14–31; TEMP 36.2–37.1; O2SAT 92–100
--- NOTE | 2023-01-13 02:39 | PC.NURSE ---
Upon initial assessment, Patient was on 4 L nasal cannula and still experiencing labored breathing, grunting, and use of accessory muscles. Dr. Madrigal contacted with new orders received and to have respiratory assess. After patient is placed on non rebreather, given nebulizer, and precedex patient then began to calm down and oxygen saturation began to improve. Metoprolol administered with BP of 144/77. After dose administered patient then became hypotensive. Dr. Madrigal contacted and came and assessed the patient. New orders received to continue 1,000 mL bolus and decadron, and to monitor blood pressures for an hour. Patient then became more anxious and an increase in stridor to the upper airway. RT reassessed and placed patient on BIPAP. Patient became increasingly agitated. Precedex titrated and patient is now comfortable with mask on and maintaining good oxygen saturation.
[2023-01-13] MEDS: ipratropium-albuterol 3 mL Neb INHALATION ×6 (03:32→23:38)
--- NOTE | 2023-01-13 03:44 | ECG_ITS ---
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 Measurements Intervals [place] Rate: 70 P: 0 OK: 0 QRS: 2 QRSD: 92 T: -8 QT: 489 QTc: 530 Interpretive Statements Sinus bradycardia with premature atrial contractions PROLONGED QT INTERVAL CRITICAL TEST RESULT Compared to ECG 01/12/2023 23:32:43 Prolonged QT interval now present ST (T wave) deviation no longer present Electronically Signed On 01-13-2023 14:23:54 CDT by Benito Conti M.D. [id number]
[2023-01-13] MEDS: iohexol 350 mg/mL 500 mL Btl (per mL) IV (04:04)
[2023-01-13 04:22] LABS: Basophils % 0.3 %; Eosinophils # 0.3 10^3/uL (0.0-0.8); Eosinophils % 2.1 %; Hematocrit 38.2 % (42.0-52.0); Hemoglobin 12.6 g/dL (11.7-16.6); Lymphocytes # 0.4 10^3/uL (0.8-4.8); Lymphocytes % 2.4 %; Mean Corpuscular Hemoglobin 30.6 pg (28.0-34.0); Mean Corpuscular Volume 92.7 fl (80-94); Mean Platelet Volume 10.1 fL (7.4-10.4); Monocytes # 1.1 10^3/uL (0.2-0.9); Monocytes % 6.9 %; Neutrophils % 87.6 %; Nucleated Red Blood Cells % 0 %; Platelet Count 176 10^3/cmm (130-400); Red Blood Count 4.12 10^6/uL (4.1-5.3); Red Cell Distribution Width 12.1 % (12.1-15.1); White Blood Count 15.5 10^3/uL (4.0-10.0)
[2023-01-13 04:44] LABS: Anion Gap 15.7 (5-19); Blood Urea Nitrogen 17 mg/dL (8-23); Calcium 7.8 mg/dL (8.5-10.5); Carbon Dioxide 21 mmol/L (22-29); Chloride 100 mmol/L (98-107); Glomerular Filtration Rate 66.4 mL/min (90-130); Glucose 169 mg/dL (65-115); Magnesium 1.5 mg/dL (1.7-2.3); Osmolality Calculated 281 mOsm/kg (285-295); Phosphorus 3.6 mg/dL (2.5-4.5); Potassium 3.7 mmol/L (3.5-5.1); Sodium 133 mmol/L (136-145)
--- NOTE | 2023-01-13 05:46 | PC.NURSE ---
Dr. Madrigal on unit, notified of patients heart rate. New orders to hold heart medications.
--- NOTE | 2023-01-13 05:49 | PC.NURSE ---
Dr. Madrigal on unit. Notified of patients pulse rate. new orders received to hold blood pressure medications and to obtain an EKG.
--- NOTE | 2023-01-13 06:04 | ECG_ITS ---
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 Measurements Intervals [place] Rate: 54 P: 49 AR: 161 QRS: 10 QRSD: 89 T: -14 QT: 474 QTc: 451 Interpretive Statements SINUS BRADYCARDIA WITH MARKED SINUS ARRHYTHMIA Compared to ECG 01/13/2023 03:44:23 Sinus rhythm no longer present Prolonged QT interval no longer present Electronically Signed On 01-13-2023 14:18:44 CDT by Benito Conti M.D. [id number]
--- NOTE | 2023-01-13 06:07 | PM.CCNAC ---
Critical Care Event Note The high probability of a clinically significant, sudden or life threatening deterioration of the patient's [] system(s) required my full and direct attention, intervention and personal management. The critical care time is as shown. This time is in addition to time spent performing any reported procedures but includes the following: [x] Data and vital sign review and interpretation [x] Patient assessment, examination and intervention [x] Documentation [x] Medication orders and management Critical Care Time Code activated: No Critical Care Time (min): 30 Additional information about critical care time: - Patient was seen multiple times throughout the evening, and into the impregnator electrolytic capacitors of 01/13/2023 -Early in the evening, patient was becoming less responsive, with wheezing in all his lung [place] according to nursing staff, developing hypotension -Patient was examined he is alert or oriented to person, to place, not to time he follows commands, he complains of shortness of breath he has primarily wheezing in his upper lung [place], ABG drawn shows hypoxia, placed on BiPAP, CT angiogram of the chest ordered -Patient was seen again, resting more comfortably on BiPAP, maps have improved, his fluid bolus. Due to concerns for fluid overload, -I suspect this hypotensive episodes were likely second to multiple blood pressure medications, will hold for now -He is resting more comfortably on BiPAP, on 35% -D-dimer elevated, CT angiogram pending -Has 500 cc urine output -I also gave him Decadron for wheezing, history of COPD, started on DuoNebs Coding Level of Care Code Acute Code for Chg Fwd
[2023-01-13] MEDS: cefepime 2,000 MG in sodium chloride 0.9% (plus) 50 ML 100 MG IV ×2 (06:19→18:15)
[2023-01-13] MEDS: budesonide 0.5 mg/2 mL Neb INHALATION ×2 (08:12→20:58)
[2023-01-13] MEDS: lidocaine 1% 5 ML in potassium chloride premix 100 ML 25 ML IV (11:31)
[2023-01-13] MEDS: magnesium sulfate premix 2 GM/50 ML PIGGYBACK IV (11:32)
--- NOTE | 2023-01-13 14:01 | P.PN_ITS ---
Subjective Subjective: Overnight events noted Patient has 2-1 AV block heart rate ranging between 30-50, sinus rhythm with 2-1 AV block Consulted cardiology blood pressure stable, currently on BiPAP Made him n.p.o. Requested ICU nurse for dopamine and pacer pads No signs of PE No active wheezing Mentation is fluctuant Fatigued and lethargic CT scan reviewed Lactic acid normal Magnesium replenished Vitals/I&O/Wt Last Vital Signs Temp 98.7 F 01/13/23 04:15 Pulse 71 01/13/23 11:42 Resp 16 01/13/23 11:35 BP 105/66 01/13/23 09:15 Pulse Ox 99 01/13/23 11:40 O2 Del Method BiPAP 01/13/23 11:35 O2 Flow Rate 4 01/12/23 18:00 FiO2 30 01/13/23 11:40 01/12/23 01/13/23 01/13/23 22:59 06:59 14:59 Intake Total 59.543 / 59.543 385.493 / 445.036 Balance 59.543 / 59.543 385.493 / 445.036 Weight last 48 hrs Weight 84.187 kg Weight 89.358 kg Physical Exam Narrative: lWheezing improved since yesterday Mentation is fluctuant This morning he was able to answer a few questions abdomen soft Heaton catheter draining dilute urine Patient endorsed smoking methamphetamine S1, S2 sinus bradycardia Currently on BiPAP Urinary Catheter Management: Heaton: Cath Placed During This Visit: yes Reason for Continuing Indwelling Catheter: Accurate Measurement of Urinary Output in Critically Ill Patients Urinary Catheter Date of Insertion: 01/12/23 Urinary Catheter Time of Insertion: 17:45 Data 01/13/23 03:42 01/13/23 03:42 Micro: Microbiology 01/12/23 19:35 Blood Culture - Preliminary Blood SPECIMEN COLLECTED 01/12/23 19:30 Blood Culture - Preliminary Blood SPECIMEN COLLECTED A&P Assessment and plan (1) Sepsis: (2) Methamphetamine abuse: (3) Accelerated hypertension: (4) History of coronary artery disease: (5) COPD (chronic obstructive pulmonary disease): (6) NSAID induced gastritis: (7) Atherosclerosis of coronary artery of [place] heart with stable angina pectoris: Qualifiers: Coronary Disease-Associated Artery/Lesion type: [place] artery Qualified Code(s): I25.118 - Atherosclerotic heart disease of [place] coronary artery with other forms of angina pectoris (8) Carotid artery stenosis with cerebral infarction over 8 weeks ago: (9) Hypertension: (10) History of CVA (cerebrovascular accident): (11) Carotid stenosis: (12) AV block, 2nd degree: Plan Sepsis related to possible pneumonia CT scan evident with mucous plugs and infiltrate Continue vancomycin and Zosyn Afebrile this morning however febrile events overnight noted Currently on BiPAP Second-degree AV block consulted cardiology currently patient is on pacer pads Requested dopamine if needed overnight currently hemodynamic stable Metabolic encephalopathy related to sepsis Continue BiPAP Monitor closely Nonfocal neuro exam Methamphetamine abuse, polysubstance abuse Poor compliance with medications History of coronary artery disease carotid disease History of CVA in the past Questionable subacute stroke lacunar infarct evident on CT head Hypertensive emergency: Resolved, off nitro drip Patient became hypotensive overnight currently doing well Full code In case patient will require any pacemaker evaluation by cardiology I have made him n.p.o. We will follow-up with cardiology referral now if there is no plan for intervention I will let him eat Attestations Medical Necessity Statement*: Continue ICU management Diagnoses Sepsis A41.9 Methamphetamine abuse F15.10 Accelerated hypertension I10 History of coronary artery disease Z86.79 COPD (chronic obstructive pulmonary disease) J44.9 NSAID induced gastritis K29.60; T39.395A Atherosclerosis of coronary artery of [place] heart with stable angina pectoris I25.118 Coronary Disease-Associated Artery/Lesion type: [place] artery Carotid artery stenosis with cerebral infarction over 8 weeks ago Hypertension I10 History of CVA (cerebrovascular accident) Z86.73 Carotid stenosis I65.29 AV block, 2nd degree I44.1
--- NOTE | 2023-01-13 14:11 | USCV_ITS ---
Arnaldo Chacon Age: 67 Gender: M : 1955 Exam Date: 01/13/2023 15:21 Ordering Phys: Debbie Brandon MD Technologist: Shaw Baxter [place] [facility] [place]: AV block BP: 105 / 66 HR: 75 Rhythm: Sinus Technical Quality: Adequate MEASUREMENTS (Male / Female) Normal Values 2D ECHO LVOT Diameter 2.0 cm LV Ejection Fraction MOD 2C 72.0 % LV Ejection Fraction 2C AL 71.1 % LA Diameter 3.4 cm Aorta at Sinotubular Diameter 2.9 cm IVC Diameter 1.7 cm M-MODE Aortic Annulus Diameter 3.2 cm LA Ao Ratio MM 1.0 MV E Point Septal Separation 0.7 cm DOPPLER AV Peak Velocity 112.3 cm/s LVOT Peak Velocity 109.0 cm/s AV Area Cont Eq vti 2.7 cm squared AV Area Cont Eq pk 3.1 cm squared MV Peak Velocity 94.0 cm/s MV Area PHT 6.3 cm squared Mitral E to A Ratio 0.7 MV E' Velocity 28.5 cm/s Mitral E to MV E' Ratio 5.8 Mitral E to LV E' Lateral Ratio 5.8 Mitral E to LV E' Septal Ratio 5.9 TR Peak Velocity 116.3 cm/s TR Peak Gradient 5.4 mmHg TR Mean Velocity 87.4 cm/s TR Mean Gradient 3.2 mmHg TR Velocity Time Integral 28.0 cm Right Atrial Pressure 3.0 mmHg Pulmonary Artery Systolic Pressu 8.4 mmHg PV Peak Velocity 76.0 cm/s RV Acceleration Time 0.1 s RV Ejection Time 0.3 s RV AcT/ET 0.4 FINDINGS Left Ventricle Normal left ventricular size and systolic function, EF 77 %. No regional wall motion abnormalities. Grade I/IV diastolic dysfunction (abnormal relaxation filling pattern), normal to mildly elevated filling pressures. Right Ventricle The right ventricle is normal in size and function. Right Atrium The right atrium is normal in size. Left Atrium Mildly increased left atrial size. Mitral Valve Trace mitral valve regurgitation. Aortic Valve Thickened aortic valve. Tricuspid Valve Trace tricuspid valve regurgitation. Pulmonic Valve Pulmonic valve not well visualized. Pericardium Normal pericardium without effusion. Aorta Aortic root, at the level of the sinuses, was measuring 4.0 cm in diameter IVC The inferior vena cava appears normal. CONCLUSIONS Normal left ventricular size and systolic function, EF 77 %. No regional wall motion abnormalities. Grade I/IV diastolic dysfunction (abnormal relaxation filling pattern), normal to mildly elevated filling pressures. Mildly increased left atrial size. Trace tricuspid valve regurgitation. Thickened aortic valve. There is no pericardial effusion. Mildly dilated aortic root Compared to the study from 10/24/2019, there may not be a significant change Dr Carol Tse MD FACC (Electronically Signed) Final Date: 13 Jan 2023 23:11 S
--- NOTE | 2023-01-13 14:11 | PC.SLP ---
Patient was unable to participate in JERKER assessment this morning due to his medical condition.
--- NOTE | 2023-01-13 15:42 | PC.SLP ---
Pt not able to participate with COTTON INSPECTOR today. COTTON INSPECTOR will attempt tomorrow.
[2023-01-13] MEDS: vancomycin 1,500 MG/300 ML PIGGYBACK 200 MG IV (16:00)
--- NOTE | 2023-01-13 17:05 | P.CONIM_ITS ---
Providers/Reason For Consult Consulting Physician/Specialty*: AGA Tse MD/cardiology Reason for Consult*: Patient with a history of coronary artery disease, admitted with accelerated hypertension and methamphetamine overdose. Was found to have second-degree heart block on the monitor. Requesting Physician: Dr Brandon Attending Physician: Debbie Brandon MD Primary Care Provider: Matias Aragon APRN History of Present Illness History of Present Illness Arnaldo Chacon is a 67 year old male with a history of coronary artery disease is admitted to the hospital through the emergency room where he was brought by ambulance with complaints of generalized shaking, chest pain, palpitation and some shortness of breath. He was found to have second-degree heart block on the monitor. Cardiology consult is requested for further cardiac evaluation recommendations. According the patient, he has been smoking methamphetamine more than usual. He started shaking all over and was also sick with the palpitation and chest di scomfort. The symptoms middle lasted for an hour or so. At this point, the patient called the ambulance and was brought to the hospital. He is apparently homeless and lives in a motel in [place]. He has a history of atherosclerotic heart diseas and had [id number]-[id number] myocardial infarction in 2019. Cardiac catheterization at that time revealed high-grade lesion in the intermedius artery for which he underwent PCI. Following this intervention, he was complaining of chest pain. He had a repeat myocardial infarction 2 months later and apparently was found to have no evidence of ischemia. Patient has not been seen in the office since then. He canceled many of his appointments. He is very poorly compliant with medications and follow-ups. 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 Also has a history of tobacco abuse. According the patient, he has been doing okay with no severe chest pain. He has some baseline shortness of breath with activities. He is known to have reactive airway disease. Yesterday he might have smoked too much. He was found to have accelerated hypertension in the emergency room. He was started on multiple antihypertensive. Since the hospital admission, he had an episode of hypotension. This was thought to be related to the medication. He also had some respiratory difficulties with bilateral wheezing. He responded appropriately to bronchodilator treatment. At the time of my examination, patient is feeling much better. He seems to be back to his baseline. I reviewed his the telemetry. He was found to have episodes of sinus bradycardia with history and form of sinus arrhythmia. No high degree AV block's were noted on the telemetry. His troponin T showed a 6-hour delta of 10.3. Has not had any chest pain since the hospital admission. His shortness of breath is significantly improved. Currently he is afebrile. Review of Systems Narrative: CONSTITUTIONAL: No fever or chills. EYES: No blurring of vision or other visual disturbances lately. ENT: No hoarseness of voice, auditory disturbances or sore throat. CARDIOVASCULAR: As mentioned above. RESPIRATORY: Has a baseline shortness of breath with activities. GASTROINTESTINAL: No hematemesis or melena. GENITOURINARY: No dysuria or hematuria. INTEGUMENTARY: No skin rashes or history of skin cancer. NEURO: History of altered mental status. PSYCHIATRIC: No history of psychosis or major depression. HEMATOLOGIC: No bleeding disorders or significant anemia. ENDOCRINE: No history of polyuria or polydipsia. MUSCULOSKELETAL: No recent joint pain or swelling. ALLERGY/IMMUNOLOGY: As mentioned above. Medications/Allergies Home Medications Medication Instructions Recorded Confirmed Last Taken Type amlodipine 5 mg tablet (Norvasc) 5 mg PO DAILY #30 tabs 08/27/22 01/12/23 01/11/23 Rx albuterol sulfate 90 mcg/actuation 2 inh inhalation Q4H PRN shortness 10/20/22 01/12/23 Unknown Rx aerosol inhaler of breath or wheezing #18 grams tamsulosin 0.4 mg capsule 0.4 mg PO DAILY #30 caps 01/05/23 01/12/23 01/11/23 Rx clopidogrel 75 mg tablet 75 mg PO DAILY 01/07/23 01/12/23 01/12/23 History levofloxacin 750 mg tablet 750 mg PO DAILY 7 days #7 tabs 01/14/23 Unknown Rx lisinopril 10 mg tablet 10 mg PO DAILY #60 tabs 01/14/23 Unknown Rx Allergies Allergy/AdvReac Type Severity Reaction Status Date / Time codeine Allergy Mild hives Verified 01/12/23 14:01 Penicillins Allergy Unknown Verified 01/12/23 14:01 Current Medications Generic Name Dose Route Start Last Admin Trade Name Freq PRN Reason Stop Dose Admin Albuterol/Ipratropium 3 ml 01/13/23 00:00 01/13/23 15:59 Ipratropium-Albuterol 3 Ml Neb INHALATION 3 ml Q4H.RESPIRATORY REY Administration Budesonide 0.5 mg 01/12/23 21:20 01/13/23 08:12 Budesonide 0.5 Mg/2 Ml Neb INHALATION 0.5 mg BID.RESPIRATORY REY Administration Clopidogrel Bisulfate 75 mg 01/13/23 09:00 01/13/23 11:24 Clopidogrel 75 Mg Tablet PO Not Given DAILY REY Dexamethasone 6 mg 01/12/23 21:30 01/12/23 21:58 Dexamethasone 10 Mg/Ml Inj IVP 6 mg Q24H REY Administration Enoxaparin Sodium 40 mg 01/12/23 18:00 01/12/23 18:20 Enoxaparin 40 Mg/0.4 Ml Syringe SUBCUT 40 mg Q24H REY Administration Hydrochlorothiazide 12.5 mg 01/13/23 09:00 01/13/23 11:24 Hydrochlorothiazide 25 Mg Tablet PO Not Given DAILY REY Nitroglycerin/Dextrose 50 mg in 250 mls @ 0 mls/hr 01/12/23 14:45 01/12/23 23:44 Nitroglycerin Drip IV 0 mcg/min .Q0M REY 0 mls/hr Titration Protocol Per Protocol Dexmedetomidine HCl 400 mcg/ 104 mls @ 0 mls/hr 01/12/23 18:30 01/13/23 04:00 Sodium Chloride IV 0 mcg/kg/hr .Q0M REY 0 mls/hr Titration Protocol Per Protocol Cefepime HCl 2,000 mg/ Sodium 50 mls @ 100 mls/hr 01/12/23 19:15 01/13/23 06:19 Chloride IV 100 mls/hr Q12H REY Administration Protocol Vancomycin/PEG/NADA/Lysine/Water 1,500 mg in 300 mls @ 200 mls/hr 01/12/23 20:00 01/13/23 16:00 Vancocin IV 200 mls/hr Q18H REY Administration Metoprolol Tartrate 50 mg 01/12/23 18:35 01/12/23 21:00 Metoprolol Tartrate 50 Mg Tablet PO 50 mg BID@0900,2100 REY Administration Senna/Docusate Sodium 1 tab 01/13/23 09:00 01/13/23 11:24 Sennosides-Docusate Tablet PO Not Given DAILY REY Tamsulosin HCl 0.4 mg 01/13/23 09:00 01/13/23 11:25 Tamsulosin 0.4 Mg Capsule PO Not Given DAILY REY PFSH Acute PFSH: Medical History (Updated 01/13/23 @ 18:00 by Carol Tse MD) Atherosclerosis of coronary artery of [place] heart with stable angina pectoris Atherosclerotic heart disease of [place] coronary artery with unstable angina pectoris Carotid artery stenosis with cerebral infarction over 8 weeks ago Continue on aspirin, Plavix and statin, continue with close cardiology follow-up in the outpatient setting Carotid stenosis Left carotid artery thromboendarterectomy performed on 11/27/[address] Zuniga Coronary artery disease Cardiac cath with stent placement on 10/25/19 He had a cardiac authorization in the hospital which revealed a subtotal occlusion of the intermedius artery for which he underwent PCI by Dr. Torres. 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 Zuniga History of lymph node excision Reported in the left axilla Family History Mother Stroke Father Diabetes CAD (coronary artery disease) Had open heart surgery in his 60s. of congestive heart failure in his 80s. Denies family history of Clotting disorder Dementia Hyperlipidemia Psychiatric illness Chronic kidney disease (CKD) Suicide Anesthesia complication Bleeding disorder Family history of premature coronary artery disease Lung disease Cancer Hypertension Social History Smoking and tobacco status: unknown if ever smoked Quit status (tobacco): considering quitting Alcohol intake: former Substance/Drug Use: never Marital status: Current gender identity: Male Vitals/I&O/Wt Last Vital Signs Temp 97.8 F 01/13/23 16:00 Pulse 62 01/13/23 16:03 Resp 16 01/13/23 15:55 BP 95/74 01/13/23 15:30 Pulse Ox 95 01/13/23 15:55 O2 Del Method Nasal Cannula 01/13/23 15:55 O2 Flow Rate 4 01/13/23 15:55 FiO2 30 01/13/23 12:00 01/13/23 01/13/23 01/13/23 06:59 14:59 22:59 Intake Total 385.493 / 445.036 Balance 385.493 / 445.036 Weight last 48 hrs Weight 185 lb 9.6 oz Weight 197 lb Physical Exam Narrative: GENERAL: The patient is alert and oriented times three. Not in any acute distress. HEENT: No significant pallor, icterus or lymphadenopathy.Oral cavity: There are no mucous membrane lesions. NECK: Trachea appears to be central. No masses noted. No JVD or thyromegaly appreciated. RESPIRATORY: Chest is symmetrical. No intercostals muscle retraction or any accessory muscle activation. There is no chest wall tenderness. Breath sounds are heard bilaterally. No rales or rhonchi heard. No evidence of any consolidation. BREASTS: Deferred. HEART: The heart sounds are normal. No S3 or S4. [Short systolic murmur in the lower sternal border. No diastolic murmurs. No pericardial rub ABDOMEN: No vessel pulsations or distention. No tenderness. No organomegaly appreciated. Bowel sounds are normally heard. : Deferred. RECTAL: Deferred. LYMPHATIC: No lymphadenopathy noted in the neck or groin. EXTREMITIES: No edema or cyanosis. No clubbing. Peripheral pulses are palpated in fairly good volume and amplitude MUSCULOSKELETAL: No acute joint deformities or swelling SKIN: There are no significant scars or skin rash noted. NEUROPSYCHIATRIC: The patient is alert and oriented x3. Appears to be in a good mood. No tremors or rigidity noted. Urinary Catheter Management: [place]: Cath Placed During This Visit: yes Reason for Continuing Indwelling Catheter: Accurate Measurement of Urinary Output in Critically Ill Patients Urinary Catheter Date of Insertion: 01/12/23 Urinary Catheter Time of Insertion: 17:45 Data 01/14/23 09:10 01/14/23 09:10 Other Labs: Laboratory Last Values WBC 15.5 10^3/uL (4.0-10.0) H 01/13/23 03:42 RBC 4.12 10^6/uL (4.1-5.3) 01/13/23 03:42 Hgb 12.6 g/dL (11.7-16.6) 01/13/23 03:42 Hct 38.2 % (42.0-52.0) L 01/13/23 03:42 MCV 92.7 fl (80-94) 01/13/23 03:42 MCH 30.6 pg (28.0-34.0) 01/13/23 03:42 MCHC 33.0 g/dL (30.0-36.0) 01/13/23 03:42 RDW 12.1 % (12.1-15.1) 01/13/23 03:42 Plt Count 176 10^3/cmm (130-400) 01/13/23 03:42 MPV 10.1 fL (7.4-10.4) 01/13/23 03:42 Neut % (Auto) 87.6 % 01/13/23 03:42 Lymph % (Auto) 2.4 % 01/13/23 03:42 [place]le % (Auto) 6.9 % 01/13/23 03:42 Eos % (Auto) 2.1 % 01/13/23 03:42 Baso % (Auto) 0.3 % 01/13/23 03:42 Neut # (Auto) 13.60 10^3/uL (1.8-7.7) H 01/13/23 03:42 Lymph # (Auto) 0.4 10^3/uL (0.8-4.8) L 01/13/23 03:42 [place]le # (Auto) 1.1 10^3/uL (0.2-0.9) H 01/13/23 03:42 Eos # (Auto) 0.3 10^3/uL (0.0-0.8) 01/13/23 03:42 Baso # (Auto) 0.0 10^3/uL (0.0-0.1) 01/13/23 03:42 Nucleated RBC % (auto) 0 % 01/13/23 03:42 Nucleated RBCs # 0.0 /100WBC 01/13/23 03:42 D-Dimer 3.01 ug/mIFEU (0-0.59) H 01/12/23 19:30 Specimen Type Arterial 01/12/23 19:25 Sample Site Radial, right 01/12/23 19:25 ABG pH 7.46 (7.35-7.45) H 01/12/23 19:25 ABG pCO2 33.7 mmHg (35-45) L 01/12/23 19:25 ABG pO2 58.7 mmHg (80.0-100.0) L 01/12/23 19:25 ABG HCO3 24.1 mmol/L (22-26) 01/12/23 19:25 ABG Base Excess 0.8 mmol/L (-2.0-2.0) 01/12/23 19:25 Brayan Test Pos 01/12/23 19:25 Hematocrit 42.1 % (42-52) 01/12/23 19:25 O2 Delivery Device Room air 01/12/23 19:25 Appeals Writer ID Robby 01/12/23 19:25 Sodium 133 mmol/L (136-145) L 01/13/23 03:42 Potassium 3.7 mmol/L (3.5-5.1) 01/13/23 03:42 Chloride 100 mmol/L (98-107) 01/13/23 03:42 Carbon Dioxide 21 mmol/L (22-29) L 01/13/23 03:42 Anion Gap 15.7 (5-19) 01/13/23 03:42 BUN 17 mg/dL (8-23) 01/13/23 03:42 Creatinine 1.1 mg/dL (0.7-1.2) 01/13/23 03:42 GFR Calculation 66.4 mL/min (90-130) L 01/13/23 03:42 Glucose 169 mg/dL (65-115) H 01/13/23 03:42 Calculated Osmolality 281 mOsm/kg (285-295) L 01/13/23 03:42 Lactate 1.5 mmol/L (0.5-2.2) 01/12/23 19:35 Calcium 7.8 mg/dL (8.5-10.5) L 01/13/23 03:42 Phosphorus 3.6 mg/dL (2.5-4.5) 01/13/23 03:42 Magnesium 1.5 mg/dL (1.7-2.3) L 01/13/23 03:42 Ammonia Cancelled 01/13/23 14:55 Troponin T Baseline Cancelled 01/12/23 19:30 Troponin T 120 Minute 20.08 ng/L (0-15) H 01/12/23 16:15 Delta Troponin T 4.08 ABS# (0-10) 01/12/23 16:15 Troponin T Hi Sens 6Hr 26.30 ng/L (0-15) H 01/12/23 19:30 Troponin T Hi Sens 6Hr Delta 10.30 ng/L (0-12) 01/12/23 19:30 NT-Pro-B Natriuret Pep 303 pg/mL (0-125) H 01/12/23 19:30 Vitamin B12 230 pg/mL (232-1245) L 01/12/23 16:15 TSH 1.64 uIU/mL (0.27-4.20) 01/12/23 16:15 Prolactin 194.0 ng/mL (4.0-15.2) H 01/13/23 14:55 Urine Color [place] (Yellow) 01/12/23 18:00 Urine Appearance Clear (CLEAR) 01/12/23 18:00 Urine pH 6 (5-7) 01/12/23 18:00 Ur Specific [place] 1.020 (1.005-1.030) 01/12/23 18:00 Urine Protein Trace (Negative) 01/12/23 18:00 Urine Glucose (UA) Norm (Normal) 01/12/23 18:00 Urine Ketones 1+ (Negative) H 01/12/23 18:00 Urine Blood 2+ (Negative) H 01/12/23 18:00 Urine Nitrate Negative (Negative) 01/12/23 18:00 Urine Bilirubin Neg (Negative) 01/12/23 18:00 Urine Urobilinogen Norm mg/dL (Negative) 01/12/23 18:00 Ur Leukocyte Esterase Negative (Negative) 01/12/23 18:00 Urine RBC 0-4 /hpf (0-2) H 01/12/23 18:00 Urine WBC 5-10 /hpf (0-5) H 01/12/23 18:00 Ur Squamous Epith Cells 0-4 /hpf (0-5) H 01/12/23 18:00 Amorphous Sediment Not Reportable 01/12/23 18:00 Urine Bacteria 3+ /hpf (NONE) H 01/12/23 18:00 Hyaline Casts 0-4 /lpf H 01/12/23 18:00 Urine Mucus 2+ /hpf 01/12/23 18:00 Salicylates < 0.3 mg/dL (3-10) L 01/12/23 14:00 Urine Opiates Screen Negative ng/mL (Negative) 01/12/23 18:00 Acetaminophen < 5.0 ug/mL (10-30) L 01/12/23 14:00 Ur Barbiturates Screen Negative ng/mL (Negative) 01/12/23 18:00 Ur Phencyclidine Scrn Negative ng/mL (Negative) 01/12/23 18:00 Ur Amphetamines Screen Positive ng/mL (Negative) H 01/12/23 18:00 U Benzodiazepines Scrn Positive ng/mL (Negative) H 01/12/23 18:00 Urine Cocaine Screen Negative ng/mL (Negative) 01/12/23 18:00 U Marijuana (THC) Screen Negative ng/mL (Negative) 01/12/23 18:00 Ethyl Alcohol < 10 mg/dL (0-10) 01/12/23 14:00 Micro: Microbiology 01/12/23 19:35 Blood Culture - Preliminary Blood SPECIMEN COLLECTED 01/12/23 19:30 Blood Culture - Preliminary Blood SPECIMEN COLLECTED Echo: My impression: Normal left ventricular size and systolic function, EF 77 %. No ?regional wall motion abnormalities. Grade I/IV diastolic ?dysfunction (abnormal relaxation filling pattern), normal to ?mildly elevated filling pressures. ?Mildly increased left atrial size. ?Trace tricuspid valve regurgitation. ?Thickened aortic valve. ?There is no pericardial effusion. ?Mildly dilated aortic root ?Compared to the study from 10/24/2019, there may not be a ?significant change EKG 1: My Interpretation: The EKG showed sinus bradycardia with a history of formal sinus arrhythmia. EKG 2: My Interpretation: Sinus tachycardia with nonspecific ST-T changes. Occasional PVCs. A&P Assessment and plan (1) Atherosclerotic heart disease of [place] coronary artery with other forms of angina pectoris: The patient's chest pain is atypical. The EKG changes are nonspecific. Marginal elevation of troponin T. In view of his history of previous PCI, and the prolonged episode of chest pain yesterday, it may be appropriate to go ahead with a Myocardial perfusion imaging to evaluate for any underlying coronary ischemia. This was discussed with the patient detail which is understood well and consented to proceed (2) Hypertension: Patient is currently normotensive. May continue on the current medications. (3) Tobacco abuse: Strongly advisedtrongle advised to quit smoking (4) Hyperlipidemia: Qualifiers: Hyperlipidemia type: mixed hyperlipidemia Qualified Code(s): E78.2 - Mixed hyperlipidemia (5) History of CVA (cerebrovascular accident): (6) Edema, peripheral: Most likely dependent (7) Methamphetamine abuse: Cardiovascular implications were discussed with the patient (8) Sepsis: Patient is on empiric antibiotic treatment (9) Sinus bradycardia by electrocardiogram: The patient was found to have a history of sinus arrhythmia on the monitor. No high degree AV block's were noted. Plan Echocardiogram was done which revealed normal LV size and ejection fraction. No significant wall motion normalities. Based on the results of the above tests and the patient's clinical progress, further recommendations will be made. Thank you for the opportunity to evaluate this patient and make these recommendations Consult Attestations Medical Necessity Statement: Patient requires continued hospital stay for close monitoring and further management Coding Level of Care Code 67577 Diagnoses Atherosclerotic heart disease of [place] coronary artery with other forms of angina pectoris I25.118 Hypertension I10 Tobacco abuse Z72.0 Hyperlipidemia E78.2 Hyperlipidemia type: mixed hyperlipidemia History of CVA (cerebrovascular accident) Z86.73 Edema, peripheral R60.9 Methamphetamine abuse F15.10 Sepsis A41.9 Sinus bradycardia by electrocardiogram R00.1
--- NOTE | 2023-01-13 18:03 | ECG_ITS ---
[facility] Test Date: 2023-01-14 Pat Name: Arnaldo Chacon Department: Room: [facility] Gender: Male [employer]: : 1955 Requested By: Carol Tse Order Number: [id number] Candi MD: Carol Tse M.D. Interpretive Statements NAME OF STUDY: LEXISCAN SESTAMIBI STRESS TEST INDICATION: Chest Pain PROCEDURE: At the baseline, the EKG revealed sinus bradycardia, nonspecific T wave changes and minimal voltage criteria for LVH. The baseline heart was 48 bpm with a blood pressue of 148/70 mm of Hg Lexiscan was infused over a period of 20 seconds. A total of 0.4 milligrams of Lexiscan was infused. The stress phase was continued for a total of 5 minutes. Heart rate at the end of the stress phase was left anterior descending artery bpm with a blood pressure 116/63 mm of Hg. The EKG at the peak infusion revealed no significant changes occasional PVCs and on the monitor. Some nonspecific ST changes also were noted. Sestamibi was injected 20 seconds after the Lexiscan infusion. Heart rate at the end of the recovery phase was 84 bpm with a blood pressure of 113/66 mm of Hg. CONCLUSION: 1. No significant EKG changes with the LexiScan infusion 2. No LexiScan induced chest pain or cardiac arrhythmia 3. Normal blood pressure and heart rate response 4. Sestamibi/sestamibi perfusion scan pending; see separate report. Electronically Signed On 01-19-2023 20:13:30 CDT by Carol Tse M.D. [id number]
[2023-01-13 18:08] LABS: Ammonia 32 umol/L (16-60)
[2023-01-13] MEDS: enoxaparin 40 mg/0.4 mL Syringe SUBCUT (18:12)
[2023-01-13] MEDS: dexamethasone 10 mg/mL INJ 6 MG IVP (21:25)
[2023-01-13] MEDS: benzonatate 100 mg Capsule PO (22:52)
[2023-01-14] VITALS (33 sets, daily range): BP systolic 104–162; BP diastolic 57–90; PULSE 56–103; RESP 13–28; TEMP 36.7–37; O2SAT 87–100; BMI 27.7
[2023-01-14] MEDS: regadenoson 0.4 Mg/5 ml Syringe IVP (07:18)
--- NOTE | 2023-01-14 08:00 | NMCV_ITS ---
NM audi perf SPECT r/s* [id number] Arnaldo Chacon Age: 67 Gender: M : 1955 Exam Date: 01/14/2023 08:00 Ordering Phys: Carol Tse MD ([email or web address]) Technologist: DOMINIC Morales Exam Location: [facility] Indications: CHEST PAIN STRESS TEST Please see separate stress test report in [facility] for full findings IMAGE PROTOCOL Rest/Stress 1 Lexiscan Day Radiopharmaceutical Dose (mCi) Administration Site Administered by Rest: Tc-99m 10.9 IV DOMINIC Dejesus Sestamibi Stress:Tc-99m 32.7 IV DOMINIC Dejesus Sestamibi Rest: 14-Jan-2023 60 Discovery 630 Stress: 14-Jan-2023 30 Discovery 630 0.4mg Lexiscan. Supine position only as patient was unable to lay prone. SPECT RESULTS Technical Quality: Excellent Raw Data Analysis: Normal Image Corrections: No attenuation or motion correction applied Summed Stress Score: 2 Summed Rest Score: 4 Summed Difference Score: 0 PERFUSION FINDINGS Small to moderate area of slightly decreased tracer uptake was noted in the mid inferior and inferolateral regions. No significant reversibility was noted in these regions. FUNCTIONAL RESULTS (calculated via Gated SPECT) Stress Image LV EF (%): 84 Stress EDV (mL):67 TID: 1.39 Stress ESV (mL):11 FUNCTIONAL FINDINGS: Segmental wall motion analysis revealing no gross wall motion abnormalities IMPRESSIONS 1. Myocardial perfusion imaging revealing small to moderate area of slightly decreased persistent tracer uptake in the inferior and inferolateral regions, most likely represent attrition artifacts 2. Normal LV ejection fraction of 84% 3. LV wall motion analysis revealing no gross wall motion abnormalities. 4. Normal LV volume Elevated transient ischemic dilatation ratio, may suggest endocardial ischemia. However the positive predictive value of this finding is limited. Clinical correlation recommended Compared to the study from 12/13/2019, the elevated transient ischemic dilatation ratio appears to be new Dr Carol Tse MD [facility] (Electronically Signed) Final Date: 14 Jan 2023 12:33 S
--- NOTE | 2023-01-14 08:59 | P.PN_ITS ---
Subjective Subjective: Patient is getting stress test today He can be transferred out of ICU to [facility] or [facility] I do not appreciate significant bradycardia overnight Hemodynamic remained stable I do not see his CBC a BMP for this morning however ammonia level is normal prolactin is extremely high 194 Vitals/I&O/Wt Last Vital Signs Temp 98.4 F 01/14/23 04:00 Pulse 76 01/14/23 08:30 Resp 18 01/14/23 08:30 BP 137/84 01/14/23 08:30 Pulse Ox 96 01/14/23 08:30 O2 Del Method Nasal Cannula 01/14/23 04:00 O2 Flow Rate 2 01/14/23 04:00 FiO2 30 01/13/23 12:00 01/13/23 01/14/23 01/14/23 22:59 06:59 14:59 Intake Total 2505 / 2555 0 / 2555 0 / 0 Output Total 1400 / 1400 1450 / 2850 Balance 1105 / 1155 -1450 / -295 0 / 0 Weight last 48 hrs Weight 82.809 kg Weight 84.187 kg Weight 89.358 kg Physical Exam Narrative: Awake and alert On 2 L nasal cannula Wheezing slightly better S1, S2 Hemodynamically stable Abdomen soft Min assist with dermatitis GCS 15 Nonfocal neuro exam Urinary Catheter Management: Heaton: Cath Placed During This Visit: yes Reason for Continuing Indwelling Catheter: Accurate Measurement of Urinary Output in Critically Ill Patients Urinary Catheter Date of Insertion: 01/12/23 Urinary Catheter Time of Insertion: 17:45 Data 01/14/23 09:10 01/13/23 03:42 Micro: Microbiology 01/12/23 19:35 Blood Culture - Preliminary Blood NEGATIVE TO DATE 01/12/23 19:30 Blood Culture - Preliminary Blood NEGATIVE TO DATE A&P Assessment and plan (1) Sinus bradycardia by electrocardiogram: (2) Atherosclerotic heart disease of [place] coronary artery with other forms of angina pectoris: (3) AV block, 2nd degree: (4) Sepsis: (5) Methamphetamine abuse: (6) Accelerated hypertension: (7) History of coronary artery disease: (8) Edema, peripheral: (9) COPD (chronic obstructive pulmonary disease): (10) NSAID induced gastritis: (11) History of CVA (cerebrovascular accident): (12) Carotid stenosis: (13) Carotid artery stenosis with cerebral infarction over 8 weeks ago: (14) Hypertension: Plan Methamphetamine related hypertension emergency: Improved Community-acquired pneumonia, mucous plugging evident on the lung imaging Currently on 2 L Sinus bradycardia, high degree 2-1 AV block ruled out Patient getting stress test today If patient is clinically doing well by tomorrow and stress test is negative will be able to discharge him on Wednesday Full code Cardiac diet Polysubstance abuse Lacunar infarct Carotid stenosis and history of CVA Long history of polysubstance abuse High risk for mortality and morbidity EF is preserved with grade 1 diastolic dysfunction Attestations Medical Necessity Statement*: Transfer out of ICU Diagnoses Sinus bradycardia by electrocardiogram R00.1 Atherosclerotic heart disease of [place] coronary artery with other forms of angina pectoris I25.118 AV block, 2nd degree I44.1 Sepsis A41.9 Methamphetamine abuse F15.10 Accelerated hypertension I10 History of coronary artery disease Z86.79 Edema, peripheral R60.9 COPD (chronic obstructive pulmonary disease) J44.9 NSAID induced gastritis K29.60; T39.395A History of CVA (cerebrovascular accident) Z86.73 Carotid stenosis I65.29 Carotid artery stenosis with cerebral infarction over 8 weeks ago Hypertension I10
[2023-01-14] MEDS: cefepime 2,000 MG in sodium chloride 0.9% (plus) 50 ML 100 MG IV (09:10)
[2023-01-14] MEDS: tamsulosin 0.4 mg Capsule PO (09:10)
[2023-01-14] MEDS: clopidogrel 75 mg Tablet PO (09:10)
[2023-01-14] MEDS: sennosides-docusate Tablet 1 TAB PO (09:10)
[2023-01-14] MEDS: vancomycin 1,500 MG/300 ML PIGGYBACK 200 MG IV (09:11)
[2023-01-14 09:20] LABS: Basophils % 0.2 %; Eosinophils # 0.1 10^3/uL (0.0-0.8); Eosinophils % 0.9 %; Hematocrit 38.9 % (42.0-52.0); Hemoglobin 12.9 g/dL (11.7-16.6); Lymphocytes % 8.1 %; Mean Corpuscular HGB Conc 33.2 g/dL (30.0-36.0); Mean Corpuscular Hemoglobin 30.6 pg (28.0-34.0); Mean Corpuscular Volume 92.2 fl (80-94); Monocytes # 0.7 10^3/uL (0.2-0.9); Monocytes % 6.2 %; Neutrophils # 9.87 10^3/uL (1.8-7.7); Neutrophils % 84.1 %; Nucleated Red Blood Cells % 0 %; Platelet Count 185 10^3/cmm (130-400); Red Blood Count 4.22 10^6/uL (4.1-5.3); Red Cell Distribution Width 12.2 % (12.1-15.1); White Blood Count 11.7 10^3/uL (4.0-10.0)
[2023-01-14 09:43] LABS: Vancomycin Trough 11.1 ug/mL (10-15)
--- NOTE | 2023-01-14 09:50 | PM.DCS ---
Discharge Providers Date of Admission: 01/12/23 17:14 Date of Discharge: January 14, 2023 Attending Provider at Admission: Debbie Brandon MD Attending Provider at Discharge: Debbie Brandon MD Primary Care Provider: Matias Aragon APRN Diagnoses at Discharge Discharge Diagnosis (1) Sinus bradycardia by electrocardiogram: Status: Acute (2) Atherosclerotic heart disease of [place] coronary artery with other forms of angina pectoris: Status: Acute (3) AV block, 2nd degree: Status: Acute (4) Sepsis: Status: Acute (5) Methamphetamine abuse: Status: Acute (6) Accelerated hypertension: Status: Acute (7) History of coronary artery disease: Status: Acute (8) Edema, peripheral: Status: Acute (9) COPD (chronic obstructive pulmonary disease): Status: Acute (10) NSAID induced gastritis: Status: Acute Permanent problem details: and possibly peptic ulcer disease. (11) History of CVA (cerebrovascular accident): Status: Acute Permanent problem details: History of right middle cerebral artery territory infarct Left middle cerebral artery stroke in 2013 Right internal carotid artery occlusion Left middle cerebral critical stenosis (12) Carotid stenosis: Status: Acute Permanent problem details: Left carotid artery thromboendarterectomy performed on 11/27/[address] Zuniga (13) Carotid artery stenosis with cerebral infarction over 8 weeks ago: Status: Acute Permanent problem details: Continue on aspirin, Plavix and statin, continue with close cardiology follow-up in the outpatient setting (14) Hypertension: Status: Acute Reason for Visit Reason for Visit: ANXIETY/ TOO MUCH METH Hospital Course Hospital Course 67-year male with history of polysubstance abuse, CVA, carotid artery disease, active smoker, came in for worsening of shortness of breath, hypertensive urgency and confusion drug screen was positive for methamphetamine, patient was hypertensive required nitroglycerin drip for about 24 hours, bradycardia was noted there was concern for high degree AV block however it resolved and EKG did not show such significant changes which were seen on telemetry, cardiology was consulted who recommended cardiac stress test, echo has been unremarkable patient remained chest pain-free, he required BiPAP for about 24 hours, his mentation improved after 48 hours, blood pressure 137/84mmhg without any p.o. antihypertensive regimen, patient is not showing any signs of seizures however prolactin is high which could be related to the stress response of the body, his antihypertensive regimen was put on hold when he became hypotensive, patient lives with his and requesting us to arrange a ride home. Please note he was diagnosed with sepsis at the time of admission he spiked fever as well however cultures remain negative, most likely source of infection is bronchial infection for which Levaquin in at the time of discharge. Did not qualify for oxygen before discharge. EF 77% with grade 1 diastolic dysfunction Physical Exam Narrative: Awake and alert GCS 15 Blood pressure 137/84 mmHg Currently on room air No active chest pain Pleasant and cooperative Able to follow commands No active signs of seizures Euvolemic Urinary Catheter Management: Heaton: Cath Placed During This Visit: yes Reason for Continuing Indwelling Catheter: Accurate Measurement of Urinary Output in Critically Ill Patients Urinary Catheter Date of Insertion: 01/12/23 Urinary Catheter Time of Insertion: 17:45 Discharge Data Studies Completed and Pending Completed Studies During Hospitalization Category Date Time Status CT angio chest PE protcl [id number] Routine Cat Scan 01/12/23 21:[address] head wo con* [id number] Stat Cat Scan 01/12/23 14:45 Completed XR chest 1V portable [id number] Routine Exams 01/12/23 19:25 Completed XR chest 1V portable [id number] Stat Exams 01/12/23 14:57 Completed CV. echo complete* [id number] Routine Ultrasound 01/13/23 14:11 Completed Pending at discharge Category Date Time Status Cardiac Stress Test MIBI [Sestamibi Stress Test Request Exams 01/13/23 18:03 Ordered ] Routine Basic Metabolic Panel AM LABS Lab 01/14/23 09:10 Received Basic Metabolic Panel AM LABS Lab 01/15/23 04:00 Ordered Blood Culture Stat Lab 01/12/23 19:35 Results Complete Blood Count w/Auto AM LABS Lab 01/15/23 04:00 Ordered Magnesium AM LABS Lab 01/14/23 09:10 Received Sputum Culture and Gram Stain Routine Lab 01/12/23 18:34 Uncollected Urine Culture Routine Lab 01/12/23 18:00 Received Urine Culture Routine Lab 01/12/23 18:34 Uncollected NM audi perf SPECT r/s* [id number] Routine Nuc Med 01/14/23 08:00 Ordered Radiology Impressions Head CT 01/12/23 14:45 IMPRESSION: 1. Small lacunar infarct left basal ganglia of indeterminate age. 2. Evidence of old right MCA infarct involving the right temporoparietal lobe. 3. Negative for intracranial hemorrhage. 4. Acute sinusitis. Chest X-Ray 01/12/23 19:25 IMPRESSION: No significant findings Chest CTA 01/12/23 21:16 IMPRESSION: 1. No pulmonary embolism. 2. Severe tracheobronchomalacia with near complete effacement of the upper thoracic trachea over a 5 cm segment. 3. Diffuse bronchial narrowing in the lower lobes, greater on the left. 4. Probable interstitial edema. 5. Dependent opacity in both lower lobes. Probable atelectasis. Superimposed infection cannot be excluded. 6. 9 mm endobronchial nodule or retained secretions in the proximal left main bronchus. 9. T3 through T5 compression fractures are new since 06/21/2020 but are of otherwise indeterminate age. 10. Incidental findings above. Laboratory Results WBC 11.7 10^3/uL (4.0-10.0) H 01/14/23 09:10 RBC 4.22 10^6/uL (4.1-5.3) 01/14/23 09:10 Hgb 12.9 g/dL (11.7-16.6) 01/14/23 09:10 Hct 38.9 % (42.0-52.0) L 01/14/23 09:10 MCV 92.2 fl (80-94) 01/14/23 09:10 MCH 30.6 pg (28.0-34.0) 01/14/23 09:10 MCHC 33.2 g/dL (30.0-36.0) 01/14/23 09:10 RDW 12.2 % (12.1-15.1) 01/14/23 09:10 Plt Count 185 10^3/cmm (130-400) 01/14/23 09:10 MPV 10.0 fL (7.4-10.4) 01/14/23 09:10 Neut % (Auto) 84.1 % 01/14/23 09:10 Lymph % (Auto) 8.1 % 01/14/23 09:10 [place] % (Auto) 6.2 % 01/14/23 09:10 Eos % (Auto) 0.9 % 01/14/23 09:10 Baso % (Auto) 0.2 % 01/14/23 09:10 Neut # (Auto) 9.87 10^3/uL (1.8-7.7) H 01/14/23 09:10 Lymph # (Auto) 1.0 10^3/uL (0.8-4.8) 01/14/23 09:10 [place] # (Auto) 0.7 10^3/uL (0.2-0.9) 01/14/23 09:10 Eos # (Auto) 0.1 10^3/uL (0.0-0.8) 01/14/23 09:10 Baso # (Auto) 0.0 10^3/uL (0.0-0.1) 01/14/23 09:10 Nucleated RBC % (auto) 0 % 01/14/23 09:10 Nucleated RBCs # 0.0 /100WBC 01/14/23 09:10 D-Dimer 3.01 ug/mIFEU (0-0.59) H 01/12/23 19:30 Specimen Type Arterial 01/12/23 19:25 Sample Site Radial, right 01/12/23 19:25 ABG pH 7.46 (7.35-7.45) H 01/12/23 19:25 ABG pCO2 33.7 mmHg (35-45) L 01/12/23 19:25 ABG pO2 58.7 mmHg (80.0-100.0) L 01/12/23 19:25 ABG HCO3 24.1 mmol/L (22-26) 01/12/23 19:25 ABG Base Excess 0.8 mmol/L (-2.0-2.0) 01/12/23 19:25 Brayan Test Pos 01/12/23 19:25 Hematocrit 42.1 % (42-52) 01/12/23 19:25 O2 Delivery Device Room air 01/12/23 19:25 Software Development Manager ID Robby 01/12/23 19:25 Sodium 133 mmol/L (136-145) L 01/13/23 03:42 Potassium 3.7 mmol/L (3.5-5.1) 01/13/23 03:42 Chloride 100 mmol/L (98-107) 01/13/23 03:42 Carbon Dioxide 21 mmol/L (22-29) L 01/13/23 03:42 Anion Gap 15.7 (5-19) 01/13/23 03:42 BUN 17 mg/dL (8-23) 01/13/23 03:42 Creatinine 1.1 mg/dL (0.7-1.2) 01/13/23 03:42 GFR Calculation 66.4 mL/min (90-130) L 01/13/23 03:42 Glucose 169 mg/dL (65-115) H 01/13/23 03:42 Calculated Osmolality 281 mOsm/kg (285-295) L 01/13/23 03:42 Lactate 1.5 mmol/L (0.5-2.2) 01/12/23 19:35 Calcium 7.8 mg/dL (8.5-10.5) L 01/13/23 03:42 Phosphorus 3.6 mg/dL (2.5-4.5) 01/13/23 03:42 Magnesium 1.5 mg/dL (1.7-2.3) L 01/13/23 03:42 Ammonia 32 umol/L (16-60) 01/13/23 17:40 Troponin T Baseline Cancelled 01/12/23 19:30 Troponin T 120 Minute 20.08 ng/L (0-15) H 01/12/23 16:15 Delta Troponin T 4.08 ABS# (0-10) 01/12/23 16:15 Troponin T Hi Sens 6Hr 26.30 ng/L (0-15) H 01/12/23 19:30 Troponin T Hi Sens 6Hr Delta 10.30 ng/L (0-12) 01/12/23 19:30 NT-Pro-B Natriuret Pep 303 pg/mL (0-125) H 01/12/23 19:30 Vitamin B12 230 pg/mL (232-1245) L 01/12/23 16:15 TSH 1.64 uIU/mL (0.27-4.20) 01/12/23 16:15 Prolactin 194.0 ng/mL (4.0-15.2) H 01/13/23 14:55 Urine Color [place] (Yellow) 01/12/23 18:00 Urine Appearance Clear (CLEAR) 01/12/23 18:00 Urine pH 6 (5-7) 01/12/23 18:00 Ur Specific [place] 1.020 (1.005-1.030) 01/12/23 18:00 Urine Protein Trace (Negative) 01/12/23 18:00 Urine Glucose (UA) Norm (Normal) 01/12/23 18:00 Urine Ketones 1+ (Negative) H 01/12/23 18:00 Urine Blood 2+ (Negative) H 01/12/23 18:00 Urine Nitrate Negative (Negative) 01/12/23 18:00 Urine Bilirubin Neg (Negative) 01/12/23 18:00 Urine Urobilinogen Norm mg/dL (Negative) 01/12/23 18:00 Ur Leukocyte Esterase Negative (Negative) 01/12/23 18:00 Urine RBC 0-4 /hpf (0-2) H 01/12/23 18:00 Urine WBC 5-10 /hpf (0-5) H 01/12/23 18:00 Ur Squamous Epith Cells 0-4 /hpf (0-5) H 01/12/23 18:00 Amorphous Sediment Not Reportable 01/12/23 18:00 Urine Bacteria 3+ /hpf (NONE) H 01/12/23 18:00 Hyaline Casts 0-4 /lpf H 01/12/23 18:00 Urine Mucus 2+ /hpf 01/12/23 18:00 Vancomycin Trough 11.1 ug/mL (10-15) 01/14/23 09:10 Salicylates < 0.3 mg/dL (3-10) L 01/12/23 14:00 Urine Opiates Screen Negative ng/mL (Negative) 01/12/23 18:00 Acetaminophen < 5.0 ug/mL (10-30) L 01/12/23 14:00 Ur Barbiturates Screen Negative ng/mL (Negative) 01/12/23 18:00 Ur Phencyclidine Scrn Negative ng/mL (Negative) 01/12/23 18:00 Ur Amphetamines Screen Positive ng/mL (Negative) H 01/12/23 18:00 U Benzodiazepines Scrn Positive ng/mL (Negative) H 01/12/23 18:00 Urine Cocaine Screen Negative ng/mL (Negative) 01/12/23 18:00 U Marijuana (THC) Screen Negative ng/mL (Negative) 01/12/23 18:00 Ethyl Alcohol < 10 mg/dL (0-10) 01/12/23 14:00 Vitals Last Vital Signs Temp 98.4 F 01/14/23 04:00 Pulse 76 01/14/23 08:30 Resp 18 01/14/23 08:30 BP 137/84 01/14/23 08:30 Pulse Ox 96 01/14/23 08:30 O2 Del Method Nasal Cannula 01/14/23 04:00 O2 Flow Rate 2 01/14/23 04:00 FiO2 30 01/13/23 12:00 Discharge Plan Discharge Patient Disposition: Home Condition: Stable Prescriptions: New lisinopril 10 mg Tablet 10 mg PO DAILY Qty: 60 3RF levofloxacin 750 mg tablet 750 mg PO DAILY 7 Days Qty: 7 0RF Continued amlodipine [Norvasc] 5 mg tablet 5 mg PO DAILY Qty: 30 0RF albuterol sulfate 90 mcg/actuation HFA aerosol inhaler 2 inh INHALATION Q4H PRN (Reason: shortness of breath or wheezing) Qty: 18 0RF tamsulosin 0.4 mg capsule 0.4 mg PO DAILY Qty: 30 0RF clopidogrel 75 mg tablet 75 mg PO DAILY Discontinued indomethacin 50 mg capsule 50 mg PO BID Qty: 20 0RF Rx Instructions: administer with food or milk Discharge Orders: Discharge Order (Routine); Ordered 01/14/23 Ordered By: Debbie Brandon Referrals: Matias Aragon APRN [Primary Care Provider] - Discharge Diet: Cardiac Discharge Activity: Increase activity as tolerated Patient Instructions: Opioid Safety Discharge Attestations Time Spent in Discharge Care*: greater than 30 min Quality Metrics Clinical Quality Measures [ No reported AMI, CVA or VTE this stay] Coding Level of Care Code Acute Code for Chg Fwd Diagnoses Sinus bradycardia by electrocardiogram R00.1 Atherosclerotic heart disease of [place] coronary artery with other forms of angina pectoris I25.118 AV block, 2nd degree I44.1 Sepsis A41.9 Methamphetamine abuse F15.10 Accelerated hypertension I10 History of coronary artery disease Z86.79 Edema, peripheral R60.9 COPD (chronic obstructive pulmonary disease) J44.9 NSAID induced gastritis K29.60; T39.395A History of CVA (cerebrovascular accident) Z86.73 Carotid stenosis I65.29 Carotid artery stenosis with cerebral infarction over 8 weeks ago Hypertension I10
[2023-01-14 09:53] LABS: Anion Gap 15.7 (5-19); Blood Urea Nitrogen 23 mg/dL (8-23); Calcium 8.3 mg/dL (8.5-10.5); Carbon Dioxide 22 mmol/L (22-29); Chloride 104 mmol/L (98-107); Glomerular Filtration Rate 83.7 mL/min (90-130); Glucose 147 mg/dL (65-115); Magnesium 2.3 mg/dL (1.7-2.3); Osmolality Calculated 292 mOsm/kg (285-295); Potassium 3.7 mmol/L (3.5-5.1); Sodium 138 mmol/L (136-145)
[2023-01-14] MEDS: benzonatate 100 mg Capsule PO (10:58)
[2023-01-14] MEDS: ipratropium-albuterol 3 mL Neb INHALATION (11:40)
--- NOTE | 2023-01-14 12:03 | PC.PHAR ---
PHARMACY TO DOSE CONSULT With the patient's improving renal function, the lower trough of 11.1 that came back required us to increase the frequency to every 12 hours from every 18 hours. Patient's shows discharging but will continue to monitor until the patient physically leaves. Let us know if there is anything else that we can help with. Thanks, Eddie Bernal, Pharm.D
--- NOTE | 2023-01-14 12:43 | P.PN_ITS ---
Subjective Subjective: Patient had a Myocardial perfusion imaging today. He was found to have slightly elevated transient ischemic dilatation ratio. Otherwise unremarkable. Denies any chest pain. Medications: Medication Review Details: Current Medications Acetaminophen (Acetaminophen 500 Mg Tablet) 500 mg PO Q4H PRN PRN Reason: fever Albuterol/Ipratropium (Ipratropium-Albuterol 3 Ml Neb) 3 ml INHALATION Q6H PRN PRN Reason: SHORTNESS OF BREATH Albuterol/Ipratropium (Ipratropium-Albuterol 3 Ml Neb) 3 ml INHALATION Q4H.RESPIRATORY REY Last Admin: 01/14/23 11:40 Dose: 3 ml Aminophylline (Aminophylline 25 Mg/Ml Sdv 10 Ml) 25 mg IVP Q2M PRN PRN Reason: see dose instructions Stop: 01/15/23 06:56 Amlodipine Besylate (Amlodipine 5 Mg Tablet) 5 mg PO DAILY REY Benzonatate (Benzonatate 100 Mg Capsule) 100 mg PO TID PRN PRN Reason: COUGH Last Admin: 01/14/23 10:58 Dose: 100 mg Budesonide (Budesonide 0.5 Mg/2 Ml Neb) 0.5 mg INHALATION BID.RESPIRATORY REY Last Admin: 01/14/23 07:40 Dose: Not Given Clopidogrel Bisulfate (Clopidogrel 75 Mg Tablet) 75 mg PO DAILY REY Last Admin: 01/14/23 09:10 Dose: 75 mg Dexamethasone (Dexamethasone 10 Mg/Ml Inj) 6 mg IVP Q24H REY Last Admin: 01/13/23 21:25 Dose: 6 mg Enoxaparin Sodium (Enoxaparin 40 Mg/0.4 Ml Syringe) 40 mg SUBCUT Q24H REY Last Admin: 01/13/23 18:12 Dose: 40 mg Hydrochlorothiazide (Hydrochlorothiazide 25 Mg Tablet) 12.5 mg PO DAILY REY Last Admin: 01/13/23 11:24 Dose: Not Given Nitroglycerin/Dextrose (Nitroglycerin Drip) 50 mg in 250 mls @ 0 mls/hr IV .Q0M REY; Protocol Last Titration: 01/12/23 23:44 Dose: 0 mcg/min, 0 mls/hr Dexmedetomidine HCl 400 mcg/ (Sodium Chloride) 104 mls @ 0 mls/hr IV .Q0M REY; Protocol Last Titration: 01/13/23 04:00 Dose: 0 mcg/kg/hr, 0 mls/hr Cefepime HCl 2,000 mg/ Sodium (Chloride) 50 mls @ 100 mls/hr IV Q12H [facility]; Protocol Last Infusion: 01/14/23 10:56 Dose: Infused Dopamine HCl/Dextrose (Intropin Drip) 400 mg in 250 mls @ 15.785 mls/hr IV CONT [facility]; Protocol Last Admin: 01/14/23 09:00 Dose: Not Given Vancomycin/PEG/[place]/Lysine/Water (Vancocin) 1,500 mg in 300 mls @ 200 mls/hr IV Q12H [facility] Lisinopril (Lisinopril 10 Mg Tablet) 10 mg PO DAILY [facility] Lorazepam (Lorazepam 0.5 Mg Tablet) 0.5 mg PO Q4H PRN PRN Reason: ANXIETY Metoprolol Tartrate (Metoprolol Tartrate 50 Mg Tablet) 50 mg PO BID@0900,2100 [facility] Last Admin: 01/12/23 21:00 Dose: 50 mg Nitroglycerin (Nitroglycerin 0.4 Mg Sublingual Tablet) 0.4 mg SUBLINGUAL Q5M PRN PRN Reason: CHEST PAIN Stop: 01/15/23 06:56 Ondansetron HCl (Ondansetron 2 Mg/Ml Sdv 2 Ml) 4 mg IVP Q6H PRN PRN Reason: NAUSEA AND VOMITING Ondansetron HCl (Ondansetron 2 Mg/Ml Sdv 2 Ml) 4 mg IVP Q6H PRN PRN Reason: NAUSEA AND VOMITING Ondansetron HCl (Ondansetron 2 Mg/Ml Sdv 2 Ml) 4 mg IVP Q2M PRN PRN Reason: NAUSEA Senna/Docusate Sodium (Sennosides-Docusate Tablet) 1 tab PO DAILY [facility] Last Admin: 01/14/23 09:10 Dose: 1 tab Tamsulosin HCl (Tamsulosin 0.4 Mg Capsule) 0.4 mg PO DAILY [facility] Last Admin: 01/14/23 09:10 Dose: 0.4 mg Vitals/I&O/Wt Last Vital Signs Temp 98.4 F 01/14/23 04:00 Pulse 74 01/14/23 12:00 Resp 15 01/14/23 12:00 BP 137/84 01/14/23 12:00 Pulse Ox 88 L 01/14/23 12:00 O2 Del Method Room Air 01/14/23 11:32 O2 Flow Rate 2 01/14/23 04:00 FiO2 30 01/13/23 12:00 01/13/23 01/14/23 01/14/23 22:59 06:59 14:59 Intake Total 2505 / 2555 0 / 2555 50 / 50 Output Total 1400 / 1400 1450 / 2850 Balance 1105 / 1155 -1450 / -295 50 / 50 Weight last 48 hrs Weight 182 lb 9 oz Weight 185 lb 9.6 oz Weight 197 lb Physical Exam Narrative: GENERAL: The patient is alert and oriented times three. Not in any acute distres s. [] HEENT: No significant pallor, icterus or lymphadenopathy.Oral cavity: There are no mucous membrane lesions. NECK: Trachea appears to be central. No masses noted. No JVD or thyromegaly appreciated. RESPIRATORY: Chest is symmetrical. No intercostals muscle retraction or any accessory muscle activation. There is no chest wall tenderness. Breath sounds are heard bilaterally. No rales or rhonchi heard. No evidence of any consolidation. [] BREASTS: Deferred. [] HEART: The heart sounds are normal. No S3 or S4. [No significant murmurs] []. No pericardial rub ABDOMEN: No vessel pulsations or distention. No tenderness. No organomegaly appreciated. Bowel sounds are normally heard. : Deferred. RECTAL: Deferred. LYMPHATIC: No lymphadenopathy noted in the neck. EXTREMITIES: No edema or cyanosis. No clubbing. MUSCULOSKELETAL: No acute joint deformities or swelling SKIN: There are no significant rashes or ecchymosis NEUROPSYCHIATRIC: The patient is alert and oriented x3. Appears to be in a good mood. No tremors or rigidity noted. Urinary Catheter Management: Heaton: Cath Placed During This Visit: yes Reason for Continuing Indwelling Catheter: Accurate Measurement of Urinary Output in Critically Ill Patients Urinary Catheter Date of Insertion: 01/12/23 Urinary Catheter Time of Insertion: 17:45 Data 01/14/23 09:10 01/14/23 09:10 Micro: Microbiology 01/12/23 18:00 Urine Culture - Preliminary Urine,Clean Catch 01/12/23 19:35 Blood Culture - Preliminary Blood NEGATIVE TO DATE 01/12/23 19:30 Blood Culture - Preliminary Blood NEGATIVE TO DATE A&P Assessment and plan (1) Atherosclerotic heart disease of [place] coronary artery with other forms of angina pectoris: The implications of the Myocardial perfusion imaging results are discussed with the patient. Currently the patient is pain-free. If he has recurrence of chest pain, may need to consider a cardiac catheterization to further evaluate the coronary status and decide on further management. If he continues remain stable, may continue other medical treatment (2) Hypertension: Patient is currently normotensive. May continue on the current medications. (3) Tobacco abuse: Strongly advisedtrongle advised to quit smoking (4) Hyperlipidemia: May continue on the current medications Qualifiers: Hyperlipidemia type: mixed hyperlipidemia Qualified Code(s): E78.2 - Mixed hyperlipidemia (5) History of CVA (cerebrovascular accident): Has no recurrence of CVA (6) Edema, peripheral: Most likely dependent (7) Methamphetamine abuse: Cardiovascular implications were discussed with the patient (8) Sepsis: Patient is on empiric antibiotic treatment (9) Sinus bradycardia by electrocardiogram: Currently he is in sinus rhythm with a sinus arrhythmia Plan Echocardiogram was done which revealed normal LV size and ejection fraction. No significant wall motion normalities. Based on the results of the above tests and the patient's clinical progress, further recommendations will be made. Thank you for the opportunity to evaluate this patient and make these recommendations Attestations Medical Necessity Statement*: Disposition as per the primary Coding Level of Care Code 51571 Diagnoses Atherosclerotic heart disease of [place] coronary artery with other forms of angina pectoris I25.118 Hypertension I10 Tobacco abuse Z72.0 Hyperlipidemia E78.2 Hyperlipidemia type: mixed hyperlipidemia History of CVA (cerebrovascular accident) Z86.73 Edema, peripheral R60.9 Methamphetamine abuse F15.10 Sepsis A41.9 Sinus bradycardia by electrocardiogram R00.1
== END 2023-01-14 16:13 | disposition home or self-care (01) | DRG 304 ==
LOC: ER 15:51 → ICU 16:40
PROVIDERS: Family Medicine; Admitting Provider Internal Medicine; Emergency Provider Family Medicine; PCP Nurse Practitioner Family; Visit Provider Internal Medicine
DX: I16.1 Hypertensive emergency (principal); G93.41 Metabolic encephalopathy; N39.0 Urinary tract infection, site not specified; F15.10 Other stimulant abuse, uncomplicated; Z86.73 Personal history of transient ischemic attack (TIA), and cerebral infarction without residual deficits; F17.210 Nicotine dependence, cigarettes, uncomplicated; I95.2 Hypotension due to drugs; T50.915A Adverse effect of multiple unspecified drugs, medicaments and biological substances, initial encounter; Z79.51 Long term (current) use of inhaled steroids; Z79.02 Long term (current) use of antithrombotics/antiplatelets; I25.118 Atherosclerotic heart disease of native coronary artery with other forms of angina pectoris; E78.5 Hyperlipidemia, unspecified; I10 Essential (primary) hypertension; E87.6 Hypokalemia; I44.1 Atrioventricular block, second degree; I25.2 Old myocardial infarction; Y92.230 Patient room in hospital as the place of occurrence of the external cause
CPT/HCPCS: 36415; 51702; 70450; 71045; 71275; 78452; 80048; 80202; 80306; 80307; 81001; 82140; 82607; 82803; 83605; 83735; 83880; 84100; 84146; 84443; 84484; 85025; 85378; 87040; 87086; 92523; 92610; 93005; 93017; 93306; 94640; 94660; 94760; 96365; 96372; 96374; 96375; 96376; 99285; A9500; J0360; J0692; J1100; J1650; J1885; J2060; J2785; J3370; J3475; J3480; J3490; J7030; J7626; Q9967

== ENCOUNTER 2023-01-23 05:51 | Emergency (ER) | payer OTHER, SELFPAY ==
[2023-01-23 05:55] VITALS: BP 103/66; PULSE 62; RESP 16; TEMP 36.7; O2SAT 94; BMI 29.9
--- NOTE | 2023-01-23 06:01 | W.ED.LOWEXIN ---
HPI - Extremity Injury (Lower) General: Chief Complaint: Extremity Injury, Upper Stated Complaint: FOOT PAIN Time Seen by Provider: 01/23/23 05:55 History of Present Illness: 67-year-old male with a history of substance abuse and evidently gout. He awoke this morning with a painful left great toe and was unable to bear weight. He called an ambulance. He was given 30 mg of Toradol intramuscularly in route to the hospital which resolved his pain. No numbness or tingling. No fever. No spreading redness complaint: other Onset (ago): hour(s) Injury: Left: toes Type of Injury: other Place: home Severity: moderate Relieving factors: NSAID Exacerbating factors: nothing Associated symptoms: Deny numbness, swelling or tingling Other symptoms: chest pain, SOB and nausea/vomiting Treatments prior to arrival: other (none) Review of Systems Const: Denies: fever(s) Card: Denies: chest pain Resp: Denies: dyspnea GI: Denies: vomiting Musc: Reports: extremity pain PFSH ED PFSH: Medical History Atherosclerosis of coronary artery of [place] heart with stable angina pectoris Atherosclerotic heart disease of [place] coronary artery with unstable angina pectoris Carotid artery stenosis with cerebral infarction over 8 weeks ago Continue on aspirin, Plavix and statin, continue with close cardiology follow-up in the outpatient setting Carotid stenosis Left carotid artery thromboendarterectomy performed on 11/27/[address] Zuniga Coronary artery disease Cardiac cath with stent placement on 10/25/19 He had a cardiac authorization in the hospital which revealed a subtotal occlusion of the intermedius artery for which he underwent PCI by Dr. Torres. 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 Zuniga History of lymph node excision Reported in the left axilla Family History Mother Stroke Father Diabetes CAD (coronary artery disease) Had open heart surgery in his 60s. of congestive heart failure in his 80s. Denies family history of Clotting disorder Dementia Hyperlipidemia Psychiatric illness Chronic kidney disease (CKD) Suicide Anesthesia complication Bleeding disorder Family history of premature coronary artery disease Lung disease Cancer Hypertension Social History Smoking and tobacco status: unknown if ever smoked Quit status (tobacco): considering quitting Alcohol intake: former Substance/Drug Use: never Marital status: Current gender identity: Male Physical Exam Const: COMMON NORMALS: no acute distress GENERAL APPEARANCE: cooperative; not ill appearing HENMT: COMMON NORMALS: atraumatic HEAD & SCALP: atraumatic Eye: COMMON NORMALS: Equal, round and reactive pupils present and EOMs intact bilaterally PUPIL: Yes Equal, round and reactive pupils present Neck/C-Spine: GENERAL: Yes trachea midline Chest: CHEST: Yes Symmetrical chest wall rise Resp: COMMON NORMALS: normal respiratory effort Cardio: COMMON NORMALS: regular rate and regular rhythm RATE: regular rate RHYTHM: regular rhythm Extremity: NARRATIVE EXTREMITY EXAM: Examination reveals minimal swelling over the left first MTP. There is minimal redness. No heat. Tender to touch. No deformity. Pulses to the feet are intact. Sensation is intact Neuro: JOSE COMA SCALE: document GCS findings Whittaker coma scale eye opening: Spontaneous Jose coma scale verbal response: Orientated Whittaker coma scale motor response: Obey commands Jose coma scale total score: 15 Course Vital Signs: Vital signs: Vital Signs Temperature 98.1 F 01/23/23 05:55 Pulse Rate 58 L 01/23/23 06:27 Respiratory Rate 16 01/23/23 06:27 Blood Pressure 101/51 01/23/23 06:27 Pulse Oximetry 95 01/23/23 06:27 MDM - Extremity Injury (Lower) Medical Decision Making Patient with a history of gout. He has a tender minimally red and swollen first MTP. He is given dexamethasone here. He will be treated with colchicine. PCP follow-up. Discharge Plan Discharge Patient Disposition: Home Clinical Impression: Acute gout involving toe Condition: Stable Prescriptions: New colchicine 0.6 mg capsule 0.6 mg PO BID Qty: 30 0RF No Action amlodipine [Norvasc] 5 mg tablet 5 mg PO DAILY Qty: 30 0RF albuterol sulfate 90 mcg/actuation HFA aerosol inhaler 2 inh INHALATION Q4H PRN (Reason: shortness of breath or wheezing) Qty: 18 0RF tamsulosin 0.4 mg capsule 0.4 mg PO DAILY Qty: 30 0RF clopidogrel 75 mg tablet 75 mg PO DAILY lisinopril 10 mg Tablet 10 mg PO DAILY Qty: 60 3RF Discharge Orders: Discharge ED (Routine); Ordered 01/23/23 Ordered By: Elian Reyes Referrals: Matias Aragon APRN [Primary Care Provider] - 1-3 days Discharge Activity: Increase activity as tolerated Patient Instructions: Gout (ED) Activity Restrictions/Additional Instructions: Return for fever, worsening pain despite at least 3-4 doses of medication, other concerning symptoms. Coding Level of Care Code ED [facility] Worker for [place]
[2023-01-23] MEDS: dexamethasone 4 mg Tablet 10 MG PO (06:12)
[2023-01-23 06:22] VITALS: BP 101/51; PULSE 58; RESP 16; O2SAT 95
[2023-01-23 06:27] VITALS: BP 101/51; PULSE 58; RESP 16; O2SAT 95
== END 2023-01-23 06:28 | disposition home or self-care (01) ==
PROVIDERS: Emergency Provider Emergency Medicine; PCP Nurse Practitioner Family
DX: M10.9 Gout, unspecified (principal); Z79.02 Long term (current) use of antithrombotics/antiplatelets; I25.10 Atherosclerotic heart disease of native coronary artery without angina pectoris; Z86.73 Personal history of transient ischemic attack (TIA), and cerebral infarction without residual deficits; E78.5 Hyperlipidemia, unspecified; I10 Essential (primary) hypertension
CPT/HCPCS: 99283; J8540

== ENCOUNTER 2024-01-20 15:36 | Observation (INO) | payer OTHER, SELFPAY ==
--- NOTE | 2024-01-20 15:42 | XRR_ITS ---
PROCEDURE INFORMATION: Exam: XR Chest Exam date and time: 01/20/2024 3:44 PM Age: 68 years old Clinical indication: Pain; Angina pectoris; Additional info: Chest pain TECHNIQUE: Imaging protocol: Radiologic exam of the chest. Views: 1 view. COMPARISON: CT angio chest PE protcl [id number] 01/13/2023 3:56 AM FINDINGS: Lungs: No focal consolidation. Pleural spaces: No evidence of pneumothorax. No evidence of pleural effusion. Heart/Mediastinum: Cardiomediastinal silhouette is within normal limits. Bones/joints: No evidence of acute osseous abnormality. XR/XR chest 1V portable [id number] IMPRESSION: 1. No acute cardiopulmonary abnormality.
[2024-01-20 15:47] VITALS: BP 107/61; PULSE 60; RESP 14; TEMP 36.6; O2SAT 96
--- NOTE | 2024-01-20 15:48 | ECG_ITS ---
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 Measurements Intervals [place] Rate: 59 P: 38 TX: 129 QRS: -7 QRSD: 86 T: 56 QT: 426 QTc: 423 Interpretive Statements SINUS BRADYCARDIA MODERATE ST DEPRESSION [0.05+ mV ST DEPRESSION] Compared to ECG 01/13/2023 06:04:20 ST (T wave) deviation now present Sinus arrhythmia no longer present Electronically Signed On 01-20-2024 17:11:45 CDT by Wilner Tarango M.D. [id number] f
--- NOTE | 2024-01-20 15:52 | W.ED.CHESTPA ---
HPI - Chest Pain General: Chief Complaint: Chest Pain Stated Complaint: cp Time Seen by Provider: 01/20/24 15:39 History of Present Illness: 68-year-old man with a history of hypertension and coronary artery disease status post stents on Plavix who presents to the emergency room with chest pain. He said it started about 2 hours ago. Center of his chest. Nonradiating. He said it was a tightness and a pressure. It was relieved with nitroglycerin on the ambulance. No cough. No shortness of breath. No changes in his lower extremity swelling. No altered mental status. No nausea or vomiting. No diaphoresis. Review of Systems Narrative: Constitutional symptoms: Negative except as documented in HPI. Skin symptoms: Negative except as documented in HPI. Eye symptoms: Negative except as documented in HPI. ENMT symptoms: Negative except as documented in HPI. Respiratory symptoms: Negative except as documented in HPI. Cardiovascular symptoms: Negative except as documented in HPI. Gastrointestinal symptoms: Negative except as documented in HPI. Genitourinary symptoms: Negative except as documented in HPI. Musculoskeletal symptoms: Negative except as documented in HPI. Neurologic symptoms: Negative except as documented in HPI. Psychiatric symptoms: Negative except as documented in HPI. Endocrine symptoms: Negative except as documented in HPI. PFSH ED PFSH: Medical History (Updated 01/20/24 @ 16:51 by DAVID Taylor) Sinus bradycardia Hence not on metoprolol Atherosclerosis of coronary artery of [place] heart with stable angina pectoris Atherosclerotic heart disease of [place] coronary artery with unstable angina pectoris Coronary artery disease Cardiac cath with stent placement on 10/25/19 He had a cardiac authorization in the hospital which revealed a subtotal occlusion of the intermedius artery for which he underwent PCI by Dr. Torres. Carotid artery stenosis with cerebral infarction over 8 weeks ago Continue on aspirin, Plavix and statin, continue with close cardiology follow-up in the outpatient setting Hypertension Tobacco abuse Carotid stenosis Left carotid artery thromboendarterectomy performed on 11/27/[address] 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 Zuniga Family History Mother Stroke Father Diabetes CAD (coronary artery disease) Had open heart surgery in his 60s. of congestive heart failure in his 80s. Denies family history of Clotting disorder Dementia Hyperlipidemia Psychiatric illness Chronic kidney disease (CKD) Suicide Anesthesia complication Bleeding disorder Family history of premature coronary artery disease Lung disease Cancer Hypertension Social History Smoking and tobacco/nicotine status: unknown if used tobacco/nicotine Quit status (tobacco/nicotine): considering quitting Alcohol intake: former Substance/Drug Use: never Marital status: Current gender identity: Male Physical Exam Narrative: EXAM NARRATIVE: General: Alert, no acute distress. Skin: Warm, dry. Head: Normocephalic, atraumatic. Neck: Supple, trachea midline. Eye: Extraocular movements are intact. Ears, nose, mouth and throat: mucosa moist. Cardiovascular: Regular, Normal peripheral perfusion. Respiratory: Lungs are clear to auscultation, respirations are non-labored, breath sounds are equal, Symmetrical chest wall expansion. Gastrointestinal: Soft, Nontender, Non distended, Normal bowel sounds. Musculoskeletal: Normal ROM, no deformity. Neurological: Alert and oriented, No focal neurological deficit observed. Psychiatric: Cooperative, appropriate mood & affect. Course Vital Signs: Vital signs: Vital Signs Temperature 97.8 F 01/20/24 15:47 Pulse Rate 56 L 01/20/24 16:26 Respiratory Rate 16 01/20/24 16:26 Blood Pressure 110/64 01/20/24 16:26 Pulse Oximetry 98 01/20/24 16:26 Oxygen Delivery Me thod Room Air 01/20/24 16:26 MDM - Chest Pain Medical Decision Making Differential diagnosis for patient with chest pain includes but is not limited to and based on the above HPI, review of systems and physical exam: Pneumonia. unstable angina. angina. Acute coronary syndrome / OR. Pulmonary embolism. Costochondritis / musculoskeletal. Pleurisy. Pericarditis. Esophageal spasm. Pancreatis. Cholecystitis. Workup: Lab work, chest X-ray and EKG ordered to evaluate, rule in and rule out above pathologies. EKG: Time 1548 rate 59. Sinus bradycardia. Nonspecific ST changes that are similar to previous EKGs, no ectopy, normal NC & QRS intervals, This was reviewed and interpreted by myself the ER physician at 1550 Chest x-ray: No acute process. No infiltrate. No pneumothorax. No cardiomegaly. This was reviewed and interpreted by myself the ER physician. Lab Review: Laboratory results were reviewed and interpreted by myself the emergency room physician. Lab work is unremarkable initially. No renal failure. Troponin is not elevated. HEART Pathway for Early Dis[facility] All calculations should be rechecked by clinician prior to use RESULT SUMMARY: 5 points HEART Pathway Score High risk 12-65% 30-day MACE Admit to hospital or observation. Further testing indicated. INPUTS: History ?> 1 = Moderately suspicious EKG ?> 0 = Normal Age ?> 2 = >=5 Risk factors ?> 2 = >= risk factors or history of atherosclerotic disease Initial troponin ?> 0 = <=ormal limit I reviewed the patient's medical record. Reexamination: Patient has remained chest pain-free here in the emergency room. He has no increased work of breathing. No altered mental status. He is slightly bradycardic. Assessment and plan: Chest pain Coronary artery disease -High risk heart score, admit for observation -I discussed the patient with the hospitalist on-call who is admitting the patient. - Discussed findings and plan with patient. Answered any questions. - All laboratory values were reviewed and interpreted personally by myself, the ER physician - All imaging was reviewed and interpreted personally by myself, the ER physician. - Evaluation and treatment of this problem were appropriate in the emergency setting Lab Data 01/20/24 15:23 01/20/24 15:23 Radiology Impressions Chest X-Ray 01/20/24 15:42 IMPRESSION: 1. No acute cardiopulmonary abnormality. Laboratory Results WBC 5.97 10^3/uL (3.29-11.43) 01/20/24 15:23 RBC 4.77 10^6/uL (3.85-5.65) 01/20/24 15:23 Hgb 15.50 g/dL (11.27-16.99) 01/20/24 15:23 Hct 43.7 % (37-53) 01/20/24 15:23 MCV 91.6 fl (82-101) 01/20/24 15:23 MCH 32.5 pg (27-33) 01/20/24 15:23 MCHC 35.5 g/dL (30-55) 01/20/24 15:23 RDW 12.4 % (12.1-15.1) 01/20/24 15:23 Plt Count 206 10^3/cmm (157-399) 01/20/24 15:23 MPV 9.4 fL (7.4-10.4) 01/20/24 15:23 Neut % (Auto) 50.8 % 01/20/24 15:23 Lymph % (Auto) 33.5 % 01/20/24 15:23 [place] % (Auto) 9.5 % 01/20/24 15:23 Eos % (Auto) 5.0 % 01/20/24 15:23 Baso % (Auto) 1.0 % 01/20/24 15:23 Neut # (Auto) 3.03 10^3/uL (1.8-7.7) 01/20/24 15:23 Lymph # (Auto) 2.0 10^3/uL (0.8-4.8) 01/20/24 15:23 [place] # (Auto) 0.6 10^3/uL (0.2-0.9) 01/20/24 15:23 Eos # (Auto) 0.3 10^3/uL (0.0-0.8) 01/20/24 15:23 Baso # (Auto) 0.1 10^3/uL (0.0-0.1) 01/20/24 15:23 Nucleated RBC % (auto) 0 % 01/20/24 15:23 Nucleated RBCs # 0.0 /100WBC 01/20/24 15:23 Sodium 138 mmol/L (136-145) 01/20/24 15:23 Potassium 4.2 mmol/L (3.5-5.1) 01/20/24 15:23 Chloride 102 mmol/L (98-107) 01/20/24 15:23 Carbon Dioxide 23 mmol/L (22-29) 01/20/24 15:23 Anion Gap 17.2 (5-19) 01/20/24 15:23 BUN 12 mg/dL (8-23) 01/20/24 15:23 Creatinine 0.7 mg/dL (0.7-1.2) 01/20/24 15:23 GFR Calculation 111.5 mL/min (90-130) 01/20/24 15:23 Glucose 93 mg/dL (65-115) 01/20/24 15:23 Calculated Osmolality 285 mOsm/kg (285-295) 01/20/24 15:23 Calcium 8.7 mg/dL (8.5-10.5) 01/20/24 15:23 Total Bilirubin 0.5 mg/dL (0.15-1.2) 01/20/24 15:23 AST 17 U/L (0-40) 01/20/24 15:23 ALT 10 U/L (0-41) 01/20/24 15:23 Alkaline Phosphatase 81 U/L (40-130) 01/20/24 15:23 Troponin T Baseline 15 ng/L (0-15) 01/20/24 15:23 Total Protein 7.0 g/dL (6.6-8.7) 01/20/24 15:23 Albumin 4.0 g/dL (3.5-5.2) 01/20/24 15:23 Globulin 3.0 g/dL (1.3-4.6) 01/20/24 15:23 All radiology interpretation(s) finalized by discharge Discharge Plan Discharge Patient Disposition: Placed in Observation Admit Provider: Noah Orozco Clinical Impression: Chest pain, Coronary artery disease Coding Level of Care Code 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
[2024-01-20 15:57] LABS: Basophils # 0.1 10^3/uL (0.0-0.1); Eosinophils # 0.3 10^3/uL (0.0-0.8); Hematocrit 43.7 % (37-53); Lymphocytes % 33.5 %; Mean Corpuscular HGB Conc 35.5 g/dL (30-55); Mean Corpuscular Hemoglobin 32.5 pg (27-33); Mean Corpuscular Volume 91.6 fl (82-101); Mean Platelet Volume 9.4 fL (7.4-10.4); Monocytes # 0.6 10^3/uL (0.2-0.9); Monocytes % 9.5 %; Neutrophils # 3.03 10^3/uL (1.8-7.7); Neutrophils % 50.8 %; Nucleated Red Blood Cells % 0 %; Platelet Count 206 10^3/cmm (157-399); Red Blood Count 4.77 10^6/uL (3.85-5.65); Red Cell Distribution Width 12.4 % (12.1-15.1); White Blood Count 5.97 10^3/uL (3.29-11.43)
[2024-01-20 16:17] LABS: Troponin(5th) Baseline 15 ng/L (0-15)
[2024-01-20 16:18] LABS: Alanine Aminotransferase 10 U/L (0-41); Alkaline Phosphatase 81 U/L (40-130); Blood Urea Nitrogen 12 mg/dL (8-23); Calcium 8.7 mg/dL (8.5-10.5); Carbon Dioxide 23 mmol/L (22-29); Chloride 102 mmol/L (98-107); Creatinine Clr Calc Pharmacy 91.7695; Glomerular Filtration Rate 111.5 mL/min (90-130); Glucose 93 mg/dL (65-115); Osmolality Calculated 285 mOsm/kg (285-295); Sodium 138 mmol/L (136-145); Total Bilirubin 0.5 mg/dL (0.15-1.2)
[2024-01-20 16:26] VITALS: BP 110/64; PULSE 56; RESP 16; O2SAT 98
[2024-01-20] MEDS: sodium chloride 0.9% 500 ML 999 ML IV (16:37)
--- NOTE | 2024-01-20 16:42 | PC.NURSE ---
ATTEMPTED TO CALL REPORT, JENISE STATED MARI WAS TRANSFERRING A PT OUT AND WOULD CALL BACK FOR REPORT.
[2024-01-20 16:49] LABS: Anion Gap 17.2 (5-19); Aspartate Amino Transferase 17 U/L (0-40); Potassium 4.2 mmol/L (3.5-5.1)
--- NOTE | 2024-01-20 17:42 | ECG_ITS ---
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 Measurements Intervals [place] Rate: 52 P: 34 TX: 131 QRS: 4 QRSD: 94 T: 64 QT: 478 QTc: 446 Interpretive Statements SINUS BRADYCARDIA WITH OCCASIONAL SUPRAVENTRICULAR PREMATURE COMPLEXES NONSPECIFIC T-WAVE ABNORMALITY Compared to ECG 01/20/2024 15:48:00 T-wave abnormality now present ST (T wave) deviation no longer present Electronically Signed On 01-21-2024 9:25:05 CDT by Wilner Tarango M.D. [email or web address] health [email or web address].[email or web address]/store/OM/[id number]
--- NOTE | 2024-01-20 17:56 | P.HP_ITS ---
Providers/Chief Complaint 2 Admitting Physician: Noah Orozco Primary Care Provider: Crow Rodas MD Chief Complaint: cp History of Present Illness 68-year-old gentleman with history of CAD, stenting, currently only on Plavix, came to the hospital for assessment due to chest pain, central radiating to right side, he states started when he was laying in bed. Denies any associated worsening with deep breaths, movement, denies any cough, shortness of breath. Denies any other associated recent illness. Chest pain lasted for about 3 hours. Currently it has resolved. In ER she is also noted to have some bradycardia heart rates in the 50s, occasionally down to high 40s. He states this is not new. Review of Systems 2 Const: Denies: fever(s), chills, body aches or malaise ENMT: Denies: throat pain Card: Reports: chest pain; Denies: edema, pre-syncope or dyspnea on exertion Resp: Denies: dyspnea, productive cough, change in phlegm color or hemoptysis GI: Denies: abdominal pain, nausea, vomiting, diarrhea, constipation, hematochezia or melena : Denies: flank pain, difficulty urinating, urinary frequency or hematuria Musc: Denies: back pain, joint swelling or joint redness Skin/Breast: Denies: rash or new lesions Neuro: Denies: headache(s) Medications/Allergies Home Medications Medication Instructions Recorded Confirmed Last Taken Type albuterol sulfate 90 mcg/actuation 2 inh inhalation Q4H PRN shortness 10/20/22 01/20/24 Unknown Rx aerosol inhaler of breath or wheezing #18 grams clopidogrel 75 mg tablet 75 mg PO DAILY 01/07/23 01/20/24 01/20/24 History Allergies Allergy/AdvReac Type Severity Reaction Status Date / Time codeine Allergy Mild hives Verified 01/12/23 14:01 Penicillins Allergy Unknown Verified 01/12/23 14:01 PFSH Acute 2 PFSH: Medical History Sinus bradycardia Hence not on metoprolol Atherosclerosis of coronary artery of [place] heart with stable angina pectoris Atherosclerotic heart disease of [place] coronary artery with unstable angina pectoris Coronary artery disease Cardiac cath with stent placement on 10/25/19 He had a cardiac authorization in the hospital which revealed a subtotal occlusion of the intermedius artery for which he underwent PCI by Dr. Torres. Carotid artery stenosis with cerebral infarction over 8 weeks ago Continue on aspirin, Plavix and statin, continue with close cardiology follow-up in the outpatient setting Hypertension Tobacco abuse Carotid stenosis Left carotid artery thromboendarterectomy performed on 11/27/[address] 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 Zuniga Family History Mother Stroke Father Diabetes CAD (coronary artery disease) Had open heart surgery in his 60s. of congestive heart failure in his 80s. Denies family history of Clotting disorder Dementia Hyperlipidemia Psychiatric illness Chronic kidney disease (CKD) Suicide Anesthesia complication Bleeding disorder Family history of premature coronary artery disease Lung disease Cancer Hypertension Social History Smoking and tobacco/nicotine status: unknown if used tobacco/nicotine Quit status (tobacco/nicotine): considering quitting Alcohol intake: former Substance/Drug Use: never Marital status: Current gender identity: Male Vitals/I&O/Wt Last Vital Signs Temp 97.8 F 01/20/24 15:47 Pulse 56 L 01/20/24 16:26 Resp 16 01/20/24 16:26 BP 110/64 01/20/24 16:26 Pulse Ox 98 01/20/24 16:26 O2 Del Method Room Air 01/20/24 16:26 01/20/24 01/20/24 01/20/24 06:59 14:59 22:59 Intake Total 500 / 500 Balance 500 / 500 Weight last 48 hrs Weight 86.183 kg Physical Exam 2 Const: COMMON NORMALS: patient oriented x3 and alert GENERAL APPEARANCE: c ooperative ORIENTATION/CONSCIOUSNESS: Yes awake HENMT: COMMON NORMALS: oropharynx normal Neck/C-Spine: COMMON NORMALS: no JVD Resp: COMMON NORMALS: normal respiratory effort and clear to auscultation bilaterally AUSCULTATION: clear to auscultation bilaterally Cardio: COMMON NORMALS: no JVD, regular rhythm, S1 normal heart sound present, S2 normal heart sound present and No murmurs present (Cardio) RHYTHM: regular rhythm HEART SOUNDS: S1 normal heart sound present and S2 normal heart sound present GI: COMMON NORMALS: Normal to inspection, nondistended, normoactive bowel sounds present, Soft to palpation and non-tender PALPATION: Yes Soft to palpation Extremity: COMMON NORMALS: no joint enlargement and no pedal edema Neuro: COMMON NORMALS: patient oriented x3 and moves all extremities S ENSORIUM/ORIENTATION: Yes alert Skin: COMMON NORMALS: no rashes or lesions noted GENERAL SKIN EXAM: no rashes or lesions noted Data 01/20/24 15:23 01/20/24 15:23 A&P Assessment and plan (1) Chest pain: Reviewed vitals, CBC, D-dimer, CMP, chest x-ray, ER note, discussed with ER provider. Assess possible unstable angina. Complete troponin EKG series, limited echocardiogram assess RWMA, pericardial effusion. Monitor on telemetry. Troponin so far unremarkable. Complete series. EKG on my interpretation without signs of acute NM. Some T wave flattening laterally. D-dimer is unremarkable. He is currently chest pain-free. With history of coronary disease, stent, discussed with him additional assessment with stress test, he is agreeable. Requested for tomorrow. N.p.o. after midnight. With bradycardia, monitor on telemetry. Nitroglycerin as needed for chest pain, morphine IV as needed for breakthrough/severe pain. (2) Sinus bradycardia by electrocardiogram: Heart rates in the 50s, occasionally dipping to high 40s. Has history of bradycardia. Monitor on telemetry. Plan CAD: Continue Plavix. He is not on statin. Does not have history of intolerance. Discussed with him regarding adding statin. Smoking: He has been trying to quit but it has been difficult. Discussed with him smoking cessation for 4 minutes. Discussed risk of smoking, he verbalized understanding. He will continue to try to quit. Will make nicotine replacement available. HTN: Monitor blood pressures. Does not take any antihypertensives at home. Cardiac diet. Carotid stenosis: Continue Plavix, discussed with him starting statin. History of CVA: Hide start. Continue Plavix. Attestations 2 Medical Necessity Statement*: Place in observation for additional assessment and management of chest pain episode in a gentleman with underlying coronary disease, prior stents. Diagnoses Chest pain R07.9 Sinus bradycardia by electrocardiogram R00.1
[2024-01-20 17:57] LABS: D Dimer 0.56 ug/mLFEU (0-0.59); Troponin 5 2HR 15.01 ng/L (0-15); Troponin 5 2HR Delta 0.01 ABS# (0-10)
--- NOTE | 2024-01-20 18:38 | USCV_ITS ---
Arnaldo Chacon Age: 68 Gender: M : 1955 Exam Date: 01/20/2024 22:00 Ordering Phys: Noah Orozco MD Technologist: HERLINDA Exam Location: [facility] Indication: chest pain, history of CAD s/p stents, History of HTN, assess for RWMA, effusion BP: 110 / 64 HR: 44 Rhythm: Sinus bradycardia Technical Quality: Adequate MEASUREMENTS (Male / Female) Normal Values 2D ECHO LV Diastolic Diameter PLAX 3.9 cm 4.2 - 5.9 / 3.9 - 5.3 cm IVS Diastolic Thickness 1.4 cm 0.6 - 1.0 / 0.6 - 0.9 cm IVS Systolic Thickness 1.4 cm LVPW Diastolic Thickness 1.7 cm 0.6 - 1.0 / 0.6 - 0.9 cm LVPW Systolic Thickness 1.9 cm LVOT Diameter 2.0 cm LV Ejection Fraction 2D Teich 49.4 % LV Ejection Fraction MOD 2C 59.2 % LV Ejection Fraction 2C AL 57.4 % LA Diameter 3.7 cm LA Sys Volume AL 52.2 cm cubed LA Sys Volume Index AL 25.4 cm cubed/m squared Aorta at Sinotubular Diameter 3.7 cm IVC Diameter 2.1 cm M-MODE LA Ao Ratio MM 0.9 AV Cusp Separation MM 1.7 cm DOPPLER AV Peak Velocity 119.0 cm/s LVOT Peak Velocity 85.0 cm/s AV Area Cont Eq vti 3.0 cm squared AV Area Cont Eq pk 2.2 cm squared MV Peak Velocity 86.0 cm/s MV Area PHT 2.5 cm squared Mitral E to A Ratio 0.9 TV Peak E Velocity 42.0 cm/s PV Peak Velocity 79.0 cm/s FINDINGS Left Ventricle Left ventricle is normal size. LV systolic function is normal with EF 55 to 60%. No regional wall motion abnormalities are seen. Right Ventricle Normal in size and function Right Atrium Normal in size Left Atrium Normal in size Mitral Valve Structurally normal mitral valve. Trace mitral regurgitation. Aortic Valve Aortic valve is thickened. No significant stenosis. Tricuspid Valve Insufficient TR jet to evaluate RVSP. Pulmonic Valve Not well visualized Pericardium Normal Aorta Grossly normal IVC Appears to be normal CONCLUSIONS LV systolic function is normal with EF of 55-60% Trace mitral regurgitation No significant change compared to prior echocardiogram from 2022. Wilner Tarango MD (Electronically Signed) Final Date: 21 Jan 2024 10:43 S
[2024-01-20 18:41] VITALS: BMI 26.6
[2024-01-20] MEDS: aspirin 325 mg EC Tablet PO (19:08)
[2024-01-20 19:14] VITALS: PULSE 54
[2024-01-20 19:53] VITALS: BP 134/73; PULSE 57; RESP 21; TEMP 36.7; O2SAT 98
[2024-01-20 20:15] VITALS: BP 134/73; PULSE 46; RESP 12; TEMP 36.7; O2SAT 97
[2024-01-20 21:11] LABS: Creatine Phosphokinase 34 U/L (39-308)
--- NOTE | 2024-01-20 21:42 | ECG_ITS ---
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 Measurements Intervals Clymer Rate: 57 P: 57 ND: 123 QRS: -4 QRSD: 89 T: 56 QT: 448 QTc: 440 Interpretive Statements SINUS BRADYCARDIA MODERATE ST DEPRESSION [0.05+ mV ST DEPRESSION] Compared to ECG 01/20/2024 18:11:57 ST (T wave) deviation now present T-wave abnormality no longer present Electronically Signed On 01-21-2024 9:24:52 CDT by Wilner Tarango M.D. [id number]
[2024-01-20 22:00] VITALS: PULSE 57
[2024-01-20] MEDS: atorvastatin 40 mg Tablet PO (22:12)
[2024-01-21] VITALS (7 sets, daily range): BP systolic 99–160; BP diastolic 61–93; PULSE 48–75; RESP 12–16; TEMP 36.5–36.7; O2SAT 98–100; BMI 26.6
--- NOTE | 2024-01-21 | ECG_ITS ---
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 Interpretive Statements NAME OF STUDY: LEXISCAN SESTAMIBI STRESS TEST INDICATION: Chest Pain; CAD; Stents PROCEDURE: At the baseline, the EKG revealed sinus bradycardia with some nonspecific T wave changes. Voltage criteria for LVH.. The baseline heart was 49 bpm with a blood pressue of 114/80 mm of Hg Lexiscan was infused over a period of 20 seconds. A total of 0.4 milligrams of Lexiscan was infused. The stress phase was continued for a total of 5 minutes. Heart rate at the end of the stress phase was 75 bpm with a blood pressure 117/57 mm of Hg. The EKG at the peak infusion revealed no significant changes. Sestamibi was injected 20 seconds after the Lexiscan infusion. Heart rate at the end of the recovery phase was 75 bpm with a blood pressure of 99/61 mm of Hg. CONCLUSION: 1. No significant EKG changes with the LexiScan infusion 2. No LexiScan induced chest pain or cardiac arrhythmia 3. Normal blood pressure and heart rate response 4. Sestamibi/sestamibi perfusion scan pending; see separate report. Electronically Signed On 01-22-2024 18:34:43 CDT by Carol Tse M.D. [id number]
[2024-01-21 04:39] LABS: Basophils # 0.1 10^3/uL (0.0-0.1); Basophils % 0.8 %; Eosinophils # 0.4 10^3/uL (0.0-0.8); Hematocrit 39.3 % (37-53); Lymphocytes # 3.2 10^3/uL (0.8-4.8); Lymphocytes % 40.2 %; Mean Corpuscular HGB Conc 34.9 g/dL (30-55); Mean Corpuscular Hemoglobin 31.9 pg (27-33); Mean Corpuscular Volume 91.4 fl (82-101); Mean Platelet Volume 9.5 fL (7.4-10.4); Monocytes # 0.7 10^3/uL (0.2-0.9); Monocytes % 9.2 %; Neutrophils % 44.5 %; Nucleated Red Blood Cells % 0 %; Platelet Count 195 10^3/cmm (157-399); Red Cell Distribution Width 12.5 % (12.1-15.1); White Blood Count 7.84 10^3/uL (3.29-11.43)
[2024-01-21 05:01] LABS: Anion Gap 12.9 (5-19); Blood Urea Nitrogen 14 mg/dL (8-23); Calcium 8.3 mg/dL (8.5-10.5); Carbon Dioxide 25 mmol/L (22-29); Chloride 108 mmol/L (98-107); Glomerular Filtration Rate 83.4 mL/min (90-130); Glucose 87 mg/dL (65-115); Osmolality Calculated 294 mOsm/kg (285-295); Potassium 3.9 mmol/L (3.5-5.1); Sodium 142 mmol/L (136-145)
[2024-01-21] MEDS: regadenoson 0.4 Mg/5 ml Syringe 0.400000000000000022 MG IVP (07:57)
[2024-01-21] MEDS: clopidogrel 75 mg Tablet PO (09:32)
[2024-01-21] MEDS: acetaminophen 325 mg Tablet 650 MG PO (09:35)
--- NOTE | 2024-01-21 13:18 | PM.DCS ---
Discharge Providers Date of Admission: 01/20/24 18:01 Date of Discharge: January 21, 2024 Attending Provider at Admission: Noah Orozco Attending Provider at Discharge: Noah Orozco Primary Care Provider: Crow Rodas MD Diagnoses at Discharge Discharge Diagnosis (1) Chest pain: Status: Acute (2) Sinus bradycardia by electrocardiogram: Status: Acute Reason for Visit Reason for Visit: cp Brief History: 68-year-old gentleman with history of CAD, stenting, currently only on Plavix, came to the hospital for assessment due to chest pain, central radiating to right side, he states started when he was laying in bed. Denies any associated worsening with deep breaths, movement, denies any cough, shortness of breath. Denies any other associated recent illness. Chest pain lasted for about 3 hours. Currently it has resolved. In ER she is also noted to have some bradycardia heart rates in the 50s, occasionally down to high 40s. He states this is not new. Hospital Course Hospital Course Troponin series were completed, with essentially normal results, he has not had recurrence of chest pain. D-dimer was unremarkable. Underwent additional assessment with echocardiogram which showed normal ejection fraction, trace MVR. He was additionally assessed by stress testing which showed uniform tracer uptake, no significant perfusion abnormalities. Normal EF. He did have elevated 3 times daily ratio 1.53 which could suggest endocardial ischemia. Discussed with his director community center and with him. He appears to be unchanged from prior. He is chest pain-free. We discussed with him continue optimization of cardiovascular risk factors, quitting smoking. Discussed smoking cessation for 5 minutes. Offered nicotine replacement, he declines at this time. He feels that he will be able to stop smoking on his own. Has not smoked in the last 2 weeks. Additionally giving him nitroglycerin as needed, and discussed with him starting statin. Discussed with him to continue Plavix with coronary disease and history of stenting. Discussed with him to follow-up with cardiology. As per discussion he understands possibility although lower chance of false negative results of stress test, and knows to seek medical attention for reevaluation in case of any worsening or new concerning symptoms. Hospitalization also noted to have sinus bradycardia mostly in the 50s, occasionally dipping down to the 40s, appears asymptomatic. However, with an episode of chest pain, discussed with cardiology send with him we will also set him up for additional monitoring with reproduction technician. He additionally has lost his place of residence, as per discussion with case management they had seen him and provided him with options to seek nursing home. Physical Exam Narrative: He is feeling well. He denies any pain or discomfort. Feels ready for discharge. Const: COMMON NORMALS: patient oriented x3 and alert GENERAL APPEARANCE: cooperative ORIENTATION/CONSCIOUSNESS: Yes awake HENMT: COMMON NORMALS: oropharynx normal Neck/C-Spine: COMMON NORMALS: no JVD Resp: COMMON NORMALS: normal respiratory effort and clear to auscultation bilaterally AUSCULTATION: clear to auscultation bilaterally Cardio: COMMON NORMALS: no JVD, regular rhythm, S1 normal heart sound present, S2 normal heart sound present and No murmurs present (Cardio) RHYTHM: regular rhythm HEART SOUNDS: S1 normal heart sound present and S2 normal heart sound present GI: COMMON NORMALS: Normal to inspection, nondistended, normoactive bowel sounds present, Soft to palpation and non-tender PALPATION: Yes Soft to palpation Extremity: COMMON NORMALS: no joint enlargement and no pedal edema Neuro: COMMON NORMALS: patient oriented x3 and moves all extremities SENSORIUM/ORIENTATION: Yes alert Skin: COMMON NORMALS: no rashes or lesions noted GENERAL SKIN EXAM: no rashes or lesions noted Discharge Data Studies Completed and Pending Completed Studies During Hospitalization Category Date Time Status Sestamibi Stress Test Request Routine Exams 01/21/24 09:00 Draft XR chest 1V portable [id number] Stat Exams 01/20/24 15:42 Completed NM audi perf SPECT r/s* [id number] Routine Nuc Med 01/21/24 18:38 Completed CV echo complete* [id number] Routine Ultrasound 01/20/24 18:38 Completed Pending at discharge Category Date Time Status Basic Metabolic Panel AM LABS Lab 01/22/24 04:00 Ordered Basic Metabolic Panel AM LABS Lab 01/23/24 04:00 Ordered Complete Blood Count w/Auto AM LABS Lab 01/22/24 04:00 Ordered Complete Blood Count w/Auto AM LABS Lab 01/23/24 04:00 Ordered Radiology Impressions Chest X-Ray 01/20/24 15:42 IMPRESSION: 1. No acute cardiopulmonary abnormality. Laboratory Results WBC 7.84 10^3/uL (3.29-11.43) 01/21/24 04:06 RBC 4.30 10^6/uL (3.85-5.65) 01/21/24 04:06 Hgb 13.70 g/dL (11.27-16.99) 01/21/24 04:06 Hct 39.3 % (37-53) 01/21/24 04:06 MCV 91.4 fl (82-101) 01/21/24 04:06 MCH 31.9 pg (27-33) 01/21/24 04:06 MCHC 34.9 g/dL (30-55) 01/21/24 04:06 RDW 12.5 % (12.1-15.1) 01/21/24 04:06 Plt Count 195 10^3/cmm (157-399) 01/21/24 04:06 MPV 9.5 fL (7.4-10.4) 01/21/24 04:06 Neut % (Auto) 44.5 % 01/21/24 04:06 Lymph % (Auto) 40.2 % 01/21/24 04:06 Hand % (Auto) 9.2 % 01/21/24 04:06 Eos % (Auto) 5.0 % 01/21/24 04:06 Baso % (Auto) 0.8 % 01/21/24 04:06 Neut # (Auto) 3.50 10^3/uL (1.8-7.7) 01/21/24 04:06 Lymph # (Auto) 3.2 10^3/uL (0.8-4.8) 01/21/24 04:06 Hand # (Auto) 0.7 10^3/uL (0.2-0.9) 01/21/24 04:06 Eos # (Auto) 0.4 10^3/uL (0.0-0.8) 01/21/24 04:06 Baso # (Auto) 0.1 10^3/uL (0.0-0.1) 01/21/24 04:06 Nucleated RBC % (auto) 0 % 01/21/24 04:06 Nucleated RBCs # 0.0 /100WBC 01/21/24 04:06 D-Dimer 0.56 ug/mLFEU (0-0.59) 01/20/24 17:33 Sodium 142 mmol/L (136-145) 01/21/24 04:06 Potassium 3.9 mmol/L (3.5-5.1) 01/21/24 04:06 Chloride 108 mmol/L (98-107) H 01/21/24 04:06 Carbon Dioxide 25 mmol/L (22-29) 01/21/24 04:06 Anion Gap 12.9 (5-19) 01/21/24 04:06 BUN 14 mg/dL (8-23) 01/21/24 04:06 Creatinine 0.9 mg/dL (0.7-1.2) 01/21/24 04:06 GFR Calculation 83.4 mL/min (90-130) L 01/21/24 04:06 Glucose 87 mg/dL (65-115) 01/21/24 04:06 Calculated Osmolality 294 mOsm/kg (285-295) 01/21/24 04:06 Calcium 8.3 mg/dL (8.5-10.5) L 01/21/24 04:06 Total Bilirubin 0.5 mg/dL (0.15-1.2) 01/20/24 15:23 AST 17 U/L (0-40) 01/20/24 15:23 ALT 10 U/L (0-41) 01/20/24 15:23 Alkaline Phosphatase 81 U/L (40-130) 01/20/24 15:23 Creatine Kinase 34 U/L (39-308) L 01/20/24 17:33 Troponin T Baseline 15 ng/L (0-15) 01/20/24 15:23 Troponin T 120 Minute 15.01 ng/L (0-15) H 01/20/24 17:33 Delta Troponin T 0.01 ABS# (0-10) 01/20/24 17:33 Total Protein 7.0 g/dL (6.6-8.7) 01/20/24 15:23 Albumin 4.0 g/dL (3.5-5.2) 01/20/24 15:23 Globulin 3.0 g/dL (1.3-4.6) 01/20/24 15:23 Vitals Last Vital Signs Temp 97.7 F 01/21/24 12:00 Pulse 52 L 01/21/24 12:00 Resp 16 01/21/24 12:00 BP 136/75 01/21/24 12:00 Pulse Ox 99 01/21/24 12:00 O2 Del Method Room Air 01/21/24 08:00 Discharge Plan Discharge Patient Disposition: Home Condition: Stable Prescriptions: New atorvastatin 40 mg Tablet 40 mg PO BEDTIME Qty: 90 0RF nitroglycerin 0.4 mg tablet, sublingual 0.4 mg sublingual Q5M PRN (Reason: chest pain) Qty: 25 0RF Rx Instructions: do not exceed 3 doses per episode Continued albuterol sulfate 90 mcg/actuation HFA aerosol inhaler 2 inh INHALATION Q4H PRN (Reason: shortness of breath or wheezing) Qty: 18 0RF clopidogrel 75 mg tablet 75 mg PO DAILY Discharge Orders: Discharge Order (Routine); Ordered 01/21/24 Ordered By: Noah Orozco Other Ambulatory Orders: MCT/Event Monitor 21 Days (Routine) Timeframe: 1 Day Facility: [facility] - Location: Radiology Ordered By: Noah Orozco Referrals: Crow Rodas MD [Primary Care Provider] - 01/26/24 1:15 pm Maya Perez FNP [Nurse Practitioner] - (Maya Perez's Office has your information and will be calling you to schedule a follow up appointment and a time to put on an Event Monitor. You can also call them if you have any questions or concerns. Thank you. CP, CAD, elev TID) Discharge Diet: Cardiac Discharge Activity: Increase activity as tolerated Patient Instructions: Nitroglycerin (By mouth) (Nitro-Time), Atorvastatin (By mouth) (Lipitor, Atorvaliq), Bradycardia (DC), Chest Pain Stoplight Activity Restrictions/Additional Instructions: Continue Plavix, you are started on statin to help reduce cardiovascular risks including heart attack, stroke. Follow-up with your primary provider for reassessment. Seek medical attention in case of any worsening or new concerning symptoms. Please stop smoking, continue smoking will lead to recurrence of heart attack, stroke, other complications including lung disease, cancer. You are also being set up for cardiac monitoring to assess how low your heart rates may be coming down with bradycardia. Follow-up with your primary doctor and with cardiology in office. Discharge Attestations Time Spent in Discharge Care*: greater than 30 min Quality Metrics Clinical Quality Measures [ No reported AMI, CVA or VTE this stay] Coding Level of Care Code 85135 Total time (in minutes) for Discharge: 45 Diagnoses Chest pain R07.9 Sinus bradycardia by electrocardiogram R00.1
--- NOTE | 2024-01-21 13:37 | PC.NURSE ---
meds to bed delivered RN case mgt is going to set up his transport.
--- NOTE | 2024-01-21 14:02 | PC.NURSE ---
Discharge Note Patient discharged to [facility] via med[facility] transport accompanied by combine driver. Discharge instructions reviewed with patient and/or wire rope sales representative. Mobile pharmacy medications and/or prescriptions provided. Belongings/home medications returned.
--- NOTE | 2024-01-21 18:38 | NMCV_ITS ---
NM audi perf SPECT r/s* [id number] Arnaldo Chacon Age: 68 Gender: M : 1955 Exam Date: 01/21/2024 18:38 Ordering Phys: Noah Orozco MD Technologist: DOMINIC Morales Exam Location: [facility] Indications: CHEST PAIN STRESS TEST Please see separate stress test report in [facility] for full findings IMAGE PROTOCOL Rest/Stress 1 Lexiscan Day Radiopharmaceutical Dose (mCi) Administration Site Administered by Rest: Tc-99m 10.9 IV DOMINIC Dejesus Sestamibi Stress:Tc-99m 32.5 IV DOMINIC Dejesus Sestamibi Rest: 21-Jan-2024 60 Discovery 630 Stress: 21-Jan-2024 30 Discovery 630 0.4mg Lexiscan. Supine position only as patient was unable to lay prone. SPECT RESULTS Technical Quality: Excellent Raw Data Analysis: Normal Image Corrections: No attenuation or motion correction applied Summed Stress Score: 0 Summed Rest Score: 1 Summed Difference Score: 0 PERFUSION FINDINGS Fairly uniform myocardial tracer uptake with no significant perfusion abnormalities. FUNCTIONAL RESULTS (calculated via Gated SPECT) Stress Image LV EF (%): 68 Stress EDV (mL):72 TID: 1.53 Stress ESV (mL):23 FUNCTIONAL FINDINGS: Segmental wall motion analysis revealing no gross wall motion abnormalities IMPRESSIONS 1. Myocardial perfusion imaging revealing fairly uniform myocardial tracer uptake with no significant perfusion abnormalities 2. Normal LV ejection fraction 68%. 3. LV wall motion analysis revealing no gross wall motion abnormalities. 4. Normal LV volume 5. Elevated transient ischemic dilatation ratio of 1.53 may suggest endocardial ischemia. However the positive predictive value of this finding is limited especially in the absence of any other abnormal objective findings. Clinical correlation is recommended Compared to the study from 01/14/2023, there may not be significant change. The transient ischemic dilatation ratio was 1.39 with the last study Dr Carol Tse MD [facility] (Electronically Signed) Final Date: 21 Jan 2024 11:42 S
== END 2024-01-21 14:00 | disposition home or self-care (01) ==
LOC: ER 16:15 → CSU 16:51
PROVIDERS: Admitting Provider Internal Medicine; Emergency Provider Emergency Medicine; PCP Family Medicine; Visit Provider Internal Medicine
DX: R07.9 Chest pain, unspecified (principal); I25.110 Atherosclerotic heart disease of native coronary artery with unstable angina pectoris; R00.1 Bradycardia, unspecified; I25.10 Atherosclerotic heart disease of native coronary artery without angina pectoris; Z95.5 Presence of coronary angioplasty implant and graft; Z79.02 Long term (current) use of antithrombotics/antiplatelets; Z82.49 Family history of ischemic heart disease and other diseases of the circulatory system; F17.200 Nicotine dependence, unspecified, uncomplicated; Z86.73 Personal history of transient ischemic attack (TIA), and cerebral infarction without residual deficits
CPT/HCPCS: 36415; 71045; 78452; 80048; 80053; 82550; 84484; 85025; 85378; 93005; 93017; 93306; 96375; 99285; A9500; G0378; J2785; J7040

== ENCOUNTER 2024-04-17 13:49 | Emergency (ER) | payer OTHER, SELFPAY ==
[2024-04-17 13:55] VITALS: BP 163/96; PULSE 69; RESP 16; TEMP 37.3; O2SAT 97; BMI 26.4
--- NOTE | 2024-04-17 13:55 | XRR_ITS ---
PROCEDURE INFORMATION: Exam: XR Chest Exam date and time: 04/17/2024 2:05 PM Age: 68 years old Clinical indication: Cough and dyspnea and shortness of breath; Prior surgery; Surgery date: 6+ months; Surgery type: Cardiac stent; Additional info: Dyspnea/cough TECHNIQUE: Imaging protocol: Radiologic exam of the chest. Views: 1 view. COMPARISON: CR XR chest 1V portable [id number] 01/20/2024 3:44 PM FINDINGS: Lungs: Unremarkable. No consolidation. Pleural spaces: Unremarkable. No pleural effusion. No pneumothorax. Heart/Mediastinum: Unremarkable. No cardiomegaly. Bones/joints: Unremarkable. XR/XR chest 1V portable [id number] IMPRESSION: No acute findings.
--- NOTE | 2024-04-17 14:03 | ED_ITS ---
HPI - SOB/Dyspnea 2 General: Chief Complaint: Upper Respiratory Infection Stated Complaint: sob Time Seen by Provider: 04/17/24 13:52 History of Present Illness: HPI Narrative: 68-year-old male presents to the emergen cy room with complaints of shortness of breath and mild hemoptysis. He has been sick with productive cough for the last several days. He began coughing had a hemoptysis moderate amount. Has not had any fever sweats or chills he is a former smoker he is on inhaled albuterol as needed. Additionally he is on clopidogrel. No vomiting no diarrhea. Does have a history of coronary disease. No history of DVT PE Associated symptoms: Reports chest congestion and hemoptysis; Deny abdominal pain, chest pain or fever(s) Review of Systems 2 Const: Denies: fever(s) or chills Card: Denies: chest pain Resp: Reports: dyspnea, wheezing, hemoptysis and chest congestion GI: Denies: abdominal pain : Denies: dysuria, urinary frequency or urinary urgency Musc: Denies: neck pain or back pain Skin/Breast: Denies: rash PFSH ED 2 PFSH: Medical History (Updated 04/17/24 @ 17:49 by Gordy Sarkar DO) Sinus bradycardia Hence not on metoprolol Atherosclerosis of coronary artery of [place] heart with stable angina pectoris Atherosclerotic heart disease of [place] coronary artery with unstable angina pectoris Coronary artery disease Cardiac cath with stent placement on 10/25/19 He had a cardiac authorization in the hospital which revealed a subtotal occlusion of the intermedius artery for which he underwent PCI by Dr. Torres. Carotid artery stenosis with cerebral infarction over 8 weeks ago Continue on aspirin, Plavix and statin, continue with close cardiology follow-up in the outpatient setting Hypertension Tobacco abuse Carotid stenosis Left carotid artery thromboendarterectomy performed on 11/27/[address] 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 Zuniga Family History Mother Stroke Father Diabetes CAD (coronary artery disease) Had open heart surgery in his 60s. of congestive heart failure in his 80s. Denies family history of Clotting disorder Dementia Hyperlipidemia Psychiatric illness Chronic kidney disease (CKD) Suicide Anesthesia complication Bleeding disorder Family history of premature coronary artery disease Lung disease Cancer Hypertension Social History Smoking and tobacco/nicotine status: unknown if used tobacco/nicotine Quit status (tobacco/nicotine): considering quitting Alcohol intake: former Substance/Drug Use: never Marital status: Current gender identity: Male Physical Exam 2 Const: GENERAL APPEARANCE: cooperative ORIENTATION/CONSCIOUSNESS: Yes awake, Yes oriented to person, Yes oriented to place and Yes oriented to time HENMT: COMMON NORMALS: normocephalic, atraumatic and hearing grossly normal bilaterally HEAD & SCALP: normocephalic and atraumatic Resp: COMMON NORMALS: normal respiratory effort and No use of accessory muscles AUSCULTATION: rhonchi and wheezes Cardio: COMMON NORMALS: regular rate, regular rhythm and No murmurs present (Cardio) RATE: regular rate RHYTHM: regular rhythm GI: COMMON NORMALS: Soft to palpation and No hepatosplenomegaly present A USCULTATION: Yes normoactive bowel sounds PALPATION: Yes Soft to palpation, No Tenderness to palpation present (GI), No Guarding due to palpation present (GI) and Yes No hepatosplenomegaly present Extremity: COMMON NORMALS: normal to inspection, capillary refill normal, no clubbing, cyanosis or edema, no calf tenderness and no pedal edema Neuro: SENSORIUM/ORIENTATION: Yes oriented to person, Yes oriented to place and Yes oriented to time Skin: COMMON NORMALS: no rashes or lesions noted GENERAL SKIN EXAM: no rashes or lesions noted Course 2 Vital Signs: Vital signs: Vital Signs Temperature 99.1 F 04/17/24 13:55 Pulse Rate 61 04/17/24 18:12 Respiratory Rate 16 04/17/24 17:25 Blood Pressure 164/98 04/17/24 18:12 Pulse Oximetry 99 04/17/24 18:12 Oxygen Delivery Me thod Room Air 04/17/24 13:55 MDM - SOB/Dyspnea Medical Decision Making Acute non-STEMI with elevation of troponin positive delta of 35. Patient states he is asymptomatic at this time patient was advised to be admitted for further evaluation. He has no toxidrome at this time. Earlier at home he had shortness of breath or chest pain. Patient declines admission. Discussed with him I also discussed with the nurse present advised him that with the positive delta troponin he may be having a heart attack if this proceeds it could even be fatal despite knowing this he does not wish to be admitted. I did advise him to continue his atorvastatin and clopidogrel he also should take baby aspirin daily. He declines any other treatment and wishes to go home. He has sublingual nitro at home he was encouraged to return if he has any recurrence of symptoms. At this time patient is awake and alert and expresses understanding of the diagnosis and the consequences of leaving despite this he still wishes to leave. Lab Data 04/17/24 14:26 04/17/24 14:26 Labs/Radiology: Radiology Impressions Chest X-Ray 04/17/24 13:55 IMPRESSION: No acute findings. Chest CTA 04/17/24 15:12 IMPRESSION: No acute findings. Laboratory Results WBC 8.44 10^3/uL (3.29-11.43) 04/17/24 14:26 RBC 3.83 10^6/uL (3.85-5.65) L 04/17/24 14:26 Hgb 12.00 g/dL (11.27-16.99) 04/17/24 14:26 Hct 34.9 % (37-53) L 04/17/24 14:26 MCV 91.1 fl (82-101) 04/17/24 14:26 MCH 31.3 pg (27-33) 04/17/24 14:26 MCHC 34.4 g/dL (30-55) 04/17/24 14:26 RDW 12.3 % (12.1-15.1) 04/17/24 14:26 Plt Count 236 10^3/cmm (157-399) 04/17/24 14:26 MPV 9.4 fL (7.4-10.4) 04/17/24 14:26 Neut % (Auto) 55.0 % 04/17/24 14:26 Lymph % (Auto) 29.5 % 04/17/24 14:26 [place] % (Auto) 9.0 % 04/17/24 14:26 Eos % (Auto) 5.6 % 04/17/24 14:26 Baso % (Auto) 0.7 % 04/17/24 14:26 Neut # (Auto) 4.64 10^3/uL (1.8-7.7) 04/17/24 14:26 Lymph # (Auto) 2.5 10^3/uL (0.8-4.8) 04/17/24 14:26 [place] # (Auto) 0.8 10^3/uL (0.2-0.9) 04/17/24 14:26 Eos # (Auto) 0.5 10^3/uL (0.0-0.8) 04/17/24 14:26 Baso # (Auto) 0.1 10^3/uL (0.0-0.1) 04/17/24 14:26 Nucleated RBC % (auto) 0 % 04/17/24 14: Nucleated RBCs # 0.0 /100WBC 04/17/24 14:26 Sodium 140 mmol/L (136-145) 04/17/24 14:26 Potassium 3.0 mmol/L (3.5-5.1) L 04/17/24 14:26 Chloride 108 mmol/L (98-107) H 04/17/24 14:26 Carbon Dioxide 21 mmol/L (22-29) L 04/17/24 14:26 Anion Gap 14.0 (5-19) 04/17/24 14:26 BUN 17 mg/dL (8-23) 04/17/24 14:26 Creatinine 0.8 mg/dL (0.7-1.2) 04/17/24 14:26 GFR Calculation 95.6 mL/min (90-130) 04/17/24 14:26 Glucose 119 mg/dL (65-115) H 04/17/24 14:26 Calculated Osmolality 293 mOsm/kg (285-295) 04/17/24 14:26 Calcium 8.1 mg/dL (8.5-10.5) L 04/17/24 14:26 Total Bilirubin 0.3 mg/dL (0.15-1.2) 04/17/24 14:26 AST 9 U/L (0-40) 04/17/24 14:26 ALT 6 U/L (0-41) 04/17/24 14:26 Alkaline Phosphatase 102 U/L (40-130) 04/17/24 14:26 Troponin T Baseline 18 ng/L (0-15) H 04/17/24 14:26 Troponin T 120 Minute 53.25 ng/L (0-15) H 04/17/24 16:26 Delta Troponin T 35.25 ABS# (0-10) H* 04/17/24 16:26 Total Protein 6.5 g/dL (6.6-8.7) L 04/17/24 14:26 Albumin 3.6 g/dL (3.5-5.2) 04/17/24 14:26 Globulin 2.9 g/dL (1.3-4.6) 04/17/24 14:26 Adenovirus (PCR) Not detected (NOT DETECT) 04/17/24 17:29 C. pneumoniae DNA (PCR) Not detected (NOT DETECT) 04/17/24 17:29 Coronavirus 229E (PCR) Not detected (NOT DETECT) 04/17/24 17:29 Human Metapneumovir PCR Not detected (NOT DETECT) 04/17/24 17:29 Influenza A (H1) PCR Not detected (NOT DETECT) 04/17/24 17:29 Influ A (H1/09) PCR Not detected (NOT DETECT) 04/17/24 17:29 Influenza A (H3) PCR Not detected (NOT DETECT) 04/17/24 17:29 Influenza Type A (PCR) Not detected (NOT DETECT) 04/17/24 17:29 Influenza Type B (PCR) Not detected (NOT DETECT) 04/17/24 17:29 M. pneumoniae (PCR) Not detected (NOT DETECT) 04/17/24 17:29 Parainfluenza 1 (PCR) Not detected (NOT DETECT) 04/17/24 17:29 Parainfluenza 2 (PCR) Not detected (NOT DETECT) 04/17/24 17:29 Parainfluenza 3 (PCR) Not detected (NOT DETECT) 04/17/24 17:29 Parainfluenza 4 (PCR) Not detected (NOT DETECT) 04/17/24 17:29 RSV Type A (PCR) Not detected (NOT DETECT) 04/17/24 17:29 RSV Type B (PCR) Not detected (NOT DETECT) 04/17/24 17:29 Entero/Rhino (PCR) Not detected (NOT DETECT) 04/17/24 17:29 SARS-CoV-2 (PCR) Not detected (NOT DETECT) 04/17/24 17:29 All radiology interpretation(s) finalized by discharge Discharge Plan Discharge Patient Disposition: Left Against Medical Advice Clinical Impression: Acute non-ST elevation myocardial infarction (NSTEMI), Bradycardia, Hemoptysis Condition: Stable Prescriptions: No Action albuterol sulfate 90 mcg/actuation HFA aerosol inhaler 2 inh INHALATION Q4H PRN (Reason: shortness of breath or wheezing) Qty: 18 0RF clopidogrel 75 mg tablet 75 mg PO DAILY atorvastatin 40 mg Tablet 40 mg PO BEDTIME Qty: 90 0RF nitroglycerin 0.4 mg tablet, sublingual 0.4 mg sublingual Q5M PRN (Reason: chest pain) Qty: 25 0RF Rx Instructions: do not exceed 3 doses per episode Referrals: Crow Rodas MD [Primary Care Provider] - Coding Level of Care Code ED Cartridge Loader for [place]
--- NOTE | 2024-04-17 14:05 | ECG_ITS ---
[facility] Test Date: 2024-04-17 Pat Name: Arnaldo Chacon Department: Room: Gender: Male Backbreaker: : 1955 Requested By: Gordy Slater Order Number: [id number] Candi MD: Benito Conti M.D. Measurements Intervals [place] Rate: 64 P: 32 SD: 171 QRS: -4 QRSD: 110 T: 16 QT: 415 QTc: 431 Interpretive Statements SINUS RHYTHM LEFT VENTRICULAR HYPERTROPHY AND ST-T CHANGE [VOLTAGE CRITERIA PLUS ST/T ABNORMALITY] Compared to ECG 01/20/2024 21:36:26 Left ventricular hypertrophy now present Sinus bradycardia no longer present ST (T wave) deviation still present Electronically Signed On 04-17-2024 14:11:43 CDT by Benito Conti M.D. [id number]
[2024-04-17 14:33] LABS: Basophils # 0.1 10^3/uL (0.0-0.1); Basophils % 0.7 %; Eosinophils # 0.5 10^3/uL (0.0-0.8); Eosinophils % 5.6 %; Hematocrit 34.9 % (37-53); Lymphocytes # 2.5 10^3/uL (0.8-4.8); Lymphocytes % 29.5 %; Mean Corpuscular HGB Conc 34.4 g/dL (30-55); Mean Corpuscular Hemoglobin 31.3 pg (27-33); Mean Corpuscular Volume 91.1 fl (82-101); Mean Platelet Volume 9.4 fL (7.4-10.4); Monocytes # 0.8 10^3/uL (0.2-0.9); Neutrophils # 4.64 10^3/uL (1.8-7.7); Nucleated Red Blood Cells % 0 %; Platelet Count 236 10^3/cmm (157-399); Red Blood Count 3.83 10^6/uL (3.85-5.65); Red Cell Distribution Width 12.3 % (12.1-15.1); White Blood Count 8.44 10^3/uL (3.29-11.43)
[2024-04-17 14:56] LABS: Troponin(5th) Baseline 18 ng/L (0-15)
[2024-04-17 14:57] LABS: Alanine Aminotransferase 6 U/L (0-41); Albumin Level 3.6 g/dL (3.5-5.2); Alkaline Phosphatase 102 U/L (40-130); Aspartate Amino Transferase 9 U/L (0-40); Blood Urea Nitrogen 17 mg/dL (8-23); Calcium 8.1 mg/dL (8.5-10.5); Carbon Dioxide 21 mmol/L (22-29); Chloride 108 mmol/L (98-107); Creatinine Clr Calc Pharmacy 91.0209; Globulin 2.9 g/dL (1.3-4.6); Glomerular Filtration Rate 95.6 mL/min (90-130); Glucose 119 mg/dL (65-115); Osmolality Calculated 293 mOsm/kg (285-295); Sodium 140 mmol/L (136-145); Total Bilirubin 0.3 mg/dL (0.15-1.2); Total Protein 6.5 g/dL (6.6-8.7)
--- NOTE | 2024-04-17 15:12 | CTR_ITS ---
PROCEDURE INFORMATION: Exam: CTA Chest With Contrast Exam date and time: 04/17/2024 5:04 PM Age: 68 years old Clinical indication: Other: Hemoptysis TECHNIQUE: Imaging protocol: Computed tomographic angiography of the chest with contrast. Exam focused on the arteries. 3D rendering (Not supervised by radiologist): MIP and/or 3D reconstructed images were created by the technologist. Radiation optimization: All CT scans at this facility use at least one of these dose optimization techniques: automated exposure control; mA and/or kV adjustment per patient size (includes targeted exams where dose is matched to clinical indication); or iterative reconstruction. Contrast material: OMNI 350; Contrast volume: 82 ml; Contrast route: INTRAVENOUS (IV); COMPARISON: CT angio chest PE protcl [id number] 01/13/2023 3:56 AM RADIATION DOSE METRICS: Total DLP (mGy-cm): 395 FINDINGS: Pulmonary arteries: Normal. No pulmonary emboli. Aorta: Unremarkable. No aortic aneurysm. No aortic dissection. Lungs: Unremarkable. No consolidation. No masses. Pleural spaces: Unremarkable. No pneumothorax. No pleural effusion. Heart: Unremarkable. No cardiomegaly. No pericardial effusion. Coronary arteries: Coronary artery calcifications. Lymph nodes: Unremarkable. No enlarged lymph nodes. Bones/joints: Unremarkable. No acute fracture. Soft tissues: Unremarkable. CT/CT angio chest PE protcl [id number] IMPRESSION: No acute findings.
[2024-04-17 15:31] VITALS: BP 157/101; PULSE 67; O2SAT 99
--- NOTE | 2024-04-17 15:54 | ECG_ITS ---
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 Measurements Intervals [place] Rate: 53 P: 38 [place]: 148 QRS: 3 QRSD: 104 T: 8 QT: 459 QTc: 432 Interpretive Statements SINUS BRADYCARDIA WITH MARKED SINUS ARRHYTHMIA MODERATE ST DEPRESSION [0.05+ mV ST DEPRESSION] Compared to ECG 04/17/2024 14:05:10 Sinus rhythm no longer present Left ventricular hypertrophy no longer present ST (T wave) deviation still present Electronically Signed On 04-18-2024 7:54:01 CDT by Wilner Tarango M.D. [id number]
--- NOTE | 2024-04-17 16:59 | ECG_ITS ---
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 Measurements Intervals [place] Rate: 50 P: 49 [place]: 165 QRS: 4 QRSD: 93 T: 28 QT: 455 QTc: 417 Interpretive Statements SINUS BRADYCARDIA WITH MARKED SINUS ARRHYTHMIA MODERATE ST DEPRESSION [0.05+ mV ST DEPRESSION] Compared to ECG 04/17/2024 15:54:30 No significant changes Electronically Signed On 04-18-2024 7:53:43 CDT by Wilner Tarango M.D. [id number]
[2024-04-17] MEDS: iohexol 350 mg/mL 500 mL Btl (per mL) IV (17:09)
[2024-04-17 17:18] LABS: Troponin 5 2HR 53.25 ng/L (0-15)
[2024-04-17 17:21] LABS: Troponin 5 2HR Delta 35.25 ABS# (0-10)
[2024-04-17 17:25] VITALS: BP 183/92; PULSE 66; RESP 16; O2SAT 100
--- NOTE | 2024-04-17 17:50 | PC.NURSE ---
PATIENT CHOOSING TO LEAVE AMA. PROVIDER, DR WASHINGTON, AT BEDSIDE ENCOURAGED PATIENT TO STAY AND EXPLAINED RISKS OF LEAVING. 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 PATIENT BECOMES TEARFUL. NURSE ASKED PATIENT OF LIVING SITUATION, FAMILY OR FRIENDS. PATIENT DENIES HELP.
[2024-04-17 18:12] VITALS: BP 164/98; PULSE 61; O2SAT 99
[2024-04-17 19:23] LABS: Adenovirus Not Detected (NOT DETECT); Chlamydia Pneumoniae Not Detected (NOT DETECT); Coronavirus 229E,HKU1,NL63,OC4 Not Detected (NOT DETECT); Human Metapneumovirus Not Detected (NOT DETECT); Human Rhinovirus/Enterovirus Not Detected (NOT DETECT); Influenza A Not Detected (NOT DETECT); Influenza A H1 Not Detected (NOT DETECT); Influenza A H1-2009 Not Detected (NOT DETECT); Influenza A H3 Not Detected (NOT DETECT); Influenza B Not Detected (NOT DETECT); Mycoplasma Pneumoniae Not Detected (NOT DETECT); Parainfluenza Virus Type 1 Not Detected (NOT DETECT); Parainfluenza Virus Type 2 Not Detected (NOT DETECT); Parainfluenza Virus Type 3 Not Detected (NOT DETECT); Parainfluenza Virus Type 4 Not Detected (NOT DETECT); Respiratory Syncytial Virus A Not Detected (NOT DETECT); Respiratory Syncytial Virus B Not Detected (NOT DETECT); SARS-COV-2 Not Detected (NOT DETECT)
== END 2024-04-17 18:00 | disposition left against medical advice (07) ==
LOC: ER 14:29 → ER IP 17:49
PROVIDERS: Emergency Provider Family Medicine; PCP Family Medicine
DX: I21.4 Non-ST elevation (NSTEMI) myocardial infarction (principal); R00.1 Bradycardia, unspecified; R04.2 Hemoptysis; I10 Essential (primary) hypertension; Z86.73 Personal history of transient ischemic attack (TIA), and cerebral infarction without residual deficits; E78.5 Hyperlipidemia, unspecified; I25.118 Atherosclerotic heart disease of native coronary artery with other forms of angina pectoris; Z95.5 Presence of coronary angioplasty implant and graft; Z53.29 Procedure and treatment not carried out because of patient's decision for other reasons
CPT/HCPCS: 36415; 71045; 71275; 80053; 84484; 85025; 87486; 87581; 87633; 93005; 99285; Q9967

== ENCOUNTER 2025-04-19 10:54 | Emergency (ER) | payer OTHER, SELFPAY ==
[2025-04-19] VITALS (69 sets, daily range): BP systolic 140–210; BP diastolic 75–143; PULSE 63–119; RESP 14–20; TEMP 36.8; O2SAT 91–99
--- NOTE | 2025-04-19 11:03 | ECG_ITS ---
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: : 1955 Requested By: Jeanne Slater Order Number: [id number] Candi MD: IRAIDA RANDOLPH Measurements Intervals [place] Rate: 89 P: 35 [place]: 144 QRS: -15 QRSD: 101 T: 51 QT: 371 QTc: 454 Interpretive Statements SINUS RHYTHM WITH SINUS ARRHYTHMIA NONSPECIFIC ST & T-WAVE ABNORMALITY INTERPRETATION BASED ON A DEFAULT AGE OF 40 YEARS Compared to ECG 04/17/2024 16:59:37 T-wave abnormality now present Sinus bradycardia no longer present ST (T wave) deviation no longer present Electronically Signed On 04-24-2025 20:00:48 CDT by IRAIDA RANDOLPH [id number]
--- NOTE | 2025-04-19 11:06 | CT_ITS ---
WS: [id number] CT HEAD NONCONTRAST HISTORY: possible stroke TECHNIQUE: Contiguous axial imaging performed through the brain. Bone and soft tissue windows. Sagittal and coronal reformats reviewed. All CT scans at [facility] use at least one of these dose optimization techniques: automated exposure control; mA and/or kV adjustment per patient size (includes targeted exams where dose is matched to clinical indication); or iterative reconstruction. DLP: 1201.88 mGy COMPARISON: 01/12/2023 No acute intracranial hemorrhage, midline shift or mass effect. Moderate frontotemporal lobe atrophy. Atrophy is mildly progressed since 01/12/2023. RIGHT caudate head prior lacunar infarct. There is an additional infarct in the posterior RIGHT frontal lobe. Encephalomalacia at the site of the infarct. Additional lacunar infarct LEFT occipital lobe. Ventricles: Ex vacuo dilatation of the RIGHT lateral ventricle due to the RIGHT infarcts. Paranasal sinuses: Extensive mucoperiosteal thickening throughout the maxillary sinuses. Mucoperiosteal thickening extends into the frontal sinuses through the frontal ethmoid recesses. No air-fluid levels. Mastoid air cells: Well pneumatized. Calvarium and scalp: Skull is intact with no soft tissue edema or swelling. CT/CT head thrombolytic [id number] IMPRESSION: 1. No acute intracranial hemorrhage or edema. 2. Remote posterior RIGHT frontal lobe infarct with encephalomalacia. 3. Remote lacunar infarcts in the RIGHT caudate and LEFT occipital lobe. 4. Mild ex vacuo dilatation of the RIGHT lateral ventricle. 5. Moderate frontotemporal lobe atrophy with mild progression since 01/12/2023. Notified Jeanne Charlton MD at 04/19/2025 11:23 AM.
--- NOTE | 2025-04-19 11:06 | XR_ITS ---
WS: [id number] XR chest 1V portable [id number] REASON FOR EXAM: Weakness FINDINGS: Chest is unchanged compared to the previous examination of 04/17/2024. Significant ectasia and tortuosity of the thoracic aorta with normal heart size. Calcified granulomatous disease bilaterally. Flattening of the hemidiaphragms. No acute pulmonary parenchymal or pleural abnormality is identified. Multiple old healed left rib fractures. 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 XR/XR chest 1V portable [id number] IMPRESSION: Stable chest with no acute abnormality.
[2025-04-19 11:14] LABS: Hematocrit 37.4 % (37-53); Hemoglobin 12.60 g/dL (11.27-16.99); Mean Corpuscular HGB Conc 33.7 g/dL (30-55); Mean Corpuscular Hemoglobin 30.7 pg (27-33); Mean Corpuscular Volume 91.0 fl (82-101); Nucleated Red Blood Cells % 0 %; Platelet Count 238 10^3/cmm (157-399); Red Blood Count 4.11 10^6/uL (3.85-5.65); White Blood Count 7.77 10^3/uL (3.29-11.43)
[2025-04-19 11:28] LABS: Lactic Sepsis W/Reflex 1.0 mmol/L (0.5-2.2)
--- NOTE | 2025-04-19 11:32 | W.ED.WEAKNES ---
HPI - Weakness General: Chief complaint: Weakness Stated complaint: weakness Time Seen by Provider: 04/19/25 10:58 History of Present Illness: 69-year-old man with a history of hypertension, chronic anticoagulation on Eliquis, hyperlipidemia, tobacco dependence, stroke in the past, coronary artery disease and bradycardia who presents to the emergency room with generalized weakness that started yesterday. He says he thinks he had a stroke again. However he is nonfocal. No facial droop. No slurred speech. All of his limbs are equally weak. He can barely lift his legs off the bed. Apparently he has been living out of his car. Related Data Home Medications ?Medication ?Instructions ?Recorded ?Confirmed clopidogrel 75 mg tablet 75 mg PO DAILY 01/07/23 04/19/25 apixaban 5 mg tablet (Eliquis) 5 mg PO BID 04/19/25 04/19/25 olanzapine 10 mg tablet 10 mg PO DAILY 04/19/25 04/19/25 Allergies Allergy/AdvReac Type Severity Reaction Status Date / Time codeine Allergy Mild hives Verified 01/12/23 14:01 Penicillins Allergy Unknown Verified 01/12/23 14:01 Review of Systems Narrative: Constitutional symptoms: Negative except as documented in HPI. Skin symptoms: Negative except as documented in HPI. Eye symptoms: Negative except as documented in HPI. ENMT symptoms: Negative except as documented in HPI. Respiratory symptoms: Negative except as documented in HPI. Cardiovascular symptoms: Negative except as documented in HPI. Gastrointestinal symptoms: Negative except as documented in HPI. Genitourinary symptoms: Negative except as documented in HPI. Musculoskeletal symptoms: Negative except as documented in HPI. Neurologic symptoms: Negative except as documented in HPI. Psychiatric symptoms: Negative except as documented in HPI. Endocrine symptoms: Negative except as documented in HPI. PFS ED PFSH: Medical History (Updated 04/19/25 @ 13:05 by Jeanne Charlton MD) Sinus bradycardia Hence not on metoprolol Atherosclerosis of coronary artery of [place] heart with stable angina pectoris Atherosclerotic heart disease of [place] coronary artery with unstable angina pectoris Coronary artery disease Cardiac cath with stent placement on 10/25/19 He had a cardiac authorization in the hospital which revealed a subtotal occlusion of the intermedius artery for which he underwent PCI by Dr. Torres. Carotid artery stenosis with cerebral infarction over 8 weeks ago Continue on aspirin, Plavix and statin, continue with close cardiology follow-up in the outpatient setting Hypertension Tobacco abuse Carotid stenosis Left carotid artery thromboendarterectomy performed on 11/27/[address] 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 Zuniga Family History Mother Stroke Father Diabetes CAD (coronary artery disease) Had open heart surgery in his 60s. of congestive heart failure in his 80s. Denies family history of Clotting disorder Dementia Hyperlipidemia Psychiatric illness Chronic kidney disease (CKD) Suicide Anesthesia complication Bleeding disorder Family history of premature coronary artery disease Lung disease Cancer Hypertension Social History Smoking and tobacco/nicotine status: unknown if used tobacco/nicotine Quit status (tobacco/nicotine): considering quitting Alcohol intake: former Substance/Drug Use: never Marital status: Current gender identity: Male Physical Exam Narrative: EXAM NARRATIVE: General: Alert, no acute distress. Skin: Warm, dry. Head: Normocephalic, atraumatic. Neck: Supple, trachea midline. Eye: Extraocular movements are intact. Ears, nose, mouth and throat: mucosa moist. Cardiovascular: Regular, Normal peripheral perfusion. Respiratory: Lungs are clear to auscultation, respirations are non-labored, breath sounds are equal, Symmetrical chest wall expansion. Gastrointestinal: Soft, Nontender, Non distended Musculoskeletal: Normal ROM, no deformity. Neurological: Alert and oriented, No focal neurological deficit observed. He has generalized weakness. No facial droop. No slurred speech. Psychiatric: Cooperative, appropriate mood & affect. Course Vital Signs: Vital signs: Vital Signs Temperature 98.3 F 04/19/25 10:55 Pulse Rate 91 04/19/25 13:55 Respiratory Rate 17 04/19/25 11:45 Blood Pressure 210/96 04/19/25 13:55 Pulse Oximetry 98 04/19/25 13:55 Oxygen Delivery Me thod Room Air 04/19/25 10:55 MDM - Weakness Medical Decision Making Medical decision making: Differential diagnosis for patient presenting with generalized weakness including but not limited to and based on the above HPI, review of systems and physical exam: Sepsis. Dehydration. Renal failure. Electrolyte abnormalities. Anemia. Congestive heart failure. Hypotension. Coronary syndrome. Hepatitis. Cirrhosis. Infections such as pneumonia, urinary tract infection, [place] illness, Cellulitis, Viral infections including influenza and Covid-19. Workup: labwork and lab/exam driven imaging ordered to evaluate, rule in and rule out above pathologies. CT head: Some old changes but no acute intracranial process. Encephalomalacia of the right frontal lobe after an infarct. A couple of lacunar infarcts. No intracranial hemorrhage, no evidence of infarct. no evidence of acute fracture.This was reviewed and interpreted by myself the ER physician. Chest x-ray: No acute process. No infiltrate. No pneumothorax. This was reviewed and interpreted by myself the emergency room physician. I also reviewed the radiology report. EKG: Time 11:03 AM. Rate 89. Normal sinus rhythm, nonspecific ST-T changes, no ectopy, normal WI & QRS intervals, This was reviewed and interpreted by myself the ER physician at 11:07 AM Lab Review: Laboratory results were reviewed and interpreted by myself the emergency room physician. No leukocytosis. No anemia. No renal failure. Urinalysis is negative for infection. Drug screen is positive for amphetamines. Urine is a bit concentrated which would indicate some dehydration. Fluids are being given I reviewed the patient's medical record. Reexamination: Patient remained stable. No increased work of breathing. No altered mental status. No focal motor deficits. Assessment and plan: Weakness Dehydration ?Patient may be a little dehydrated and had some heat exposure living in his car. However I find nothing focal. No acute findings on an extensive workup. - Discharged home - Discussed plan with patient. Answered any questions. - Evaluation and treatment of this problem were appropriate in the emergency setting. Lab Data 04/19/25 10:45 04/19/25 10:45 Radiology Impressions Chest X-Ray 04/19/25 11:06 IMPRESSION: Stable chest with no acute abnormality. Head CT 04/19/25 11:06 IMPRESSION: 1. No acute intracranial hemorrhage or edema. 2. Remote posterior RIGHT frontal lobe infarct with encephalomalacia. 3. Remote lacunar infarcts in the RIGHT caudate and LEFT occipital lobe. 4. Mild ex vacuo dilatation of the RIGHT lateral ventricle. 5. Moderate frontotemporal lobe atrophy with mild progression since 01/12/2023. Notified Jeanne Charlton MD at 04/19/2025 11:23 AM. Laboratory Results WBC 7.77 10^3/uL (3.29-11.43) 04/19/25 10:45 RBC 4.11 10^6/uL (3.85-5.65) 04/19/25 10:45 Hgb 12.60 g/dL (11.27-16.99) 04/19/25 10:45 Hct 37.4 % (37-53) 04/19/25 10:45 MCV 91.0 fl (82-101) 04/19/25 10:45 MCH 30.7 pg (27-33) 04/19/25 10:45 MCHC 33.7 g/dL (30-55) 04/19/25 10:45 RDW 12.6 % (12.1-15.1) 04/19/25 10:45 Plt Count 238 10^3/cmm (157-399) 04/19/25 10:45 MPV 9.7 fL (7.4-10.4) 04/19/25 10:45 Neut % (Auto) 58.2 % 04/19/25 10:45 Lymph % (Auto) 25.1 % 04/19/25 10:45 [place]aines % (Auto) 11.3 % 04/19/25 10:45 Eos % (Auto) 4.6 % 04/19/25 10:45 Baso % (Auto) 0.5 % 04/19/25 10:45 Neut # (Auto) 4.52 10^3/uL (1.8-7.7) 04/19/25 10:45 Lymph # (Auto) 2.0 10^3/uL (0.8-4.8) 04/19/25 10:45 [place]aines # (Auto) 0.9 10^3/uL (0.2-0.9) 04/19/25 10:45 Eos # (Auto) 0.4 10^3/uL (0.0-0.8) 04/19/25 10:45 Baso # (Auto) 0.0 10^3/uL (0.0-0.1) 04/19/25 10:45 Nucleated RBC % (auto) 0 % 04/19/25 10:45 Nucleated RBCs # 0.0 /100WBC 04/19/25 10:45 Sodium 142 mmol/L (136-145) 04/19/25 10:45 Potassium 3.1 mmol/L (3.5-5.1) L 04/19/25 10:45 Chloride 105 mmol/L (98-107) 04/19/25 10:45 Carbon Dioxide 23 mmol/L (22-29) 04/19/25 10:45 Anion Gap 17.1 (5-19) 04/19/25 10:45 BUN 10 mg/dL (8-23) 04/19/25 10:45 Creatinine 0.8 mg/dL (0.7-1.2) 04/19/25 10:45 GFR Calculation Not Reportable 04/19/25 10:45 Glucose 153 mg/dL (65-115) H 04/19/25 10:45 Calculated Osmolality 296 mOsm/kg (285-295) H 04/19/25 10:45 Lactic Acid 1.0 mmol/L (0.5-2.2) 04/19/25 10:45 Calcium 8.6 mg/dL (8.5-10.5) 04/19/25 10:45 Total Bilirubin 0.8 mg/dL (0.15-1.2) 04/19/25 10:45 AST 11 U/L (0-40) 04/19/25 10:45 ALT 9 U/L (0-41) 04/19/25 10:45 Alkaline Phosphatase 74 U/L (40-130) 04/19/25 10:45 C-Reactive Protein 32.5 mg/L (0.0-4.9) H 04/19/25 10:45 Total Protein 7.1 g/dL (6.6-8.7) 04/19/25 10:45 Albumin 3.7 g/dL (3.5-5.2) 04/19/25 10:45 Globulin 3.4 g/dL (1.3-4.6) 04/19/25 10:45 Procalcitonin 0.05 ng/mL (0-0.5) 04/19/25 10:45 TSH 1.34 uIU/mL (0.27-4.20) 04/19/25 10:45 Urine Color Dark yellow (Yellow) A 04/19/25 12:17 Urine Appearance Clear (CLEAR) 04/19/25 12:17 Urine pH 6.0 (5-7) 04/19/25 12:17 Ur Specific [place] 1.021 (1.005-1.030) 04/19/25 12:17 Urine Protein Trace (Negative) A 04/19/25 12:17 Urine Glucose (UA) Negative (Normal) 04/19/25 12:17 Urine Ketones 1+ (Negative) H 04/19/25 12:17 Urine Blood Trace (Negative) A 04/19/25 12:17 Urine Nitrate Negative (Negative) 04/19/25 12:17 Urine Bilirubin Negative (Negative) 04/19/25 12:17 Urine Urobilinogen 1.0 mg/dL (Negative) 04/19/25 12:17 Ur Leukocyte Esterase Trace (Negative) A 04/19/25 12:17 Urine RBC 11-20 /hpf (0-2) H 04/19/25 12:17 Urine WBC 0-5 /hpf (0-5) 04/19/25 12:17 Ur Squamous Epith Cells 0-5 /hpf (0-5) 04/19/25 12:17 Amorphous Sediment Not Reportable 04/19/25 12:17 Urine Bacteria None seen /hpf (NONE) 04/19/25 12:17 Hyaline Casts 1.21 /lpf 04/19/25 12:17 Urine Mucus Trace /hpf 04/19/25 12:17 Salicylates < 0.3 mg/dL (3-10) L 04/19/25 10:45 Urine Opiates Screen Negative ng/mL (Negative) 04/19/25 12:17 Acetaminophen < 5.0 ug/mL (10-30) L 04/19/25 10:45 Ur Barbiturates Screen Negative ng/mL (Negative) 04/19/25 12:17 Ur Phencyclidine Scrn Negative ng/mL (Negative) 04/19/25 12:17 Ur Amphetamines Screen Positive ng/mL (Negative) H 04/19/25 12:17 U Benzodiazepines Scrn Negative ng/mL (Negative) 04/19/25 12:17 Urine Cocaine Screen Negative ng/mL (Negative) 04/19/25 12:17 U Marijuana (THC) Screen Negative ng/mL (Negative) 04/19/25 12:17 Ethyl Alcohol < 10 mg/dL (0-10) 04/19/25 10:45 Influenza A (PCR) Negative (Negative) 04/19/25 11:47 Influenza Type B (PCR) Negative (Negative) 04/19/25 11:47 RSV (PCR) Negative (Negative) 04/19/25 11:47 SARS-CoV-2 (PCR) Negative (Negative) 04/19/25 11:47 All radiology interpretation(s) finalized by discharge Discharge Plan Discharge Patient Disposition: Home Clinical Impression: Dehydration, Weakness Condition: Stable Prescriptions: No Action clopidogrel 75 mg tablet 75 mg PO DAILY olanzapine 10 mg tablet 10 mg PO DAILY Eliquis 5 mg tablet 5 mg PO BID Discharge Orders: Discharge ED (Routine); Ordered 04/19/25 Ordered By: Jeanne Charlton Referrals: Crow Rodas MD [Primary Care Provider, Family Practice] Discharge Diet: Usual diet Discharge Activity: Increase activity as tolerated Patient Instructions: Opioid Safety, Pain Management, Patient Portal & [place]ma Instructions Activity Restrictions/Additional Instructions: Thank you for choosing [facility] for your healthcare needs today. You have been screened and evaluated and felt safe for discharge. Health conditions do change or evolve sometimes and as such it is important that you follow up with your Primary Doctor to be re checked, 3-5 days is a general good time frame for follow up. 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
[2025-04-19 11:39] LABS: Procalcitonin 0.05 ng/mL (0-0.5); Thyroid Stimulating Hormone 1.34 uIU/mL (0.27-4.20)
[2025-04-19 11:50] LABS: Alanine Aminotransferase 9 U/L (0-41); Albumin Level 3.7 g/dL (3.5-5.2); Alkaline Phosphatase 74 U/L (40-130); Anion Gap 17.1 (5-19); Aspartate Amino Transferase 11 U/L (0-40); Blood Urea Nitrogen 10 mg/dL (8-23); Calcium 8.6 mg/dL (8.5-10.5); Carbon Dioxide 23 mmol/L (22-29); Chloride 105 mmol/L (98-107); Creatinine Clr Calc Pharmacy 100.8052; Globulin 3.4 g/dL (1.3-4.6); Glucose 153 mg/dL (65-115); Osmolality Calculated 296 mOsm/kg (285-295); Potassium 3.1 mmol/L (3.5-5.1); Sodium 142 mmol/L (136-145); Total Protein 7.1 g/dL (6.6-8.7)
[2025-04-19 11:56] LABS: Acetaminophen < 5.0 ug/mL (10-30); Alcohol Level < 10 mg/dL (0-10); Salicylate < 0.3 mg/dL (3-10)
[2025-04-19 12:30] LABS: Glucose Urine UA Negative (Normal); Nitrate Urine Negative (Negative); Specific Gravity, Urine 1.021 (1.005-1.030)
[2025-04-19 12:32] LABS: Respiratory Syncytial Virus Ce NEGATIVE (Negative); SARS-CoV-2 PCR NEGATIVE (Negative)
[2025-04-19 12:37] LABS: PCP Screen Urine Negative (Negative)
[2025-04-19 12:49] LABS: UA Slide Review UA Slide Review Perf
== END 2025-04-19 16:49 | disposition home or self-care (01) ==
PROVIDERS: Emergency Provider Emergency Medicine; PCP Family Medicine
DX: E86.0 Dehydration (principal); R53.1 Weakness; Z79.01 Long term (current) use of anticoagulants; Z79.02 Long term (current) use of antithrombotics/antiplatelets; Z11.52 Encounter for screening for COVID-19; E78.5 Hyperlipidemia, unspecified; Z86.73 Personal history of transient ischemic attack (TIA), and cerebral infarction without residual deficits; I10 Essential (primary) hypertension; I25.110 Atherosclerotic heart disease of native coronary artery with unstable angina pectoris
CPT/HCPCS: 36415; 70450; 71045; 80053; 80306; 80307; 81001; 83605; 84145; 84443; 85025; 86140; 87040; 87637; 93005; 96360; 96361; 99285; J7030; J9999

== ENCOUNTER 2025-04-28 16:29 | Emergency (ER) | payer OTHER, MEDICAID, SELFPAY ==
[2025-04-28 16:30] VITALS: BP 120/87; PULSE 90; RESP 19; TEMP 36.8; O2SAT 91; BMI 34.9
--- NOTE | 2025-04-28 16:42 | USR_ITS ---
PROCEDURE INFORMATION: Exam: US Duplex Lower Extremity Veins, Bilateral Exam date and time: 04/28/2025 6:13 PM Age: 69 years old Clinical indication: Edema, localized; Lower extremity, bilateral; Additional info: Swelling TECHNIQUE: Imaging protocol: Real-time duplex ultrasound of the bilateral extremities with 2-D martinez scale, color Doppler flow and spectral waveform analysis including responses to compression and other maneuvers (when performed) with image documentation. Complete exam focused on the lower extremity veins. COMPARISON: CT kidney stone [id number] 09/01/2020 9:11 PM FINDINGS: Right deep veins: Unremarkable. The common femoral, femoral, proximal profunda femoral and popliteal veins are patent without thrombus. Normal Doppler waveforms. Normal compressibility and/or augmentation response. Left deep veins: Unremarkable. The common femoral, femoral, proximal profunda femoral and popliteal veins are patent without thrombus. Normal Doppler waveforms. Normal compressibility and/or augmentation response. Superficial veins: Greater saphenous veins at the saphenofemoral junctions are patent bilaterally without thrombus. Soft tissues: Small Bailey's cysts in the right popliteal fossa measuring 3.0 x 1.0 x 3.9 cm. US/CV venous duplex [facility] [id number] IMPRESSION: 1. No evidence of deep vein thrombosis. 2. Small right Bailey's cyst.
--- NOTE | 2025-04-28 16:42 | XRR_ITS ---
PROCEDURE INFORMATION: Exam: XR Chest Exam date and time: 04/28/2025 5:03 PM Age: 69 years old Clinical indication: Shortness of breath; Prior surgery; Surgery date: 6+ months; Surgery type: Cardiac stent; Additional info: Dyspnea; Hypoxia TECHNIQUE: Imaging protocol: Radiologic exam of the chest. Views: 1 view. COMPARISON: CR XR chest 1V portable [id number] 04/19/2025 11:20 AM FINDINGS: Lungs: Unremarkable. No consolidation. Pleural spaces: Unremarkable. No pleural effusion. No pneumothorax. Heart/Mediastinum: Unremarkable. No cardiomegaly. Vasculature: Tortuous thoracic aorta with atherosclerotic calcifications. Bones/joints: Unremarkable. XR/XR chest 1V portable [id number] IMPRESSION: No acute cardiopulmonary findings.
--- NOTE | 2025-04-28 16:50 | ECG_ITS ---
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 Measurements Intervals [place] Rate: 84 P: 30 IN: 142 QRS: -18 QRSD: 92 T: 53 QT: 382 QTc: 453 Interpretive Statements SINUS RHYTHM MILD NONSPECIFIC ST DEPRESSION Compared to ECG 04/19/2025 11:03:04 Sinus arrhythmia no longer present NO SIGNIFICANT CHANGE Electronically Signed On 04-28-2025 21:58:17 CDT by Sesar Mcgee M.D. [email or web address]
--- NOTE | 2025-04-28 16:50 | W.ED.EXTPRO ---
HPI - Extremity Problem General: Chief complaint: Extremity Problem,Nontraumatic Stated complaint: chris pedal edema Time Seen by Provider: 04/28/25 16:30 History of Present Illness: Chief complaint is bilateral leg swelling. Patient states she has had chronic leg swelling for a long time. He states that his legs have gotten so swollen that he is having trouble walking. No fall or injury. No focal weakness. He states they are just heavy from being so swollen. No headache or chest pain. He has chronic shortness of breath. His shortness of breath and leg swelling has been worse. He states he was supposed to be on a blood pressure pill but does not know what it is. He states that he has been out of all his medications. He cannot tell me what they are. Related Data Home Medications ?Medication ?Instructions ?Recorded ?Confirmed clopidogrel 75 mg tablet 75 mg PO DAILY 01/07/23 04/19/25 apixaban 5 mg tablet (Eliquis) 5 mg PO BID 04/19/25 04/19/25 olanzapine 10 mg tablet 10 mg PO DAILY 04/19/25 04/19/25 Previous Rx's ?Medication ?Instructions ?Recorded furosemide 20 mg tablet (Lasix) 20 mg PO DAILY #7 tabs 04/28/25 Allergies Allergy/AdvReac Type Severity Reaction Status Date / Time codeine Allergy Mild hives Verified 01/12/23 14:01 Penicillins Allergy Unknown Verified 01/12/23 14:01 [facility] ED [facility]: Medical History (Updated 04/28/25 @ 21:31 by Remington Ames MD) Sinus bradycardia Hence not on metoprolol Atherosclerosis of coronary artery of [place] heart with stable angina pectoris Atherosclerotic heart disease of [place] coronary artery with unstable angina pectoris Coronary artery disease Cardiac cath with stent placement on 10/25/19 He had a cardiac authorization in the hospital which revealed a subtotal occlusion of the intermedius artery for which he underwent PCI by Dr. Torres. Carotid artery stenosis with cerebral infarction over 8 weeks ago Continue on aspirin, Plavix and statin, continue with close cardiology follow-up in the outpatient setting Hypertension Tobacco abuse Carotid stenosis Left carotid artery thromboendarterectomy performed on 11/27/[address] 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 Zuniga Family History Mother Stroke Father Diabetes CAD (coronary artery disease) Had open heart surgery in his 60s. of congestive heart failure in his 80s. Denies family history of Clotting disorder Dementia Hyperlipidemia Psychiatric illness Chronic kidney disease (CKD) Suicide Anesthesia complication Bleeding disorder Family history of premature coronary artery disease Lung disease Cancer Hypertension Social History Smoking and tobacco/nicotine status: unknown if used tobacco/nicotine Quit status (tobacco/nicotine): considering quitting Alcohol intake: former Substance/Drug Use: never Marital status: Current gender identity: Male Physical Exam Narrative: EXAM NARRATIVE: Patient is alert oriented appears mildly distressed. His neck is supple. No increased work of breathing. No tachypnea. Lung sounds are mildly diminished bilaterally but no prolonged expiratory phase or bilateral expiratory wheezing. No JVD. Heart regular rhythm. Abdomen soft nontender. Extremities appear warm well-perfused. Patient has marked edema both lower extremities. No focal tenderness. No significant erythema. Speech is clear. Shows ability to reason. Denies suicidal ideation. He has difficulty lifting his legs off the bed but has no drift in his arms. No facial droop. Normal conjunctiva. Pupils equal and reactive. Full range ocular motion. Moves his back freely. Clear speech. No truncal ataxia. Course Vital Signs: Vital signs: Vital Signs Temperature 98.3 F 04/28/25 16:30 Pulse Rate 90 04/28/25 16:30 Respiratory Rate 19 H 04/28/25 16:30 Blood Pressure 112/93 04/28/25 17:30 Pulse Oximetry 95 04/28/25 17:30 Oxygen Delivery Me thod Room Air 04/28/25 16:30 MDM - Extremity (Nontraumatic) Medical Decision Making Patient presents the emergency department complaining of bilateral leg swelling. He currently is living in a hotel with his and he was unable to ambulate today due to the degree of swelling in his legs. He states his legs are very uncomfortable but no specific pain. No injury. He denies any fall or trauma. No focal weakness. He reports some increased shortness of breath and leg edema although patient is a very vague historian. He has been out of his medication but cannot tell me what he supposed to be on. Patient states he was in a intermediate but his apparently wanted to leave and so they left the intermediate. He is struggling to take care of himself and apparently was homeless but taken to the hotel by the police where he was staying until today. Patient does have significant edema and limited mobility. CHF exacerbation, acute renal failure, DVTs, extremely broad differential. I ordered ultrasound both legs. I ordered CBC CMP EKG troponin proBNP D-dimer and chest x-ray. He has shortness of breath as well although this is chronic. Patient very vague historian. He denies any chest pain. PE, pericardial effusion, CHF, pneumonia, NC, very broad differential. Patient states he has not been able to keep his legs up because he did not have anywhere to put his legs up on. Patient's D-dimer was mildly elevated so CT angio was obtained. This shows atelectasis but no PE and shows fracture of the right 11th rib. Patient had initially denied any fall or injury to me. He states now 2 weeks ago he did have a fall and injured his right shoulder. He denies any injury to his head or headache or neck or back or other area of pain or injury. He denies any known chest injury. Denies any back injury. Patient was able to get up and ambulate with a walker. He states he has a walker at the hotel where he is living currently. Patient was able to walk across the room. Patient has no pain with weightbearing. I spoke to charge nurse and there is no social science instructor currently leasing professional. Patient chest x-ray was negative for acute process. Ultrasound of the legs was negative for DVT. Urinalysis not suggestive of infection. Troponin not significant elevated. proBNP not significant elevated. CBC and electrolytes do not show significant acute abnormality to indicate admission. I discussed the patient limits of ED evaluation and need for ongoing outpatient follow-up and fall precautions. Advised him use his walker. Advised him to keep his legs elevated and benefits of stockings to help with fluid. Advised prompt follow-up with primary care and social science research assistant and signs symptoms of worsening to watch and return for. Lab Data 04/28/25 19:14 04/28/25 18:44 Radiology Impressions Chest X-Ray 04/28/25 16:42 IMPRESSION: No acute cardiopulmonary findings. Venous Duplex 04/28/25 16:42 IMPRESSION: 1. No evidence of deep vein thrombosis. 2. Small right Bailey's cyst. Chest CTA 04/28/25 19:40 IMPRESSION: No acute or chronic pulmonary embolism present Findings are atelectasis lower lobes no pneumothorax Acute fracture of the medial right 11th rib at the level of the costovertebral junction Stable compression deformity superior endplate T9. Laboratory Results WBC 8.50 10^3/uL (3.29-11.43) 04/28/25 19:14 Corrected WBC Cancelled 04/28/25 18:44 RBC 4.41 10^6/uL (3.85-5.65) 04/28/25 19:14 Hgb 13.70 g/dL (11.27-16.99) 04/28/25 19:14 Hct 40.7 % (37-53) 04/28/25 19:14 MCV 92.3 fl (82-101) 04/28/25 19:14 MCH 31.1 pg (27-33) 04/28/25 19:14 MCHC 33.7 g/dL (30-55) 04/28/25 19:14 RDW 12.0 % (12.1-15.1) L 04/28/25 19:14 Plt Count 323 10^3/cmm (157-399) 04/28/25 19:14 MPV 9.9 fL (7.4-10.4) 04/28/25 19:14 Gran % Cancelled 04/28/25 18:44 Neut % (Auto) 62.5 % 04/28/25 19:14 Lymph % (Auto) 23.9 % 04/28/25 19:14 [place] % (Auto) 8.7 % 04/28/25 19:14 Eos % (Auto) 4.0 % 04/28/25 19:14 Baso % (Auto) 0.5 % 04/28/25 19:14 Neut # (Auto) 5.32 10^3/uL (1.8-7.7) 04/28/25 19:14 Lymph # (Auto) 2.0 10^3/uL (0.8-4.8) 04/28/25 19:14 [place] # (Auto) 0.7 10^3/uL (0.2-0.9) 04/28/25 19:14 Eos # (Auto) 0.3 10^3/uL (0.0-0.8) 04/28/25 19:14 Baso # (Auto) 0.0 10^3/uL (0.0-0.1) 04/28/25 19:14 Absolute Gran (auto) Cancelled 04/28/25 18:44 Nucleated RBC % (auto) 0 % 04/28/25 19:14 Nucleated RBCs # 0.0 /100WBC 04/28/25 19:14 D-Dimer 0.86 ug/mLFEU (0-0.59) H 04/28/25 18:44 Sodium 140 mmol/L (136-145) 04/28/25 18:44 Potassium 4.0 mmol/L (3.5-5.1) 04/28/25 18:44 Chloride 99 mmol/L (98-107) 04/28/25 18:44 Carbon Dioxide 26 mmol/L (22-29) 04/28/25 18:44 Anion Gap 19.0 (5-19) 04/28/25 18:44 BUN 20 mg/dL (8-23) 04/28/25 18:44 Creatinine 1.0 mg/dL (0.7-1.2) 04/28/25 18:44 GFR Calculation Not Reportable 04/28/25 18:44 Glucose 109 mg/dL (65-115) 04/28/25 18:44 Calculated Osmolality 293 mOsm/kg (285-295) 04/28/25 18:44 Calcium 9.1 mg/dL (8.5-10.5) 04/28/25 18:44 Total Bilirubin 0.7 mg/dL (0.15-1.2) 04/28/25 18:44 AST 9 U/L (0-40) 04/28/25 18:44 ALT 6 U/L (0-41) 04/28/25 18:44 Alkaline Phosphatase 89 U/L (40-130) 04/28/25 18:44 Troponin T Baseline 23 ng/L (0-15) H 04/28/25 18:44 Troponin T 120 Minute 14.44 ng/L (0-15) 04/28/25 20:49 Delta Troponin T -8.56 ABS# (0-10) L 04/28/25 20:49 NT-Pro-B Natriuret Pep 113 pg/mL (0-125) 04/28/25 18:44 Total Protein 7.1 g/dL (6.6-8.7) 04/28/25 18:44 Albumin 3.8 g/dL (3.5-5.2) 04/28/25 18:44 Globulin 3.3 g/dL (1.3-4.6) 04/28/25 18:44 TSH 2.38 uIU/mL (0.27-4.20) 04/28/25 18:44 Urine Color Dark yellow (Yellow) A 04/28/25 19:45 Urine Appearance Clear (CLEAR) 04/28/25 19:45 Urine pH 6.0 (5-7) 04/28/25 19:45 Ur Specific [place] 1.023 (1.005-1.030) 04/28/25 19:45 Urine Protein Trace (Negative) A 04/28/25 19:45 Urine Glucose (UA) Negative (Normal) 04/28/25 19:45 Urine Ketones 2+ (Negative) H 04/28/25 19:45 Urine Blood Trace (Negative) A 04/28/25 19:45 Urine Nitrate Negative (Negative) 04/28/25 19:45 Urine Bilirubin Negative (Negative) 04/28/25 19:45 Urine Urobilinogen 1.0 mg/dL (Negative) 04/28/25 19:45 Ur Leukocyte Esterase Negative (Negative) 04/28/25 19:45 Urine RBC 10-15 /hpf (0-2) H 04/28/25 19:45 Urine WBC 0-4 /hpf (0-5) H 04/28/25 19:45 Ur Squamous Epith Cells 3-5 /hpf (0-5) 04/28/25 19:45 Amorphous Sediment Not Reportable 04/28/25 19:45 Urine Bacteria None /hpf (NONE) 04/28/25 19:45 Hyaline Casts 3-5 /lpf 04/28/25 19:45 Fine Granular Casts 0-4 /lpf H 04/28/25 19:45 Urine Mucus 3+ /hpf 04/28/25 19:45 Urine Opiates Screen Negative ng/mL (Negative) 04/28/25 19:45 Ur Barbiturates Screen Negative ng/mL (Negative) 04/28/25 19:45 Ur Phencyclidine Scrn Negative ng/mL (Negative) 04/28/25 19:45 Ur Amphetamines Screen Negative ng/mL (Negative) 04/28/25 19:45 U Benzodiazepines Scrn Negative ng/mL (Negative) 04/28/25 19:45 Urine Cocaine Screen Negative ng/mL (Negative) 04/28/25 19:45 U Marijuana (THC) Screen Negative ng/mL (Negative) 04/28/25 19:45 All radiology interpretation(s) finalized by discharge Discharge Plan Discharge Patient Disposition: Home Clinical Impression: Bilateral edema of lower extremity Condition: Stable Prescriptions: New furosemide [Lasix] 20 mg tablet 20 mg PO DAILY Qty: 7 0RF No Action clopidogrel 75 mg tablet 75 mg PO DAILY olanzapine 10 mg tablet 10 mg PO DAILY Eliquis 5 mg tablet 5 mg PO BID Discharge Orders: Discharge ED (Routine); Ordered 04/28/25 Ordered By: Remington Ames Referrals: Crow Rodas MD [Primary Care Provider, Family Practice] Patient Instructions: Opioid Safety, Pain Management, Patient Portal & Padma Instructions Activity Restrictions/Additional Instructions: Fall precautions. Do not walk without your walker. Come back if you develop increased weakness, increased swelling, difficulty breathing, any worse or concerning symptoms. Please follow-up on your test results with your doctor. Keep your feet elevated at all times if not walking. You can take Lasix as needed for up to a week to see if this helps however you need to monitor your kidney function closely with your doctor and do not take if causes you increased weakness. Call your doctor on Wednesday for prompt follow-up early this coming week. Print Language: Macanese Coding Level of Care Code ED Health Information Tech for [place]
[2025-04-28 17:16] VITALS: BP 112/93; O2SAT 92
[2025-04-28 17:30] VITALS: BP 112/93; O2SAT 95
[2025-04-28 19:13] LABS: Troponin(5th) Baseline 23 ng/L (0-15)
[2025-04-28 19:20] LABS: Hematocrit 40.7 % (37-53); Hemoglobin 13.70 g/dL (11.27-16.99); Mean Corpuscular HGB Conc 33.7 g/dL (30-55); Mean Corpuscular Hemoglobin 31.1 pg (27-33); Mean Corpuscular Volume 92.3 fl (82-101); Nucleated Red Blood Cells % 0 %; Platelet Count 323 10^3/cmm (157-399); Red Blood Count 4.41 10^6/uL (3.85-5.65); White Blood Count 8.50 10^3/uL (3.29-11.43)
[2025-04-28 19:35] LABS: Alanine Aminotransferase 6 U/L (0-41); Albumin Level 3.8 g/dL (3.5-5.2); Alkaline Phosphatase 89 U/L (40-130); Anion Gap 19.0 (5-19); Aspartate Amino Transferase 9 U/L (0-40); Blood Urea Nitrogen 20 mg/dL (8-23); Calcium 9.1 mg/dL (8.5-10.5); Carbon Dioxide 26 mmol/L (22-29); Chloride 99 mmol/L (98-107); Creatinine Clr Calc Pharmacy 79.3216; Globulin 3.3 g/dL (1.3-4.6); Glucose 109 mg/dL (65-115); NT Pro B Type Natriuretic Pept 113 pg/mL (0-125); Osmolality Calculated 293 mOsm/kg (285-295); Potassium 4.0 mmol/L (3.5-5.1); Sodium 140 mmol/L (136-145); Thyroid Stimulating Hormone 2.38 uIU/mL (0.27-4.20); Total Protein 7.1 g/dL (6.6-8.7)
--- NOTE | 2025-04-28 19:40 | CTR_ITS ---
PROCEDURE INFORMATION: Exam: CTA Chest With Contrast Exam date and time: 04/28/2025 7:52 PM Age: 69 years old Clinical indication: Abnormal findings; Abnormal diagnostic tests; Elevated d-dimer; Shortness of breath; Prior surgery; Surgery date: 6+ months; Surgery type: Coronary stents; SOB with hypoxia. Dimer 0.8. ; Additional info: Dyspnea TECHNIQUE: Imaging protocol: Computed tomographic angiography of the chest with contrast. Exam focused on the arteries. 3D rendering (Not supervised by radiologist): MIP and/or 3D reconstructed images were created by the technologist. Radiation optimization: All CT scans at this facility use at least one of these dose optimization techniques: automated exposure control; mA and/or kV adjustment per patient size (includes targeted exams where dose is matched to clinical indication); or iterative reconstruction. Contrast material: OMNI 350; Contrast volume: 64 ml; Contrast route: INTRAVENOUS (IV); COMPARISON: CT angio chest PE protcl [id number] 04/17/2024 5:04 PM RADIATION DOSE METRICS: Total DLP (mGy-cm): 446.48 FINDINGS: Pulmonary arteries: There is no acute or chronic pulmonary embolism Aorta: Unremarkable. No aortic aneurysm. No aortic dissection. Lungs: Unremarkable. No consolidation. No masses. Pleural spaces: Does compress appearance to the lower lobes no consolidation or pneumothorax demonstrated. No significant pleural or pericardial effusion present Heart: See Pleural spaces finding. Coronary arteries: Coronary artery calcifications demonstrated. Lymph nodes: Unremarkable. No enlarged lymph nodes. Bones/joints: There is compressed appearance to the T9 vertebral body superior endplate similar compared to prior exam. There is demonstration of an acute minimally displaced fracture of the medial right rib as it abuts the costovertebral junction on image 395. Soft tissues: Unremarkable. Other findings: There is no aneurysm. CT/CT angio chest PE protcl [id number] IMPRESSION: No acute or chronic pulmonary embolism present Findings are atelectasis lower lobes no pneumothorax Acute fracture of the medial right 11th rib at the level of the costovertebral junction Stable compression deformity superior endplate T9.
[2025-04-28] MEDS: iohexol 350 mg/mL 500 mL Btl (per mL) IV (19:54)
[2025-04-28 20:02] LABS: Glucose Urine UA Negative (Normal); Nitrate Urine Negative (Negative); Specific Gravity, Urine 1.023 (1.005-1.030)
[2025-04-28 20:09] LABS: PCP Screen Urine Negative (Negative)
[2025-04-28 20:34] LABS: Add Urine Microscopic? YES; UA Manual Slide Review YES; UA Slide Review UA Slide Review Perf
[2025-04-28 21:19] LABS: Troponin 5 2HR 14.44 ng/L (0-15)
[2025-04-28 21:21] LABS: Troponin 5 2HR Delta -8.56 ABS# (0-10)
[2025-04-28 23:45] VITALS: BP 141/61; PULSE 84; RESP 20; O2SAT 94
== END 2025-04-29 00:02 | disposition home or self-care (01) ==
PROVIDERS: Emergency Provider Emergency Medicine; PCP Family Medicine
DX: R60.0 Localized edema (principal); Z79.02 Long term (current) use of antithrombotics/antiplatelets; Z79.01 Long term (current) use of anticoagulants; I10 Essential (primary) hypertension; E78.5 Hyperlipidemia, unspecified; Z86.73 Personal history of transient ischemic attack (TIA), and cerebral infarction without residual deficits; I25.110 Atherosclerotic heart disease of native coronary artery with unstable angina pectoris
CPT/HCPCS: 36415; 71045; 71275; 80053; 80306; 81001; 83880; 84443; 84484; 85025; 85378; 93005; 93970; 99285; J9999

== ENCOUNTER 2025-05-01 13:54 | Emergency (ER) | payer OTHER, SELFPAY ==
--- NOTE | 2025-05-01 13:53 | XR_ITS ---
WS: [id number] Portable AP upright chest, 05/01/2025 Clinical Data: htn Comparison: Portable chest, 04/28/2025 Findings: No nodules, masses or effusions are seen. The heart is normal. The pulmonary vascularity is not increased. No pneumonia or pneumothorax is seen. The aortic arch and descending thoracic aorta show tortuosity. The diaphragms are flattened. XR/XR chest 1V portable [id number] Impression: Atherosclerosis and hyperinflation.
[2025-05-01 14:01] VITALS: BP 130/86; PULSE 73; RESP 18; TEMP 37; O2SAT 92; BMI 36.0
--- NOTE | 2025-05-01 14:05 | ED_ITS ---
HPI - General Adult 2 General: Chief complaint: General Medical Stated complaint: Edema lower extremities Source: patient and EMS Mode of arrival: EMS Limitations: no limitations History of Present Illness: 69-year-old male states he had edema in his lower extremities he is seen here recently prescribed Lasix but states he has not filled it. He states he still having some swelling he denies any pain denies any fevers denies any worse improving factors. Associated symptoms: Deny chest pain, dyspnea, headache(s), nausea, rash or vomiting Related Data Home Medications ?Medication ?Instructions ?Recorded ?Confirmed clopidogrel 75 mg tablet 75 mg PO DAILY 01/07/2304/13 apixaban 5 mg tablet (Eliquis) 5 mg PO BID 04/19/25 olanzapine 10 mg tablet 10 mg PO DAILY 04/19/2504/13 Previous Rx's ?Medication ?Instructions ?Recorded furosemide 20 mg tablet (Lasix) 20 mg PO DAILY #7 tabs 04/28/25 Allergies Allergy/AdvReac Type Severity Reaction Status Date / Time codeine Allergy Mild hives Verified 01/12/23 14:01 Penicillins Allergy Unknown Verified 01/12/23 14:01 Review of Systems 2 Const: Denies: fever(s), chills, body aches or change in appetite ENMT: Denies: throat pain or dental pain Card: Denies: chest pain Resp: Denies: dyspnea GI: Denies: abdominal pain, nausea, vomiting or diarrhea Musc: Reports: extremity swelling; Denies: neck pain or back pain Skin/Breast: Denies: rash Neuro: Denies: headache(s) PFSH ED 2 PFSH: Medical History Sinus bradycardia Hence not on metoprolol Atherosclerosis of coronary artery of [place] heart with stable angina pectoris Atherosclerotic heart disease of [place] coronary artery with unstable angina pectoris Coronary artery disease Cardiac cath with stent placement on 10/25/19 He had a cardiac authorization in the hospital which revealed a subtotal occlusion of the intermedius artery for which he underwent PCI by Dr. Torres. Carotid artery stenosis with cerebral infarction over 8 weeks ago Continue on aspirin, Plavix and statin, continue with close cardiology follow-up in the outpatient setting Hypertension Tobacco abuse Carotid stenosis Left carotid artery thromboendarterectomy performed on 11/27/[address] 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 Zuniga Family History Mother Stroke Father Diabetes CAD (coronary artery disease) Had open heart surgery in his 60s. of congestive heart failure in his 80s. Denies family history of Clotting disorder Dementia Hyperlipidemia Psychiatric illness Chronic kidney disease (CKD) Suicide Anesthesia complication Bleeding disorder Family history of premature coronary artery disease Lung disease Cancer Hypertension Social History Smoking and tobacco/nicotine status: unknown if used tobacco/nicotine Quit status (tobacco/nicotine): considering quitting Alcohol intake: former Substance/Drug Use: never Marital status: Current gender identity: Male Physical Exam 2 Const: COMMON NORMALS: no acute distress, patient oriented x3 and healthy appearing HENMT: COMMON NORMALS: normocephalic and atraumatic HEAD & SCALP: n ormocephalic and atraumatic Eye: COMMON NORMALS: Equal, round and reactive pupils present and EOMs intact bilaterally PUPIL: Yes Equal, round and reactive pupils present Neck/C-Spine: COMMON NORMALS: full ROM and supple Chest: COMMONS NORMALS: normal inspection of the chest Resp: COMMON NORMALS: normal respiratory effort, No retractions, No use of accessory muscles and clear to auscultation bilaterally AUSCULTATION: clear to auscultation bilaterally Cardio: COMMON NORMALS: regular rate, regular rhythm and No murmurs present (Cardio) RATE: regular rate RHYTHM: regular rhythm Extremity: COMMON NORMALS: full ROM NARRATIVE EXTREMITY EXAM: 2+ edema le Neuro: COMMON NORMALS: patient oriented x3, moves all extremities and no focal motor deficits Psych: COMMON NORMALS: mental status grossly normal, Normal thought process present and cooperative THOUGHT PROCESS: Normal thought process present Skin: COMMON NORMALS: no rashes or lesions noted and no wounds GENERAL SKIN EXAM: no rashes or lesions noted Course 2 Vital Signs: Vital signs: Vital Signs Temperature 98.6 F 05/01/25 14:01 Pulse Rate 73 05/01/25 14:01 Respiratory Rate 18 05/01/25 14:01 Blood Pressure 130/86 05/01/25 14:01 Pulse Oximetry 92 05/01/25 14:01 Oxygen Delivery Me thod Room Air 05/01/25 14:01 MDM - General Adult Medical Decision Making Patient presents for lower extreme edema no signs of heart failure vitals here but normal did give a dose of Lasix he stable for discharge follow-up with PCP return if worsening. Medical Records I reviewed the patient's medical records. Lab Data I reviewed the patient's lab results. 05/01/25 14:53 05/01/25 14:53 Radiology Impressions Chest X-Ray 05/01/25 13:53 Impression: Atherosclerosis and hyperinflation. Laboratory Results WBC 8.31 10^3/uL (3.29-11.43) 05/01/25 14:53 RBC 4.84 10^6/uL (3.85-5.65) 05/01/25 14:53 Hgb 14.90 g/dL (11.27-16.99) 05/01/25 14:53 Hct 44.1 % (37-53) 05/01/25 14:53 MCV 91.1 fl (82-101) 05/01/25 14:53 MCH 30.8 pg (27-33) 05/01/25 14:53 MCHC 33.8 g/dL (30-55) 05/01/25 14:53 RDW 11.8 % (12.1-15.1) L 05/01/25 14:53 Plt Count 378 10^3/cmm (157-399) 05/01/25 14:53 MPV 9.4 fL (7.4-10.4) 05/01/25 14:53 Neut % (Auto) 57.0 % 05/01/25 14:53 Lymph % (Auto) 28.2 % 05/01/25 14:53 [place] % (Auto) 10.6 % 05/01/25 14:53 Eos % (Auto) 3.1 % 05/01/25 14:53 Baso % (Auto) 0.7 % 05/01/25 14:53 Neut # (Auto) 4.74 10^3/uL (1.8-7.7) 05/01/25 14:53 Lymph # (Auto) 2.3 10^3/uL (0.8-4.8) 05/01/25 14:53 [place] # (Auto) 0.9 10^3/uL (0.2-0.9) 05/01/25 14:53 Eos # (Auto) 0.3 10^3/uL (0.0-0.8) 05/01/25 14:53 Baso # (Auto) 0.1 10^3/uL (0.0-0.1) 05/01/25 14:53 Nucleated RBC % (auto) 0 % 05/01/25 14:53 Nucleated RBCs # 0.0 /100WBC 05/01/25 14:53 Sodium 137 mmol/L (136-145) 05/01/25 14:53 Potassium 3.2 mmol/L (3.5-5.1) L 05/01/25 14:53 Chloride 96 mmol/L (98-107) L 05/01/25 14:53 Carbon Dioxide 29 mmol/L (22-29) 05/01/25 14:53 Anion Gap 15.2 (5-19) 05/01/25 14:53 BUN 9 mg/dL (8-23) 05/01/25 14:53 Creatinine 0.8 mg/dL (0.7-1.2) 05/01/25 14:53 GFR Calculation Not Reportable 05/01/25 14:53 Glucose 115 mg/dL (65-115) 05/01/25 14:53 Calculated Osmolality 284 mOsm/kg (285-295) L 05/01/25 14:53 Calcium 9.3 mg/dL (8.5-10.5) 05/01/25 14:53 Total Bilirubin 0.7 mg/dL (0.15-1.2) 05/01/25 14:53 AST 15 U/L (0-40) 05/01/25 14:53 ALT 10 U/L (0-41) 05/01/25 14:53 Alkaline Phosphatase 96 U/L (40-130) 05/01/25 14:53 NT-Pro-B Natriuret Pep 208 pg/mL (0-125) H 05/01/25 14:53 Total Protein 8.4 g/dL (6.6-8.7) 05/01/25 14:53 Albumin 3.9 g/dL (3.5-5.2) 05/01/25 14:53 Globulin 4.5 g/dL (1.3-4.6) 05/01/25 14:53 All radiology interpretation(s) finalized by discharge Discharge Plan Discharge Patient Disposition: Home Clinical Impression: Bilateral edema of lower extremity Condition: Stable Prescriptions: No Action clopidogrel 75 mg tablet 75 mg PO DAILY furosemide [Lasix] 20 mg tablet 20 mg PO DAILY Qty: 7 0RF olanzapine 10 mg tablet 10 mg PO DAILY Eliquis 5 mg tablet 5 mg PO BID Discharge Orders: Discharge ED (Routine); Ordered 05/01/25 Ordered By: Carroll Das Referrals: Crow Rodas MD [Primary Care Provider, [facility]] - 4-7 days Discharge Diet: Advance as tolerated Discharge Activity: Resume usual activity Patient Instructions: Edema (ED) Print Language: Moldovan Coding Level of Care Code ED [employer] Mixer for [place]
[2025-05-01] MEDS: FUROsemide 10 mg/mL SDV 10mL 60 MG IVP (14:59)
[2025-05-01 15:10] LABS: Hematocrit 44.1 % (37-53); Hemoglobin 14.90 g/dL (11.27-16.99); Mean Corpuscular HGB Conc 33.8 g/dL (30-55); Mean Corpuscular Hemoglobin 30.8 pg (27-33); Mean Corpuscular Volume 91.1 fl (82-101); Nucleated Red Blood Cells % 0 %; Platelet Count 378 10^3/cmm (157-399); Red Blood Count 4.84 10^6/uL (3.85-5.65); White Blood Count 8.31 10^3/uL (3.29-11.43)
[2025-05-01 15:41] LABS: Alanine Aminotransferase 10 U/L (0-41); Albumin Level 3.9 g/dL (3.5-5.2); Alkaline Phosphatase 96 U/L (40-130); Anion Gap 15.2 (5-19); Aspartate Amino Transferase 15 U/L (0-40); Blood Urea Nitrogen 9 mg/dL (8-23); Calcium 9.3 mg/dL (8.5-10.5); Carbon Dioxide 29 mmol/L (22-29); Chloride 96 mmol/L (98-107); Creatinine Clr Calc Pharmacy 97.4989; Globulin 4.5 g/dL (1.3-4.6); Glucose 115 mg/dL (65-115); NT Pro B Type Natriuretic Pept 208 pg/mL (0-125); Osmolality Calculated 284 mOsm/kg (285-295); Potassium 3.2 mmol/L (3.5-5.1); Sodium 137 mmol/L (136-145); Total Protein 8.4 g/dL (6.6-8.7)
[2025-05-01 17:20] VITALS: BP 137/81; PULSE 84; RESP 16; O2SAT 95
== END 2025-05-01 17:51 | disposition home or self-care (01) ==
PROVIDERS: Emergency Provider Emergency Medicine; PCP Family Medicine
DX: R60.0 Localized edema (principal); Z79.01 Long term (current) use of anticoagulants; Z79.02 Long term (current) use of antithrombotics/antiplatelets; I25.110 Atherosclerotic heart disease of native coronary artery with unstable angina pectoris; E78.5 Hyperlipidemia, unspecified; I10 Essential (primary) hypertension; Z86.73 Personal history of transient ischemic attack (TIA), and cerebral infarction without residual deficits
CPT/HCPCS: 71045; 80053; 83880; 85025; 96374; 99284; J1938

== ENCOUNTER 2025-05-02 06:07 | Observation (INO) | payer OTHER, MEDICAID, SELFPAY ==
[2025-05-02] VITALS (12 sets, daily range): BP systolic 108–157; BP diastolic 60–117; PULSE 55–102; RESP 16–21; TEMP 36.3–37; O2SAT 88–99; BMI 31.7; BMI 32.4
--- NOTE | 2025-05-02 06:09 | XRR_ITS ---
PROCEDURE INFORMATION: Exam: XR Chest Exam date and time: 05/02/2025 6:30 AM Age: 69 years old Clinical indication: Pain; Angina pectoris; Additional info: Chest pain TECHNIQUE: Imaging protocol: Radiologic exam of the chest. Views: 1 view. COMPARISON: CR XR chest 1V portable [id number] 05/01/2025 1:58 PM FINDINGS: Lungs: Unremarkable. No consolidation. Pleural spaces: Unremarkable. No pleural effusion. No pneumothorax. Heart/Mediastinum: Unremarkable. No cardiomegaly. Bones/joints: Unremarkable. XR/XR chest 1V portable [id number] IMPRESSION: No acute findings.
--- NOTE | 2025-05-02 06:17 | ECG_ITS ---
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 Measurements Intervals [place] Rate: 107 P: 7 NE: 147 QRS: -30 QRSD: 109 T: 73 QT: 343 QTc: 459 Interpretive Statements SINUS TACHYCARDIA BORDERLINE LEFT AXIS DEVIATION [QRS AXIS < -20] MODERATE VOLTAGE CRITERIA FOR LVH, CONSIDER NORMAL VARIANT [MEETS CRITERIA IN ONE OF: R(aVL), S(V1), R(V5), R(V5/V6)+S(V1)] MODERATE T-WAVE ABNORMALITY, CONSIDER LATERAL ISCHEMIA [-0.1+ mV T-WAVE IN I/aVL/V5/V6] Compared to ECG 04/28/2025 17:03:12 T-wave abnormality now present Possible ischemia now present Sinus rhythm no longer present ST (T wave) deviation no longer present Electronically Signed On 05-05-2025 09:46:13 CDT by Wilner Tarango M.D. [id number] [id number]
--- NOTE | 2025-05-02 06:21 | ED_ITS ---
HPI - General Adult 2 General: Chief complaint: Chest Pain Stated complaint: CP Time Seen by Provider: 05/02/25 06:09 History of Present Illness: 69-year-old male checked back in to the emergency room with complaint of chest pain. This is his fifth visit this month. I had seen him on 17 April that time he had a positive delta troponin of +35 we advised patient left AGAINST MEDICAL ADVICE and he has returned 3 more times since then has had extensive cardiac workup he had bilateral lower extremity edema and had CTA of the chest and venous duplex all of which was negative. He is on Eliquis. He had also been given Lasix recently. So there is other recent visits. Complained of leg swelling. This morning he has been requiring 2 L of oxygen by nasal cannula. Patient was previously skilled nursing and left. Yesterday nursing home director in the emergency room [facility] senior javascript developer and other abdomen spent the ridiculous amount of time arranging for safety plan and transfer to a skilled nursing they had made arrangements for the patient to go to a local hotel until the evaluations and placement was completed however they never did go they refused despite a great deal of work of import into the plan and stayed in the waiting room all night. Evidently according to the family service caseworker from [facility] [employer] they have been working with this couple for a while has been quite a bit of difficulty they have had in place before they left the skilled nursing. 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 Associated symptoms: Reports chest pain and dyspnea; Deny rash Related Data Home Medications ?Medication ?Instructions ?Recorded ?Confirmed clopidogrel 75 mg tablet 75 mg PO DAILY 01/07/2304/14 apixaban 5 mg tablet (Eliquis) 5 mg PO BID 04/19/25 olanzapine 10 mg tablet 10 mg PO DAILY 04/19/2504/14 Previous Rx's ?Medication ?Instructions ?Recorded furosemide 20 mg tablet (Lasix) 20 mg PO DAILY #7 tabs 04/28/25 Allergies Allergy/AdvReac Type Severity Reaction Status Date / Time codeine Allergy Mild hives Verified 01/12/23 14:01 Penicillins Allergy Unknown Verified 01/12/23 14:01 Review of Systems 2 Const: Denies: fever(s) or chills Card: Reports: chest pain Resp: Reports: dyspnea GI: Denies: abdominal pain : Denies: dysuria, urinary frequency or urinary urgency Musc: Denies: neck pain or back pain Skin/Breast: Denies: rash PFSH ED 2 PFSH: Medical History Sinus bradycardia Hence not on metoprolol Atherosclerosis of coronary artery of [place] heart with stable angina pectoris Atherosclerotic heart disease of [place] coronary artery with unstable angina pectoris Coronary artery disease Cardiac cath with stent placement on 10/25/19 He had a cardiac authorization in the hospital which revealed a subtotal occlusion of the intermedius artery for which he underwent PCI by Dr. Torres. Carotid artery stenosis with cerebral infarction over 8 weeks ago Continue on aspirin, Plavix and statin, continue with close cardiology follow-up in the outpatient setting Hypertension Tobacco abuse Carotid stenosis Left carotid artery thromboendarterectomy performed on 11/27/[address] 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 Zuniga Family History Mother Stroke Father Diabetes CAD (coronary artery disease) Had open heart surgery in his 60s. of congestive heart failure in his 80s. Denies family history of Clotting disorder Dementia Hyperlipidemia Psychiatric illness Chronic kidney disease (CKD) Suicide Anesthesia complication Bleeding disorder Family history of premature coronary artery disease Lung disease Cancer Hypertension Social History Smoking and tobacco/nicotine status: unknown if used tobacco/nicotine Quit status (tobacco/nicotine): considering quitting Alcohol intake: former Substance/Drug Use: never Marital status: Current gender identity: Male Physical Exam 2 Const: GENERAL APPEARANCE: cooperative ORIENTATION/CONSCIOUSNESS: Yes awake, Yes oriented to person, Yes oriented to place and Yes oriented to time HENMT: COMMON NORMALS: normocephalic, atraumatic and hearing grossly normal bilaterally HEAD & SCALP: normocephalic and atraumatic Resp: COMMON NORMALS: normal respiratory effort, No retractions, No use of accessory muscles and clear to auscultation bilaterally AUSCULTATION: clear to auscultation bilaterally Cardio: COMMON NORMALS: regular rate, regular rhythm and No murmurs present (Cardio) RATE: regular rate RHYTHM: regular rhythm GI: COMMON NORMALS: Soft to palpation and No hepatosplenomegaly present A USCULTATION: Yes normoactive bowel sounds PALPATION: Yes Soft to palpation, No Tenderness to palpation present (GI), No Guarding due to palpation present (GI) and Yes No hepatosplenomegaly present Extremity: COMMON NORMALS: normal to inspection, capillary refill normal, no clubbing, cyanosis or edema, no calf tenderness and no pedal edema Neuro: SENSORIUM/ORIENTATION: Yes oriented to person, Yes oriented to place and Yes oriented to time Skin: COMMON NORMALS: no rashes or lesions noted GENERAL SKIN EXAM: no rashes or lesions noted Course 2 Vital Signs: Vital signs: Vital Signs Temperature 98.6 F 05/02/25 06:16 Pulse Rate 84 05/02/25 13:23 Respiratory Rate 18 05/02/25 07:12 Blood Pressure 157/117 05/02/25 06:24 Pulse Oximetry 99 05/02/25 13:23 Oxygen Delivery Me thod Nasal Cannula 05/02/25 07:12 Oxygen Flow Rate 4 05/02/25 07:12 MDM - General Adult Medical Decision Making Patient recently had an NSTEMI he left AMA and did not have further evaluation- back several times for shortness of breath. Is also been some social concerns as logistically he has been in and out of the ER multiple times with complaints swelling in her legs and shortness of breath. Discussed with patient believe he needs further evaluation he is not requiring oxygen I suspect there may be some component of congestive heart failure may be intrinsic lung disease. Previous had a CT of the chest which was negative this was reviewed on the chart discussed Dr. rOozco. Patient was admitted. After patient is admitted his 6-hour troponin came back while he was still emergency room waiting for bed assignment he has a positive delta troponin of +28 asked staff to contact Dr. Orozco to make him aware so they can make appropriate adjustments to his plan. Medical Records I reviewed the patient's medical records. Lab Data I reviewed the patient's lab results. 05/02/25 06:20 05/02/25 06:39 Radiology Impressions Chest X-Ray 05/02/25 06:09 IMPRESSION: No acute findings. Laboratory Results WBC 10.12 10^3/uL (3.29-11.43) 05/02/25 06:20 RBC 5.36 10^6/uL (3.85-5.65) 05/02/25 06:20 Hgb 16.40 g/dL (11.27-16.99) 05/02/25 06:20 Hct 49.8 % (37-53) 05/02/25 06:20 MCV 92.9 fl (82-101) 05/02/25 06:20 MCH 30.6 pg (27-33) 05/02/25 06:20 MCHC 32.9 g/dL (30-55) 05/02/25 06:20 RDW 11.8 % (12.1-15.1) L 05/02/25 06:20 Plt Count 344 10^3/cmm (157-399) 05/02/25 06:20 MPV 10.4 fL (7.4-10.4) 05/02/25 06:20 Neut % (Auto) 65.3 % 05/02/25 06:20 Lymph % (Auto) 21.7 % 05/02/25 06:20 [place] % (Auto) 10.1 % 05/02/25 06:20 Eos % (Auto) 1.6 % 05/02/25 06:20 Baso % (Auto) 0.8 % 05/02/25 06:20 Neut # (Auto) 6.61 10^3/uL (1.8-7.7) 05/02/25 06:20 Lymph # (Auto) 2.2 10^3/uL (0.8-4.8) 05/02/25 06:20 [place] # (Auto) 1.0 10^3/uL (0.2-0.9) H 05/02/25 06:20 Eos # (Auto) 0.2 10^3/uL (0.0-0.8) 05/02/25 06:20 Baso # (Auto) 0.1 10^3/uL (0.0-0.1) 05/02/25 06:20 Nucleated RBC % (auto) 0 % 05/02/25 06:20 Nucleated RBCs # 0.0 /100WBC 05/02/25 06:20 Specimen Type Arterial 05/02/25 07:40 Sample Site Radial, right 05/02/25 07:40 ABG pH 7.47 (7.35-7.45) H 05/02/25 07:40 ABG pCO2 38.7 mmHg (35-45) 05/02/25 07:40 ABG pO2 53.8 mmHg (80.0-100.0) L 05/02/25 07:40 ABG PO2/FiO2 Ratio 168 05/02/25 07:40 ABG HCO3 28.2 mmol/L (22-26) H 05/02/25 07:40 ABG O2 Saturation 88.5 05/02/25 07:40 ABG Base Excess 4.3 mmol/L (-2.0-2.0) H 05/02/25 07:40 Brayan Test Pos 05/02/25 07:40 A-a O2 Gradient 16.5 mmHg (5-10) H 05/02/25 07:40 Hematocrit 47.5 % (42-52) 05/02/25 07:40 Hgb O2 Saturation 87.6 % (95-100) L 05/02/25 07:40 Carboxyhemoglobin 1.2 %THgb (0.4-20.1) 05/02/25 07:40 Methemoglobin < 0.0 % (0.4-1.5) L 05/02/25 07:40 Total Hemoglobin 15.5 g/dL (14-18) 05/02/25 07:40 Sodium 138.0 mmol/L (131-143) 05/02/25 07:40 Potassium 3.1 mmol/L (3.5-5.0) L 05/02/25 07:40 Glucose 154.0 mg/dL (70-115) H 05/02/25 07:40 Ionized Calcium 1.1 mmol/L (1.1-1.4) 05/02/25 07:40 O2 Delivery Device Nc 05/02/25 07:40 FiO2 32.0 % 05/02/25 07:40 Process Engineering Technician ID Broma 05/02/25 07:40 Sodium 134 mmol/L (136-145) L 05/02/25 06:39 Potassium 3.4 mmol/L (3.5-5.1) L 05/02/25 06:39 Chloride 91 mmol/L (98-107) L 05/02/25 06:39 Carbon Dioxide 25 mmol/L (22-29) 05/02/25 06:39 Anion Gap 21.4 (5-19) H 05/02/25 06:39 BUN 16 mg/dL (8-23) 05/02/25 06:39 Creatinine 1.0 mg/dL (0.7-1.2) 05/02/25 06:39 GFR Calculation Not Reportable 05/02/25 06:39 Glucose 155 mg/dL (65-115) H 05/02/25 06:39 Calculated Osmolality 282 mOsm/kg (285-295) L 05/02/25 06:39 Uric Acid 9.9 mg/dL (3.4-7.0) H 05/02/25 06:39 Calcium 9.7 mg/dL (8.5-10.5) 05/02/25 06:39 Total Bilirubin 0.9 mg/dL (0.15-1.2) 05/02/25 06:39 AST 20 U/L (0-40) 05/02/25 06:39 ALT 14 U/L (0-41) 05/02/25 06:39 Alkaline Phosphatase 103 U/L (40-130) 05/02/25 06:39 Troponin T Baseline 19 ng/L (0-15) H 05/02/25 06:39 Troponin T 120 Minute 20.89 ng/L (0-15) H 05/02/25 07:58 Delta Troponin T 1.89 ABS# (0-10) 05/02/25 07:58 NT-Pro-B Natriuret Pep 330 pg/mL (0-125) H 05/02/25 06:39 Total Protein 9.0 g/dL (6.6-8.7) H 05/02/25 06:39 Albumin 3.9 g/dL (3.5-5.2) 05/02/25 06:39 Globulin 5.1 g/dL (1.3-4.6) H 05/02/25 06:39 Procalcitonin 0.07 ng/mL (0-0.5) 05/02/25 06:39 Influenza A (PCR) Negative (Negative) 05/02/25 08:45 Influenza Type B (PCR) Negative (Negative) 05/02/25 08:45 RSV (PCR) Negative (Negative) 05/02/25 08:45 SARS-CoV-2 (PCR) Negative (Negative) 05/02/25 08:45 All radiology interpretation(s) finalized by discharge EKG Data EKG 1: Interpretation: EKG 05/02/2025 6:17 AM sinus tachycardia rate of 107 SC interval 147 QTc [address]. No acute ST elevations when compared to EKG 04/28/2025 significant changes. Computer generated interpretation: Chest X-Ray 05/02/25 06:09 IMPRESSION: No acute findings. Discharge Plan Discharge Admit Provider: Noah Orozco Condition: Stable Coding Level of Care Code ED Hotel Registration Clerk for [facility]
[2025-05-02 06:24] LABS: Hematocrit 49.8 % (37-53); Hemoglobin 16.40 g/dL (11.27-16.99); Mean Corpuscular HGB Conc 32.9 g/dL (30-55); Mean Corpuscular Hemoglobin 30.6 pg (27-33); Mean Corpuscular Volume 92.9 fl (82-101); Nucleated Red Blood Cells % 0 %; Platelet Count 344 10^3/cmm (157-399); Red Blood Count 5.36 10^6/uL (3.85-5.65); White Blood Count 10.12 10^3/uL (3.29-11.43)
--- NOTE | 2025-05-02 06:58 | PC.PHAR ---
Pt presented here 05/01/25 and stated he has been out of medication for a couple days. Discharged with the same 4 medications on his list. Med rec verified this morning from the previous list from yesterday.
[2025-05-02 07:07] LABS: Troponin(5th) Baseline 19 ng/L (0-15)
[2025-05-02 07:09] LABS: Alanine Aminotransferase 14 U/L (0-41); Albumin Level 3.9 g/dL (3.5-5.2); Alkaline Phosphatase 103 U/L (40-130); Blood Urea Nitrogen 16 mg/dL (8-23); Calcium 9.7 mg/dL (8.5-10.5); Carbon Dioxide 25 mmol/L (22-29); Chloride 91 mmol/L (98-107); Creatinine Clr Calc Pharmacy 73.2872; Globulin 5.1 g/dL (1.3-4.6); Glucose 155 mg/dL (65-115); Osmolality Calculated 282 mOsm/kg (285-295); Sodium 134 mmol/L (136-145); Total Protein 9.0 g/dL (6.6-8.7)
[2025-05-02] MEDS: FUROsemide 10 mg/mL SDV 4mL 40 MG IVP (07:14)
[2025-05-02 07:19] LABS: NT Pro B Type Natriuretic Pept 330 pg/mL (0-125); Procalcitonin 0.07 ng/mL (0-0.5)
[2025-05-02 07:22] LABS: Anion Gap 21.4 (5-19); Aspartate Amino Transferase 20 U/L (0-40); Potassium 3.4 mmol/L (3.5-5.1)
[2025-05-02 07:51] LABS: ABG PCO2 38.7 mmHg (35-45); ABG PH Result 7.47 (7.35-7.45); Arterial Blood Gas Hematocrit 47.5 % (42-52); Blood Gas Allen Test Pos; Blood Gas Sample Type Arterial; Carboxyhemoglobin 1.2 %THgb (0.4-20.1); Glucose Level-ABG 154.0 mg/dL (70-115); HCO3 ABG 28.2 mmol/L (22-26); Ionized Calcium Level - ABG 1.1 mmol/L (1.1-1.4); Methemoglobin < 0.0 % (0.4-1.5); Oxygen Saturation ABG 88.5; PO2 ABG 53.8 mmHg (80.0-100.0); Potassium Level - ABG 3.1 mmol/L (3.5-5.0); Sodium Level - ABG 138.0 mmol/L (131-143)
[2025-05-02 07:53] LABS: Alveolar-Arterial Oxygen Gradi 16.5 mmHg (5-10); Blood Gas Operator Identificat BROMA; Blood Gas Sample Site Radial, right; PO2 FiO2 Ratio Arterial Blood 168
[2025-05-02 08:25] LABS: Troponin 5 2HR 20.89 ng/L (0-15); Troponin 5 2HR Delta 1.89 ABS# (0-10)
--- NOTE | 2025-05-02 08:31 | USCV_ITS ---
Arnaldo Chacon Age: 69 Gender: M : 1955 Exam Date: 05/02/2025 12:26 Ordering Phys: Gordy Sarkar DO Technologist: Exam Location: [facility] Indication: cp sob BP: 137 / 102 HR: 71 Rhythm: Sinus Technical Quality: Adequate MEASUREMENTS (Male / Female) Normal Values 2D ECHO LV Diastolic Diameter PLAX 3.5 cm 4.2 - 5.9 / 3.9 - 5.3 cm IVS Diastolic Thickness 1.3 cm 0.6 - 1.0 / 0.6 - 0.9 cm IVS Systolic Thickness 1.6 cm LVPW Diastolic Thickness 1.3 cm 0.6 - 1.0 / 0.6 - 0.9 cm LVPW Systolic Thickness 1.7 cm LVOT Diameter 2.0 cm LV Ejection Fraction 2D Teich 66.8 % LV Ejection Fraction MOD 4C 59.0 % LV Ejection Fraction MOD 2C 71.3 % LV Ejection Fraction 2C AL 73.0 % LA Diameter 2.7 cm Aorta at Sinotubular Diameter 2.3 cm M-MODE LA Ao Ratio MM 1.2 AV Cusp Separation MM 2.9 cm DOPPLER AV Peak Velocity 92.0 cm/s LVOT Peak Velocity 66.0 cm/s AV Area Cont Eq vti 2.7 cm squared AV Area Cont Eq pk 2.3 cm squared MV Peak Velocity 75.0 cm/s MV Area PHT 4.9 cm squared Mitral E to A Ratio 0.9 FINDINGS Left Ventricle Normal left ventricular size, systolic function and wall thickness, with no regional wall motion abnormalities. Left ventricular ejection fraction is estimated at 60 %. Grade I/IV diastolic dysfunction (abnormal relaxation filling pattern), normal to mildly elevated filling pressures. Grade I/IV diastolic dysfunction (abnormal relaxation filling pattern), normal to mildly elevated filling pressures. Right Ventricle The right ventricle is normal in size and function. Right Atrium The right atrium is normal in size. Left Atrium The left atrium is normal in size. Mitral Valve Structurally normal mitral valve without significant stenosis or prolapse. There is no mitral regurgitation. Aortic Valve Structurally normal aortic valve without significant sclerosis or stenosis. There is no aortic regurgitation. Tricuspid Valve Structurally normal tricuspid valve without significant stenosis or regurgitation. Pulmonary artery systolic pressure is normal. Pulmonic Valve Structurally normal pulmonic valve without significant stenosis. There is no pulmonic regurgitation. Pericardium Normal pericardium without effusion. Aorta Normal ascending aorta dimension. IVC The inferior vena cava appears normal. CONCLUSIONS Normal left ventricular size, systolic function and wall thickness, with no regional wall motion abnormalities. Left ventricular ejection fraction is estimated at 60 %. Grade I/IV diastolic dysfunction (abnormal relaxation filling pattern), normal to mildly elevated filling pressures. Grade I/IV diastolic dysfunction (abnormal relaxation filling pattern), normal to mildly elevated filling pressures. No significant valve abnormalities. There is no pericardial effusion. Right atrial pressure is around 5 mm of mercury. Debbie Torres MD (Electronically Signed) Final Date: 02 May 2025 12:53 S
--- NOTE | 2025-05-02 09:08 | ECG_ITS ---
[facility] Date: 2025[facility]02 Pat Name: Arnaldo Chacon Department: Room: Gender: Male Transcription Manager: : 1955 Requested By: Gordy Slater Order Number: [id number] Candi MD: Wilner Tarango M.D. Measurements Intervals [place] Rate: 97 P: 31 OR: 162 QRS: -32 QRSD: 104 T: 72 QT: 364 QTc: 464 Interpretive Statements SINUS RHYTHM LEFT AXIS DEVIATION [QRS AXIS < -30] PATTERN CONSISTENT WITH PULMONARY DISEASE LEFT VENTRICULAR HYPERTROPHY AND ST-T CHANGE [VOLTAGE CRITERIA PLUS ST/T ABNORMALITY] Compared to ECG 05/02/2025 06:17:34 ST (T wave) deviation now present Sinus tachycardia no longer present T-wave abnormality no longer present Possible ischemia no longer present Electronically Signed On 05-05-2025 09:46:10 CDT by Wilner Tarango M.D. [email or web address]
[2025-05-02 09:29] LABS: Respiratory Syncytial Virus Ce NEGATIVE (Negative); SARS-CoV-2 PCR NEGATIVE (Negative)
--- NOTE | 2025-05-02 09:31 | PM.HP ---
Providers/Chief Complaint Primary Care Provider: Crow Rodas MD Chief Complaint: CP History of Present Illness Arnaldo Chacon is a 69 year old gentleman with a history of coronary artery disease with stent placement in 2019, carotid stenosis with prior cerebrovascular accident, hypertension, hyperlipidemia, tobacco abuse, and self-reported gout who presents after multiple recent emergency department (ED) visits. On April 28 he was seen for bilateral leg swelling; venous duplex was negative for deep-vein thrombosis (DVT), suspected congestive heart failure (CHF) was treated with intravenous (IV) furosemide (Lasix) and an outpatient prescription that was not filled. He re-presented May 01 with persistent swelling, received another IV Lasix dose, and was discharged. Today he returns with chest pain described as ?like something walking on the chest,? associated with hypoxia (home baseline no oxygen; ED saturation 88 %, improved to 95 % on 4 L nasal cannula). Denies cough, vomiting, abdominal pain, or diarrhea. Reports generalized weakness for 3?4 days and inability to ambulate; last walked independently two weeks ago using a walker. Right foot is red, tender, and contributes to difficulty walking; states he ?always had gout? but is not on chronic therapy. Denies current smoking, alcohol, or illicit drug use. Lives at home with ; no home health support. No routine follow-up with primary-care or cardiology. Review of Systems Const: Reports: fatigue; Denies: fever(s), chills, body aches or malaise ENMT: Denies: throat pain Card: Reports: edema; Denies: chest pain, pre-syncope or dyspnea on exertion Resp: Denies: dyspnea, productive cough, change in phlegm color or hemoptysis GI: Denies: abdominal pain, nausea, vomiting, diarrhea, constipation, hematochezia or melena : Denies: flank pain, difficulty urinating, urinary frequency or hematuria Musc: Denies: back pain, joint swelling or joint redness Skin/Breast: Reports: erythema (Distal medial R foot /1st MTP joint); Denies: rash or new lesions Neuro: Denies: headache(s) or confusion Medications/Allergies Home Medications ?Medication ?Instructions ?Recorded ?Confirmed ?Last Taken ?Type clopidogrel 75 mg tablet 75 mg PO DAILY 01/07/23 05/02/25 04/29/25 History apixaban 5 mg tablet (Eliquis) 5 mg PO BID 04/19/25 05/02/25 04/29/25 History olanzapine 10 mg tablet 10 mg PO DAILY 04/19/25 05/02/25 04/29/25 History furosemide 20 mg tablet (Lasix) 20 mg PO DAILY #7 tabs 04/28/25 05/02/25 04/29/25 Rx Allergies Allergy/AdvReac Type Severity Reaction Status Date / Time codeine Allergy Mild hives Verified 01/12/23 14:01 Penicillins Allergy Unknown Verified 01/12/23 14:01 PFSH Acute PFSH: Medical History Sinus bradycardia Hence not on metoprolol Atherosclerosis of coronary artery of [place] heart with stable angina pectoris Atherosclerotic heart disease of [place] coronary artery with unstable angina pectoris Coronary artery disease Cardiac cath with stent placement on 10/25/19 He had a cardiac authorization in the hospital which revealed a subtotal occlusion of the intermedius artery for which he underwent PCI by Dr. Torres. Carotid artery stenosis with cerebral infarction over 8 weeks ago Continue on aspirin, Plavix and statin, continue with close cardiology follow-up in the outpatient setting Hypertension Tobacco abuse Carotid stenosis Left carotid artery thromboendarterectomy performed on 11/27/[address] 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 Zuniga Family History Mother Stroke Father Diabetes CAD (coronary artery disease) Had open heart surgery in his 60s. of congestive heart failure in his 80s. Denies family history of Clotting disorder Dementia Hyperlipidemia Psychiatric illness Chronic kidney disease (CKD) Suicide Anesthesia complication Bleeding disorder Family history of premature coronary artery disease Lung disease Cancer Hypertension Social History Smoking and tobacco/nicotine status: unknown if used tobacco/nicotine Quit status (tobacco/nicotine): considering quitting Alcohol intake: former Substance/Drug Use: never Marital status: Current gender identity: Male Vitals/I&O/Wt Last Vital Signs Temp 98.6 F 05/02/25 06:16 Pulse 91 05/02/25 07:17 Resp 18 05/02/25 07:12 BP 157/117 05/02/25 06:24 Pulse Ox 95 05/02/25 07:12 O2 Del Method Nasal Cannula 05/02/25 07:12 O2 Flow Rate 4 05/02/25 07:12 Weight last 48 hrs Weight 92.034 kg Physical Exam Narrative: Accompanied by his Const: COMMON NORMALS: patient oriented x3 and alert GENERAL APPEARANCE: cooperative ORIENTATION/CONSCIOUSNESS: Yes awake HENMT: COMMON NORMALS: oropharynx normal Neck/C-Spine: COMMON NORMALS: no JVD Resp: COMMON NORMALS: normal respiratory effort and clear to auscultation bilaterally AUSCULTATION: clear to auscultation bilaterally Cardio: COMMON NORMALS: no JVD, regular rhythm, S1 normal heart sound present, S2 normal heart sound present and No murmurs present (Cardio) RHYTHM: regular rhythm HEART SOUNDS: S1 normal heart sound present and S2 normal heart sound present GI: COMMON NORMALS: Normal to inspection, nondistended, normoactive bowel sounds present, Soft to palpation and non-tender PALPATION: Yes Soft to palpation Extremity: COMMON NORMALS: no joint enlargement GENERAL: Yes edema (2+) OTHER: Erythema, pain on PROM surrounding R 1st MTP Neuro: COMMON NORMALS: patient oriented x3 and moves all extremities SENSORIUM/ORIENTATION: Yes alert Data 05/02/25 06:20 05/02/25 06:39 A&P Assessment and plan 1. Chest pain: Intermittent non-pleuritic chest discomfort; CTA on 04/28 negative for pulmonary embolism; EKG today with jagged baseline, upright T-waves, possible left-ventricular hypertrophy (LVH). Differential includes unstable angina, non-ST elevation myocardial infarction (NSTEMI), demand ischemia. Reviewed vitals, chest x-ray, EKG and troponin, and my interpretation EKG with possible LVH, pending official read. - Order transthoracic echocardiogram to assess cardiac function because of hypoxia and possible prior NSTEMI. - Plan further cardiac work-up including outpatient stress test. - Continue aspirin (antiplatelet therapy). - Start beta-von; monitor heart rate. - Resume cholesterol medication (unspecified) as secondary prevention. 2. Acute CHF: Acute diastolic CHF. Reviewed prior echocardiogram, normal ejection fraction. Reviewed stress test back in 2023. New oxygen requirement (O2 sat 88 % room air, improved to 95 % on 4 L); brain natriuretic peptide (BNP) 330; bilateral edema; prior improvement with IV diuresis. Differential includes acute decompensated CHF, pulmonary hypertension. Reviewed chemistry, noted hypokalemia, requested replacement. Check magnesium. - Continue oxygen support and wean as tolerated. - Administer IV Lasix 40 mg; continue IV diuresis. Monitor electrolytes with risk of deficiency with diuresis, monitor renal function - Monitor electrolytes closely due to diuresis. - Order echocardiogram for cardiac evaluation. - Assess for pulmonary hypertension. 3. Hypoxia: Treat acute CHF as above. Pending nasal influenza, COVID, RSV swab. Reviewed chest x-ray. Reviewed recent CTA from 04/28. No PE noted. Overall unremarkable. Assess TTE to assess valves, ventricular function, pulmonary hypertension. 4. Leg edema: Lower extremity edema : Persistent bilateral leg swelling despite prior prescriptions; duplex negative for DVT. - Continue IV diuresis with Lasix (see CHF plan). - Monitor response (leg circumference, weight). 5. Hypertension: Long-standing hypertension; ED BP 147/117 and prior 157 systolic; needs optimization. - Initiate beta-von (also for CAD) and monitor heart rate. - Consider additional antihypertensive agents if pressures remain elevated. - Monitor for hypotension given aggressive diuresis. 6. Gout flare: Right foot erythema and tenderness; history of gout with minimal prior treatment. - Check serum uric acid level. - Administer NSAID and start allopurinol for acute gout flare. Monitor for risk of ELVIS with NSAID with IV diuresis - Obtain right foot X-ray. 7. Hypokalemia: Serum potassium 3.4 mEq/L, likely worsened by IV diuresis. - Requested potassium supplement. Check magnesium. Follow-up chemistry. - Monitor serial electrolytes. - Replace potassium as needed (specific dosing not stated). 8. Physical deconditioning: Functional decline and generalized weakness : Unable to ambulate for 3?4 days; uses walker; planned rehabilitation placement. - Request physical therapy evaluation. - Consult case management to continue arrangements for admission to [facility] in [place]. - Assess need for longer-term placement versus short-term rehabilitation. - Check TSH Plan: Hospitalization bundle : Inpatient admission for monitoring and treatment; code status discussed (patient prefers comfort measures only if cardiac arrest). - to hospitalist service for overnight observation. - Ensure [id number] assistance due to medication access challenges. - Document code status and decision-maker () in chart. History of CAD and prior stenting: Resume clopidogrel. He has not been taking any medications. Will need meds to beds. Discussed with nursing, correctional counselor/case manager. Reviewed ED provider note, discussed with ED provider. Discussed with nursing, correctional counselor/case manager. PDMP PDMP Reviewed: Not Reviewed Attestations Medical Necessity Statement*: Place in observation for additional assessment management of episode of chest pain and gentleman with underlying CAD, not taking medications, acute CHF. and High MDM includes amount and/or complexity of data reviewed/ordered [ previous or external records, resulted lab(s)/test(s), ordered lab(s)/test(s), independent test interpretation and other healthcare professional discussion] and described risk of complication, morbidity or mortality of management as documented Diagnoses Chest pain R07.9 Acute CHF I50.9 Hypoxia R09.02 Leg edema R60.0 Hypertension I10 Gout flare M10.9 Hypokalemia E87.6 Physical deconditioning R53.81
[2025-05-02 11:18] LABS: Uric Acid 9.9 mg/dL (3.4-7.0)
[2025-05-02 12:59] LABS: Troponin 5 6HR 47.15 ng/L (0-15)
[2025-05-02 13:03] LABS: Troponin 5 6HR Delta 28.15 ng/L (0-12)
--- NOTE | 2025-05-02 14:26 | XR_ITS ---
WS: [id number] Right foot, 3 views, 05/02/2025 Clinical Data: redness, pain distal medial foot/1st MTP - gout? Comparison: None. Findings: No fractures or dislocations are seen. No bone destruction or erosion is noted. There is a bunion of the head of the right first metatarsal. No periarticular calcifications are seen.. XR/XR foot RT min 3V* [id number] Impression: Bunion at head of right first metatarsal, and no evidence of gout calcification s is seen.
--- NOTE | 2025-05-02 14:51 | PC.NURSE ---
Patient transferred to CSU from ED via a wheelchair at 1415.
[2025-05-02 15:40] LABS: Magnesium 1.7 mg/dL (1.7-2.3); Thyroid Stimulating Hormone 4.69 uIU/mL (0.27-4.20)
--- NOTE | 2025-05-02 22:45 | PC.NURSE ---
Got in report that patient had been asleep since arrival, woke patient up to assess at shift change and let him know I had ibuprofen for him tonight, had to heavily shake awake and patient swatted at me and said he did not want his medication. Went in to the room later to see if he had to pee, no urine output since before shift change. Patient refused to open his eyes for any of the staff, but is arousable. Will continue to monitor.
[2025-05-03] VITALS (8 sets, daily range): BP systolic 98–132; BP diastolic 59–78; PULSE 52–79; RESP 13–22; TEMP 36.6–37.1; O2SAT 93–97
[2025-05-03 02:31] LABS: PCP Screen Urine Negative (Negative)
[2025-05-03 06:00] LABS: Anion Gap 15.3 (5-19); Blood Urea Nitrogen 22 mg/dL (8-23); Calcium 8.5 mg/dL (8.5-10.5); Carbon Dioxide 28 mmol/L (22-29); Chloride 98 mmol/L (98-107); Creatinine Clr Calc Pharmacy 74.1045; Glucose 122 mg/dL (65-115); Osmolality Calculated 291 mOsm/kg (285-295); Potassium 3.3 mmol/L (3.5-5.1); Sodium 138 mmol/L (136-145)
--- NOTE | 2025-05-03 08:00 | ECG_ITS ---
[employer] Test Date: 2025-05-03 Pat Name: Arnaldo Chacon Department: Room: 108 Gender: Male Body Cleaner: : 1955 Requested By: Noah Orozco Order Number: [id number] Candi MD: Carol Tse M.D. Interpretive Statements Lung unchanged pre/post procedure; Intraprocedure shortess of breath; Symptoms resoled by discharge PROCEDURE: At the baseline, the EKG revealed normal sinus rhythm with nonspecific T wave changes. Minimal left axis deviation.. The baseline heart was 71 bpm with a blood pressue of 118/78 mm of Hg Lexiscan was infused over a period of 20 seconds. A total of 0.4 milligrams of Lexiscan was infused. The stress phase was continued for a total of 5 minutes. Heart rate at the end of the stress phase was 84 bpm with a blood pressure 111/70 mm of Hg. The EKG at the peak infusion revealed no significant changes. Sestamibi was injected 20 seconds after the Lexiscan infusion. Heart rate at the end of the recovery phase was 81 bpm with a blood pressure of 117/70 mm of Hg. CONCLUSION: 1. No significant EKG changes with the LexiScan infusion 2. No LexiScan induced chest pain or cardiac arrhythmia 3. Normal blood pressure and heart rate response 4. Sestamibi/sestamibi perfusion scan pending; see separate report. Electronically Signed On 05-04-2025 09:01:00 CDT by Carol Tse M.D. [email or web address]
--- NOTE | 2025-05-03 13:47 | NMCV_ITS ---
NM audi perf SPECT r/s* [id number] Arnaldo Chacon Age: 69 Gender: M : 1955 Exam Date: 05/03/2025 06:12 Ordering Phys: Noah Orozco MD Technologist: DOMINIC Brunner Exam Location: [facility] Indications: cp STRESS TEST Please see separate stress test report in [facility] for full findings IMAGE PROTOCOL Rest/Stress 1 Lexiscan Day Radiopharmaceutical Dose (mCi) Administration Site Administered by Rest: Tc-99m 11 IV DOMINIC Brunner Sestamibi Stress:Tc-99m 32.6 IV DOMINIC Dejesus Sestamibi Rest: 03-May-2025 60 Discovery 630 Stress: 03-May-2025 30 Discovery 630 0.4mg Lexiscan. Supine position only as patient was unable to lay prone. SPECT RESULTS Technical Quality: Good Raw Data Analysis: Normal Image Corrections: No attenuation or motion correction applied Summed Stress Score: 3 Summed Rest Score: 1 Summed Difference Score: 3 PERFUSION FINDINGS Moderate area of slightly decreased tracer uptake was noted in the basal and mid inferior and mid inferolateral segments. Significant reversibility was noted in this area in the supine imaging. However with the prone imaging, no significant reversibility was noted. FUNCTIONAL RESULTS (calculated via Gated SPECT) Stress Image LV EF (%): 83 Stress EDV (mL):54 TID: 1 Stress ESV (mL):9 FUNCTIONAL FINDINGS: Segmental wall motion analysis revealing no gross wall motion abnormalities IMPRESSIONS 1. Myocardial perfusion imaging revealing moderate area of mild reversible defect in the inferior and inferolateral region suggesting ischemia inthe distribution of the right coronary artery. However because of the inconsistency the reliability of this finding is questionable 2. Normal LV ejection fraction of 83%. 3. LV wall motion analysis revealing no gross wall motion abnormalities. 4. Normal LV volume Comparison with the previous study is difficult because of the inconsistencies Dr Carol Tse MD [facility] (Electronically Signed) Final Date: 04 May 2025 08:55 S
--- NOTE | 2025-05-03 14:07 | P.PN_ITS ---
Subjective 2 Subjective: He is gradually improving. No chest pain or pressure. Pleated stress test. Lower extremity edema showing some improvement. Vitals/I&O/Wt Last Vital Signs Temp 97.8 F 05/03/25 04:00 Pulse 63 05/03/25 11:31 Resp 18 05/03/25 11:31 BP 123/77 05/03/25 11:31 Pulse Ox 93 05/03/25 11:31 O2 Del Method Nasal Cannula 05/03/25 04:00 O2 Flow Rate 2 05/03/25 04:00 05/02/25 05/03/25 05/03/25 22:59 06:59 14:59 Intake Total 240 / 240 240 / 240 Output Total 700 / 700 400 / 400 Balance 240 / 240 -700 / -460 -160 / -160 Weight last 48 hrs Weight 94.166 kg Weight 94.035 kg Weight 92.034 kg Physical Exam 2 Narrative: Accompanied by his Const: COMMON NORMALS: patient oriented x3 and alert GENERAL APPEARANCE: c ooperative ORIENTATION/CONSCIOUSNESS: Yes awake HENMT: COMMON NORMALS: oropharynx normal Neck/C-Spine: COMMON NORMALS: no JVD Resp: COMMON NORMALS: normal respiratory effort and clear to auscultation bilaterally AUSCULTATION: clear to auscultation bilaterally Cardio: COMMON NORMALS: no JVD, regular rhythm, S1 normal heart sound present, S2 normal heart sound present and No murmurs present (Cardio) RHYTHM: regular rhythm HEART SOUNDS: S1 normal heart sound present and S2 normal heart sound present GI: COMMON NORMALS: Normal to inspection, nondistended, normoactive bowel sounds present, Soft to palpation and non-tender PALPATION: Yes Soft to palpation Extremity: COMMON NORMALS: no joint enlargement GENERAL: Yes edema (2+) OTHER: Milder erythema, pain on PROM surrounding R 1st MTP Neuro: COMMON NORMALS: patient oriented x3 and moves all extremities S ENSORIUM/ORIENTATION: Yes alert Data 05/02/25 06:20 05/03/25 04:59 A&P Assessment and plan 1. Chest pain: So far resolved. Had a stress test this morning. Follow-up results. Still pending. Continue to treat acute CHF. Continue resumed medications with Plavix, started on beta-von. Statin. Intermittent non-pleuritic chest discomfort; CTA on 04/28 negative for pulmonary embolism; EKG today with jagged baseline, upright T-waves, possible left- ventricular hypertrophy (LVH). Differential includes unstable angina, non-ST elevation myocardial infarction (NSTEMI), demand ischemia. Reviewed vitals, chest x-ray, EKG and troponin, and my interpretation EKG with possible LVH, pending official read. Reviewed transthoracic echocardiogram to assess cardiac function because of hypoxia and possible prior NSTEMI. - Plan further cardiac work-up including outpatient stress test. - Start beta-von; monitor heart rate. - Resume cholesterol medication (unspecified) as secondary prevention. 2. Acute CHF: Replace mild hypokalemia. Continue diuresis. Reassess chemistry renal function with risk of electrolyte deficiency, ELVIS with IV diuresis, gout treatment. Acute diastolic CHF. Reviewed prior echocardiogram, normal ejection fraction. Reviewed stress test back in 2023. New oxygen requirement (O2 sat 88 % room air, improved to 95 % on 4 L); brain natriuretic peptide (BNP) 330; bilateral edema; prior improvement with IV diuresis. Differential includes acute decompensated CHF, pulmonary hypertension. Reviewed chemistry, noted hypokalemia, requested replacement. Check magnesium. Reviewed chemistry, magnesium. Magnesium 1.7, will give 2 g magnesium IV. Recheck level with IV diuresis. Noted rise in BUN up to 22, will decrease diuresis to once daily. Reassess. Echocardiogram with normal ejection fraction 60%, with grade 1 diastolic dysfunction. - Continue oxygen support and wean as tolerated. 3. Hypoxia: Treat acute CHF as above. Oxygen supplementation, wean down as tolerating. Will obtain home O2 evaluation. Negative nasal influenza, COVID, RSV swab. Reviewed chest x-ray. Reviewed recent CTA from 04/28. No PE noted. Overall unremarkable. Reviewed TTE to assess valves, ventricular function, pulmonary hypertension. 4. Physical deconditioning: Functional decline and generalized weakness : Unable to ambulate for 3?4 days; uses walker; planned rehabilitation placement. Pending PT assessment. Discussed with case management. - Reviewed TSH, mildly elevated 4.69. Check free T4. - Check CK 5. Leg edema: Lower extremity edema : Persistent bilateral leg swelling despite prior prescriptions; duplex negative for DVT. - Continue IV diuresis with Lasix (see CHF plan). - Monitor response (leg circumference, weight). 6. Essential hypertension: Long-standing hypertension; currently better controlled. Blood pressure 132/78. Doing well with carvedilol. - Consider additional antihypertensive agents if pressures remain elevated. - Monitor for hypotension given aggressive diuresis. 7. Gout flare: Right foot erythema and tenderness; history of gout with minimal prior treatment. -Reviewed serum uric acid level. Noted elevated. - Administer NSAID and start allopurinol for acute gout flare. Monitor for risk of ELVIS with NSAID with IV diuresis - Obtain right foot X-ray. 8. Hypokalemia: Serum potassium 3.4 mEq/L, likely worsened by IV diuresis. - Requested potassium supplement. Check magnesium. Follow-up chemistry. - Monitor serial electrolytes. - Replace potassium as needed (specific dosing not stated). Plan: Hospitalization bundle : Inpatient admission for monitoring and treatment; code status discussed (patient prefers comfort measures only if cardiac arrest). - to hospitalist service for observation. - Ensure [id number] assistance due to medication access challenges. - Document code status and decision-maker () in chart. History of CAD and prior stenting: Resume clopidogrel. He has not been taking any medications. Will need meds to beds. Discussed with nursing, case coordinator. PDMP PDMP Reviewed: Not Reviewed Attestations 2 Medical Necessity Statement*: Continue hospitalization for further optimization of acute congestive heart failure, assessment of chest pain, physical therapy assessment. Diagnoses Chest pain R07.9 Acute CHF I50.9 Hypoxia R09.02 Physical deconditioning R53.81 Leg edema R60.0 Essential hypertension I10 Gout flare M10.9 Hypokalemia E87.6
[2025-05-03 15:51] LABS: Free T4 Free Thyroxine 1.13 ng/dL (0.82-1.77)
[2025-05-03] MEDS: magnesium sulfate premix 2 GM/50 ML PIGGYBACK IV (15:53)
[2025-05-04] VITALS: BP 114/71; PULSE 51; RESP 13; O2SAT 97
[2025-05-04 04:00] VITALS: BP 146/67; PULSE 64; RESP 20; TEMP 36.7; O2SAT 98
[2025-05-04 04:57] LABS: Hematocrit 34.5 % (37-53); Hemoglobin 11.60 g/dL (11.27-16.99); Mean Corpuscular HGB Conc 33.6 g/dL (30-55); Mean Corpuscular Hemoglobin 31.0 pg (27-33); Mean Corpuscular Volume 92.2 fl (82-101); Nucleated Red Blood Cells % 0 %; Platelet Count 323 10^3/cmm (157-399); Red Blood Count 3.74 10^6/uL (3.85-5.65); White Blood Count 7.16 10^3/uL (3.29-11.43)
[2025-05-04 05:27] LABS: Anion Gap 10.3 (5-19); Blood Urea Nitrogen 19 mg/dL (8-23); Calcium 8.3 mg/dL (8.5-10.5); Carbon Dioxide 32 mmol/L (22-29); Chloride 99 mmol/L (98-107); Creatinine Clr Calc Pharmacy 74.1045; Glucose 112 mg/dL (65-115); Magnesium 2.0 mg/dL (1.7-2.3); Osmolality Calculated 289 mOsm/kg (285-295); Potassium 3.3 mmol/L (3.5-5.1); Sodium 138 mmol/L (136-145)
[2025-05-04 08:00] VITALS: BP 112/68; PULSE 56; RESP 18; TEMP 36.4
[2025-05-04] MEDS: FUROsemide 10 mg/mL SDV 4mL 40 MG IVP (08:53)
--- NOTE | 2025-05-04 09:11 | P.DS_ITS ---
Discharge Providers Date of Admission: 05/02/25 10:23 Date of Discharge: May 04, 2025 Attending Provider at Admission: Noah Orozco Attending Provider at Discharge: Noah Orozco Primary Care Provider: Crow Rodas MD Diagnoses at Discharge Discharge Diagnosis 1. Chest pain: 2. Acute CHF: 3. Hypoxia: 4. Physical deconditionin. Leg edema: 6. Essential hypertension: 7. Gout flare: 8. Hypokalemia: Reason for Visit Reason for Visit: CP Brief History: Arnaldo Chacon is a 69 year old gentleman with a history of coronary artery disease with stent placement in 2019, carotid stenosis with prior cerebrovascular accident, hypertension, hyperlipidemia, tobacco abuse, and self- reported gout who presents after multiple recent emergency department (ED) visits. On April 28 he was seen for bilateral leg swelling; venous duplex was negative for deep-vein thrombosis (DVT), suspected congestive heart failure (CHF) was treated with intravenous (IV) furosemide (Lasix) and an outpatient prescription that was not filled. He re-presented May 01 with persistent swelling, received another IV Lasix dose, and was discharged. Today he returns with chest pain described as ?like something walking on the chest,? associated with hypoxia (home baseline no oxygen; ED saturation 88 %, improved to 95 % on 4 L nasal cannula). Denies cough, vomiting, abdominal pain, or diarrhea. Reports generalized weakness for 3?4 days and inability to ambulate; last walked independently two weeks ago using a walker. Right foot is red, tender, and contributes to difficulty walking; states he ?always had gout? but is not on chronic therapy. Denies current smoking, alcohol, or illicit drug use. Lives at home with ; no home health support. No routine follow-up with primary-care or cardiology. Hospital Course Hospital Course He was admitted and restarted on antiplatelet medication, started on beta- von, also to help optimize hypertension, started on statin, assessed with echocardiogram with finding of ejection fraction 60%, grade 1 diastolic function, was treated for acute congestive heart failure with IV diuretic with improving lower extreme edema. Potassium supplemented. Was started on ibupro fen and allopurinol for right foot/first MTP gout with improving symptoms. His symptoms have shown good improvement. Without recurrence of chest pain, was discussed with stress testing with finding of moderate area of mild reversible defect in the inferior and inferolateral region suggesting ischemia in the distribution of right coronary. However, because of inconsistency in imaging finding is questionable. He has not had any ongoing chest pain or pressure. So far appears to reflect improved oxygenation stable. He is subjectively feeling much better. Ambulating with a walker. Discussed findings with him as per discussion with cardiology. Feels comfortable returning home with follow-up with cardiology with continued optimization of medical therapy and is asked to make sure to take his medications, seek medical attention in case of worsening or any concerning symptoms. Home oxygen evaluation is obtained prior to discharge. Physical Exam Const: COMMON NORMALS: patient oriented x3 and alert GENERAL APPEARANCE: cooperative ORIENTATION/CONSCIOUSNESS: Yes awake HENMT: COMMON NORMALS: oropharynx normal Neck/C-Spine: COMMON NORMALS: no JVD Resp: COMMON NORMALS: normal respiratory effort and clear to auscultation bilaterally AUSCULTATION: clear to auscultation bilaterally Cardio: COMMON NORMALS: no JVD, regular rhythm, S1 normal heart sound present, S2 normal heart sound present and No murmurs present (Cardio) RHYTHM: regular rhythm HEART SOUNDS: S1 normal heart sound present and S2 normal heart sound present GI: COMMON NORMALS: Normal to inspection, nondistended, normoactive bowel sounds present, Soft to palpation and non-tender PALPATION: Yes Soft to palpation Extremity: COMMON NORMALS: no joint enlargement GENERAL: Yes edema (1+) OTHER: Milder erythema, pain on PROM surrounding R 1st MTP Neuro: COMMON NORMALS: patient oriented x3 and moves all extremities SENSORIUM/ORIENTATION: Yes alert Discharge Data Studies Completed and Pending Completed Studies During Hospitalization Category Date Time Status Cardiac Stress Test MIBI [Sestamibi Stress Test Request Exams 05/03/25 08:00 Completed ] Routine XR chest 1V portable [id number] Stat Exams 05/02/25 06:09 Completed XR foot RT min 3V* [id number] Routine Exams 05/02/25 14:26 Completed NM audi perf SPECT r/s* [id number] Routine Nuc Med 05/03/25 13:47 Completed US echo complete [CV. echo complete* [id number]] Stat Ultrasound 05/02/25 08:31 Completed Pending at discharge Category Date Time Status Basic Metabolic Panel AM LABS Lab 05/05/25 04:00 Ordered Basic Metabolic Panel AM LABS Lab 05/06/25 04:00 Ordered Complete Blood Count w/Auto AM LABS Lab 05/05/25 04:00 Ordered Complete Blood Count w/Auto AM LABS Lab 05/06/25 04:00 Ordered Radiology Impressions Chest X-Ray 05/02/25 06:09 IMPRESSION: No acute findings. Foot X-Ray 05/02/25 14:26 Impression: Bunion at head of right first metatarsal, and no evidence of gout calcifications is seen. Laboratory Results WBC 7.16 10^3/uL (3.29-11.43) 05/04/25 04:25 RBC 3.74 10^6/uL (3.85-5.65) L 05/04/25 04:25 Hgb 11.60 g/dL (11.27-16.99) 05/04/25 04:25 Hct 34.5 % (37-53) L 05/04/25 04:25 MCV 92.2 fl (82-101) 05/04/25 04:25 MCH 31.0 pg (27-33) 05/04/25 04:25 MCHC 33.6 g/dL (30-55) 05/04/25 04:25 RDW 11.8 % (12.1-15.1) L 05/04/25 04:25 Plt Count 323 10^3/cmm (157-399) 05/04/25 04:25 MPV 10.1 fL (7.4-10.4) 05/04/25 04:25 Neut % (Auto) 45.4 % 05/04/25 04:25 Lymph % (Auto) 37.0 % 05/04/25 04:25 Beltrami % (Auto) 10.1 % 05/04/25 04:25 Eos % (Auto) 6.4 % 05/04/25 04:25 Baso % (Auto) 0.7 % 05/04/25 04:25 Neut # (Auto) 3.25 10^3/uL (1.8-7.7) 05/04/25 04:25 Lymph # (Auto) 2.7 10^3/uL (0.8-4.8) 05/04/25 04:25 Beltrami # (Auto) 0.7 10^3/uL (0.2-0.9) 05/04/25 04:25 Eos # (Auto) 0.5 10^3/uL (0.0-0.8) 05/04/25 04:25 Baso # (Auto) 0.1 10^3/uL (0.0-0.1) 05/04/25 04:25 Nucleated RBC % (auto) 0 % 05/04/25 04:25 Nucleated RBCs # 0.0 /100WBC 05/04/25 04:25 Specimen Type Arterial 05/02/25 07:40 Sample Site Radial, right 05/02/25 07:40 ABG pH 7.47 (7.35-7.45) H 05/02/25 07:40 ABG pCO2 38.7 mmHg (35-45) 05/02/25 07:40 ABG pO2 53.8 mmHg (80.0-100.0) L 05/02/25 07:40 ABG PO2/FiO2 Ratio 168 05/02/25 07:40 ABG HCO3 28.2 mmol/L (22-26) H 05/02/25 07:40 ABG O2 Saturation 88.5 05/02/25 07:40 ABG Base Excess 4.3 mmol/L (-2.0-2.0) H 05/02/25 07:40 Brayan Test Pos 05/02/25 07:40 A-a O2 Gradient 16.5 mmHg (5-10) H 05/02/25 07:40 Hematocrit 47.5 % (42-52) 05/02/25 07:40 Hgb O2 Saturation 87.6 % (95-100) L 05/02/25 07:40 Carboxyhemoglobin 1.2 %THgb (0.4-20.1) 05/02/25 07:40 Methemoglobin < 0.0 % (0.4-1.5) L 05/02/25 07:40 Total Hemoglobin 15.5 g/dL (14-18) 05/02/25 07:40 Sodium 138.0 mmol/L (131-143) 05/02/25 07:40 Potassium 3.1 mmol/L (3.5-5.0) L 05/02/25 07:40 Glucose 154.0 mg/dL (70-115) H 05/02/25 07:40 Ionized Calcium 1.1 mmol/L (1.1-1.4) 05/02/25 07:40 O2 Delivery Device Nc 05/02/25 07:40 FiO2 32.0 % 05/02/25 07:40 Care Management Coordinator ID Nancy 05/02/25 07:40 Sodium 138 mmol/L (136-145) 05/04/25 04:25 Potassium 3.3 mmol/L (3.5-5.1) L 05/04/25 04:25 Chloride 99 mmol/L (98-107) 05/04/25 04:25 Carbon Dioxide 32 mmol/L (22-29) H 05/04/25 04:25 Anion Gap 10.3 (5-19) 05/04/25 04:25 BUN 19 mg/dL (8-23) 05/04/25 04:25 Creatinine 1.0 mg/dL (0.7-1.2) 05/04/25 04:25 GFR Calculation Not Reportable 05/04/25 04:25 Glucose 112 mg/dL (65-115) 05/04/25 04:25 POC Glucose 124 mg/dL (70-110) H 05/03/25 21:11 Calculated Osmolality 289 mOsm/kg (285-295) 05/04/25 04:25 Uric Acid 9.9 mg/dL (3.4-7.0) H 05/02/25 06:39 Calcium 8.3 mg/dL (8.5-10.5) L 05/04/25 04:25 Magnesium 2.0 mg/dL (1.7-2.3) 05/04/25 04:25 Total Bilirubin 0.9 mg/dL (0.15-1.2) 05/02/25 06:39 AST 20 U/L (0-40) 05/02/25 06:39 ALT 14 U/L (0-41) 05/02/25 06:39 Alkaline Phosphatase 103 U/L (40-130) 05/02/25 06:39 Creatine Kinase 134 U/L (39-308) 05/03/25 04:59 Troponin T Baseline 19 ng/L (0-15) H 05/02/25 06:39 Troponin T 120 Minute 20.89 ng/L (0-15) H 05/02/25 07:58 Delta Troponin T 1.89 ABS# (0-10) 05/02/25 07:58 Troponin T Hi Sens 6Hr 47.15 ng/L (0-15) H 05/02/25 12:15 Troponin T Hi Sens 6Hr Delta 28.15 ng/L (0-12) H* 05/02/25 12:15 NT-Pro-B Natriuret Pep 330 pg/mL (0-125) H 05/02/25 06:39 Total Protein 9.0 g/dL (6.6-8.7) H 05/02/25 06:39 Albumin 3.9 g/dL (3.5-5.2) 05/02/25 06:39 Globulin 5.1 g/dL (1.3-4.6) H 05/02/25 06:39 Procalcitonin 0.07 ng/mL (0-0.5) 05/02/25 06:39 TSH 4.69 uIU/mL (0.27-4.20) H 05/02/25 07:58 Free T4 1.13 ng/dL (0.82-1.77) 05/03/25 04:59 Urine Opiates Screen Negative ng/mL (Negative) 05/03/25 02:13 Ur Barbiturates Screen Negative ng/mL (Negative) 05/03/25 02:13 Ur Phencyclidine Scrn Negative ng/mL (Negative) 05/03/25 02:13 Ur Amphetamines Screen Negative ng/mL (Negative) 05/03/25 02:13 U Benzodiazepines Scrn Negative ng/mL (Negative) 05/03/25 02:13 Urine Cocaine Screen Negative ng/mL (Negative) 05/03/25 02:13 U Marijuana (THC) Screen Negative ng/mL (Negative) 05/03/25 02:13 Influenza A (PCR) Negative (Negative) 05/02/25 08:45 Influenza Type B (PCR) Negative (Negative) 05/02/25 08:45 RSV (PCR) Negative (Negative) 05/02/25 08:45 SARS-CoV-2 (PCR) Negative (Negative) 05/02/25 08:45 Vitals Last Vital Signs Temp 98.1 F 05/04/25 04:00 Pulse 64 05/04/25 04:00 Resp 20 H 05/04/25 04:00 BP 146/67 05/04/25 04:00 Pulse Ox 98 05/04/25 04:00 O2 Del Method Nasal Cannula 05/04/25 04:00 O2 Flow Rate 2 05/04/25 04:00 Discharge Plan Discharge Patient Disposition: Home Condition: Stable Prescriptions: New atorvastatin 40 mg Tablet 20 mg PO BEDTIME Qty: 90 0RF allopurinol 100 mg tablet 100 mg PO DAILY Qty: 90 0RF potassium chloride [Klor-Con 10] 10 mEq tablet extended release 10 meq PO DAILY Qty: 90 0RF ibuprofen 200 mg Tablet 400 mg PO TID 3 Days Qty: 18 0RF carvedilol 3.125 mg Tablet 3.125 mg PO BID Qty: 180 0RF Continued clopidogrel 75 mg tablet 75 mg PO DAILY Qty: 90 0RF furosemide [Lasix] 20 mg tablet 20 mg PO DAILY Qty: 90 0RF Eliquis 5 mg tablet 5 mg PO BID olanzapine 10 mg tablet 10 mg PO DAILY Qty: 30 0RF Discharge Order = DC NOW: Discharge Order (Routine); Ordered 05/04/25 Ordered By: Noah Orozco Referrals: Crow Rodas MD [Primary Care Provider, Family Practice] - 05/10/25 1:30 pm Maya Perez FNP [Nurse Practitioner, Cardiology] - 1 week Referral Note: CAD, abnormal stress test, CHF Discharge Diet: Cardiac Discharge Activity: Increase activity as tolerated Patient Instructions: Heart Failure (GEN), Potassium Content of Foods List (GEN), Gout (GEN), Patient Portal & Padma Instructions Activity Restrictions/Additional Instructions: Follow-up with your primary provider for reassessment after hospitalization for congestive heart failure after an episode of chest pain. Please resume and do n ot stop your medications for your heart including clopidogrel 75 mg daily. Continue Lasix. Have your primary doctor reassess your volume status and renal function and electrolytes. You have received potassium supplementation, please have your primary doctor reassess your potassium. Follow-up with your primary doctor for reassessment of gout in the right foot, reassessment of uric acid level and maintenance of allopurinol dose adjustment. Please discontinue ibuprofen after 3 days. Please continue medications for coronary artery disease and follow up with cardiology in office to reassess coronary disease and congestive heart failure. Seek medical attention in case of worsening or new concerning symptoms. Discharge Attestations Time Spent in Discharge Care*: greater than 30 min Quality Metrics Clinical Quality Measures [ No reported AMI, CVA or VTE this stay] Coding Level of Care Code 66059 Total time (in minutes) for Discharge: 40 Diagnoses Chest pain R07.9 Acute CHF I50.9 Hypoxia R09.02 Physical deconditioning R53.81 Leg edema R60.0 Essential hypertension I10 Gout flare M10.9 Hypokalemia E87.6
[2025-05-04 09:25] VITALS: O2SAT 96; O2SAT 97
[2025-05-04 12:00] VITALS: BP 120/64; PULSE 59; RESP 18; TEMP 36.4
== END 2025-05-04 14:52 | disposition home or self-care (01) ==
LOC: ER 06:36 → ER IP 10:23 → CSU 13:41
PROVIDERS: Admitting Provider Internal Medicine; Emergency Provider Family Medicine; PCP Family Medicine; Visit Provider Internal Medicine
DX: I50.9 Heart failure, unspecified (principal); I11.0 Hypertensive heart disease with heart failure; R09.02 Hypoxemia; R53.81 Other malaise; R60.0 Localized edema; M10.9 Gout, unspecified; E87.6 Hypokalemia; Z79.01 Long term (current) use of anticoagulants; Z79.02 Long term (current) use of antithrombotics/antiplatelets; I25.118 Atherosclerotic heart disease of native coronary artery with other forms of angina pectoris; Z86.73 Personal history of transient ischemic attack (TIA), and cerebral infarction without residual deficits; Z82.49 Family history of ischemic heart disease and other diseases of the circulatory system; R00.1 Bradycardia, unspecified
CPT/HCPCS: 36415; 36416; 36600; 71045; 73630; 78452; 80048; 80051; 80053; 80306; 82330; 82550; 82805; 82962; 83735; 83880; 84145; 84439; 84443; 84484; 84550; 85025; 87637; 93005; 93017; 93306; 94640; 94760; 96365; 96372; 96375; 96376; 97116; 97161; 99285; A9500; G0378; J1650; J1938; J2785; J3475; J9999

== ENCOUNTER 2025-08-08 16:24 | Emergency (ER) | payer OTHER, SELFPAY ==
[2025-08-08] VITALS (7 sets, daily range): BP systolic 114–165; BP diastolic 81–96; PULSE 71–85; RESP 20; TEMP 36.3; O2SAT 90–93
--- OUTSIDE RECORDS SUMMARY | 2025-08-08 16:27 | XMS_ITS | Data Portability ---
Author Organization [facility] Address [address] [facility] [address] [place] [address] Care Team Providers Care Tire And Tube Repairer Name Role Phone JAVED RYAN Primary Care Provider Unavailabl e Assessment Encounter Date Assessment Date Assessment LastModified by Organization Details LastModified Time 03/28/2024 03/28/2024 Patient has multiple chronic medical conditions that need to be closely monitored and treated. Due to his demonstrating poor health literacy and has difficulty taking care of himself. The patient has difficulty with ADLs specially IADLs. The patient would benefit from additional support as provided from the fpc. We will send referral to [facility] has requested. [email or web address] Not available 03/30/2024 10:04:39 Plan of Treatment Reminders Order Date Submit Date Provider Last Modified By Organization Details Last Modified Time Details Appointments None recorded. Lab None recorded. Referral None recorded. Procedures None recorded. Surgeries None recorded. Imaging None recorded. Medication Orders metoprolol succinate ER 50 mg tablet,exte nded release 24 hr 2023 024 [facility]Pharmacy #[id number], [address] [facility] [address], [address], 4 11:01:39 clopidogrel 75 mg tablet 2023 024 [facility]Pharmacy #[id number], [address] [facility] [address], [facility] [address], [place], [address], 4 11:01:39 Patient TargetsNo targets recorded. Patient InstructionsNo instructions recorded. Reason for Referral None Reported. 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 3 16:59:26 Coronary stent patent 019991609 Active 2022 [facility] 3 16:59:43 Essential hypertens ion 68503948 Active 2022 [facility] 3 16:59:57 Chronic obstructi ve pulmonary disease 79616913 Active 2023 Ryan Rodas MD [address] [place] [address], [phone] , [facility] 4 08:34:35 Coronary atheroscl erosis 090804266 Active 2023 Ryan Rodas MD [address] [place] [address], [phone] , [facility] 4 08:34:51 Problem Notes None recorded. Medical Equipment None Reported. Allergies Allergen ID Allergen Name Allergen Category Reaction Reaction Severity Criticality Documentation Date Start Date Code Code System Note Provider Name and Address Organization Details Recorded Time 2765 Product containin g penicilli n (product) medicatio n Not available Not available Not available 01/19/2023 48578 8001 SN[facility]ED [facility] 3 16:58:53 2766 codeine medicatio n Not available Not available Not available 01/19/2023 2670 RxNorm [facility] 3 16:59:02 38644 codeine phosphate medicatio n Not available Not available Not available 04/10/2023 2672 RxNorm Comme nt: Recor ded 10/15 9:11A M by Noemi Snyder Offic e Visit ; Jose Antonio carmichael; Endy hart ce: *; Reaso n: Drug aller gy; ; [facility] 4 15:53:27 Medications Name Sig Start Date Stop Date Status Note LastModified by Organization Details LastModified Time atorvastatin 40 mg tablet TAKE ONE-HALF TABLET BY MOUTH at bedtime active Not Available Not Available No t Available metoprolol succinate ER 50 mg tablet,exten ded release 24 hr TAKE 1 TABLET BY MOUTH EVERY DAY active Not Available Not Available No t Available potassium chloride ER 10 mEq tablet,exten ded release TAKE ONE TABLET BY MOUTH DAILY active Not Available Not Available Not Available clopidogrel 75 mg tablet TAKE 1 TABLET BY MOUTH EVERY DAY active Not Available Not Available No t Available carvedilol 3.125 mg tablet TAKE ONE TABLET BY MOUTH TWICE DAILY active Not Available Not Available No t Available ibuprofen 400 mg tablet TAKE ONE TABLET BY MOUTH THREE TIMES DAILY FOR 3 DAYS active Not Available Not Available N ot Available nitroglyceri n 0.[address] 1 tablet as needed by sublingual route as needed. active Not Available Not Available No t Available albuterol 90 mcg-budesoni de 80 mcg/actuatio n HFA aerosol inhaler Inhale 2 inhalations twice a day by inhalation route as needed. active Not Available Not Available No t Available Vitals Date Recorded Body weight Oxygen saturation Heart rate Body temperature Systolic And Diastolic Provider Name and Address Organization Details Last Updated DateTime 4 05280.9 9 g 99 % 68 /min 97.6 [degF] 190/98 mm[Hg] [facility] 4 10:41:12 Social History None recorded. Functional Status None recorded. Mental Status None recorded. Family History Nothing Reported. Medical History No medical history recorded. Past Encounters Encounter ID Performer Location Encounter Start Date Encounter Closed Date Diagnosis/Indication Diagnosis SNOMED-CT Code Diagnosis ICD10 Code Diagnosis IMO Codes Diagnosis Note [id number] Ryan Rodas MD [facility] [address] [place] [address] 03/28/2024 10:26:44 03/28/2024 11:32:16 Hypertensive disorder 80588216 I10 Coronary stent patent 25 0644039 T82.897D Essential hypertension 38721054 I10 Impaired mobility 443863 05 Z74.09 Difficulty demonstrating health literacy 960234626 Z55.6 Chronic ob structive pulmonary disease 72640454 J44.9 Health Concerns Section Related Observation LastModified by Organization Detai ls LastModified Time None Recorded Concern Status LastModified by Organization Details LastModified Time None Recorded Advance Directives Directive None Recorded Payers Insurance Date Sequence Insurance Name Policy Number Policy Han Covered Member ID Han Member ID Guarantor Name 05/07/2025 1 [facility] (MEDICARE REPLACEMENT/A DVANTAGE - HMO) Arnaldo Chacon [id number] Arnaldo Chacon Notes Date Note Type Note Provider Name and Address Organization Details Recorded Time 03/28/2024 text/html This is a 68-year-old gentleman that comes in today to discuss referral to [facility]. Patient states that he has been struggling with his ADLs and IADLs. Patient has trouble taking care of himself and needs assistance. Patient feels that he would benefit from fpc placement. Patient does have multiple chronic medical issues that needs continued treatment. The patient's health literacy is low. Ryan Rodas MD [address] [place] [address], [phone], [facility] 03/30/2024 10:04:52
--- NOTE | 2025-08-08 16:40 | W.ED.SOB ---
HPI - SOB/Dyspnea General: Chief Complaint: Shortness of Breath/Dyspnea Stated Complaint: SOB Time Seen by Provider: 08/08/25 16:37 Source: patient Mode of arrival: EMS Limitations: no limitations History of Present Illness: HPI Narrative: Patient is a 70-year-old male who presents to ED today via EMS from [facility] for complaint of congestion . When asked how long this has been going on he tells me at least a year . He states he got COVID and never recovered . He overall is a vague historian. He is not sure what made him come to the emergency department today if symptoms have been lasting a year. He does report an occasional cough. He states he normally does not wear oxygen. He does believe he has a history of congestive heart failure and takes a water pill . He does report bilateral leg swelling and states that is hard to walk due to the swelling. Looking at previous documentation this seems to be fairly baseline for him. He is not complaining of chest pain. EMS administered Solu-Medrol and a DuoNeb and route. MD elicited complaint: shortness of breath Pertinent past history: congestive heart failure Onset (ago): year(s) Timing: constant Severity: mild Relieving factors: nothing Known history of: congestive heart failure Associated symptoms: Reports chest congestion; Deny abdominal pain, chest pain, dizziness, fever(s), hemoptysis, lightheadedness, palpitations or syncope Treatment prior to arrival: bronchodilator and other (steroids) Related Data Home Medications ?Medication ?Instructions ?Recorded ?Confirmed apixaban 5 mg tablet (Eliquis) 5 mg PO BID 04/19/25 05/02/25 amlodipine 10 mg tablet 10 mg PO DAILY 08/08/25 08/08/25 aspirin 81 mg tablet,delayed 81 mg PO DAILY 08/08/25 08/08/25 release (Estela Low Dose Aspirin) Previous Rx's ?Medication ?Instructions ?Recorded atorvastatin 40 mg tablet 20 mg (1/2 x 40 mg) PO BEDTIME #90 05/04/25 tabs carvedilol 3.125 mg tablet 3.125 mg PO BID #180 tabs 05/04/25 clopidogrel 75 mg tablet 75 mg PO DAILY #90 tabs 05/04/25 furosemide 20 mg tablet (Lasix) 20 mg PO DAILY #90 tabs 05/04/25 olanzapine 10 mg tablet 10 mg PO DAILY #30 tabs 05/04/25 potassium chloride 10 mEq 10 meq PO DAILY #90 tabs 05/04/25 tablet,extended release (Klor-Con) Allergies Allergy/AdvReac Type Severity Reaction Status Date / Time codeine Allergy Mild hives Verified 01/12/23 14:01 Penicillins Allergy Unknown Verified 01/12/23 14:01 Review of Systems Const: Denies: fever(s), chills, body aches, fatigue or malaise Card: Reports: edema (chronic) and swelling of feet/ankles (chronic); Denies: chest pain, palpitations, irregular heart rhythm, lightheadedness, syncope or pre-syncope Resp: Reports: dyspnea, non-productive cough and chest congestion; Denies: wheezing, change in phlegm color or hemoptysis GI: Denies: abdominal pain : Denies: flank pain or dysuria Musc: Reports: extremity swelling (chronic); Denies: neck pain or back pain Skin/Breast: Denies: rash Neuro: Denies: headache(s), numbness in extremities, weakness in extremities, sensory changes or dizziness PFSH ED PFSH: Medical History Sinus bradycardia Hence not on metoprolol Atherosclerosis of coronary artery of [place] heart with stable angina pectoris Atherosclerotic heart disease of [place] coronary artery with unstable angina pectoris Coronary artery disease Cardiac cath with stent placement on 10/25/19 He had a cardiac authorization in the hospital which revealed a subtotal occlusion of the intermedius artery for which he underwent PCI by Dr. Torres. Carotid artery stenosis with cerebral infarction over 8 weeks ago Continue on aspirin, Plavix and statin, continue with close cardiology follow-up in the outpatient setting Hypertension Tobacco abuse Carotid stenosis Left carotid artery thromboendarterectomy performed on 11/27/[address] 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 Zuniga Family History Mother Stroke Father Diabetes CAD (coronary artery disease) Had open heart surgery in his 60s. of congestive heart failure in his 80s. Denies family history of Clotting disorder Dementia Hyperlipidemia Psychiatric illness Chronic kidney disease (CKD) Suicide Anesthesia complication Bleeding disorder Family history of premature coronary artery disease Lung disease Cancer Hypertension Social History Smoking and tobacco/nicotine status: unknown if used tobacco/nicotine Quit status (tobacco/nicotine): considering quitting Alcohol intake: former Substance/Drug Use: never Marital status: Current gender identity: Male Physical Exam Const: COMMON NORMALS: no acute distress, patient oriented x3, no limitations, alert and well nourished GENERAL APPEARANCE: cooperative NUTRITIONAL APPEARANCE: overweight ORIENTATION/CONSCIOUSNESS: Yes awake, Yes oriented to person, Yes oriented to place and Yes oriented to time HENMT: COMMON NORMALS: normocephalic and atraumatic HEAD & SCALP: normal to inspection, normocephalic and atraumatic Chest: COMMONS NORMALS: normal inspection of the chest and normal palpation of entire chest wall Resp: COMMON NORMALS: normal respiratory effort AUSCULTATION: rhonchi (somewhat improved with coughing) Cardio: COMMON NORMALS: regular rate and regular rhythm RATE: regular rate RHYTHM: regular rhythm GI: COMMON NORMALS: Soft to palpation and non-tender PALPATION: Yes Soft to palpation : COMMON NORMALS: Yes no CVA tenderness BLADDER/KIDNEY EXAM: Yes no CVA tenderness Back/Pelvis: COMMON NORMALS: no CVA tenderness and thoracic and lumbar spine normal to inspection Extremity: COMMON NORMALS: capillary refill normal NARRATIVE EXTREMITY EXAM: chronic bilateral symmetrical pitting edema GENERAL: Yes normal exam except as noted Neuro: COMMON NORMALS: patient oriented x3, moves all extremities, no focal motor deficits and no sensory deficits noted SENSORIUM/ORIENTATION: Yes alert, Yes oriented to person, Yes oriented to place and Yes oriented to time Skin: COMMON NORMALS: no rashes or lesions noted GENERAL SKIN EXAM: no rashes or lesions noted Course Vital Signs: Vital signs: Vital Signs Temperature 97.4 F L 08/08/25 16:25 Pulse Rate 77 08/08/25 19:30 Respiratory Rate 20 H 08/08/25 16:25 Blood Pressure 114/90 08/08/25 19:30 Pulse Oximetry 92 08/08/25 19:30 Oxygen Delivery Me thod Room Air 08/08/25 19:30 MDM - SOB/Dyspnea Medical Decision Making Patient is a 70-year-old male with multiple comorbidities here with a complaint of congestion over the past year. Patient states he has had issues with congestion and lung problems ever since he had COVID approximately a year ago. He arrives satting 92% on room air throughout most of his stay was satting 94%. This chest x-ray is unremarkable. The remainder of his vitals are stable. Blood work showing a normal white count. He has normal procalcitonin. Baseline troponin of 16 with a negative delta. His BNP is 147. No evidence for fluid overload on his chest x-ray. He does have chronic bilateral symmetrical pitting edema of his legs. Did go ahead and give him a dose of Lasix here. Patient was given Solu-Medrol and a DuoNeb by EMS. At time of discharge patient states he feels better and feels comfortable going home. Also obtained COVID/flu/RSV swab which was negative. Patient was encouraged to follow-up with his primary care provider. Return ED precautions discussed. Differential Diagnosis Likely acute exacerbation of chronic obstructive airways disease, congestive heart failure and community acquired pneumonia Medical Records I reviewed the patient's medical records. Lab Data I reviewed the patient's lab results. 08/08/25 16:55 08/08/25 16:55 Labs/Radiology: Radiology Impressions Chest X-Ray 08/08/25 16:46 IMPRESSION: No acute cardiopulmonary findings. Laboratory Results WBC 7.12 10^3/uL (3.29-11.43) 08/08/25 16:55 RBC 4.10 10^6/uL (3.85-5.65) 08/08/25 16:55 Hgb 12.90 g/dL (11.27-16.99) 08/08/25 16:55 Hct 39.5 % (37-53) 08/08/25 16:55 MCV 96.3 fl (82-101) 08/08/25 16:55 MCH 31.5 pg (27-33) 08/08/25 16:55 MCHC 32.7 g/dL (30-55) 08/08/25 16:55 RDW 12.6 % (12.1-15.1) 08/08/25 16:55 Plt Count 255 10^3/cmm (157-399) 08/08/25 16:55 MPV 9.2 fL (7.4-10.4) 08/08/25 16:55 Neut % (Auto) 62.5 % 08/08/25 16:55 Lymph % (Auto) 20.1 % 08/08/25 16:55 [place] % (Auto) 9.0 % 08/08/25 16:55 Eos % (Auto) 6.7 % 08/08/25 16:55 Baso % (Auto) 0.7 % 08/08/25 16:55 Neut # (Auto) 4.45 10^3/uL (1.8-7.7) 08/08/25 16:55 Lymph # (Auto) 1.4 10^3/uL (0.8-4.8) 08/08/25 16:55 [place] # (Auto) 0.6 10^3/uL (0.2-0.9) 08/08/25 16:55 Eos # (Auto) 0.5 10^3/uL (0.0-0.8) 08/08/25 16:55 Baso # (Auto) 0.1 10^3/uL (0.0-0.1) 08/08/25 16:55 Nucleated RBC % (auto) 0 % 08/08/25 16:55 Nucleated RBCs # 0.0 /100WBC 08/08/25 16:55 Sodium 143 mmol/L (136-145) 08/08/25 16:55 Potassium 3.6 mmol/L (3.5-5.1) 08/08/25 16:55 Chloride 99 mmol/L (98-107) 08/08/25 16:55 Carbon Dioxide 26 mmol/L (22-29) 08/08/25 16:55 Anion Gap 21.6 (5-19) H 08/08/25 16:55 BUN 19 mg/dL (8-23) 08/08/25 16:55 Creatinine 1.1 mg/dL (0.7-1.2) 08/08/25 16:55 GFR Calculation Not Reportable 08/08/25 16:55 Glucose 234 mg/dL (65-115) H 08/08/25 16:55 Calculated Osmolality 306 mOsm/kg (285-295) H 08/08/25 16:55 Calcium 8.4 mg/dL (8.5-10.5) L 08/08/25 16:55 Total Bilirubin 0.3 mg/dL (0.15-1.2) 08/08/25 16:55 AST 9 U/L (0-40) 08/08/25 16:55 ALT 6 U/L (0-41) 08/08/25 16:55 Alkaline Phosphatase 77 U/L (40-130) 08/08/25 16:55 Troponin T Baseline 16 ng/L (0-15) H 08/08/25 16:55 Troponin T 120 Minute 15.86 ng/L (0-15) H 08/08/25 18:44 Delta Troponin T -0.14 ABS# (0-10) L 08/08/25 18:44 NT-Pro-B Natriuret Pep 147 pg/mL (0-125) H 08/08/25 16:55 Total Protein 6.9 g/dL (6.6-8.7) 08/08/25 16:55 Albumin 3.8 g/dL (3.5-5.2) 08/08/25 16:55 Globulin 3.1 g/dL (1.3-4.6) 08/08/25 16:55 Procalcitonin 0.04 ng/mL (0-0.5) 08/08/25 16:55 Influenza A (PCR) Negative (Negative) 08/08/25 17:24 Influenza Type B (PCR) Negative (Negative) 08/08/25 17:24 RSV (PCR) Negative (Negative) 08/08/25 17:24 SARS-CoV-2 (PCR) Negative (Negative) 08/08/25 17:24 All radiology interpretation(s) finalized by discharge Discharge Plan Discharge Patient Disposition: Home Clinical Impression: Chest congestion Dyspnea Qualifiers: Dyspnea type: unspecified Qualified Code(s): R06.00 - Dyspnea, unspecified Condition: Stable Prescriptions: No Action atorvastatin 40 mg Tablet 20 mg PO BEDTIME Qty: 90 0RF carvedilol 3.125 mg Tablet 3.125 mg PO BID Qty: 180 0RF clopidogrel 75 mg tablet 75 mg PO DAILY Qty: 90 0RF furosemide [Lasix] 20 mg tablet 20 mg PO DAILY Qty: 90 0RF olanzapine 10 mg tablet 10 mg PO DAILY Qty: 30 0RF potassium chloride [Klor-Con 10] 10 mEq tablet extended release 10 meq PO DAILY Qty: 90 0RF aspirin [Estela Low Dose Aspirin] 81 mg Tablet,Delayed Release (Dr/Ec) 81 mg PO DAILY amlodipine 10 mg Tablet 10 mg PO DAILY Eliquis 5 mg tablet 5 mg PO BID Discharge Orders: Discharge ED (Routine); Ordered 08/08/25 Ordered By: Jania Conde Referrals: Crow Rodas MD [Primary Care Provider, Family Practice] Patient Instructions: Patient Portal & Padma Instructions Activity Restrictions/Additional Instructions: As we discussed, your chest x-ray was unremarkable. Blood work overall was unremarkable. COVID/flu/RSV was negative. He stated you are feeling better at time of discharge. We will allow you to go home with recommendation to follow-up with primary care later this week/early next week for reevaluation. You may return to the emergency department at anytime for any further concerns you may have. Print Language: Uzbek Coding Level of Care Code ED Relationship Associate for [place]
--- NOTE | 2025-08-08 16:46 | XRR_ITS ---
PROCEDURE INFORMATION: Exam: XR Chest Exam date and time: 08/08/2025 4:57 PM Age: 70 years old Clinical indication: Shortness of breath; Additional info: SOB TECHNIQUE: Imaging protocol: Radiologic exam of the chest. Views: 1 view. COMPARISON: CR XR chest 1V portable [id number] 05/02/2025 6:30 AM FINDINGS: Lungs: Diminished lung volumes. Pleural spaces: Unremarkable. No pleural effusion. No pneumothorax. Heart/Mediastinum: Prominent, similar to prior. Bones/joints: Unremarkable. XR/XR chest 1V portable [id number] IMPRESSION: No acute cardiopulmonary findings.
[2025-08-08 17:01] LABS: Hematocrit 39.5 % (37-53); Hemoglobin 12.90 g/dL (11.27-16.99); Mean Corpuscular HGB Conc 32.7 g/dL (30-55); Mean Corpuscular Hemoglobin 31.5 pg (27-33); Mean Corpuscular Volume 96.3 fl (82-101); Nucleated Red Blood Cells % 0 %; Platelet Count 255 10^3/cmm (157-399); Red Blood Count 4.10 10^6/uL (3.85-5.65); White Blood Count 7.12 10^3/uL (3.29-11.43)
--- NOTE | 2025-08-08 17:14 | ECG_ITS ---
[facility] Date: 2025-08-08 Pat Name: Arnaldo Chacon Department: Room: Gender: Male Adhesive Sprayer: : 1955 Requested By: Jania Conde Order Number: [id number] Candi MD: Kaycee Todd M.D. Measurements Intervals [place] Rate: 68 P: 38 SC: 154 QRS: -7 QRSD: 102 T: 59 QT: 393 QTc: 420 Interpretive Statements SINUS RHYTHM NONSPECIFIC T-WAVE ABNORMALITY Compared to ECG 05/02/2025 09:08:20 T-wave abnormality now present Left-axis deviation no longer present Left ventricular hypertrophy no longer present ST (T wave) deviation no longer present Electronically Signed On 08-09-2025 17:27:14 NURSES DIRECTOR by Kaycee Todd M.D. [email or web address]
[2025-08-08 17:19] LABS: Troponin(5th) Baseline 16 ng/L (0-15)
[2025-08-08 17:39] LABS: NT Pro B Type Natriuretic Pept 147 pg/mL (0-125); Procalcitonin 0.04 ng/mL (0-0.5)
[2025-08-08 17:50] LABS: Alanine Aminotransferase 6 U/L (0-41); Albumin Level 3.8 g/dL (3.5-5.2); Alkaline Phosphatase 77 U/L (40-130); Anion Gap 21.6 (5-19); Aspartate Amino Transferase 9 U/L (0-40); Blood Urea Nitrogen 19 mg/dL (8-23); Calcium 8.4 mg/dL (8.5-10.5); Carbon Dioxide 26 mmol/L (22-29); Chloride 99 mmol/L (98-107); Globulin 3.1 g/dL (1.3-4.6); Glucose 234 mg/dL (65-115); Osmolality Calculated 306 mOsm/kg (285-295); Potassium 3.6 mmol/L (3.5-5.1); Sodium 143 mmol/L (136-145); Total Protein 6.9 g/dL (6.6-8.7)
[2025-08-08] MEDS: FUROsemide 10 mg/mL SDV 10mL 60 MG IVP (17:54)
[2025-08-08 18:31] LABS: Respiratory Syncytial Virus Ce NEGATIVE (Negative); SARS-CoV-2 PCR NEGATIVE (Negative)
--- NOTE | 2025-08-08 19:10 | ECG_ITS ---
[facility] Date: 2025-08-08 Pat Name: Arnaldo Chacon Department: Room: Gender: Male Seismographer: : 1955 Requested By: Jania Conde Order Number: [id number] Reading MD: Kaycee Todd M.D. Measurements Intervals [place] Rate: 71 P: 29 [place]: 145 QRS: -9 QRSD: 105 T: 74 QT: 397 QTc: 433 Interpretive Statements SINUS RHYTHM NONSPECIFIC ST & T-WAVE ABNORMALITY Compared to ECG 08/08/2025 17:14:31 No significant changes Electronically Signed On 08-09-2025 17:57:59 PRODUCE SERVICE TEAM MEMBER by Kaycee Todd M.D. [email or web address]
[2025-08-08 19:46] LABS: Troponin 5 2HR 15.86 ng/L (0-15)
[2025-08-08 19:49] LABS: Troponin 5 2HR Delta -0.14 ABS# (0-10)
== END 2025-08-09 00:03 | disposition home or self-care (01) ==
PROVIDERS: Emergency Provider Physician Assistant; PCP Family Medicine
DX: R09.89 Other specified symptoms and signs involving the circulatory and respiratory systems (principal); R06.00 Dyspnea, unspecified; Z11.52 Encounter for screening for COVID-19; Z79.02 Long term (current) use of antithrombotics/antiplatelets; Z79.82 Long term (current) use of aspirin; Z79.01 Long term (current) use of anticoagulants; I25.110 Atherosclerotic heart disease of native coronary artery with unstable angina pectoris; E78.5 Hyperlipidemia, unspecified; I10 Essential (primary) hypertension; Z86.73 Personal history of transient ischemic attack (TIA), and cerebral infarction without residual deficits
CPT/HCPCS: 36415; 71045; 80053; 83880; 84145; 84484; 85025; 87637; 93005; 96374; 99285; J1938

== ENCOUNTER 2025-08-23 15:36 | Inpatient (IN) | payer OTHER, SELFPAY ==
--- OUTSIDE RECORDS SUMMARY | 2025-07-27 07:00 | XMS_ITS ---
Author Organization [facility] Address [address] [place] [address] Care Team Providers Care Supervisor Stone Name Role Phone Fuad Florence Primary Care Provider Jesús Banda REASON FOR VISIT Halfway Rounds, [facility] visit at [place], [place] Encounters Encounter Location Date Provider Diagnosis [facility] [address] [facility] [place] [address] 07/27/2025 Jesús Castellano Assessments Encounter Date Diagnosis (ICD Code) Assessment Notes Treatment Notes Treatment Clinical Notes Section Notes 07/27/2025 Other Medications wer e reviewed. I will continue without changes. Nursing staff is to contact me with any symptoms arising. Orders signed and documented with nursing staff. Vitals taken and recorded at [facility]. Plan Of Treatment Treatment Notes Assessment Notes Other Medications were rev iewed. I will continue without changes. Nursing staff is to contact me with any symptoms arising. Orders signed and documented with nursing staff. Vitals taken and recorded at [facility]. Next Appt Details Follow Up: 4 Weeks, Reason: Provider Name:Jesús Castellano, 08/24/2025 01:00:00 PM, [address], [place], [address], History and Physical Notes * HPI (History of Present Illness) Category Sub-Category Detail Notes Category Not es : The patient is seen in the custodial today for follow-up. Staff reports no new complaints. The review of systems and exam are unchanged from previous. Patient denies pain and is comfortable. Examination Category Sub-Category Detail Notes Category Not es General Examination GENERAL APPEARANCE: in no ac [place] distress. Vital signs as documented. NECK/THYROID: no JVD HEART: notable for regular rhythym, normal sounds and absence of murmurs, rubs or gallops. LUNGS: Lungs clear ABDOMEN: unremarkable, no org anomegaly , no masses, or abdominal aortic enlargement. SKIN: warm and dry, withou t overt rashes. Progress Notes * Arnaldo SCALES SDOB:[birth year] (70 yo M)Acc No.[id number]:07/27/2025 Patient: Arnaldo Caro Provider: Faraz Castellano MD :1955 A ge:70 Y S ex:Male Date:07/27/2025 Address:[address] [place] [address] Pcp:Fuad Florence Subjective: * Chief Complaints: * N ursing Home RoundsNursing home visit at [place], [place] * HPI: * :: The patient is seen in the custodial today for follow-up. Staff reports no new complaints. The review of systems and exam are unchanged from previous. Patient denies pain and is comfortable. Objective: * Examination: G eneral Examination: GENERAL APPEARANCE: i n no acute distress. Vital signs as documented.. NECK/THYROID: n o JVD. SKIN: w arm and dry, without overt rashes.. HEART: n otable for regular rhythym, normal sounds and absence of murmurs, rubs or gallops. LUNGS: L ungs clear. ABDOMEN: u nremarkable, no organomegaly , no masses, or abdominal aortic enlargement.. Plan: * Treatment: * Procedure Codes: 9 9309 SNF CARE SUBSEQ * Follow Up: 4 Weeks Billing Information: * Procedure Codes: 72149 SNF CARE SUBSEQ. * Electronic signature of Cristy Castellano MD on 08/23/2025 at 06:30 PM GRILL ATTENDANT Sign off status: Pending * Provider: Faraz Castellano MD Date: 09/26/2024 Generated for Everton prescott/Mike/Fernandoransmitting on: 10/24/2024 06:30 PM GRILL ATTENDANT
[2025-08-23] VITALS (9 sets, daily range): BP systolic 116–127; BP diastolic 71–83; PULSE 77–85; RESP 16–18; TEMP 36.7–37.2; O2SAT 92–94; BMI 34.8
--- NOTE | 2025-08-23 16:12 | XR_ITS ---
WS: [id number] XR chest 1V portable [id number] REASON FOR EXAM: shortness of breath FINDINGS: Significant tortuosity and ectasia of the thoracic aorta. Normal heart size. Calcified granulomas disease bilaterally. Areas of platelike and linear atelectasis in the left lower not apparent on the previous examination of 08/08/2025. No other interval changes noted. Moderate degenerative spondylosis in the thoracic spine. Severe osteoarthritis of both shoulders. XR/XR chest 1V portable [id number] IMPRESSION: Interval atelectasis in the left lower lung chest otherwise unchanged.
--- NOTE | 2025-08-23 16:12 | ECG_ITS ---
[facility] Test Date: 2025-08-23 Pat Name: Arnaldo Chacon Department: Room: Gender: Male Industrial Custodian: : 1955 Requested By: Wilma Raphael Order Number: [id number] Candi MD: Carol Tse M.D. Measurements Intervals [place] Rate: 85 P: 17 TN: 172 QRS: -15 QRSD: 87 T: 62 QT: 361 QTc: 431 Interpretive Statements SINUS RHYTHM NONSPECIFIC ST & T-WAVE ABNORMALITY Compared to ECG 08/08/2025 19:10:12 No significant changes Electronically Signed On 08-23-2025 17:15:30 HUC by Carol Tse M.D. [email or web address]
--- NOTE | 2025-08-23 16:13 | CTR_ITS ---
PROCEDURE INFORMATION: Exam: CT Head Without Contrast Exam date and time: 08/23/2025 4:21 PM Age: 70 years old Clinical indication: Altered mental status/memory loss; Additional info: Reports dysphagia, slurred speech, weak L side TECHNIQUE: Imaging protocol: Computed tomography of the head without contrast. Radiation optimization: All CT scans at this facility use at least one of these dose optimization techniques: automated exposure control; mA and/or kV adjustment per patient size (includes targeted exams where dose is matched to clinical indication); or iterative reconstruction. COMPARISON: CT head thrombolytic [id number] 03/20/2025 11:13 RADIATION DOSE METRICS: Total DLP (mGy-cm): 813.2 FINDINGS: Brain: The patient is asymmetrically positioned within the gantry. This somewhat challenges resolution. Prominent encephalomalacia changes are seen along the right frontal and to a greater degree parietal regions with prominent remote infarct involving the body of the right caudate nucleus. Lacunar/ischemic change felt to be remote is also noted in the posterior aspect of the right lentiform nucleus and external capsular region. No hemorrhage. Slight atherosclerotic calcifications are seen in the left supraclinoid ICA and vertebrobasilar system. No mass effect. Cerebral ventricles: Mild compensatory enlargement of the body of the right lateral ventricle is seen in association with remote ischemic changes. Ventricles otherwise demonstrate normal size shape and configuration and are felt to be in proportion to the degree of widening of the sulci, sylvian fissures and basilar cisterns. Paranasal sinuses: Mucosal thickening/opacification of the bilateral ethm sphenoid sinus air cells is noted. The right air cell suggested fluid level to be present here. The left frontal sinus demonstrates a left air cell fluid level. Moderate ethmoid sinus air cell opacification is also noted. Mastoid air cells: Visualized mastoid air cells are well aerated. Bones: Unremarkable. No acute fracture. Soft tissues: Unremarkable. CT/CT head wo con* [id number] IMPRESSION: 1. No acute intracranial head CT findings identified. 2. Prominent remote right cerebral ischemic changes involving the basal ganglia and right parietal regions. 3. Atrophy/involutional changes of aging with moderately prominent components of chronic small-vessel disease. 4. Sinusitis.
--- NOTE | 2025-08-23 16:14 | ED_ITS ---
HPI - Weakness 2 General: Chief complaint: Weakness Stated complaint: failure to thrive - possible asppiration Time Seen by Provider: 08/23/25 15:42 History of Present Illness: Patient is a 69-year-old gentleman with a history of CAD status post cardiac stent in 2019, carotid stenosis with prior CVA, hypertension, hyperlipidemia, tobacco abuse and COPD, diastolic dysfunction with preserved ejection fraction estimated at 60% on last echo in April 2025 presents from shelter via EMS for multiple complaints. Patient states that he has had increasing shortness of breath. He states that he has been feeling short of breath all of his life but it has been worse. He uses 2 L of supplemental O2 as needed, now requiring 4 L per nasal cannula. Patient also complains of difficulty with swallowing for the past 2 weeks, states he chokes. He also states that he has had some difficulty and slurring of his speech, feels that his left side is weaker than usual and has had dribbling from the left side of his mouth for the past 1 week or more. Patient has not had a fever, is not confused and is readily answering orientation questions. Patient denies chest pain but has a dry cough, denies hemoptysis or syncope. He does not have any worsening lower extremity edema or extremity asymmetry. He denies abdominal pain, nausea, vomiting, diarrhea or dysuria. He states that he has had increasing difficulty ambulating independently. Although he has had a prior CVA, patient tells me that he does not have any deficits from previous CVA. Related Data Home Medications ?Medication ?Instructions ?Recorded ?Confirmed apixaban 5 mg tablet (Eliquis) 5 mg PO BID 04/19/25 amlodipine 10 mg tablet 10 mg PO DAILY 08/08/2507/15 aspirin 81 mg tablet,delayed 81 mg PO DAILY 08/08/25 1 10/08/24 release (Estela Low Dose Aspirin) Previous Rx's ?Medication ?Instructions ?Recorded atorvastatin 40 mg tablet 20 mg (1/2 x 40 mg) PO BEDTI ME #90 05/04/25 tabs carvedilol 3.125 mg tablet 3.125 mg PO BID #180 tabs 0 05/04/25 clopidogrel 75 mg tablet 75 mg PO DAILY #90 tabs 04/14 11/07 furosemide 20 mg tablet (Lasix) 20 mg PO DAILY #90 tab s 05/04/25 olanzapine 10 mg tablet 10 mg PO DAILY #30 tabs 04/14 11/07 potassium chloride 10 mEq 10 meq PO DAILY #90 tabs tablet,extended release (Klor-Con) Allergies Allergy/AdvReac Type Severity Reaction Status Date / Time codeine Allergy Mild hives Verified 01/12/23 14:01 Penicillins Allergy Unknown Verified 01/12/23 14:01 ON LICENSE OF [facility] ED 2 PFSH: Medical History (Updated 08/23/25 @ 18:37 by Wilma Raphael MD) Sinus bradycardia Hence not on metoprolol Atherosclerosis of coronary artery of [place] heart with stable angina pectoris Atherosclerotic heart disease of [place] coronary artery with unstable angina pectoris Coronary artery disease Cardiac cath with stent placement on 10/25/19 He had a cardiac authorization in the hospital which revealed a subtotal occlusion of the intermedius artery for which he underwent PCI by Dr. Torres. Carotid artery stenosis with cerebral infarction over 8 weeks ago Continue on aspirin, Plavix and statin, continue with close cardiology follow-up in the outpatient setting Hypertension Tobacco abuse Carotid stenosis Left carotid artery thromboendarterectomy performed on 11/27/[address] 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 Zuniga Family History Mother Stroke Father Diabetes CAD (coronary artery disease) Had open heart surgery in his 60s. of congestive heart failure in his 80s. Denies family history of Clotting disorder Dementia Hyperlipidemia Psychiatric illness Chronic kidney disease (CKD) Suicide Anesthesia complication Bleeding disorder Family history of premature coronary artery disease Lung disease Cancer Hypertension Social History Smoking and tobacco/nicotine status: unknown if used tobacco/nicotine Quit status (tobacco/nicotine): considering quitting Alcohol intake: former Substance/Drug Use: never Marital status: Current gender identity: Male Physical Exam 2 Narrative: EXAM NARRATIVE: Vital signs were reviewed. Patient is awake, alert and oriented, readily answers orientation questions. PERRL, EOMI. No trauma to face or scalp. Possible drooping of the L side of the mouth with smiling. Patient is requiring 4 L of supplemental O2, lung exam is limited as patient unable to sit up in bed but auscultation of the anterior lung hudson demonstrate coarse rhonchi and crackles. Patient is normotensive and is not tachycardic. He has a soft, nondistended nontender abdomen. Patient is moving all extremities with symmetrical strength, denies any sensory deficits on exam. Patient does not have significant lower extremity edema or asymmetry. Course 2 Vital Signs: Vital signs: Vital Signs Temperature 99.0 F 08/23/25 15:37 Pulse Rate 85 08/23/25 17:40 Respiratory Rate 18 08/23/25 17:40 Blood Pressure 127/83 08/23/25 17:18 Pulse Oximetry 94 08/23/25 17:40 Oxygen Delivery Me thod Nasal Cannula 08/23/25 17:40 Oxygen Flow Rate 5 08/23/25 17:40 MDM - Weakness Medical Decision Making 70-year-old male with complex medical history presents from shelter for worsening shortness of breath, 1 week or more of dysphagia, dysarthria, left- sided weakness, increasing difficulty with ambulation. Differential diagnosis includes, is limited to, viral upper respiratory infection such as COVID or flu, pneumonia, pleural effusion, ACS, heart failure, COPD/asthma exacerbation, sepsis, CVA, other. On exam, patient is normotensive, not tachycardic but has an elevated temperature and has an increased oxygen requirement. Patient was evaluated with lab work including CBC, CMP, lactic acid, troponin, BNP, UA, blood culture, EKG, CT head. Patient was treated with a DuoNeb. Patient has an elevated white blood cell count of 20 though lactic acid is within normal limits. Patient has an elevated creatinine of 1.9 and elevated anion gap which signifies ELVIS. Troponin is mildly elevated but has a negative delta. Patient negative for COVID-19 and influenza. Chest x-ray does not show clear consolidation aside from mild atelectasis in the left lung base, x-ray is unchanged from previous however I still suspect a respiratory source given his dyspnea and new hypoxic respiratory failure. Patient will require admission. CT shows old infarcts and ischemia, patient may benefit from MRI due to new reported neurologic symptoms and optimization for stroke prevention however this does not need to be done in the emergency department as symptoms have been ongoing for 1 week or more. Admitted. Lab Data 08/23/25 16:48 08/23/25 16:48 Radiology Impressions Chest X-Ray 08/23/25 16:12 IMPRESSION: Interval atelectasis in the left lower lung chest otherwise unchanged. Head CT 08/23/25 16:13 IMPRESSION: 1. No acute intracranial head CT findings identified. 2. Prominent remote right cerebral ischemic changes involving the basal ganglia and right parietal regions. 3. Atrophy/involutional changes of aging with moderately prominent components of chronic small-vessel disease. 4. Sinusitis. Laboratory Results WBC 20.20 10^3/uL (3.29-11.43) H 08/23/25 16:48 RBC 4.39 10^6/uL (3.85-5.65) 08/23/25 16:48 Hgb 13.70 g/dL (11.27-16.99) 08/23/25 16:48 Hct 39.5 % (37-53) 08/23/25 16:48 MCV 90.0 fl (82-101) 08/23/25 16:48 MCH 31.2 pg (27-33) 08/23/25 16:48 MCHC 34.7 g/dL (30-55) 08/23/25 16:48 RDW 12.1 % (12.1-15.1) 08/23/25 16:48 Plt Count 317 10^3/cmm (157-399) 08/23/25 16:48 MPV 9.3 fL (7.4-10.4) 08/23/25 16:48 Neut % (Auto) 75.1 % 08/23/25 16:48 Lymph % (Auto) 9.4 % 08/23/25 16:48 Pickett % (Auto) 12.2 % 08/23/25 16:48 Eos % (Auto) 2.2 % 08/23/25 16:48 Baso % (Auto) 0.3 % 08/23/25 16:48 Neut # (Auto) 15.16 10^3/uL (1.8-7.7) H 08/23/25 16:48 Lymph # (Auto) 1.9 10^3/uL (0.8-4.8) 08/23/25 16:48 Pickett # (Auto) 2.5 10^3/uL (0.2-0.9) H 08/23/25 16:48 Eos # (Auto) 0.4 10^3/uL (0.0-0.8) 08/23/25 16:48 Baso # (Auto) 0.1 10^3/uL (0.0-0.1) 08/23/25 16:48 Nucleated RBC % (auto) 0 % 08/23/25 16:48 Nucleated RBCs # 0.0 /100WBC 08/23/25 16:48 Sodium 137 mmol/L (136-145) 08/23/25 16:48 Potassium 3.1 mmol/L (3.5-5.1) L 08/23/25 16:48 Chloride 85 mmol/L (98-107) L 08/23/25 16:48 Carbon Dioxide 35 mmol/L (22-29) H 08/23/25 16:48 Anion Gap 20.1 (5-19) H 08/23/25 16:48 BUN 60 mg/dL (8-23) H 08/23/25 16:48 Creatinine 1.9 mg/dL (0.7-1.2) H 08/23/25 16:48 GFR Calculation Not Reportable 08/23/25 16:48 Glucose 207 mg/dL (65-115) H 08/23/25 16:48 Calculated Osmolality 307 mOsm/kg (285-295) H 08/23/25 16:48 Lactic Acid 1.7 mmol/L (0.5-2.2) 08/23/25 16:48 Calcium 9.4 mg/dL (8.5-10.5) 08/23/25 16:48 Total Bilirubin 0.5 mg/dL (0.15-1.2) 08/23/25 16:48 AST 10 U/L (0-40) 08/23/25 16:48 ALT 7 U/L (0-41) 08/23/25 16:48 Alkaline Phosphatase 84 U/L (40-130) 08/23/25 16:48 Troponin T Baseline 26 ng/L (0-15) H 08/23/25 16:48 Troponin T 60 Minute 24.60 ng/L (0-15) H 08/23/25 17:38 Delta Troponin T -1.40 ABS# (0-10) L 08/23/25 17:38 NT-Pro-B Natriuret Pep 109 pg/mL (0-125) 08/23/25 16:48 Total Protein 7.6 g/dL (6.6-8.7) 08/23/25 16:48 Albumin 4.1 g/dL (3.5-5.2) 08/23/25 16:48 Globulin 3.5 g/dL (1.3-4.6) 08/23/25 16:48 Influenza A (PCR) Negative (Negative) 08/23/25 17:17 Influenza Type B (PCR) Negative (Negative) 08/23/25 17:17 RSV (PCR) Negative (Negative) 08/23/25 17:17 SARS-CoV-2 (PCR) Negative (Negative) 08/23/25 17:17 All radiology interpretation(s) finalized by discharge EKG Data EKG 1: Interpretation: Sinus rhythm with a heart rate of 85, left axis deviation, normal intervals, no STEMI. Some artifact/poor baseline. 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
--- NOTE | 2025-08-23 16:56 | ECG_ITS ---
[facility]: 2025[facility]23 Pat Name: Arnaldo Chacon Department: Room: Gender: Male Plush Weaver: : 1955 Requested By: Wilma Raphael Order Number: [id number] Candi MD: Carol Tse M.D. Measurements Intervals [place] Rate: 79 P: 26 AR: 140 QRS: -12 QRSD: 109 T: 74 QT: 379 QTc: 436 Interpretive Statements SINUS RHYTHM NONSPECIFIC ST & T-WAVE ABNORMALITY Compared to ECG 08/23/2025 16:39:48 No significant changes Electronically Signed On 08-23-2025 17:34:37 BLOCK ENGRAVER by Carol Tse M.D. [email or web address]
[2025-08-23 17:10] LABS: Hematocrit 39.5 % (37-53); Hemoglobin 13.70 g/dL (11.27-16.99); Mean Corpuscular HGB Conc 34.7 g/dL (30-55); Mean Corpuscular Hemoglobin 31.2 pg (27-33); Mean Corpuscular Volume 90.0 fl (82-101); Nucleated Red Blood Cells % 0 %; Platelet Count 317 10^3/cmm (157-399); Red Blood Count 4.39 10^6/uL (3.85-5.65); White Blood Count 20.20 10^3/uL (3.29-11.43)
[2025-08-23 17:41] LABS: Troponin(5th) Baseline 26 ng/L (0-15)
[2025-08-23 18:21] LABS: Respiratory Syncytial Virus Ce NEGATIVE (Negative); SARS-CoV-2 PCR NEGATIVE (Negative)
[2025-08-23 18:21] LABS: Lactic Sepsis W/Reflex 1.7 mmol/L (0.5-2.2)
[2025-08-23 18:24] LABS: Alanine Aminotransferase 7 U/L (0-41); Albumin Level 4.1 g/dL (3.5-5.2); Alkaline Phosphatase 84 U/L (40-130); Anion Gap 20.1 (5-19); Aspartate Amino Transferase 10 U/L (0-40); Blood Urea Nitrogen 60 mg/dL (8-23); Calcium 9.4 mg/dL (8.5-10.5); Carbon Dioxide 35 mmol/L (22-29); Chloride 85 mmol/L (98-107); Globulin 3.5 g/dL (1.3-4.6); Glucose 207 mg/dL (65-115); NT Pro B Type Natriuretic Pept 109 pg/mL (0-125); Osmolality Calculated 307 mOsm/kg (285-295); Potassium 3.1 mmol/L (3.5-5.1); Sodium 137 mmol/L (136-145); Total Protein 7.6 g/dL (6.6-8.7)
--- OUTSIDE RECORDS SUMMARY | 2025-08-23 18:32 | XMS_ITS | Data Portability ---
Author Organization [facility] Address [address] [facility] [address] [place] [address] Care Team Providers Care Estimator Printing Plate Making Name Role Phone JAVED RYAN Primary Care [...] from additional support as provided from the correction. We will send referral to [facility] has requested. [email or web address] Not available 03/30/2024 10:04:39 Plan of Treatment Reminders Order Date Submit Date Provider Last Modified By Organization Details Last Modified Time Details Appointments None recorded. Lab None recorded. Referral None recorded. Procedures None recorded. Surgeries None recorded. Imaging None recorded. Medication Orders metoprolol succinate ER 50 mg tablet,exte nded release [address] [id number], [address] [facility], [address], [address], 4 11:01:39 clopidogrel 75 mg tablet [address] [id number], [address] [facility], [facility] [address], [place], [address], 4 11:01:39 Patient TargetsNo targets recorded. Patient InstructionsNo instructions recorded. Reason for Referral None Reported. 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 3 16:59:26 Coronary stent patent 626004060 Active 2022 [facility] 3 16:59:43 Essential hypertens ion 40656741 Active 2022 [facility] 3 16:59:57 Chronic obstructi ve pulmonary disease 45137046 Active 2023 Ryan Rodas MD [address] [place] [address], [phone] , [facility] 4 08:34:35 Coronary atheroscl erosis 136200034 Active 2023 Ryan Rodas MD [address] [place] [address], [phone] , [facility] 4 08:34:51 Problem Notes None recorded. Medical Equipment None Reported. Allergies Allergen ID Allergen Name Allergen Category Reaction Reaction Severity Criticality Documentation Date Start Date Code Code System Note Provider Name and Address Organization Details Recorded Time 2765 Product containin g penicilli n (product) medicatio n Not available Not available Not available 01/19/2023 95640 8001 SN[facility]ED [facility] 3 16:58:53 2766 codeine medicatio n Not available Not available Not available 01/19/2023 2670 RxNorm [facility] 3 16:59:02 81567 codeine phosphate medicatio n Not available Not available Not available 04/10/2023 2672 RxNorm Comme nt: Recor ded 10/15 9:11A M by Noemi Snyder Offic e Visit ; Jose Antonio carmichael; Endy hart ce: *; Reaso n: Drug aller gy; ; [facility] 4 15:53:27 Medications Name Sig Start [...] Address Organization Details Last Updated DateTime 4 63517.9 9 g 99 % 68 /min 97.6 [degF] 190/98 mm[Hg] [facility] 4 10:41:12 Social History None recorded. Functional Status None recorded. Mental Status None recorded. Family History Nothing Reported. Medical History No medical history recorded. Past Encounters Encounter ID Performer Location Encounter Start Date Encounter Closed Date Diagnosis/Indication Diagnosis SNOMED-CT Code Diagnosis ICD10 Code Diagnosis IMO Codes Diagnosis Note [id number] Ryan Rodas MD [facility] [address] [place] [address] 03/28/2024 10:26:44 03/28/2024 11:32:16 Hypertensive disorder 79958521 I10 Coronary stent patent 25 1264081 T82.897D Essential hypertension 94637775 I10 Impaired mobility 199264 05 Z74.09 Difficulty demonstrating health literacy 137936850 Z55.6 Chronic ob structive pulmonary disease 10931590 J44.9 Health Concerns Section Related Observation LastModified by Organization Detai ls LastModified Time None Recorded Concern Status LastModified by Organization Details LastModified Time None Recorded Advance Directives Directive None Recorded Payers Insurance Date Sequence Insurance Name Policy Number Policy Han Covered Member ID Han Member ID Guarantor Name 05/07/2025 1 [facility] ([place]ICARE REPLAC[place]/A DVANTAGE - HMO) Arnaldo Chacon [id number] Arnaldo Chacon Notes Date Note Type Note Provider Name and Address Organization Details Recorded Time 03/28/2024 text/html This is a 68-year-old gentleman that comes in today to discuss referral to [facility]. Patient states that he has been struggling with his ADLs and IADLs. Patient has trouble taking care of himself and needs assistance. Patient feels that he would benefit from correction placement. Patient does have multiple chronic medical issues that needs continued treatment. The patient's health literacy is low. Ryan Rodas MD [address] [place] [address], [phone], [facility] 03/30/2024 10:04:52
--- OUTSIDE RECORDS SUMMARY | 2025-08-23 18:32 | XMS_ITS | Patient Health Record ---
Author Organization [facility] Address [address] [place] [address] Care Team Providers Care Laser Systems Engineer Name Role Phone Fuad [place] Primary Care Provider Jesús Banda [phone] Allergies No Known Allergies Reason For Referral No Information Medications Medication SIG (Take, Route, Frequency, Duration) Notes Start Date End Date Status Potassium Chloride ER 10 MEQ Tablet Extended Release 1 tablet with food Orally Twice a day Active Clopidogrel Bisulfate 75 MG Tablet 1 tablet Orally Once a day Active Carvedilol 3.125 MG Tablet 1 tablet with food Orally Twice a day Active Ibuprofen 200 MG Tablet 1 tablet with fo od or milk as needed Orally Three times a day Active Eliquis 5 MG Tablet as directed Orally Active Furosemide 20 MG Tablet 1 tablet Orally Once a day Active OLANZapine 10 MG Tablet 1 tablet Orally Once a day Active Allopurinol 100 MG Tablet 1 tablet Orall y Once a day Active Atorvastatin Calcium 20 MG Tablet 1 tablet Orally Once a day Active Viibryd 10 MG Tablet 1 tablet with food Orally Once a day Active Problems Problem Type SNOMED Code ICD Code Onset Dates Problem Status W/U Status Risk Notes Problem Essential hypertension (81262312) Essential hypertension (I10) Active confirmed Problem Gouty arthritis (26960070) Gouty arthritis (M10.9) Active confirmed Problem Congestive heart failure (16274522) Congestive heart failure, unspecified (I50.9) Active confirmed Problem Heart failure (30946165) Heart failure, unspecified HF chronicity, unspecified heart failure type (I50.9) Active confirmed Problem Chronic obstructive pulmonary disease (25522661) COPD, moderate (J44.9) Active confirmed Encounters Encounter Location Date Provider Diagnosis [facility] [address] [place] [address] 07/27/2025 Jesús Castellano [facility] [address] [address] 06/22/2025 Christopher Castellano Heart failure, unspecified HF chronicity, unspecified heart failure type I50.9 ; COPD, moderate J44.9 ; Acute respiratory failure with hypoxia J96.01 ; Localized edema R60.0 ; Essential hypertension I10 and Gouty arthritis M10.[address] [place] [address] 05/25/2025 Christopher Castellano Heart failure, unspecified HF chronicity, unspecified heart failure type I50.9 ; COPD, moderate J44.9 ; Acute respiratory failure with hypoxia J96.01 ; Localized edema R60.0 ; Essential hypertension I10 and Gouty arthritis M10.[address] [address] 05/04/2025 Christopher Castellano Heart failure, unspecified HF chronicity, unspecified heart failure type I50.9 ; COPD, moderate J44.9 ; Acute respiratory failure with hypoxia J96.01 ; Localized edema R60.0 ; Essential hypertension I10 and Gouty arthritis M10.9 Assessments Encounter Date Diagnosis (ICD Code) Assessment Notes Treatment Notes Treatment Clinical Notes Section Notes 05/04/2025 Heart failure, unspecified HF chronicity, unspecified heart failure type (ICD-10 - I50.9) Medications reviewed, orders signed and documented with nursing staff. Vitals taken and recorded at [facility]. 05/04/2025 COPD, moderate (ICD-10 - J44.9) 05/25/2025 Heart failure, unspecified HF chronicity, unspecified heart failure type (ICD-10 - I50.9) Medications reviewed, orders signed and documented with nursing staff. Vitals taken and recorded at [facility]. 06/22/2025 Heart failure, unspecified HF chronicity, unspecified heart failure type (ICD-10 - I50.9) Medications reviewed, orders signed and documented with nursing staff. Vitals taken and recorded at [facility]. 06/22/2025 COPD, moderate (ICD-10 - J44.9) 05/25/2025 COPD, moderate (ICD-10 - J44.9) 05/04/2025 Acute respiratory failure with hypoxia (ICD-10 - J96.01) 05/04/2025 Localized edema (ICD-10 - R60.0) 05/25/2025 Acute respiratory failure with hypoxia (ICD-10 - J96.01) 06/22/2025 Acute respiratory failure with hypoxia (ICD-10 - J96.01) 06/22/2025 Localized edema (ICD-10 - R60.0) 05/25/2025 Localized edema (ICD-10 - R60.0) 05/04/2025 Essential hypertension (ICD-10 - I10) 05/04/2025 Gouty arthritis (ICD-10 - M10.9) 05/25/2025 Essential hypertension (ICD-10 - I10) 06/22/2025 Essential hypertension (ICD-10 - I10) 06/22/2025 Gouty arthritis (ICD-10 - M10.9) 05/25/2025 Gouty arthritis (ICD-10 - M10.9) 07/27/2025 Other Medications were reviewed. I will continue without changes. Nursing staff is to contact me with any symptoms arising. Orders signed and documented with nursing staff. Vitals taken and recorded at [facility]. 06/22/2025 Other Medications were reviewed. I will continue without changes. Nursing staff is to contact me with any symptoms arising. Orders signed and documented with nursing staff. Vitals taken and recorded at [facility]. Plan Of Treatment Next Appt Details Provider Name:Jesús Ly Castellano, 08/24/2025 01:00:00 PM, [address] [facility], [place], [address], Insurance Providers Payer Name Payer Address Payer Phone Subscriber Number Group Number Insured Name Patient Relationship to Insured Coverage Start Date Coverage End Date [place] [address] [address] [place] [phone] [id number] Arnaldo Chacon Self - patient is the insured
[2025-08-23 19:14] LABS: Glucose Urine UA Negative (Normal); Nitrate Urine Negative (Negative); Specific Gravity, Urine 1.012 (1.005-1.030)
[2025-08-23 19:19] LABS: Add Urine Microscopic? YES
[2025-08-23] MEDS: cefTRIAXone 1,000 mg SDV 1000 MG IVP (19:26)
[2025-08-23 19:34] LABS: Procalcitonin 0.12 ng/mL (0-0.5)
--- NOTE | 2025-08-23 20:07 | PC.NURSE ---
report called to med surge nurse @ 2006
--- NOTE | 2025-08-23 20:24 | PM.HP ---
Providers/Chief Complaint Admitting Physician: Iftikhar Alicea MD Primary Care Provider: Crow Rodas MD Chief Complaint: failure to thrive - possible asppiration History of Present Illness Arnaldo Chacon is a 70 year old male resides at [facility] in [facility]. His next of kin is his son Zenon. Patient states that he has had moist sounding cough but not bringing anything up for the last few days. He has any increasing shortness of breath. He was last able to walk with a walker about 2 weeks ago. He denies fevers chills or sweats. He has some pleuritic pain just with coughing. He states this is mild. He has not had diarrhea constipation or myalgias. Patient reports history of strokes last one about 6 months ago. He is on Plavix. He did not recall that he was on aspirin and apixaban as well. Tobacco was quit 1 year ago after smoking 60 years. Review of Systems Narrative: General No fevers chills night sweats Cardiovascular positive pleuritic pain no other chest pain no leg edema Respiratory positive for moist cough but nonproductive reports shortness of breath at rest and with activity. Admits to snoring and is not sure if he has sleep apnea GI no nausea vomiting diarrhea constipation no dysuria hematuria he does have nocturia 2 times a night without hesitancy or dribbling Neuro no recent stroke symptoms that are new he states he has chronic weakness right and left side from old strokes. He is able to walk with a walker until the last 2 weeks due to weakness. Patient states he has trouble swallowing and chokes food into the wrong tube when eating he is seen by speech therapy and is on a pur?ed diet. He states he was on thickened liquids but could not stand the consistency so insisted on going back to thin. He is willing at this time to take thickened liquid if not sticky. Heme no history of blood clots in the legs or lungs Malignancy history negative for cancer Medications/Allergies Home Medications ?Medication ?Instructions ?Recorded ?Confirmed ?Last Taken ?Type apixaban 5 mg tablet (Eliquis) 5 mg PO BID 04/19/25 05/02/25 04/29/25 History atorvastatin 40 mg tablet 20 mg (1/2 x 40 mg) PO BEDTIME #90 05/04/25 Unknown Rx tabs carvedilol 3.125 mg tablet 3.125 mg PO BID #180 tabs 05/04/25 Unknown Rx clopidogrel 75 mg tablet 75 mg PO DAILY #90 tabs 05/04/25 Unknown Rx furosemide 20 mg tablet (Lasix) 20 mg PO DAILY #90 tabs 05/04/25 Unknown Rx olanzapine 10 mg tablet 10 mg PO DAILY #30 tabs 05/04/25 05/02/25 04/29/25 Rx potassium chloride 10 mEq 10 meq PO DAILY #90 tabs 05/04/25 Unknown Rx tablet,extended release (Klor-Con) amlodipine 10 mg tablet 10 mg PO DAILY 08/08/25 08/08/25 08/08/25 08:00 History aspirin 81 mg tablet,delayed 81 mg PO DAILY 08/08/25 08/08/25 08/08/25 07:00 History release (Estela Low Dose Aspirin) Allergies Allergy/AdvReac Type Severity Reaction Status Date / Time codeine Allergy Mild hives Verified 01/12/23 14:01 Penicillins Allergy Unknown Verified 01/12/23 14:01 PFSH Acute PFSH: Medical History (Updated 08/23/25 @ 20:55 by Liu Mcclain MD) Sinus bradycardia Hence not on metoprolol Atherosclerosis of coronary artery of [place] heart with stable angina pectoris Atherosclerotic heart disease of [place] coronary artery with unstable angina pectoris Coronary artery disease Cardiac cath with stent placement on 10/25/19 He had a cardiac authorization in the hospital which revealed a subtotal occlusion of the intermedius artery for which he underwent PCI by Dr. Torres. Carotid artery stenosis with cerebral infarction over 8 weeks ago Continue on aspirin, Plavix and statin, continue with close cardiology follow-up in the outpatient setting Hypertension Tobacco abuse Carotid stenosis Left carotid artery thromboendarterectomy performed on 11/27/[address] 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 Zuniga Family History Mother Stroke Father Diabetes CAD (coronary artery disease) Had open heart surgery in his 60s. of congestive heart failure in his 80s. Denies family history of Clotting disorder Dementia Hyperlipidemia Psychiatric illness Chronic kidney disease (CKD) Suicide Anesthesia complication Bleeding disorder Family history of premature coronary artery disease Lung disease Cancer Hypertension Social History (Updated 08/23/25 @ 20:48 by Liu Mcclain MD) Smoking and tobacco/nicotine status: former use of tobacco/nicotine Quit status (tobacco/nicotine): has quit using Year quit tobacco: 2023 Former quit date comment: Smoked for 60 years Alcohol intake: former Former alcohol use details: Stopped age 20s Substance/Drug Use: former Date of last use: 2023 Former substance use details: 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 States his next of kin is his son Zenon Marital status: Current occupational status: retired Previous occupational history: Was in [employer] and states he was successful Current gender identity: Male Vitals/I&O/Wt Last Vital Signs Temp 99.0 F 08/23/25 15:37 Pulse 80 08/23/25 20:08 Resp 18 08/23/25 17:40 BP 116/75 08/23/25 20:08 Pulse Ox 93 08/23/25 20:08 O2 Del Method Nasal Cannula 08/23/25 20:08 O2 Flow Rate 4 08/23/25 20:08 Physical Exam Narrative: General well-developed well-nourished male obese. Oropharynx Mallampati 3 with erythema but not exudate CV diminished breath sounds in the bases moderate air movement otherwise trace basilar crackles left base Abdomen positive bowel tones soft obese nontender Calves trace to 1 pretibial edema Skin warm and dry Mentation alert and oriented Data 08/23/25 16:48 08/23/25 16:48 Micro: Microbiology 08/23/25 16:48 Blood Culture - Preliminary Blood SPECIMEN COLLECTED 08/23/25 16:48 Blood Culture - Preliminary Blood SPECIMEN COLLECTED A&P Assessment and plan 1. Acute and chronic respiratory failure with hypoxia: Patient has a white count of 20 dehydration cough that is wet but nonproductive. He has suspicion of left basilar infiltrate on chest x-ray that will likely blossom with hydration. Additionally patient admits to dysphagia and is already seeing a speech therapist. This will be ordered for reevaluation and will thicken his liquids. Upright in a chair for all meals 2. COPD (chronic obstructive pulmonary disease): Start steroids and DuoNebs and mucolytic's 3. Aspiration pneumonia: Due to penicillin allergy will just continue Rocephin which she is already tolerated and azithromycin. If white count not dropping would add clinda or metronidazole in place of the azithromycin. Typically aspiration pneumonias are gram-negative 4. Hypokalemia: Patient's diuretics will be held during his acute illness. Last echo April 2025 LVEF 60% with mild diastolic dysfunction. I suspect the patient's heart failure is in part due to sleep apnea. 5. Dysphagia: Will consult speech therapy. He is on pur?ed diet with thickened liquids 6. Dehydration: Demonstrates acute kidney injury with BUN 60 creatinine 1.9 7. ELVIS (acute kidney injury): As above 2 L of saline bolus started in the ER he has received 1 and will receive the second 1 on the floor then NS with 20 mEq potassium chloride per liter to run at 100 cc an hour 8. Sleep apnea-like behavior: Recommend sleep study outpatient. If he is showing hypoxemia here will consider CPAP or BiPAP PDMP PDMP Reviewed: Not Reviewed Attestations Medical Necessity Statement*: Patient is admitted to the hospital with pneumonia and dehydration and will require greater than 2 midnights in hospital Coding Level of Care Code 44112 Diagnoses Acute and chronic respiratory failure with hypoxia J96.21 COPD (chronic obstructive pulmonary disease) J44.9 Aspiration pneumonia J69.0 Hypokalemia E87.6 Dysphagia R13.10 Dehydration E86.0 ELVIS (acute kidney injury) N17.9 Sleep apnea-like behavior G47.39 Time Spent (min) 75
[2025-08-23] MEDS: sodium chlor 0.9% + KCl 20 mEq 20 MEQ/1,000 ML BAG 100 MEQ IV (20:57)
[2025-08-23] MEDS: methylPREDNISolone sod succ 40 mg/mL INJ IVP (21:12)
--- NOTE | 2025-08-23 22:12 | ECG_ITS ---
[employer] Test Date: 2025-08-24 Pat Name: Arnaldo Chacon Department: Room: 278 Gender: Male [employer]: : [id number] Requested By: Wilma Raphael Order Number: [id number] Reading MD: IRAIDA RANDOLPH Measurements Intervals [place] Rate: 72 P: 10 MS: 162 QRS: -16 QRSD: 106 T: 7 QT: 423 QTc: 464 Interpretive Statements SINUS RHYTHM LOW QRS VOLTAGE IN PRECORDIAL LEADS [QRS DEFLECTION < 1.0 mV IN CHEST LEADS] INCOMPLETE RIGHT BUNDLE BRANCH BLOCK [90+ ms QRS DURATION, TERMINAL R IN V1/V2, 40+ ms S IN I/aVL/V4/V5/V6] LEFT VENTRICULAR HYPERTROPHY AND ST-T CHANGE [VOLTAGE CRITERIA PLUS ST/T ABNORMALITY] Compared to ECG 08/23/2025 16:56:07 Low QRS voltage now present Incomplete right bundle-branch block now present Left ventricular hypertrophy now present ST (T wave) deviation now present T-wave abnormality no longer present Electronically Signed On 08-24-2025 18:36:07 [employer] by IRAIDA RANDOLPH [email or web address]
[2025-08-23 23:19] LABS: Troponin 5 6HR 21.72 ng/L (0-15)
[2025-08-23 23:28] LABS: Troponin 5 6HR Delta -4.28 ng/L (0-12)
[2025-08-24] VITALS (11 sets, daily range): BP systolic 105–125; BP diastolic 67–82; PULSE 60–92; RESP 14–22; TEMP 36.4–37.2; O2SAT 91–98
--- NOTE | 2025-08-24 00:51 | PC.NURSE ---
pt difficult to rouse awake, cool and clammy and sweaty, BS 215, able to verbally respond by stating name and saying no to second dose of potassium, Dr. Mcclain notified and order to get ABG, and re-time potassium in the AM when pt is awake. stated pt has sleep apnea and let patient sleep for now, maintain 02 sat no less than 88%.
[2025-08-24 01:20] LABS: ABG PCO2 57.2 mmHg (35-45); ABG PH Result 7.42 (7.35-7.45); Alveolar-Arterial Oxygen Gradi 10.1 mmHg (5-10); Arterial Blood Gas Hematocrit 37.7 % (42-52); Blood Gas Allen Test Pos; Blood Gas LPM 3.0 %; Blood Gas Operator Identificat gerca; Blood Gas Sample Site Radial, left; Blood Gas Sample Type Arterial; Carboxyhemoglobin 0.9 %THgb (0.4-20.1); Glucose Level-ABG 238.0 mg/dL (70-115); HCO3 ABG 37.2 mmol/L (22-26); Ionized Calcium Level - ABG 1.1 mmol/L (1.1-1.4); Methemoglobin 1.3 % (0.4-1.5); Oxygen Saturation ABG 95.2; PO2 ABG 78.8 mmHg (80.0-100.0); PO2 FiO2 Ratio Arterial Blood 246; Potassium Level - ABG 3.8 mmol/L (3.5-5.0); Sodium Level - ABG 139.0 mmol/L (131-143)
[2025-08-24] MEDS: methylPREDNISolone sod succ 40 mg/mL INJ IVP ×4 (02:24→20:50)
[2025-08-24] MEDS: cefTRIAXone 1,000 mg SDV 1000 MG IVP (04:28)
[2025-08-24 04:44] LABS: Hematocrit 35.4 % (37-53); Hemoglobin 12.00 g/dL (11.27-16.99); Mean Corpuscular HGB Conc 33.9 g/dL (30-55); Mean Corpuscular Hemoglobin 30.8 pg (27-33); Mean Corpuscular Volume 91.0 fl (82-101); Nucleated Red Blood Cells % 0 %; Platelet Count 252 10^3/cmm (157-399); Red Blood Count 3.89 10^6/uL (3.85-5.65); White Blood Count 15.86 10^3/uL (3.29-11.43)
[2025-08-24 05:10] LABS: Magnesium 2.3 mg/dL (1.7-2.3)
[2025-08-24 05:17] LABS: Anion Gap 18.1 (5-19); Blood Urea Nitrogen 50 mg/dL (8-23); Calcium 8.6 mg/dL (8.5-10.5); Carbon Dioxide 33 mmol/L (22-29); Chloride 93 mmol/L (98-107); Glucose 278 mg/dL (65-115); Osmolality Calculated 313 mOsm/kg (285-295); Potassium 4.1 mmol/L (3.5-5.1); Sodium 140 mmol/L (136-145); Thyroid Stimulating Hormone 1.79 uIU/mL (0.27-4.20)
[2025-08-24 05:22] LABS: Estmated Average Glucose 171; Hemoglobin A1C 7.6 % (4.0-6.0)
[2025-08-24] MEDS: sodium chlor 0.9% + KCl 20 mEq 20 MEQ/1,000 ML BAG 100 MEQ IV ×2 (06:25→16:52)
--- NOTE | 2025-08-24 07:59 | P.PN_ITS ---
Subjective 2 Subjective: Patient is a very pleasant 70-year-old male seen and examined at bedside on hospital rounds today. Patient working with physical therapy, able to sit independently at the bedside but unable to stand independently, continues to have weakness. Patient states that he short of breath but denies chest pain or other new or worsening symptoms currently. Patient WBC improved 15.86, with concerns for aspiration pneumonia added broader atypical coverage with IV doxycycline. Speech therapy evaluated patient, high concern for aspiration placed on thickened liquids. Reviewed patient's vital signs, very stable on supplemental oxygen at 3 L/min. Will continue current interventions inpatient, all questions and concerns addressed with the patient at bedside today. Vitals/I&O/Wt Last Vital Signs Temp 98.4 F 08/24/25 05:24 Pulse 60 08/24/25 05:24 Resp 16 08/24/25 05:24 BP 111/75 08/24/25 05:24 Pulse Ox 95 08/24/25 05:24 O2 Del Method BiPAP 08/24/25 02:25 O2 Flow Rate 4 08/23/25 23:08 FiO2 40 08/24/25 04:00 08/23/25 08/24/25 08/24/25 22:59 06:59 14:59 Intake Total 1186.667 / 3186.667 Output Total 240 / 240 Balance 946.667 / 2946.667 Weight last 48 hrs Weight 100.879 kg Weight 100.924 kg Physical Exam 2 Const: COMMON NORMALS: patient oriented x3 HENMT: COMMON NORMALS: normocephalic, Normal external nose present and moist oral mucous membranes HEAD & SCALP: normocephalic NOSE: Normal external nose present Eye: COMMON NORMALS: Equal, round and reactive pupils present PUPIL: Yes Equal, round and reactive pupils present Resp: EFFORT & INSPECTION: Yes audible wheezes AUSCULTATION: wheezes and diminished lung sounds Cardio: COMMON NORMALS: S1 normal heart sound present and S2 normal heart sound present HEART SOUNDS: S1 normal heart sound present and S2 normal heart sound present GI: COMMON NORMALS: Normal to inspection, nondistended, normoactive bowel sounds present Extremity: NARRATIVE EXTREMITY EXAM: 1+ bilateral dependent edema noted, gene ralized weakness Neuro: COMMON NORMALS: patient oriented x3 OTHER: Unable to assess gait, and able to walk Psych: COMMON NORMALS: cooperative MOOD & AFFECT: Yes Flat affect present JUDGEMENT: Good judgement present (Psych) Skin: OTHER: Bilateral lower extremity with erythema Data 08/24/25 03:49 08/24/25 03:49 Micro: Microbiology 08/23/25 16:48 Blood Culture - Preliminary Blood SPECIMEN COLLECTED 08/23/25 16:48 Blood Culture - Preliminary Blood SPECIMEN COLLECTED A&P Assessment and plan 1. Acute and chronic respiratory failure with hypoxia: 2. COPD (chronic obstructive pulmonary disease): 3. Aspiration pneumonia: 4. Hypokalemia: Patient's diuretics will be held during his acute illness. 5. Dysphagia: Will consult speech therapy. He is on pur?ed diet with thickened liquids 6. Dehydration: Demonstrates acute kidney injury with BUN 60 creatinine 1.9 7. ELVIS (acute kidney injury): As above 2 L of saline bolus started in the ER he has received 1 and will receive the second 1 on the floor then NS with 20 mEq potassium chloride per liter to run at 100 cc an hour 8. Sleep apnea-like behavior: Recommend sleep study outpatient. If he is showing hypoxemia here will consider CPAP or BiPAP Plan: Acute on chronic hypoxic respiratory failure COPD exacerbation Aspiration pneumonia - WBC 20.20--<15.86 - Aspiration precautions, thickened liquids - Continue IV antibiotic therapy with Rocephin and doxycycline - PRN DuoNeb - Supplemental oxygen to keep O2 sat >90% Hypokalemia, resolved - Potassium 3.1--<3.8 - Replenish PRN, monitor Dysphagia Concern for aspiration - Greatly appreciate speech therapy evaluation and recommendations - Continue aspiration precautions, thickened liquids Volume depletion - Poor oral intake of food/fluids - Continue gentle IV fluid NS KCL 100mL/hr to 1L given hx of heart failure - Monitor volume status and replete PRN Chronic Diastolic Heart failure - Last echo April 2025 LVEF 60% with mild diastolic dysfunction. Hypertension CAD - Blood pressure 108/82 - Continue cardio-protective medications and monitor Gout - Previously on allopurinol - Does not appear to be in flare Concern for sleep apnea - Will need outpatient sleep study - Continue supportive measures Generalized weakness New ataxia - Fall precautions - Greatly appreciate PT/OT evaluation and recommendations VTE PPX: GI PPX: Code Status: Full code PDMP PDMP Reviewed: Not Reviewed Attestations 2 Medical Necessity Statement*: Patient is admitted to the hospital with pneumonia and dehydration and will require greater than 2 midnights in hospital Coding Level of Care Code 88546 Diagnoses Acute and chronic respiratory failure with hypoxia J96.21 COPD (chronic obstructive pulmonary disease) J44.9 Aspiration pneumonia J69.0 Hypokalemia E87.6 Dysphagia R13.10 Dehydration E86.0 ELVIS (acute kidney injury) N17.9 Sleep apnea-like behavior G47.39
--- NOTE | 2025-08-24 08:02 | PC.PHAR ---
Pt is a resident at [facility]
[2025-08-24] MEDS: doxycycline 100 MG in sodium chloride 0.9% (plus) 100 ML IV ×2 (08:44→20:50)
--- NOTE | 2025-08-24 13:06 | PC.SOCIAL ---
IMM Updated Updated pt on IMM. No questions. Provided pt a copy. Initialed, dated, & timed a copy & placed in chart.
--- NOTE | 2025-08-24 13:29 | PC.OT ---
Pt seen for OT evaluation sleeping soundly and unable to be aroused; will attempt again at later time.
[2025-08-25] VITALS (11 sets, daily range): BP systolic 100–145; BP diastolic 59–74; PULSE 55–66; RESP 17–23; TEMP 36.4–36.8; O2SAT 92–98
[2025-08-25] MEDS: sodium chlor 0.9% + KCl 20 mEq 20 MEQ/1,000 ML BAG 100 MEQ IV (02:46)
[2025-08-25] MEDS: methylPREDNISolone sod succ 40 mg/mL INJ IVP ×4 (02:46→21:12)
[2025-08-25 04:18] LABS: Anion Gap 15.5 (5-19); Blood Urea Nitrogen 62 mg/dL (8-23); Calcium 8.5 mg/dL (8.5-10.5); Carbon Dioxide 28 mmol/L (22-29); Chloride 99 mmol/L (98-107); Glucose 352 mg/dL (65-115); Osmolality Calculated 318 mOsm/kg (285-295); Potassium 4.5 mmol/L (3.5-5.1); Sodium 138 mmol/L (136-145)
[2025-08-25] MEDS: cefTRIAXone 1,000 mg SDV 1000 MG IVP (04:24)
--- NOTE | 2025-08-25 07:42 | P.PN_ITS ---
Subjective 2 Subjective: Very pleasant 70-year-old male seen and examined at bedside on hospital rounds today. Patient sitting up in bed on BiPAP stating that he just genuinely feels unwell, very weak. We have discontinued the patient's fluids given his heart failure, will resume cardioprotective medications as previously prescribed. Patient has elevated A1c and elevated glucose, treating for diabetes mellitus type 2 initiated on medium dose sliding scale insulin and will initiate on metformin at time of discharge. Greatly appreciate dietitian consultation and recommendations with diabetes education. WBC 18.64, hemoglobin 10.50, creatinine 1.2, glucose 352. Will continue current interventions inpatient, pending PT/OT recommendations will most likely need out patient PT/OT in the [place] [facility] on discharge. Vitals/I&O/Wt Last Vital Signs Temp 98.3 F 08/25/25 00:00 Pulse 55 L 08/25/25 04:23 Resp 17 08/25/25 00:00 BP 114/63 08/25/25 04:00 Pulse Ox 94 08/25/25 04:00 O2 Del Method Nasal Cannula 08/25/25 04:00 O2 Flow Rate 3 08/25/25 04:00 FiO2 40 08/24/25 23:40 08/24/25 08/25/25 08/25/25 22:59 06:59 14:59 Intake Total 1320 / 2140 1969 / 4110 Balance 1320 / 2140 1969 / 4110 Weight last 48 hrs Weight 102.058 kg Weight 100.879 kg Weight 100.924 kg Physical Exam 2 Const: COMMON NORMALS: patient oriented x3 HENMT: COMMON NORMALS: normocephalic, Normal external nose present and moist oral mucous membranes HEAD & SCALP: normocephalic NOSE: Normal external nose present Eye: COMMON NORMALS: Equal, round and reactive pupils present PUPIL: Yes Equal, round and reactive pupils present Resp: EFFORT & INSPECTION: Yes audible wheezes AUSCULTATION: wheezes and diminished lung sounds OTHER: Currently on BiPAP Cardio: COMMON NORMALS: S1 normal heart sound present and S2 normal heart sound present HEART SOUNDS: S1 normal heart sound present and S2 normal heart sound present GI: COMMON NORMALS: Normal to inspection, nondistended, normoactive bowel sounds present Extremity: NARRATIVE EXTREMITY EXAM: 1+ bilateral dependent edema noted, gene ralized weakness Neuro: COMMON NORMALS: patient oriented x3 OTHER: Unable to assess gait, unable to walk Psych: COMMON NORMALS: cooperative MOOD & AFFECT: Yes Flat affect present JUDGEMENT: Good judgement present (Psych) Skin: OTHER: Bilateral lower extremity with erythema Data 08/25/25 03:03 08/25/25 03:03 Micro: Microbiology 08/23/25 16:48 Blood Culture - Preliminary Blood NEGATIVE TO DATE 08/23/25 16:48 Blood Culture - Preliminary Blood NEGATIVE TO DATE A&P Assessment and plan 1. Acute and chronic respiratory failure with hypoxia: 2. COPD (chronic obstructive pulmonary disease): 3. Aspiration pneumonia: 4. Hypokalemia: Patient's diuretics will be held during his acute illness. 5. Dysphagia: Will consult speech therapy. He is on pur?ed diet with thickened liquids 6. Dehydration: Demonstrates acute kidney injury with BUN 60 creatinine 1.9 7. ELVIS (acute kidney injury): As above 2 L of saline bolus started in the ER he has received 1 and will receive the second 1 on the floor then NS with 20 mEq potassium chloride per liter to run at 100 cc an hour 8. Sleep apnea-like behavior: Recommend sleep study outpatient. If he is showing hypoxemia here will consider CPAP or BiPAP Plan: Acute on chronic hypoxic respiratory failure COPD exacerbation Aspiration pneumonia - WBC 20.20--<15.86--<18.64 - Aspiration precautions, thickened liquids - Continue IV antibiotic therapy with Rocephin and doxycycline - PRN DuoNeb - Supplemental oxygen to keep O2 sat >90% Hypokalemia, resolved - Potassium 3.1--<3.8--<4.5 - Replenish PRN, monitor Dysphagia Concern for aspiration - Greatly appreciate speech therapy evaluation and recommendations - Continue aspiration precautions, thickened liquids Volume depletion, resolved - Poor oral intake of food/fluids - Finished gentle IV fluid NS KCL 100mL/hr to 1L given hx of heart failure - Monitor volume status and replete PRN Chronic Diastolic Heart failure - Last echo April 2025 LVEF 60% with mild diastolic dysfunction. - Resume cardio-protective medications today DM-II - A1C: 7.9 - Medium dose sliding scale insulin, POC - Initiate on metformin at discharge - Greatly appreciate dietitian and diabetes education Hypertension CAD - Blood pressure 100/59 - Continue cardio-protective medications and monitor Gout - Previously on allopurinol - Does not appear to be in flare Concern for sleep apnea - Will need outpatient sleep study - Continue supportive measures Generalized weakness New ataxia - Fall precautions - Greatly appreciate PT/OT evaluation and recommendations, will most likely need to be continued when returned to the [place] [facility]. VTE PPX: GI PPX: Code Status: Full code PDMP PDMP Reviewed: Not Reviewed Attestations 2 Medical Necessity Statement*: Patient is admitted to the hospital with pneumonia and dehydration and will require greater than 2 midnights in hospital Coding Level of Care Code 04275 Diagnoses Acute and chronic respiratory failure with hypoxia J96.21 COPD (chronic obstructive pulmonary disease) J44.9 Aspiration pneumonia J69.0 Hypokalemia E87.6 Dysphagia R13.10 Dehydration E86.0 ELVIS (acute kidney injury) N17.9 Sleep apnea-like behavior G47.39
[2025-08-25 07:44] LABS: Hematocrit 31.1 % (37-53); Hemoglobin 10.50 g/dL (11.27-16.99); Mean Corpuscular HGB Conc 33.8 g/dL (30-55); Mean Corpuscular Hemoglobin 31.3 pg (27-33); Mean Corpuscular Volume 92.8 fl (82-101); Nucleated Red Blood Cells % 0 %; Platelet Count 253 10^3/cmm (157-399); Red Blood Count 3.35 10^6/uL (3.85-5.65); White Blood Count 18.64 10^3/uL (3.29-11.43)
[2025-08-25] MEDS: doxycycline 100 MG in sodium chloride 0.9% (plus) 100 ML IV ×2 (08:09→19:49)
[2025-08-26] VITALS (10 sets, daily range): BP systolic 100–131; BP diastolic 67–87; PULSE 56–85; RESP 16–22; TEMP 36.9–37.1; O2SAT 92–97
[2025-08-26] MEDS: methylPREDNISolone sod succ 40 mg/mL INJ IVP ×4 (02:58→21:10)
--- NOTE | 2025-08-26 04:36 | PC.NURSE ---
Pt HR dips down to 40's-50's. Dr. Mcclain notified and said to hold Coreg this morning. Physician notification put in.
[2025-08-26 05:07] LABS: Hematocrit 31.6 % (37-53); Hemoglobin 10.60 g/dL (11.27-16.99); Mean Corpuscular HGB Conc 33.5 g/dL (30-55); Mean Corpuscular Hemoglobin 30.7 pg (27-33); Mean Corpuscular Volume 91.6 fl (82-101); Nucleated Red Blood Cells % 0 %; Platelet Count 295 10^3/cmm (157-399); Red Blood Count 3.45 10^6/uL (3.85-5.65); White Blood Count 17.61 10^3/uL (3.29-11.43)
[2025-08-26 05:33] LABS: Anion Gap 14.3 (5-19); Blood Urea Nitrogen 53 mg/dL (8-23); Calcium 8.9 mg/dL (8.5-10.5); Carbon Dioxide 33 mmol/L (22-29); Chloride 98 mmol/L (98-107); Glucose 212 mg/dL (65-115); Osmolality Calculated 313 mOsm/kg (285-295); Potassium 4.3 mmol/L (3.5-5.1); Sodium 141 mmol/L (136-145)
[2025-08-26] MEDS: cefTRIAXone 1,000 mg SDV 1000 MG IVP (05:34)
--- NOTE | 2025-08-26 07:50 | P.PN_ITS ---
Subjective 2 Subjective: Very pleasant 70-year-old male seen and examined at bedside on hospital rounds today. Patient sitting up in bed stating shortness of breath continues and weakness, denies new or worsening symptoms. Review labs mildly improved WBC 17.61, hemoglobin 10.60, creatinine 1.0, BUN 53. Pending VBG. Vital signs are stable blood pressure 100/87, O2 sat 97% currently on nasal cannula. Patient will need authorization for SNF to return to the intermediate, greatly appreciate case management and discharge planning expect discharge within the next 24 to 48 hours depending on insurance and authorization. Vitals/I&O/Wt Last Vital Signs Temp 98.4 F 08/26/25 05:00 Pulse 64 08/26/25 06:09 Resp 17 08/26/25 05:00 BP 123/77 08/26/25 05:00 Pulse Ox 96 08/26/25 05:00 O2 Del Method Nasal Cannula 08/25/25 16:37 O2 Flow Rate 4 08/25/25 19:58 FiO2 40 08/26/25 00:20 08/25/25 08/26/25 08/26/25 22:59 06:59 14:59 Intake Total 220 / 800 1200 / 2000 Balance 220 / 800 1200 / 2000 Weight last 48 hrs Weight 102.058 kg Weight 102.058 kg Physical Exam 2 Const: COMMON NORMALS: patient oriented x3 HENMT: COMMON NORMALS: normocephalic, Normal external nose present and moist oral mucous membranes HEAD & SCALP: normocephalic NOSE: Normal external nose present Eye: COMMON NORMALS: Equal, round and reactive pupils present PUPIL: Yes Equal, round and reactive pupils present Resp: EFFORT & INSPECTION: Yes audible wheezes AUSCULTATION: wheezes and diminished lung sounds OTHER: Nasal cannula Cardio: COMMON NORMALS: S1 normal heart sound present and S2 normal heart sound present HEART SOUNDS: S1 normal heart sound present and S2 normal heart sound present GI: COMMON NORMALS: Normal to inspection, nondistended, normoactive bowel sounds present Extremity: NARRATIVE EXTREMITY EXAM: 1+ bilateral dependent edema noted, gene ralized weakness Neuro: COMMON NORMALS: patient oriented x3 OTHER: Unable to assess gait, unable to walk Psych: COMMON NORMALS: cooperative MOOD & AFFECT: Yes Flat affect present JUDGEMENT: Good judgement present (Psych) Skin: OTHER: Bilateral lower extremity with erythema Data 08/26/25 04:30 08/26/25 04:30 Micro: Microbiology 08/23/25 18:58 Urine Culture - Final Urine,Clean Catch A&P Assessment and plan 1. Acute and chronic respiratory failure with hypoxia: 2. COPD (chronic obstructive pulmonary disease): 3. Aspiration pneumonia: 4. Hypokalemia: Patient's diuretics will be held during his acute illness. 5. Dysphagia: Will consult speech therapy. He is on pur?ed diet with thickened liquids 6. Dehydration: 7. ELVIS (acute kidney injury): 8. Sleep apnea-like behavior: Plan: Acute on chronic hypoxic respiratory failure COPD exacerbation Aspiration pneumonia - WBC 20.20--<15.86--<18.64--<17.61 - Aspiration precautions, thickened liquids - Continue IV antibiotic therapy with Rocephin and doxycycline - PRN DuoNeb - Supplemental oxygen to keep O2 sat >90% Hypokalemia, resolved - Potassium 3.1--<3.8--<4.5--<4.3 - Replenish PRN, monitor Dysphagia Concern for aspiration - Greatly appreciate speech therapy evaluation and recommendations - Continue aspiration precautions, pur?ed diet with thickened liquids Volume depletion, resolved - Poor oral intake of food/fluids - Finished gentle IV fluid NS KCL 100mL/hr to 1L given hx of heart failure - Monitor volume status and replete PRN Chronic Diastolic Heart failure - Last echo April 2025 LVEF 60% with mild diastolic dysfunction. - Resume cardio-protective medications today DM-II, newly diagnosed - A1C: 7.9 - Medium dose sliding scale insulin, POC - Initiate on metformin at discharge - Greatly appreciate dietitian and diabetes education Hypertension CAD - Blood pressure 100/87 - Continue cardio-protective medications and monitor Gout - Previously on allopurinol - Does not appear to be in flare Concern for sleep apnea - Will need outpatient sleep study - Continue supportive measures Generalized weakness New ataxia - Fall precautions - Greatly appreciate PT/OT evaluation and recommendations, will most likely need to be continued when returned to the intermediate. VTE PPX: GI PPX: Code Status: Full code PDMP PDMP Reviewed: Not Reviewed Attestations 2 Medical Necessity Statement*: Patient is admitted to the hospital with pneumonia and dehydration and will require greater than 2 midnights in hospital Coding Level of Care Code 96169 Diagnoses Acute and chronic respiratory failure with hypoxia J96.21 COPD (chronic obstructive pulmonary disease) J44.9 Aspiration pneumonia J69.0 Hypokalemia E87.6 Dysphagia R13.10 Dehydration E86.0 ELVIS (acute kidney injury) N17.9 Sleep apnea-like behavior G47.39
[2025-08-26] MEDS: doxycycline 100 MG in sodium chloride 0.9% (plus) 100 ML IV ×2 (09:34→19:44)
--- NOTE | 2025-08-26 09:38 | PC.NURSE ---
Patient pulled out the IV in his left hand, new line inserted in R forearm
[2025-08-26 11:15] LABS: Base Excess VBG 6.8 mmol/L (-3.0-3.0); Blood Gas Operator Identificat glc; Blood Gas Sample Site Not specified; Blood Gas Sample Type Venous; HCO3 VBG 31.2 mmol/L (24-28); PCO2 VBG 42.8 mmHg (41-51); PO2 VBG 52.9 mmHg (25-40); Venous Blood Gas Hematocrit 37.7 % (42-52); pH VBG 7.47 (7.32-7.42)
[2025-08-27] VITALS (9 sets, daily range): BP systolic 111–164; BP diastolic 71–93; PULSE 46–101; RESP 17–21; TEMP 36.5–36.8; O2SAT 91–94
[2025-08-27] MEDS: methylPREDNISolone sod succ 40 mg/mL INJ IVP ×2 (03:10→08:22)
[2025-08-27] MEDS: cefTRIAXone 1,000 mg SDV 1000 MG IVP (05:11)
--- NOTE | 2025-08-27 05:23 | PC.NURSE ---
Pt HR dips down to 40's-50's. Dr. Mcclain notified and said to hold Coreg this morning. Physician notification put in.
[2025-08-27 05:42] LABS: Hematocrit 34.8 % (37-53); Hemoglobin 12.00 g/dL (11.27-16.99); Mean Corpuscular HGB Conc 34.5 g/dL (30-55); Mean Corpuscular Hemoglobin 31.4 pg (27-33); Mean Corpuscular Volume 91.1 fl (82-101); Nucleated Red Blood Cells % 0 %; Platelet Count 304 10^3/cmm (157-399); Red Blood Count 3.82 10^6/uL (3.85-5.65); White Blood Count 15.19 10^3/uL (3.29-11.43)
[2025-08-27 06:04] LABS: Alanine Aminotransferase 10 U/L (0-41); Albumin Level 3.5 g/dL (3.5-5.2); Alkaline Phosphatase 66 U/L (40-130); Anion Gap 15.4 (5-19); Aspartate Amino Transferase 11 U/L (0-40); Blood Urea Nitrogen 54 mg/dL (8-23); Calcium 9.3 mg/dL (8.5-10.5); Carbon Dioxide 31 mmol/L (22-29); Chloride 98 mmol/L (98-107); Globulin 3.1 g/dL (1.3-4.6); Glucose 180 mg/dL (65-115); Magnesium 2.2 mg/dL (1.7-2.3); Osmolality Calculated 309 mOsm/kg (285-295); Potassium 4.4 mmol/L (3.5-5.1); Sodium 140 mmol/L (136-145); Total Protein 6.6 g/dL (6.6-8.7)
[2025-08-27] MEDS: doxycycline 100 MG in sodium chloride 0.9% (plus) 100 ML IV (08:23)
--- NOTE | 2025-08-27 09:33 | P.DS_ITS ---
Discharge Providers Date of Admission: 08/23/25 19:33 Date of Discharge: August 27, 2025 Attending Provider at Admission: Iftikhar Alicea MD Attending Provider at Discharge: Daksha Whitlock NP Primary Care Provider: Crow Rodas MD Diagnoses at Discharge Discharge Diagnosis 1. Acute and chronic respiratory failure with hypoxia: 2. COPD (chronic obstructive pulmonary disease): 3. Aspiration pneumonia: 4. Hypokalemia: 5. Dysphagia: 6. Dehydration: 7. ELVIS (acute kidney injury): 8. Sleep apnea-like behavior: Reason for Visit Reason for Visit: failure to thrive - possible asppiration Brief History: Admission: Arnaldo Chacon is a 70 year old male resides at [facility] in [facility]. His next of kin is his son Zenon. Patient states that he has had moist sounding cough but not bringing anything up for the last few days. He has any increasing shortness of breath. He was last able to walk with a walker about 2 weeks ago. He denies fevers chills or sweats. He has some pleuritic pain just with coughing. He states this is mild. He has not had diarrhea constipation or myalgias. Patient reports history of strokes last one about 6 months ago. He is on Plavix. He did not recall that he was on aspirin and apixaban as well. Tobacco was quit 1 year ago after smoking 60 years. Hospital Course Hospital Course Acute on chronic hypoxic respiratory failure COPD exacerbation Aspiration pneumonia - WBC 20.20--<15.86--<18.64--<17.61 - Aspiration precautions, thickened liquids - Continue IV antibiotic therapy with Rocephin and doxycycline - PRN DuoNeb - Supplemental oxygen to keep O2 sat >90% Hypokalemia, resolved - Potassium 3.1--<3.8--<4.5--<4.3 - Replenish PRN, monitor Dysphagia Concern for aspiration - Greatly appreciate speech therapy evaluation and recommendations - Continue aspiration precautions, pur?ed diet with thickened liquids Volume depletion, resolved - Poor oral intake of food/fluids - Finished gentle IV fluid NS KCL 100mL/hr to 1L given hx of heart failure - Monitor volume status and replete PRN Chronic Diastolic Heart failure - Last echo April 2025 LVEF 60% with mild diastolic dysfunction. - Resume cardio-protective medications today DM-II, newly diagnosed - A1C: 7.9 - Medium dose sliding scale insulin, POC - Initiate on metformin at discharge - Greatly appreciate dietitian and diabetes education Hypertension CAD - Blood pressure 100/87 - Continue cardio-protective medications and monitor Gout - Previously on allopurinol - Does not appear to be in flare Concern for sleep apnea - Will need outpatient sleep study - Continue supportive measures Generalized weakness New ataxia - Fall precautions - Greatly appreciate PT/OT evaluation and recommendations, will most likely need to be continued [facility]. Discharge: [facility] to [facility] with referral for care home with PT/OT to continue. Patient stated he wanted to discharge today, stated that we still are waiting for authorization but this can be completed at the pen[facility]iary as well. Will continue oral antibiotic therapy, nebulizer, and home medications as previously prescribed. Patient will continue aspiration precautions, pur?ed diet with thickened liquids Patient is also started on metformin and will need continued monitoring through primary care provider at the [facility]. All questions and concerns addressed with the patient prior to discharge. Physical Exam Const: COMMON NORMALS: patient oriented x3 HENMT: COMMON NORMALS: normocephalic, Normal external nose present and moist oral mucous membranes HEAD & SCALP: normocephalic NOSE: Normal external nose present Eye: COMMON NORMALS: Equal, round and reactive pupils present PUPIL: Yes Equal, round and reactive pupils present Resp: EFFORT & INSPECTION: Yes audible wheezes AUSCULTATION: wheezes and diminished lung sounds OTHER: Nasal cannula Cardio: COMMON NORMALS: S1 normal heart sound present and S2 normal heart sound present HEART SOUNDS: S1 normal heart sound present and S2 normal heart sound present GI: COMMON NORMALS: Normal to inspection, nondistended, normoactive bowel sounds present Extremity: NARRATIVE EXTREMITY EXAM: trace bilateral dependent edema noted, generalized weakness Neuro: COMMON NORMALS: patient oriented x3 OTHER: Unable to assess gait, unable to walk Psych: COMMON NORMALS: cooperative MOOD & AFFECT: Yes Flat affect present JUDGEMENT: Good judgement present (Psych) Skin: OTHER: Bilateral lower extremity with erythema Discharge Data Studies Completed and Pending Completed Studies During Hospitalization Category Date Time Status CT head wo con* [id number] Stat Cat Scan 08/23/25 16:13 Completed XR chest 1V portable [id number] Stat Exams 08/23/25 16:12 Completed Pending at discharge Category Date Time Status Blood Culture Stat Lab 08/23/25 16:48 Results Comprehensive Metabolic Panel AM LABS Lab 08/28/25 04:00 Ordered Comprehensive Metabolic Panel AM LABS Lab 08/29/25 04:00 Ordered Radiology Impressions Chest X-Ray 08/23/25 16:12 IMPRESSION: Interval atelectasis in the left lower lung chest otherwise unchanged. Head CT 08/23/25 16:13 IMPRESSION: 1. No acute intracranial head CT findings identified. 2. Prominent remote right cerebral ischemic changes involving the basal ganglia and right parietal regions. 3. Atrophy/involutional changes of aging with moderately prominent components of chronic small-vessel disease. 4. Sinusitis. Laboratory Results WBC 15.19 10^3/uL (3.29-11.43) H 08/27/25 05:00 RBC 3.82 10^6/uL (3.85-5.65) L 08/27/25 05:00 Hgb 12.00 g/dL (11.27-16.99) 08/27/25 05:00 Hct 34.8 % (37-53) L 08/27/25 05:00 MCV 91.1 fl (82-101) 08/27/25 05:00 MCH 31.4 pg (27-33) 08/27/25 05:00 MCHC 34.5 g/dL (30-55) 08/27/25 05:00 RDW 11.9 % (12.1-15.1) L 08/27/25 05:00 Plt Count 304 10^3/cmm (157-399) 08/27/25 05:00 MPV 9.5 fL (7.4-10.4) 08/27/25 05:00 Neut % (Auto) 83.5 % 08/27/25 05:00 Lymph % (Auto) 10.1 % 08/27/25 05:00 [place] % (Auto) 4.8 % 08/27/25 05:00 Eos % (Auto) 0.0 % 08/27/25 05:00 Baso % (Auto) 0.1 % 08/27/25 05:00 Neut # (Auto) 12.68 10^3/uL (1.8-7.7) H 08/27/25 05:00 Lymph # (Auto) 1.5 10^3/uL (0.8-4.8) 08/27/25 05:00 [place] # (Auto) 0.7 10^3/uL (0.2-0.9) 08/27/25 05:00 Eos # (Auto) 0.0 10^3/uL (0.0-0.8) 08/27/25 05:00 Baso # (Auto) 0.0 10^3/uL (0.0-0.1) 08/27/25 05:00 Nucleated RBC % (auto) 0 % 08/27/25 05:00 Nucleated RBCs # 0.0 /100WBC 08/27/25 05:00 Specimen Type Venous 08/26/25 11:05 Sample Site Not specified 08/26/25 11:05 ABG pH 7.42 (7.35-7.45) 08/24/25 01:06 ABG pCO2 57.2 mmHg (35-45) H 08/24/25 01:06 ABG pO2 78.8 mmHg (80.0-100.0) L 08/24/25 01:06 ABG PO2/FiO2 Ratio 246 08/24/25 01:06 ABG HCO3 37.2 mmol/L (22-26) H 08/24/25 01:06 ABG O2 Saturation 95.2 08/24/25 01:06 ABG Base Excess 10.7 mmol/L (-2.0-2.0) H 08/24/25 01:06 Brayan Test N/a 08/26/25 11:05 VBG pH 7.47 (7.32-7.42) H 08/26/25 11:05 VBG pCO2 42.8 mmHg (41-51) 08/26/25 11:05 VBG pO2 52.9 mmHg (25-40) H 08/26/25 11:05 VBG HCO3 31.2 mmol/L (24-28) H 08/26/25 11:05 VBG Base Excess 6.8 mmol/L (-3.0-3.0) H 08/26/25 11:05 VBG Hematocrit 37.7 % (42-52) L 08/26/25 11:05 A-a O2 Gradient 10.1 mmHg (5-10) H 08/24/25 01:06 Hematocrit 37.7 % (42-52) L 08/24/25 01:06 Hgb O2 Saturation 93.1 % (95-100) L 08/24/25 01:06 Carboxyhemoglobin 0.9 %THgb (0.4-20.1) 08/24/25 01:06 Methemoglobin 1.3 % (0.4-1.5) 08/24/25 01:06 Total Hemoglobin 12.3 g/dL (14-18) L 08/24/25 01:06 Sodium 139.0 mmol/L (131-143) 08/24/25 01:06 Potassium 3.8 mmol/L (3.5-5.0) 08/24/25 01:06 Glucose 238.0 mg/dL (70-115) H 08/24/25 01:06 Ionized Calcium 1.1 mmol/L (1.1-1.4) 08/24/25 01:06 O2 Delivery Device Not Reportable 08/26/25 11:05 O2 Liters/Min 3.0 % 08/24/25 01:06 FiO2 32.0 % 08/24/25 01:06 Information Security Engineer ID [email or web address] 08/26/25 11:05 Sodium 140 mmol/L (136-145) 08/27/25 05:00 Potassium 4.4 mmol/L (3.5-5.1) 08/27/25 05:00 Chloride 98 mmol/L (98-107) 08/27/25 05:00 Carbon Dioxide 31 mmol/L (22-29) H 08/27/25 05:00 Anion Gap 15.4 (5-19) 08/27/25 05:00 BUN 54 mg/dL (8-23) H 08/27/25 05:00 Creatinine 1.1 mg/dL (0.7-1.2) 08/27/25 05:00 GFR Calculation Not Reportable 08/27/25 05:00 Glucose 180 mg/dL (65-115) H 08/27/25 05:00 POC Glucose 216 mg/dL (70-110) H 08/27/25 06:56 Estimat Average Glucose 171 08/24/25 03:49 Hemoglobin A1c 7.6 % (4.0-6.0) H 08/24/25 03:49 Calculated Osmolality 309 mOsm/kg (285-295) H 08/27/25 05:00 Lactic Acid 1.7 mmol/L (0.5-2.2) 08/23/25 16:48 Calcium 9.3 mg/dL (8.5-10.5) 08/27/25 05:00 Phosphorus 3.6 mg/dL (2.5-4.5) 08/24/25 03:49 Magnesium 2.2 mg/dL (1.7-2.3) 08/27/25 05:00 Total Bilirubin 0.3 mg/dL (0.15-1.2) 08/27/25 05:00 AST 11 U/L (0-40) 08/27/25 05:00 ALT 10 U/L (0-41) 08/27/25 05:00 Alkaline Phosphatase 66 U/L (40-130) 08/27/25 05:00 Troponin T Baseline 26 ng/L (0-15) H 08/23/25 16:48 Troponin T 60 Minute 24.60 ng/L (0-15) H 08/23/25 17:38 Delta Troponin T -1.40 ABS# (0-10) L 08/23/25 17:38 Troponin T Hi Sens 6Hr 21.72 ng/L (0-15) H 08/23/25 22:49 Troponin T Hi Sens 6Hr Delta -4.28 ng/L (0-12) L 08/23/25 22:49 NT-Pro-B Natriuret Pep 109 pg/mL (0-125) 08/23/25 16:48 Total Protein 6.6 g/dL (6.6-8.7) 08/27/25 05:00 Albumin 3.5 g/dL (3.5-5.2) 08/27/25 05:00 Globulin 3.1 g/dL (1.3-4.6) 08/27/25 05:00 Procalcitonin 0.12 ng/mL (0-0.5) 08/23/25 17:38 TSH 1.79 uIU/mL (0.27-4.20) 08/24/25 03:49 Urine Color Yellow (Yellow) 08/23/25 18:58 Urine Appearance Clear (CLEAR) 08/23/25 18:58 Urine pH 5.5 (5-7) 08/23/25 18:58 Ur Specific [place] 1.012 (1.005-1.030) 08/23/25 18:58 Urine Protein Negative (Negative) 08/23/25 18:58 Urine Glucose (UA) Negative (Normal) 08/23/25 18:58 Urine Ketones Negative (Negative) 08/23/25 18:58 Urine Blood 2+ (Negative) A 08/23/25 18:58 Urine Nitrate Negative (Negative) 08/23/25 18:58 Urine Bilirubin Negative (Negative) 08/23/25 18:58 Urine Urobilinogen 1.0 mg/dL (Negative) 08/23/25 18:58 Ur Leukocyte Esterase Negative (Negative) 08/23/25 18:58 Urine RBC 21-50 /hpf (0-2) H 08/23/25 18:58 Urine WBC 0-5 /hpf (0-5) 08/23/25 18:58 Ur Squamous Epith Cells 0-5 /hpf (0-5) 08/23/25 18:58 Amorphous Sediment Not Reportable 08/23/25 18:58 Urine Bacteria None seen /hpf (NONE) 08/23/25 18:58 Hyaline Casts 7.01 /lpf 08/23/25 18:58 Influenza A (PCR) Negative (Negative) 08/23/25 17:17 Influenza Type B (PCR) Negative (Negative) 08/23/25 17:17 RSV (PCR) Negative (Negative) 08/23/25 17:17 SARS-CoV-2 (PCR) Negative (Negative) 08/23/25 17:17 Vitals Last Vital Signs Temp 97.7 F 08/27/25 07:26 Pulse 65 08/27/25 08:10 Resp 18 08/27/25 08:10 BP 111/72 08/27/25 07:26 Pulse Ox 94 08/27/25 08:10 O2 Del Method Nasal Cannula 08/27/25 08:10 O2 Flow Rate 4 08/27/25 08:10 FiO2 40 08/26/25 00:20 Discharge Plan Discharge Patient Disposition: Xfer SNF Condition: Stable Prescriptions: New doxycycline hyclate 100 mg tablet 100 mg PO BID 7 Days Qty: 14 0RF metformin 500 mg tablet 500 mg PO BIDWMEAL 30 Days Qty: 60 0RF cefdinir 300 mg capsule 300 mg PO BID 5 Days Qty: 10 0RF Continued carvedilol 3.125 mg Tablet 3.125 mg PO BID Qty: 180 0RF clopidogrel 75 mg tablet 75 mg PO DAILY Qty: 90 0RF olanzapine 10 mg tablet 10 mg PO DAILY Qty: 30 0RF potassium chloride [Klor-Con 10] 10 mEq tablet extended release 10 meq PO DAILY Qty: 90 0RF celecoxib 200 mg capsule 200 mg PO BID furosemide 40 mg tablet 40 mg PO BID atorvastatin 20 mg tablet 20 mg PO BEDTIME albuterol sulfate 2.5 mg /3 mL (0.083 %) solution for nebulization 2.5 mg continuous nebulization Q6H PRN (Reason: Shortness Of Breath) divalproex 250 mg tablet,delayed release (DR/EC) 250 mg PO TID allopurinol 100 mg tablet 100 mg PO DAILY guaifenesin [Margarita-Tussin] 100 mg/5 mL Liquid 300 mg PO Q4H PRN (Reason: cough/congestion) cyanocobalamin (vitamin B-12) 1,000 mcg/mL solution See Rx Instructions .ROUTE .COMPLEX Rx Instructions: Inject 1,000 mcg intramuscularly every month. fluticasone propion-salmeterol 500-50 mcg/dose blister with device 1 inh INHALATION BID cholecalciferol (vitamin D3) [Vitamin D3] 125 mcg (5,000 unit) Tablet 125 mcg PO DAILY Eliquis 5 mg tablet 5 mg PO BID Held ibuprofen 200 mg Tablet 400 mg PO TID Hold Instructions: Resume on 09/13/25. Reviewed with PCP before resuming Discharge Order = DC NOW: Discharge Order (Routine); Ordered 08/27/25 Ordered By: Daksha Whitlock Referrals: Crow Rodas MD [Primary Care Provider, [facility]] - 1-3 days Discharge Diet: Cardiac and Diabetic Discharge Activity: Resume usual activity Patient Instructions: Patient Portal & Padma Instructions Activity Restrictions/Additional Instructions: Continue aspiration precautions, pur?ed diet with thickened liquids Discharge Attestations Time Spent in Discharge Care*: greater than 30 min Quality Metrics Clinical Quality Measures [ No reported AMI, CVA or VTE this stay] Coding Level of Care Code Acute Code for Chg Fwd Diagnoses Acute and chronic respiratory failure with hypoxia J96.21 COPD (chronic obstructive pulmonary disease) J44.9 Aspiration pneumonia J69.0 Hypokalemia E87.6 Dysphagia R13.10 Dysphagia type: unspecified Dehydration E86.0 ELVIS (acute kidney injury) N17.9 Sleep apnea-like behavior G47.39
--- NOTE | 2025-08-27 11:18 | PC.NURSE ---
Awaiting [facility] Milton to pick pt up. ETA 1300.
--- NOTE | 2025-08-27 12:27 | PC.NURSE ---
This nurse gave report to SCOTT Balderas at [facility] at 1228. They will be coming to get pt shortly.
--- NOTE | 2025-08-27 12:55 | PC.SOCIAL ---
IMM Update pg 2 of IMM updated and reviewed w/ patient. Copy provided and copy dated, initialed and placed in chart.
== END 2025-08-27 14:28 | disposition skilled nursing facility (03) | DRG 177 ==
LOC: ER 18:37 → MEDSURG 19:34
PROVIDERS: Internal Medicine; Admitting Provider Student in an Organized Health Care Education/Training Program; Emergency Provider Emergency Medicine; PCP Family Medicine; Visit Provider Registered Nurse
DX: J69.0 Pneumonitis due to inhalation of food and vomit (principal); J96.21 Acute and chronic respiratory failure with hypoxia; N17.9 Acute kidney failure, unspecified; I50.32 Chronic diastolic (congestive) heart failure; J44.1 Chronic obstructive pulmonary disease with (acute) exacerbation; E87.6 Hypokalemia; R13.10 Dysphagia, unspecified; E86.0 Dehydration; G47.39 Other sleep apnea; I11.0 Hypertensive heart disease with heart failure; E11.9 Type 2 diabetes mellitus without complications; I25.10 Atherosclerotic heart disease of native coronary artery without angina pectoris; M10.9 Gout, unspecified; R27.0 Ataxia, unspecified; E66.9 Obesity, unspecified; E78.5 Hyperlipidemia, unspecified; Z79.02 Long term (current) use of antithrombotics/antiplatelets; Z79.01 Long term (current) use of anticoagulants; Z79.84 Long term (current) use of oral hypoglycemic drugs; Z86.73 Personal history of transient ischemic attack (TIA), and cerebral infarction without residual deficits; Z87.891 Personal history of nicotine dependence; Z68.35 Body mass index [BMI] 35.0-35.9, adult; Z82.49 Family history of ischemic heart disease and other diseases of the circulatory system
CPT/HCPCS: 36415; 36416; 36600; 70450; 71045; 80048; 80051; 80053; 81001; 82330; 82803; 82805; 82962; 83036; 83605; 83735; 83880; 84100; 84145; 84443; 84484; 85025; 87040; 87086; 87637; 92523; 92610; 93005; 94640; 94660; 94664; 96361; 96372; 96374; 97110; 97162; 97165; 97530; 99285; J0696; J1815; J2919; J3480; J3490; J7030; J9999; Q0144